=== PATIENT | female | born 1950 | race Caucasian/White ===

== ENCOUNTER → 2019-09-26 12:15 | Outpatient (CLI) | payer MEDICARE, BC, SELFPAY ==
--- NOTE | ~2019-09-26 | MM_ITS ---
EXAMINATION: MM screening moise BI w marline HISTORY: Screening mammogram TECHNIQUE: Craniocaudal and mediolateral oblique 3-D tomosynthesis images were obtained and synthetic 2-D images were generated. CAD analysis was submitted and interpreted. COMPARISON: 08/08/2018, 07/19/2016, 08/15/2014 bilateral digital screening mammogram examinations BREAST PARENCHYMAL COMPOSITION: There are scattered areas of fibroglandular density. FINDINGS: There is no evidence of suspicious mass, calcification, or architectural distortion to sugg est malignancy in either breast. There has been no suspicious interval change. IMPRESSION: 1. No mammographic evidence of malignancy. 2. Recommend routine screening mammography in one year. BI-RADS Category 1: Negative Reviewed, dictated and finalized at location A. UNICATIONS DEPARTMENT CHAIR
--- NOTE | ~2019-09-26 | DEXA_ITS ---
Bone Density Report Name: Joanna Gallardo Age: 69 Sex: Female Ethnicity: White Date of : 1950 Indication: postmenopausal; screening for osteoporosis; asthma or emphysema; Referring Provider: VICTORIA BELTRAN Study: Bone densitometry was performed. Exam Date: September 26, 2019 Accession number: [id number] Bone Density: Region BMD T-score Z-score Classification AP Spine (L1-L4) 1.078 0.3 2.3 Normal Femoral Neck (Left) 0.819 -0.3 1.5 Normal Total Hip (Left) 0.939 0.0 1.4 Normal Femoral Neck (Right) 0.859 0.1 1.9 Normal Total Hip (Right) 0.952 0.1 1.6 Normal Total Hip Mean 0.946 0.1 1.5 Normal World Health Organization criteria for BMD impression classify patients as: Normal (T-score at or above -1.0), Osteopenia (T-score between -1.0 and -2.5), or Osteoporosis (T-score at or below -2.5). 10-year Fracture Risk: FRAX not reported because: All T-scores for Spine Total, Hip Total, Femoral Neck at or above -1.0 Previous Exams: Region Exam Age BMD T-score BMD Change BMD Change Date g/cm2 vs Baseline vs Previous AP Spine(L1-L4) 09/26/2019 69 1.078 0.3 -0.071* -0.071* 03/10/2011 60 1.149 0.9 Total Hip(Left) 09/26/2019 69 0.939 0.0 -0.206 -0.081* 03/10/2011 60 1.020 0.6 -0.125 -0.125 09/14/2002 52 1.144 1.7 Total Hip(Right) 09/26/2019 69 0.952 0.1 -0.180 -0.060* 03/10/2011 60 1.012 0.6 -0.120 -0.120 09/14/2002 52 1.132 1.6 *Denotes significance at 95% confidence level, LSC for AP Spine = 0.022 g/cm2, LSC for Total Hip = 0.027 g/cm2 Clinical Information Provided by Patient: Has the following medical conditions: Asthma or Emphysema Patient maximum height was 62.0 Menopause Age: 49 No regular weight bearing exercise Drinks caffeinated beverages Onset of menses at age 15 Number of children 3 Impression: The patient has normal bone mass. The BMD for the AP Spine(L1-L4) decreased, changing by -0.071 since the last DXA exam. The BMD for the Total Hip(Left) decreased, changing by -0.081 since the last DXA exam. The BMD for the Total Hip(Right) decreased, changing by -0.060 since the last DXA exam. Discussion: BONE DENSITY IS ABOVE THE MINIMUM DESIRABLE LEVEL AT ALL SKELETAL SITES TESTED. This patient?s bone mineral density is above the minimum desirable level (T-score -1.0 or better) at all sites measured. The patient shou
== END ==
PROVIDERS: PCP Family Medicine; Visit Provider Obstetrics & Gynecology
DX: Z12.31 Encounter for screening mammogram for malignant neoplasm of breast (principal); Z78.0 Asymptomatic menopausal state
CPT/HCPCS: 77063; 77067; 77080

== ENCOUNTER 2019-09-26 13:28 | Outpatient (CLI) | payer MEDICARE, BC, SELFPAY ==
--- NOTE | ~2019-09-26 | XR_ITS ---
EXAMINATION: XR abdomen/kub 1V INDICATION: Calculus of kidney TECHNIQUE: Supine views of the abdomen were obtained on 2 radiographs. COMPARISON: 09/26/2018; CT, 03/02/2019 FINDINGS: Bowel contents project over the kidneys limiting sensitivity for renal stones. A 3 mm stone is seen in the upper pole of the left kidney. No definite additional urinary tract calculi are ident ified. There are phleboliths of the left pelvis. The bowel gas pattern is normal. IMPRESSION: 1. Left nephrolithiasis. Reviewed, dictated and finalized at location A. RAM COORDINATOR IMPRESSION: 1. Left nephrolithiasis.
== END 2019-09-26 13:29 | disposition home or self-care (01) ==
LOC: ANHIMG 13:31
PROVIDERS: PCP Family Medicine; Visit Provider Nurse Practitioner Adult Health
DX: N20.0 Calculus of kidney (principal)
CPT/HCPCS: 74018

== ENCOUNTER → 2020-10-10 14:22 | Outpatient (CLI) | payer MEDICARE, BC, SELFPAY ==
--- NOTE | ~2020-10-10 | MMUS_ITS ---
EXAMINATION: MM diagnostic moise BI w marline, US breast RT complete HISTORY: Right nipple itching, pain TECHNIQUE: ML, MLO and craniocaudal 3-D tomosynthesis images of both breasts were performed and synth etic 2-D images were generated. CAD analysis was submitted and interpreted. High resolution complete right breast ultrasound was performed. COMPARISON: 09/26/2019, 08/08/2018, 07/19/2016 bilateral digital screening mammogram examinations BREAST PARENCHYMAL COMPOSITION: There are scattered areas of fibroglandular density. FINDINGS: MAMMOGRAPHIC FINDINGS: No suspicious mass or architectural distortion, malignant calcification, skin thickening or retractio n or significant new or developing density is detected. ULTRASOUND: No suspicious mass, architectural distortion, cyst or other significant abnormality IMPRESSION: 1. No mammographic evidence of malignancy 2. Routine annual mammographic screening is recommended. BI-RADS Category 1: Negative Reviewed, dictated and finalized at location A. UNE TELLER IMPRESSION: 1. No mammographic evidence of malignancy 2. Routine annual mammographic screening is recommended. BI-RADS Category 1: Negative
== END ==
PROVIDERS: Visit Provider Nurse Practitioner
DX: N64.4 Mastodynia (principal)
CPT/HCPCS: 76641; 77062; 77066; G0279

== ENCOUNTER 2020-10-29 13:12 | Outpatient (CLI) | payer MEDICARE, BC, SELFPAY ==
--- NOTE | ~2020-10-29 | XR_ITS ---
EXAMINATION: CT abdomen pelvis wo con, XR abdomen/kub 1V DATE: 10/29/2020 13:37 INDICATION: Left-sided nephrolithiasis TECHNIQUE: 1. Computed tomography (CT) of the abdomen and pelvis was performed without intravenous contrast. Aut omated exposure control and iterative reconstruction technique were employed. The dose-length product was 277.98 mGy-cm. 2. Supine AP view of the abdomen and pelvis was obtained on 2 radiographs. COMPARISON: CT dated 03/02/2019 FINDINGS: CT: Lung bases are clear. Heart size is normal. No pericardial or pleural effusion. Liver, gallbladder an d bilateral adrenal glands are normal. Splenomegaly measuring 14.9 cm in craniocaudal length. Diffuse fatty atrophy of the pancreas. 10 mm exophytic cyst at the lower pole of the left kidney. 3 mm nonob structing stone in upper pole calyx of the left kidney. No stones at the right kidney or along the bi lateral ureters. No hydronephrosis. There are few scattered colonic diverticula without adjacent infl ammatory change to suggest diverticulitis. No bowel obstruction. Small diverticulum versus appendicea l stump near the tip of the cecum. Decompressed bladder is unremarkable. Anteverted uterus with chron ic likely pedunculated or subserosal fibroid/fibroids at the left side of the uterine fundus. A few p hleboliths in the pelvis. No free intraperitoneal gas or fluid. No pathologically enlarged abdominal or pelvic lymphadenopathy. Moderate lumbar spondylosis. KUB: The 3 mm stone at the upper pole of the kidneys visible projecting over the left 12th rib on the plai n radiographs. Phlebolith in the left hemipelvis. Normal bowel gas pattern. IMPRESSION: 1. Nonobstructing 3 mm left renal stone. 2. Nonspecific splenomegaly measuring 14.9 cm in craniocaudal length. 3. Fibroid uterus. Reviewed, dictated and finalized at location B. IDE EVENT SALES SPECIALIST IMPRESSION: 1. Nonobstructing 3 mm left renal stone. 2. Nonspecific splenomegaly measuring 14.9 cm in craniocaudal length. 3. Fibroid uterus.
== END 2020-10-29 13:13 | disposition home or self-care (01) ==
PROVIDERS: PCP Family Medicine; Visit Provider Urology
DX: N20.0 Calculus of kidney (principal); D25.9 Leiomyoma of uterus, unspecified; R16.1 Splenomegaly, not elsewhere classified
CPT/HCPCS: 74018; 74176

== ENCOUNTER → 2020-11-14 10:10 | Outpatient (CLI) | payer MEDICARE, BC, SELFPAY ==
--- NOTE | ~2020-11-14 | XR_ITS ---
EXAMINATION: XR_CERV2-3V_CR EXAM DATE: 11/14/2020 10:49 INDICATION: Right lateral neck pain when turning head and throbbing behind right ear for few months. TECHNIQUE: Cervical spine frontal, lateral, lateral swimmers, and open-mouth odontoid projections. There is no prior study for comparison. FINDINGS: There is no evidence of acute cervical fracture. The odontoid process is intact. Pre-dens space is normal. Prevertebral soft tissue is normal. There are no soft tissue abnormalities identi fied. There is moderate loss of the C5-6 and 6-7 disc heights, mild at C4-5. There is mild reversal of the normal cervical lordosis which may be degenerative, positional or spasm. The vertebral bodies are aligned. Overall moderate cervical arthropathy with some amount of neural foraminal stenosis savage spected at the lower cervical levels. Lung apices are clear. IMPRESSION: 1. Moderate cervical spondylosis. 2. Reversal of normal cervical lordosis. Reviewed, dictated and finalized at location A.
== END ==
PROVIDERS: PCP Family Medicine; Visit Provider Physician Assistant
DX: M47.892 Other spondylosis, cervical region (principal)
CPT/HCPCS: 72040

== ENCOUNTER 2021-03-24 19:30 | Emergency (ER) | payer MEDICARE, BC, SELFPAY ==
[2021-03-24 20:48] VITALS: BP 175/81; PULSE 72; RESP 20; TEMP 37.1; O2SAT 98
--- NOTE | 2021-03-24 22:10 | ED.BACK ---
HPI - Back Pain/Injury General Chief Complaint: Back Pain/Injury Stated Complaint: back pain Time Seen by Provider: 03/24/21 21:30 Source: patient Mode of arrival: ambulatory Limitations: no limitations History of Present Illness HPI Narrative: Patient is a 70 year old female who presents with left lower back pain radiating to left leg. She denies loss of bowel or bladder control, she denies injury. Patient reports she recently has MRI of spine and will be seeing pain management on 03/30. Patient reports taking cyclobenzaprine without relief. She reports taking Tylenol x1 without relief. She reports increasing pain over the past few days. She denies significant medical history. She denies all other complaints at this time MD elicited complaint: back pain Related Data Home Medications Medication Instructions Recorded Confirmed rosuvastatin 20 mg tablet 20 mg PO DAILY 09/12/20 12/15/20 hydrochlorothiazide 25 mg tablet 12.5 mg PO DAILY tablet 12/15/20 Allergies Allergy/AdvReac Type Severity Reaction Status Date / Time NSAIDS (Non-Steroidal AdvReac Intermediate BLOATING/ABD. Verified 12/15/20 14:11 Anti-Inflamma PAIN Review of Systems Review of Systems: Narrative: CONSTITUTIONAL: Denies fever, chills, or sweats. EYES: Denies visual changes, redness, or discharge. ENT: Denies rhinorrhea, congestion, sore throat, or otalgia. CARDIOVASCULAR: Denies chest pain, palpitations, or edema. RESPIRATORY: Denies cough or dyspnea. GASTROINTESTINAL: Denies abdominal pain, nausea, vomiting, or diarrhea. GENITOURINARY: Denies dysuria or hematuria. SKIN: Denies rash or itching. MUSCULOSKELETAL: Reports left lower back pain that radiates leg NEUROLOGIC: Denies headache, numbness, dizziness, or weakness. PSYCHIATRIC: Denies anxiety or depression. [facility] Past Medical History Medical History Arthritis Colitis Hyperlipidemia Hypertension Mild chronic obstructive pulmonary disease Neuropathy Surgical History Surgical History H/O section H/O rotator cuff surgery History of colon surgery Family History Family History Father Heart attack Mother Cerebrovascular accident Sibling Heart attack COPD (chronic obstructive pulmonary disease) Arthritis Son Cerebrovascular accident Social History Social History Smoking packs per day: 1 Smoking cigarettes per day: 20.0 Years smoked: 18 Smoking pack-years: 18.00 Tobacco type: cigarettes Second hand tobacco smoke exposure: Yes Smoking end date: 08/29/91 Alcohol intake: former Alcohol use details: rare Substance use: never Substance use type: does not use Gender identity (if verbalized by the patient): Female Comments At the time of signature, I have reviewed and agree with nursing past medical, surgical, social, and family history unless otherwise noted. Please see nursing chart for further information. There is no relevant family history pertinent to the presenting complaint. Exam Narrative: Exam Narrative: GENERAL: Well-appearing, well-nourished, and in no acute distress. HEAD: Normocephalic, atraumatic. EYES: EOMI. No redness or drainage. Conjunctiva are normal. ENT: Mucous membranes pink and moist. CHEST: No respiratory distress. HEART: Regular rate and rhythm. MUSCULOSKELETAL: Tenderness with palpation to left paraspinous EXTREMITIES: Normal range of motion. No edema. SKIN: Warm, dry, no rash. NEURO: No focal deficits. Alert and oriented x3. Gait steady. PSYCH: Normal affect. No signs of depression or anxiety. Course Vital Signs Vital signs: Vital Signs Temperature 37.1 C 03/24/21 20:48 Pulse Rate 72 03/24/21 20:48 Respiratory Rate 20 03/24/21 20:48 Blood Pressure 175/81 H 03/24/21 20:48
[2021-03-24 22:41] VITALS: BP 144/77; PULSE 78; RESP 18; TEMP 36.7; O2SAT 99
[2021-03-24] MEDS: traMADol HCL (*CRX) 50 MG TABLET PO (22:51)
== END 2021-03-24 22:53 | disposition home or self-care (01) ==
PROVIDERS: Emergency Provider Nurse Practitioner; PCP Family Medicine
DX: M54.5 Low back pain (principal); I10 Essential (primary) hypertension; E78.5 Hyperlipidemia, unspecified; J44.9 Chronic obstructive pulmonary disease, unspecified; G62.9 Polyneuropathy, unspecified; M19.90 Unspecified osteoarthritis, unspecified site; F17.210 Nicotine dependence, cigarettes, uncomplicated
CPT/HCPCS: 99283; A9270

== ENCOUNTER 2021-04-02 11:56 | Outpatient (CLI) | payer MEDICARE, BC, SELFPAY ==
--- NOTE | ~2021-04-02 | XR_ITS ---
XR lumbar spine min 4V DATE: 04/02/2021 12:20 INDICATION: Left low back pain. No injury. TECHNIQUE: AP, lateral, bilateral oblique views and coned lateral lumbosacral view COMPARISON: None FINDINGS: There is mild levoscoliosis of the thoracolumbar spine. Mild diffuse osteopenia. Normal alignment of the lumbar spine. No fracture or bone destruction is evident. The lumbar pedicles are intact. Moderate degenerative disc disease at L1-2 and L3-4 moderately severe degenerative disc disease at L2 -3, L3-4 and to a greater extent L5-S1. No spondylolysis or spondylolisthesis. The sacroiliac joints are intact. There is abdominal aortic and bilateral common iliac artery calcification, without evidence of aneury sm. IMPRESSION: Multilevel degenerative disc disease, most pronounced at L5-S1 Reviewed, dictated and finalized at location B.
== END 2021-04-02 11:57 | disposition home or self-care (01) ==
LOC: ANHIMG 11:59
PROVIDERS: PCP Family Medicine; Visit Provider Family Medicine
DX: M51.37 Other intervertebral disc degeneration, lumbosacral region (principal)
CPT/HCPCS: 72110

== ENCOUNTER 2021-06-11 12:11 | Outpatient (CLI) | payer MEDICARE, BC, SELFPAY ==
[2021-06-11 12:43] LABS: Basophils Percent Auto 0.4 % (0.2-1.2); Eosinophils Absolute Auto 0.1 K/mm3 (0-0.3); Eosinophils Percent Auto 1.3 % (0-4.4); Hematocrit 36.2 % (37.0-47.0); Hemoglobin 11.5 g/dL (12.0-15.0); Immature Granulocyte Absolute 0.01 K/mm3 (0.00-0.031); Immature Granulocyte Percent A 0.2 % (0-0.5); Lymphocytes Absolute Auto 1.71 K/mm3 (0.9-3.2); Lymphocytes Percent Auto 31.7 % (18.3-44.2); Mean Corpuscular HGB Conc 31.8 g/dl (32-36); Mean Corpuscular Hemoglobin 25.5 pg (26-34); Mean Corpuscular Volume 80.3 fl (80-100); Mean Platelet Volume 9.1 fl (7.4-10.4); Monocytes Absolute Auto 0.4 K/mm3 (0.1-0.6); Monocytes Percent Auto 6.9 % (2.6-8.5); Neutrophils Absolute Auto 3.2 K/mm3 (1.3-6.7); Neutrophils Percent Auto 59.5 % (45.5-73.1); Platelet Count Result 93 k/mm3 (150-375); Red Blood Count 4.51 M/mm3 (4.2-5.4); White Blood Count 5.4 K/mm3 (4.5-10.0)
[2021-06-11 16:36] LABS: Iron 38 ug/dL (37-170)
[2021-06-11 16:46] LABS: Alanine Aminotransferase 14 U/L (4-35); Albumin Level 4.4 g/dL (3.5-5.1); Alkaline Phosphatase 73 U/L (38-126); Anion Gap 8 mmol/L (8-16); Aspartate Amino Transferase 32 U/L (14-36); Bilirubin,Total 0.7 mg/dL (0.2-1.3); Blood Urea Nitrogen 15 mg/dL (7-17); Calcium 9.3 mg/dL (8.4-10.2); Carbon Dioxide 27 mmol/L (22-30); Chloride 104 mmol/L (98-107); Estimated Glomerular Filt Rate 55; Glucose 98 mg/dL (65-110); Lactate Dehydrogenase 388 U/L (313-618); Percent Iron Saturation 14 % (20-50); Potassium 4.7 mmol/L (3.4-5.0); Sodium 139 mmol/L (137-145)
[2021-06-11 17:52] LABS: Folic Acid 14.3 ng/mL (2.76->20)
== END 2021-06-11 12:12 | disposition home or self-care (01) ==
PROVIDERS: PCP Family Medicine; Visit Provider Internal Medicine Hematology & Oncology
DX: D64.9 Anemia, unspecified (principal)
CPT/HCPCS: 36415; 80053; 82607; 82728; 82746; 83540; 83550; 83615; 85025

== ENCOUNTER 2021-07-27 01:15 | Day surgery (SDC) | payer MEDICARE, BC, SELFPAY ==
[2021-07-08 16:10] VITALS: BMI 33.5
[2021-07-27 12:27] VITALS: BP 123/66; PULSE 92; RESP 18; TEMP 36.3; O2SAT 98; BMI 32.8
--- NOTE | 2021-07-27 12:39 | WPDGICN ---
Assessment and Plan Assessment and plan (1) Encounter for screening colonoscopy: Code(s): Z12.11 - Encounter for screening for malignant neoplasm of colon Status: Acute Assessment and Plan: Patient presents for screening colonoscopy. Appears to be at average risk for colon polyps. Further recommendations may be given after endoscopy. GI Consult Note Consult date/time: 07/27/21 12:39 HPI: Joanna Gallardo is a 71 year old female Presents for screening colonoscopy. Patient's current weight appetite and bowel movements are normal. She denies abdominal pain. She has had no bleeding. Family history is noncontributory. Patient has a history of GE reflux and esophageal web this was dilated several years ago. Currently this appears to be stable. She denies any ongoing heartburn. She has had no weight loss. Review of Systems Review of Systems: All systems reviewed & are unremarkable except as noted in HPI and below PMFSH Past Medical History Medical History (Updated 07/27/21 @ 12:41 by Jose A Leger MD) Arthritis Chronic renal insufficiency, stage III (moderate) Colitis Dyspnea Greater trochanteric bursitis of left hip Hyperlipidemia Hypertension Mild chronic obstructive pulmonary disease Neuropathy Thrombocytopenia Surgical History Surgical History H/O section H/O rotator cuff surgery History of colon surgery Family History Family History Father Heart attack Mother Cerebrovascular accident Sibling Heart attack COPD (chronic obstructive pulmonary disease) Arthritis Son Cerebrovascular accident Social History Social History Smoking packs per day: 1 Smoking cigarettes per day: 20.0 Years smoked: 18 Smoking pack-years: 18.00 Smoking status: Former smoker Tobacco type: cigarettes Second hand tobacco smoke exposure: Yes Smoking end date: 08/29/91 Alcohol intake: current Alcohol use details: Special occasions Substance use: never Substance use type: does not use Living arrangements: with family Gender identity (if verbalized by the patient): Female Spiritual care concerns: No Meds Home Medications and Allergies Home Medications Medication Instructions Recorded Confirmed Type rosuvastatin 20 mg tablet 20 mg PO DAILY 09/12/20 07/27/21 History ferrous sulfate 325 mg PO DAILY 07/08/21 07/27/21 History fluticasone propion-salmeterol 1 inh INHALATION BID 07/08/21 07/27/21 History [Wixela Inhub] losartan 25 mg PO DAILY 07/08/21 07/27/21 History Allergies Allergy/AdvReac Type Severity Reaction Status Date / Time NSAIDS (Non-Steroidal AdvReac Intermediate BLOATING/ABD. Verified 07/27/21 12:25 Anti-Inflamma PAIN Vital Signs Vital Signs - 24 hr 07/27/21 12:27 Temperature 97.4 F L Pulse Rate 92 Respiratory Rate 18 Blood Pressure 123/66 Pulse Oximetry 98 Exam Narrative: Physical exam reveals patient to be alert. Vital signs are stable. HEENT exam is unremarkable. Patient is anicteric. Lungs are clear to auscultation and to percussion. Heart is without murmur or extra sounds. Abdominal exam bowel sounds are present soft nontender with no hepatosplenomegaly. Digital external rectal exam is normal.
[2021-07-27] MEDS: LACTATED RINGERS 1,000 ML 150 ML IV CONT (12:40)
--- NOTE | 2021-07-27 12:53 | WPDANESEPPF ---
Anes - Initial Pre Proc Eval Procedure: Operation Date: 07/27/21 13:45 Proposed Procedures p Screening Colonoscopy - Jose A Leger MD Date/Time: 07/27/21 12:53 Surgeon: Jose A Leger MD Pre Op Diagnosis: neoplasm screening Patient Data Age: 71 Gender: F Height: 1.57 m Weight: 81.6 kg Last Vital Signs Temp 97.4 F L 07/27/21 12:27 Pulse 92 07/27/21 12:27 Resp 18 07/27/21 12:27 BP 123/66 07/27/21 12:27 Pulse Ox 98 07/27/21 12:27 Allergies Allergy/AdvReac Type Severity Reaction Status Date / Time NSAIDS (Non-Steroidal AdvReac Intermediate BLOATING/ABD. Verified 07/27/21 12:25 Anti-Inflamma PAIN Home Medications Medication Instructions Recorded Confirmed Type rosuvastatin 20 mg tablet 20 mg PO DAILY 09/12/20 07/27/21 History ferrous sulfate 325 mg PO DAILY 07/08/21 07/27/21 History fluticasone propion-salmeterol 1 inh INHALATION BID 07/08/21 07/27/21 History [Wixela Inhub] losartan 25 mg PO DAILY 07/08/21 07/27/21 History Patient hx anesthesia problems: none Family hx anesthesia problems: none Results Review: All pre-operative results and documents have been reviewed as part of the pre-operative evaluation. [facility] Past Medical History Medical History (Updated 07/27/21 @ 12:41 by Jose A Leger MD) Arthritis Chronic renal insufficiency, stage III (moderate) Colitis Dyspnea Greater trochanteric bursitis of left hip Hyperlipidemia Hypertension Mild chronic obstructive pulmonary disease Neuropathy Thrombocytopenia Surgical History Surgical History H/O section H/O rotator cuff surgery History of colon surgery Family History Family History Father Heart attack Mother Cerebrovascular accident Sibling Heart attack COPD (chronic obstructive pulmonary disease) Arthritis Son Cerebrovascular accident Social History Social History Smoking packs per day: 1 Smoking cigarettes per day: 20.0 Years smoked: 18 Smoking pack-years: 18.00 Smoking status: Former smoker Tobacco type: cigarettes Second hand tobacco smoke exposure: Yes Smoking end date: 08/29/91 Alcohol intake: current Alcohol use details: Special occasions Substance use: never Substance use type: does not use Living arrangements: with family Gender identity (if verbalized by the patient): Female Spiritual care concerns: No Anes - Eval Final PreProcedure Day of Procedure 07/27/21 12:53 Patient weight: obese Heart: regular rate and rhythm Lungs: clear to auscultation Airway: Mallampati scale class II Neurological: alert and oriented Last oral intake: >/= 8 hours ASA classification: III Emergent: no Anesthetic plan: proceed Anesthesia type and monitoring: general GIVS and standard monitoring Results Review: All pre-operative results and documents have been reviewed as part of the pre-operative evaluation. Informed Consent: The patient's anesthetic plan and its attendant risks and benefits were discussed with the patient/family/POA. Questions were solicited and answers provided to the satisfaction of the patient/family/POA.
[2021-07-27 14:40] VITALS: BP 117/60; PULSE 75; RESP 25; O2SAT 100
[2021-07-27 14:50] VITALS: BP 122/57; PULSE 68; RESP 18; O2SAT 100
[2021-07-27 15:00] VITALS: BP 132/65; PULSE 59; RESP 18; O2SAT 100
== END 2021-07-27 15:14 | disposition home or self-care (01) ==
PROVIDERS: PCP Family Medicine; Visit Provider Internal Medicine Gastroenterology
PROC: 0DJD8ZZ Inspection of Lower Intestinal Tract, Via Natural or Artificial Opening Endoscopic (ICD-10-PCS; CPT 45378; principal; 2021-07-27 13:45)
DX: Z12.11 Encounter for screening for malignant neoplasm of colon (principal); K57.30 Diverticulosis of large intestine without perforation or abscess without bleeding; D12.8 Benign neoplasm of rectum; I12.9 Hypertensive chronic kidney disease with stage 1 through stage 4 chronic kidney disease, or unspecified chronic kidney disease; N18.30 Chronic kidney disease, stage 3 unspecified; E78.5 Hyperlipidemia, unspecified; J44.9 Chronic obstructive pulmonary disease, unspecified; G62.9 Polyneuropathy, unspecified; Z87.891 Personal history of nicotine dependence; Z79.51 Long term (current) use of inhaled steroids; E66.9 Obesity, unspecified; Z68.32 Body mass index [BMI] 32.0-32.9, adult
CPT/HCPCS: 45385; 88305; J2704; J7120

== ENCOUNTER 2021-09-08 13:40 | Outpatient (CLI) | payer MEDICARE, BC, SELFPAY ==
--- NOTE | ~2021-09-08 | US_ITS ---
EXAMINATION: US venous doppler [facility] DATE: 09/08/2021 14:28 INDICATION: Left lower limb pain. TECHNIQUE: Grayscale ultrasound images without and with compression and Doppler ultrasound images of the bilateral lower extremity veins were obtained. COMPARISON: Ultrasound 11/08/2008 FINDINGS: The visualized portions of right common femoral vein, profunda (deep) femoral vein, femoral vein, pop liteal vein, peroneal veins, posterior tibial veins, and greater saphenous vein outflow are patent. The visualized portions of left common femoral vein, profunda femoral vein, femoral vein, popliteal v ein, peroneal veins, posterior tibial veins, and greater saphenous vein outflow are patent. IMPRESSION: 1. No deep venous thrombosis. Reviewed, dictated and finalized at location B. [employer]ID[employer] TEACHER
== END 2021-09-08 13:41 | disposition home or self-care (01) ==
PROVIDERS: PCP Family Medicine; Visit Provider Family Medicine
DX: M79.604 Pain in right leg (principal); M79.605 Pain in left leg
CPT/HCPCS: 93970

== ENCOUNTER 2021-09-10 09:36 | Outpatient (CLI) | payer MEDICARE, BC, SELFPAY ==
[2021-09-10 09:53] LABS: Basophils Percent Auto 0.2 % (0.2-1.2); Eosinophils Absolute Auto 0.1 K/mm3 (0-0.3); Eosinophils Percent Auto 2.1 % (0-4.4); Hematocrit 38.2 % (37.0-47.0); Hemoglobin 11.9 g/dL (12.0-15.0); Immature Granulocyte Absolute 0.02 K/mm3 (0.00-0.031); Immature Granulocyte Percent A 0.4 % (0-0.5); Lymphocytes Absolute Auto 1.99 K/mm3 (0.9-3.2); Mean Corpuscular HGB Conc 31.2 g/dl (32-36); Mean Corpuscular Volume 83.4 fl (80-100); Mean Platelet Volume 8.7 fl (7.4-10.4); Monocytes Absolute Auto 0.3 K/mm3 (0.1-0.6); Monocytes Percent Auto 6.5 % (2.6-8.5); Neutrophils Absolute Auto 2.8 K/mm3 (1.3-6.7); Neutrophils Percent Auto 52.8 % (45.5-73.1); Platelet Count Result 124 k/mm3 (150-375); Red Blood Count 4.58 M/mm3 (4.2-5.4); Red Cell Distribution Width 13.6 % (11.5-14.5); White Blood Count 5.2 K/mm3 (4.5-10.0)
[2021-09-10 11:20] LABS: Iron 60 ug/dL (37-170)
[2021-09-10 11:30] LABS: Anion Gap 8 mmol/L (8-16); Blood Urea Nitrogen 16 mg/dL (7-17); Calcium 9.1 mg/dL (8.4-10.2); Carbon Dioxide 25 mmol/L (22-30); Chloride 103 mmol/L (98-107); Estimated Glomerular Filt Rate 55; Glucose 110 mg/dL (65-110); Potassium 4.2 mmol/L (3.4-5.0); Sodium 136 mmol/L (137-145)
[2021-09-10 11:33] LABS: Percent Iron Saturation 22 % (20-50)
[2021-09-10 12:30] LABS: Folic Acid 15.4 ng/mL (2.76->20)
== END 2021-09-10 09:37 | disposition home or self-care (01) ==
LOC: ANHLAB 09:39
PROVIDERS: PCP Family Medicine; Visit Provider Internal Medicine Hematology & Oncology
DX: D64.9 Anemia, unspecified (principal)
CPT/HCPCS: 36415; 80048; 82607; 82728; 82746; 83540; 83550; 85025

== ENCOUNTER 2021-10-12 13:45 | Outpatient (CLI) | payer MEDICARE, BC, SELFPAY ==
--- NOTE | ~2021-10-12 | CT_ITS ---
EXAMINATION: CT abdomen pelvis wo/w con DATE: 10/12/2021 14:40 INDICATION: Microscopic hematuria. Pelvic pressure, dysuria. Nocturia. TECHNIQUE: Computed tomography (CT) of the abdomen and pelvis was performed without and subsequently with 130 cc Omnipaque 350 intravenous contrast. Automated exposure control and iterative reconstructi on technique were employed. Exam dose: 2177.81 mGy-cm total exam DLP. COMPARISON: 11/15/2020 CT abdomen pelvis 10/12/2021 KUB FINDINGS: The lung bases are clear. Normal heart size. No pericardial or pleural effusion. No hepatic space-occupying mass lesion or intrahepatic or extrahepatic bile duct dilatation. The gall bladder is present. There is extensive fatty replacement of the pancreas. No pancreatic mass lesion or calcification. Vertical dimension of 14.9 cm from the spleen, consistent with splenomegaly. Normal morphology of the adrenal glands. Approximately 4 mm nonobstructing upper pole left renal calculus. No other urinary tract calculus or hydroureteronephrosis. 11 mm exophytic lower pole left renal cyst. No suspicious solid renal mass lesion or filling defect o f the renal collecting systems, ureters or urinary bladder is evident. There is limited distention of the urinary bladder. Uterus and adnexal areas are unremarkable. There is atherosclerotic calcification but normal caliber of the abdominal aorta and iliac arteries. No intraperitoneal or retroperitoneal or pelvic mass lesion or adenopathy or ascites is detected. Diverticulosis of the colon; no CT evidence of diverticulitis. The appendix is apparently absent. No bowel obstruction, bowel wall thickening, pneumatosis or intraperitoneal free air is detected. Multilevel degenerative disc disease of the lumbar spine, most pronounced at L5-S1. No suspicious ost eolytic or osteoblastic lesions are noted. IMPRESSION: Splenomegaly 11 mm exophytic lower pole left renal cyst 4 mm nonobstructing upper pole left renal calculus No urinary tract obstruction or suspicious urinary tract mass lesion is evident Diverticulosis of the colon; no CT evidence of diverticulitis Reviewed, dictated and finalized at Location A. Reviewed, dictated and finalized at location B. TLE VAN DRIVER
--- NOTE | ~2021-10-12 | XR_ITS ---
EXAMINATION: XR abdomen/kub 1V INDICATION: Microscopic hematuria TECHNIQUE: Supine views of the abdomen were obtained on 2 radiographs. COMPARISON: 10/29/[address] from today FINDINGS: There is a 4 mm stone in the left kidney upper pole. No additional urolithiasis is identifi ed. The bowel gas pattern is normal. There is moderate lumbar spondylosis. IMPRESSION: 1. 4 mm left kidney stone. Reviewed, dictated and finalized at location A. [employer]MENT PROFESSIONAL LOGISTICS IMPRESSION: 1. 4 mm left kidney stone.
[2021-10-12 14:19] LABS: Estimated Glomerular Filt Rate 55
== END 2021-10-12 13:46 | disposition home or self-care (01) ==
LOC: ANHIMG 13:49
PROVIDERS: PCP Family Medicine; Visit Provider Nurse Practitioner Adult Health
DX: R31.29 Other microscopic hematuria (principal); N20.0 Calculus of kidney; K57.30 Diverticulosis of large intestine without perforation or abscess without bleeding
CPT/HCPCS: 74018; 74178; Q9967

== ENCOUNTER → 2021-11-12 11:37 | Outpatient (CLI) | payer MEDICARE, BC, SELFPAY ==
--- NOTE | ~2021-11-12 | MM_ITS ---
EXAMINATION: MM screening [facility] BI w marline HISTORY: Screening mammogram TECHNIQUE: Craniocaudal and mediolateral oblique 3-D tomosynthesis images were obtained and synthetic 2-D images were generated. CAD analysis was submitted and interpreted. COMPARISON: 10/10/2020, 09/26/2019, 08/08/2018 BREAST PARENCHYMAL COMPOSITION: There are scattered areas of fibroglandular density. FINDINGS: There is no suspicious mass, calcification, or architectural distortion to suggest malignan cy in either breast. There has been no suspicious interval change. IMPRESSION: 1. No mammographic evidence of malignancy. 2. Recommend routine screening mammography in one year. BI-RADS Category 1: Negative Reviewed, dictated and finalized at location A.
== END ==
PROVIDERS: PCP Family Medicine; Visit Provider Nurse Practitioner
DX: Z12.31 Encounter for screening mammogram for malignant neoplasm of breast (principal)
CPT/HCPCS: 77063; 77067

== ENCOUNTER 2022-03-15 09:12 | Outpatient (CLI) | payer MEDICARE, BC, SELFPAY ==
[2022-03-15 09:37] LABS: Basophils Percent Auto 0.4 % (0.2-1.2); Eosinophils Absolute Auto 0.1 K/mm3 (0-0.3); Hematocrit 37.7 % (37.0-47.0); Hemoglobin 12.1 g/dL (12.0-15.0); Immature Granulocyte Absolute 0.02 K/mm3 (0.00-0.031); Immature Granulocyte Percent A 0.4 % (0-0.5); Lymphocytes Absolute Auto 1.66 K/mm3 (0.9-3.2); Lymphocytes Percent Auto 33.4 % (18.3-44.2); Mean Corpuscular HGB Conc 32.1 g/dl (32-36); Mean Corpuscular Hemoglobin 26.4 pg (26-34); Mean Corpuscular Volume 82.3 fl (80-100); Mean Platelet Volume 9.2 fl (7.4-10.4); Monocytes Absolute Auto 0.3 K/mm3 (0.1-0.6); Monocytes Percent Auto 6.6 % (2.6-8.5); Neutrophils Absolute Auto 2.8 K/mm3 (1.3-6.7); Neutrophils Percent Auto 57.2 % (45.5-73.1); Platelet Count Result 93 k/mm3 (150-375); Red Blood Count 4.58 M/mm3 (4.2-5.4); Red Cell Distribution Width 13.7 % (11.5-14.5)
[2022-03-15 10:44] LABS: Iron 40 ug/dL (37-170)
[2022-03-15 10:45] LABS: Anion Gap 6 mmol/L (8-16); Blood Urea Nitrogen 16 mg/dL (7-17); Calcium 8.9 mg/dL (8.4-10.2); Carbon Dioxide 26 mmol/L (22-30); Chloride 106 mmol/L (98-107); Estimated Glomerular Filt Rate 55; Glucose 108 mg/dL (65-110); Potassium 4.4 mmol/L (3.4-5.0); Sodium 138 mmol/L (137-145)
[2022-03-15 10:55] LABS: Percent Iron Saturation 15 % (20-50)
[2022-03-15 11:54] LABS: Folic Acid 15.1 ng/mL (2.76->20); Vitamin B12 > 1000.0 pg/mL (239-931)
== END 2022-03-15 09:13 | disposition home or self-care (01) ==
PROVIDERS: PCP Family Medicine; Visit Provider Internal Medicine Hematology & Oncology
DX: D64.9 Anemia, unspecified (principal)
CPT/HCPCS: 36415; 80048; 82607; 82728; 82746; 83540; 83550; 85025

== ENCOUNTER 2022-06-28 12:00 | Outpatient (CLI) | payer MEDICARE, BC, SELFPAY ==
--- NOTE | ~2022-06-28 | XR_ITS ---
EXAM: XR abdomen/kub 1V DATE: 06/28/2022 12:37 HISTORY: left side kidney stone . COMPARISON: 10/12/2021, x-ray and CT. FINDINGS: Clear lung bases. Normal bowel gas pattern. Enlarged spleen. Stable 4 mm left midpole calc ification. Pelvic phleboliths. Atherosclerotic calcifications. Degenerative changes in the spine. IMPRESSION: Splenomegaly. Stable left nephrolithiasis. Reviewed, dictated and finalized at location K.
== END 2022-06-28 12:01 | disposition home or self-care (01) ==
PROVIDERS: PCP Family Medicine; Visit Provider Nurse Practitioner Adult Health
DX: N20.0 Calculus of kidney (principal); R16.1 Splenomegaly, not elsewhere classified
CPT/HCPCS: 74018

== ENCOUNTER 2022-09-13 11:07 | Outpatient (CLI) | payer MEDICARE, BC, SELFPAY ==
[2022-09-13 11:20] LABS: Basophils Percent Auto 0.2 % (0.2-1.2); Eosinophils Absolute Auto 0.1 K/mm3 (0-0.3); Eosinophils Percent Auto 1.5 % (0-4.4); Hematocrit 38.2 % (37.0-47.0); Hemoglobin 12.3 g/dL (12.0-15.0); Immature Granulocyte Absolute 0.02 K/mm3 (0.00-0.031); Immature Granulocyte Percent A 0.4 % (0-0.5); Lymphocytes Absolute Auto 1.63 K/mm3 (0.9-3.2); Mean Corpuscular HGB Conc 32.2 g/dl (32-36); Mean Corpuscular Volume 83.8 fl (80-100); Monocytes Absolute Auto 0.4 K/mm3 (0.1-0.6); Monocytes Percent Auto 7.6 % (2.6-8.5); Neutrophils Absolute Auto 3.1 K/mm3 (1.3-6.7); Neutrophils Percent Auto 59.3 % (45.5-73.1); Platelet Count Result 84 k/mm3 (150-375); Red Blood Count 4.56 M/mm3 (4.2-5.4); Red Cell Distribution Width 13.7 % (11.5-14.5); White Blood Count 5.3 K/mm3 (4.5-10.0)
[2022-09-13 12:25] LABS: Iron 45 ug/dL (37-170)
[2022-09-13 12:32] LABS: Anion Gap 8 mmol/L (8-16); Blood Urea Nitrogen 14 mg/dL (7-17); Calcium 8.8 mg/dL (8.4-10.2); Carbon Dioxide 26 mmol/L (22-30); Chloride 105 mmol/L (98-107); Estimated Glomerular Filt Rate 49; Glucose 94 mg/dL (65-110); Potassium 4.2 mmol/L (3.4-5.0); Sodium 139 mmol/L (137-145)
[2022-09-13 13:26] LABS: Percent Iron Saturation 16 % (20-50)
[2022-09-13 13:39] LABS: Folic Acid 12.2 ng/mL (2.76->20)
== END 2022-09-13 11:08 | disposition home or self-care (01) ==
LOC: ANHLAB 11:08
PROVIDERS: PCP Family Medicine; Visit Provider Internal Medicine Hematology & Oncology
DX: D64.9 Anemia, unspecified (principal)
CPT/HCPCS: 36415; 80048; 82607; 82728; 82746; 83540; 83550; 85025

== ENCOUNTER 2022-11-03 10:56 | Outpatient (CLI) | payer MEDICARE, BC, SELFPAY ==
--- NOTE | ~2022-11-03 | XR_ITS ---
XR abdomen/kub 1V DATE: 11/03/2022 11:13 INDICATION: Kidney stone TECHNIQUE: 2 AP views of the abdomen and pelvis COMPARISON: 06/28/2022 KUB FINDINGS: Stable small calcification overlying the left kidney. No other urinary tract calcification is suggested. Splenomegaly is again noted. The psoas shadows are intact. No evidence of bowel obstruction. There is a prominent of fecal material in the rectum and right colo n. Degenerative changes of the lumbar spine. No suspicious osteolytic or osteoblastic lesions. The lung bases appear clear. IMPRESSION: Stable small calcified left renal calculus Stable splenomegaly Reviewed, dictated and finalized at Location A. Reviewed, dictated and finalized at location B. RVISING EDITOR TRAILER
== END 2022-11-03 10:57 | disposition home or self-care (01) ==
PROVIDERS: PCP Family Medicine; Visit Provider Urology
DX: N20.0 Calculus of kidney (principal)
CPT/HCPCS: 74018

== ENCOUNTER → 2023-02-03 16:04 | Outpatient (CLI) | payer MEDICARE, BC, SELFPAY ==
--- NOTE | ~2023-02-03 | MM_ITS ---
EXAMINATION: MM screening moise BI w marline HISTORY: Screening mammogram TECHNIQUE: Craniocaudal and mediolateral oblique 3-D tomosynthesis images were obtained and synthetic 2-D images were generated. CAD analysis was submitted and interpreted. COMPARISON: 11/12/2021, 10/10/2020, 09/26/2019 BREAST PARENCHYMAL COMPOSITION:There are scattered areas of fibroglandular density. FINDINGS: No suspicious mass, calcification, or architectural distortion are identified in either esmer ast to suggest malignancy. There has been no suspicious interval change. IMPRESSION: No mammographic evidence of malignancy. Recommend routine screening mammography in one year. BI-RADS Category 1: Negative Reviewed, dictated and finalized at location .
== END ==
PROVIDERS: PCP Family Medicine; Visit Provider Obstetrics & Gynecology Gynecology
DX: Z12.31 Encounter for screening mammogram for malignant neoplasm of breast (principal)
CPT/HCPCS: 77063; 77067

== ENCOUNTER 2023-03-14 09:23 | Outpatient (CLI) | payer MEDICARE, BC, SELFPAY ==
[2023-03-14 09:34] LABS: Basophils Percent Auto 0.8 % (0.2-1.2); Eosinophils Absolute Auto 0.2 K/mm3 (0-0.3); Hematocrit 35.2 % (37.0-47.0); Hemoglobin 11.5 g/dL (12.0-15.0); Immature Granulocyte Absolute 0.02 K/mm3 (0.00-0.031); Immature Granulocyte Percent A 0.5 % (0-0.5); Lymphocytes Absolute Auto 0.94 K/mm3 (0.9-3.2); Lymphocytes Percent Auto 24.7 % (18.3-44.2); Mean Corpuscular HGB Conc 32.7 g/dl (32-36); Mean Corpuscular Hemoglobin 26.3 pg (26-34); Mean Corpuscular Volume 80.5 fl (80-100); Mean Platelet Volume 9.5 fl (7.4-10.4); Monocytes Absolute Auto 0.4 K/mm3 (0.1-0.6); Neutrophils Absolute Auto 2.3 K/mm3 (1.3-6.7); Platelet Count Result 111 k/mm3 (150-375); Red Blood Count 4.37 M/mm3 (4.2-5.4); Red Cell Distribution Width 13.5 % (11.5-14.5); White Blood Count 3.8 K/mm3 (4.5-10.0)
[2023-03-14 12:21] LABS: Iron 44 ug/dL (37-170)
[2023-03-14 12:38] LABS: Percent Iron Saturation 18 % (20-50)
[2023-03-14 12:41] LABS: Anion Gap 7 mmol/L (8-16); Blood Urea Nitrogen 9 mg/dL (7-17); Calcium 8.8 mg/dL (8.4-10.2); Carbon Dioxide 25 mmol/L (22-30); Chloride 101 mmol/L (98-107); Estimated Glomerular Filt Rate > 60; Glucose 100 mg/dL (65-110); Potassium 4.1 mmol/L (3.4-5.0); Sodium 133 mmol/L (137-145)
[2023-03-14 13:39] LABS: Folic Acid 10.7 ng/mL (2.76->20); Vitamin B12 > 1000.0 pg/mL (239-931)
== END 2023-03-14 09:24 | disposition home or self-care (01) ==
LOC: ANHLAB 09:25
PROVIDERS: PCP Family Medicine; Visit Provider Internal Medicine Hematology & Oncology
DX: D64.9 Anemia, unspecified (principal)
CPT/HCPCS: 36415; 80048; 82607; 82728; 82746; 83540; 83550; 85025

== ENCOUNTER 2023-05-03 07:21 | Day surgery (SDC) | payer MEDICARE, BC, SELFPAY ==
[2023-04-29 09:30] VITALS: BMI 32.2
--- NOTE | ~2023-05-03 | XR_ITS ---
EXAMINATION: XR fluoroscopy no charge INDICATION: Bilateral L3, L4, and L5 medial branch/dorsal ramus block TECHNIQUE: 10 intraoperative fluoroscopic images are submitted for review. Total fluoroscopic time is 66.3 seconds. COMPARISON: None available FINDINGS: Fluoroscopic images demonstrate bilateral injections at L3, L4, and L5. Please refer to pro cedure note for full details. IMPRESSION: 1. Please refer to procedure note for full details. Reviewed, dictated and finalized at location L.
--- NOTE | 2023-05-03 07:16 | WPDHPUPDATE1 ---
History and Physical Update Update Date/Time: 05/03/23 07:16 History and Physical has been reviewed, including an updated exam of the patient. There are NO changes in the patient's condition. Risks, benefits, and alternatives have been discussed and questions answered. Patient agrees to proceed with procedure.
[2023-05-03 07:52] VITALS: BP 122/67; PULSE 69; RESP 16; TEMP 36.5; O2SAT 99
[2023-05-03 08:45] VITALS: BP 173/76; PULSE 70; RESP 18; O2SAT 98
[2023-05-03 08:55] VITALS: BP 173/80; PULSE 72; RESP 18; O2SAT 99
[2023-05-03] MEDS: LIDOCAINE HCL 1% PF INJ 5 ML VIAL 3 ML INFILTRATE (08:58)
[2023-05-03] MEDS: BUPivacaine HCL 0.5% 10 ML AMP INFILTRATE (09:05)
--- NOTE | 2023-05-03 09:10 | W.PM.PROC2 ---
Procedure Note - Detailed Date of Procedure 05/03/23 Pre-op Diagnosis Spondylosis of Lumbosacral Region, Chronic low Back Pain Post-op Diagnosis Same Procedure Performed Bilateral L3,L4, L5 medial branch/dorsal ramus blocks under fluoroscopic guidance (#1). Surgeon Shashank Xiong MD Anesthesia Local Indications Chronic, recalcitrant low back pain secondary to lumbosacral facet syndrome. Description of Procedure INFORMED CONSENT: Risks, benefits and alternatives to the procedure were discussed in detail with the patient who expressed explicit understanding and consent to proceed. Patient was informed verbally and in written form regarding the risks associated with the procedure including the low risk of serious infection, bleeding/bruising, allergic reaction, nerve or organ injury, paralysis, procedural site pain or discomfort, worsening pain and/or mobility, failure to treat and/or disfigurement. The patient expressed explicit understanding and consent to proceed. All materials required for the procedure were available prior to procedure start. Site and side were marked prior to procedure and confirmed in the presence of the patient. PROCEDURE IN DETAIL: The patient was brought to the procedural suite and placed in the prone position. Patient was made comfortable with use of pillows under the head/chest, hips and ankles. Skin overlying the injection site on the affected side(s) was prepared broadly with ChloraPrep applicator and draped in a sterile manner. Aseptic technique was used throughout. The endplates of the vertebral bodies at the site(s) of interest were aligned in the AP view. Ipsilateral oblique angulation was utilized to optimize visualization of the intersection between the superior articulating process and transverse process at each target site. Local anesthesia was established by infiltration with approximately 5 mL of 1% lidocaine via a 1-1/2 inch 27-gauge needle. A 25-gauge 3.5 inch Quincke spinal needle was advanced until the needle tip contacted periosteum at the target site, right L3. Lateral view was utilized to confirm the appropriate placement of the needle tip just anterior to the facet line and superior to the pedicle. In the Lateral view, 0.25 mL of Omnipaque 300 contrast medium was injected after negative aspiration for CSF, blood or other bodily fluid, showing appropriate extra-articular spread of contrast without evidence of intravascular, foraminal or intrathecal placement. A 0.5 mL solution of 0.5% PF bupivacaine was injected after negative repeat aspiration. Appropriate spread of the injectate was confirmed with washout of previously injected contrast. No parasthesias were elicited. Needle was removed completely intact without difficulty. The same exact procedure was repeated for all remaining levels on the ipsilateral side, right L4, L5 medial branches/dorsal ramus, modified as necessary to accommodate for the new target location with identical findings and results and no evidence of complication. The same exact procedure was repeated for all remaining levels on the contralateral side, left L3, L4, L5 medial branches/dorsal ramus, modified as necessary to accommodate for the new target location with identical findings and results and no evidence of complication. Images were saved and documented in the patient chart. Patient's skin was cleaned and sterile bandage applied. The patient tolerated the procedure well. The patient was transported to the recovery area in stable condition where they were observed for an appropriate amount of time prior to discharge, without evidence of complication. Patient was instructed on the appropriate completion of a pain diary over the next 12-24 hours. The patient was instructed to avoid excessive activity for the next 48 hours, including climbing and frequent use of stairs. Showers only for 48 hours. They were instructed not to drive or operate heavy machinery for 24 hours. They are to monitor for
[2023-05-03 09:16] VITALS: BP 148/73; PULSE 69; RESP 14; O2SAT 100
--- NOTE | 2023-05-03 10:05 | SUR.PHASEII ---
pain diary given at d/c with instructions
== END 2023-05-03 09:30 | disposition home or self-care (01) ==
LOC: ASC 07:30
PROVIDERS: PCP Family Medicine; Visit Provider Anesthesiology Pain Medicine
PROC: (CPT 64493; principal; 2023-05-03 08:30)
DX: M47.817 Spondylosis without myelopathy or radiculopathy, lumbosacral region (principal); M54.59 Other low back pain
CPT/HCPCS: 64493 ×2; 99199

== ENCOUNTER 2023-05-24 08:35 | Day surgery (SDC) | payer MEDICARE, BC, SELFPAY ==
[2023-05-16 11:24] VITALS: BMI 32.2
--- NOTE | ~2023-05-24 | XR_ITS ---
EXAMINATION: XR fluoroscopy no charge DATE: 05/24/2023 9:45 CDT INDICATION: RT L2-3,L3-4 TRANSFORAMINAL EPIDURAL STEROID INJECTION . TECHNIQUE: 7 fluoroscopic images and 3 cine clips of 24, 16, and 10 images of the lumbar spine were o btained during right L2-3 and L3-4 transforaminal epidural steroid injection performed by the surgeon . I was not present in the operating room. Fluoroscopy exposure time was 14 seconds. Air Kerma 8.42 m Gy. COMPARISON: 05/03/2023 FINDINGS: Multiple fluoroscopic images demonstrate needles on the right at L2-3 and L3-4 followed by contrast i njection. IMPRESSION: Fluoroscopic documentation of right L2-3 and L3-4 transforaminal epidural steroid injection. Please r efer to the operative note for complete procedural details . Reviewed, dictated and finalized at location K. IMPRESSION: Fluoroscopic documentation of right L2-3 and L3-4 transforaminal epidural stero id injection. Please refer to the operative note for complete procedural detail s .
--- NOTE | 2023-05-24 07:27 | WPDHPUPDATE1 ---
History and Physical Update Update Date/Time: 05/24/23 07:27 History and Physical has been reviewed, including an updated exam of the patient. There are NO changes in the patient's condition. Risks, benefits, and alternatives have been discussed and questions answered. Patient agrees to proceed with procedure.
[2023-05-24 08:55] VITALS: BP 133/73; PULSE 76; RESP 20; TEMP 37.1; O2SAT 97
[2023-05-24 09:51] VITALS: BP 144/67; PULSE 69; RESP 20; O2SAT 98
[2023-05-24 09:58] VITALS: BP 139/68; PULSE 72; RESP 20; O2SAT 95
--- NOTE | 2023-05-24 09:59 | W.PM.PROC2 ---
Procedure Note - Detailed Date of Procedure 05/24/23 Pre-op Diagnosis Lumbar Spinal Stenosis w/o Neurogenic Claudication, lumbar radiculopathy Post-op Diagnosis Same Procedure Performed right L2-3, L3-4 transforaminal epidural steroid injection under fluoroscopic guidance with contrast controlled. Surgeon Shashank Xiong MD Anesthesia Local Indications Chronic, recalcitrant right low back lower extremity pain secondary to lumbar radiculopathy as result of lumbar spondylosis and stenosis Description of Procedure INFORMED CONSENT: Risks, benefits and alternatives to the procedure were discussed in detail with the patient who expressed explicit understanding and consent to proceed. Patient was informed verbally and in written form regarding the risks associated with the procedure including the low risk of serious infection, bleeding/bruising, allergic reaction, nerve or organ injury, paralysis, procedural site pain or discomfort, worsening pain and/or mobility, failure to treat and/or disfigurement. The patient expressed explicit understanding and consent to proceed. All materials required for the procedure were available prior to procedure start. Site and side was marked prior to procedure and confirmed in the presence of the patient. PROCEDURE IN DETAIL: The patient was brought to the procedural suite and placed in the prone position. Patient was made comfortable with use of pillows under the head/chest, hips and ankles. Skin overlying the injection site was prepared broadly with ChloraPrep applicator and draped in a sterile manner. Aseptic technique was employed throughout. The endplates of the vertebral body at the site of interest were aligned in the AP view. Ipsilateral oblique angulation was utilized to better visualize the neuroforamen of interest. Local anesthesia was established by infiltration with approximately 5 mL of 2% lidocaine via a 1-1/2 inch 27-gauge needle. A 22-gauge 3.5 inch Marly (pencil point) spinal needle was advanced until the needle approached the 6 o'clock position on the pedicle just superior to the exiting nerve root. on the right at L2-3. Lateral view was utilized to confirm appropriate position of the needle tip within the superior and posterior portion of the respective foramen. In an AP view, 1 mL of Omnipaque 300 contrast medium was injected after negative aspiration for CSF, blood or other bodily fluid, showing appropriate neurogram without evidence of intravascular or intrathecal spread of contrast. Digital subtraction imaging was used with an additional 1ml of the same contrast medium to confirm absence of intravascular contrast spread. A 1mL solution containing 5 mg of dexamethasone was injected after negative repeat aspiration. Appropriate spread of the injectate was confirmed with washout of previously injected contrast. No parasthesias were elicited. Needle was removed completely intact without difficulty. The same exact procedure was repeated for all remaining levels on the ipsilateral side, right L3-4 neural foramen, modified as necessary to accommodate for the new target location with identical findings and results and no evidence of complication. Images were saved and documented in the patient chart. Patient's skin was cleaned and sterile bandage applied. The patient tolerated the procedure well. The patient was transported to the recovery area in stable condition where they were observed for an appropriate amount of time prior to discharge, without evidence of complication. The patient was instructed to avoid excessive activity for the next 48 hours, including climbing and frequent use of stairs. Showers only for 48 hours. They were instructed not to drive or operate heavy machinery for 24 hours. They are to monitor for severe headaches, fevers, chills, night sweats, erythema/swelling at the site or any other signs of infection, bleeding/bruising, bowel or bladder changes as well as new pain, weakness or numbness
[2023-05-24 10:03] VITALS: BP 140/76; PULSE 69; RESP 16; O2SAT 100
[2023-05-24] MEDS: LIDOCAINE HCL 2% PF INJ 5 ML VIAL 3 ML INFILTRATE (11:45)
[2023-05-24] MEDS: LIDOCAINE HCL 1% PF INJ 5 ML VIAL 2 ML XX (11:48)
== END 2023-05-24 10:15 | disposition home or self-care (01) ==
PROVIDERS: PCP Family Medicine; Visit Provider Anesthesiology Pain Medicine
PROC: (CPT 64483; principal; 2023-05-24 09:30)
DX: M48.061 Spinal stenosis, lumbar region without neurogenic claudication (principal); M54.16 Radiculopathy, lumbar region
CPT/HCPCS: 64483; 99199

== ENCOUNTER → 2023-06-07 14:45 | Outpatient (CLI) | payer MEDICARE, BC, SELFPAY ==
--- NOTE | ~2023-06-07 | XR_ITS ---
AP view of the pelvis and AP and lateral views of the bilateral hips Clinical history: Pain Findings: No acute fracture or dislocation is seen. Osseous alignment is anatomic. Bilateral hip and SI joint spaces are preserved. Soft tissues are unremarkable. Impression: No significant abnormality is seen. Reviewed, dictated and finalized at location . Impression: No significant abnormality is seen.
== END ==
PROVIDERS: PCP Anesthesiology Pain Medicine; Visit Provider Anesthesiology Pain Medicine
DX: M16.0 Bilateral primary osteoarthritis of hip (principal)
CPT/HCPCS: 73521

== ENCOUNTER 2023-06-23 07:46 | Outpatient (CLI) | payer MEDICARE, BC, SELFPAY ==
--- NOTE | ~2023-06-23 | US_ITS ---
US abdomen limited EXAMINATION: US Abdomen Complete INDICATION: Abdomen pain. Bloating. PROCEDURE: Realtime High Resolution abdomen ultrasound. COMPARISON: CT dated 10/12/2021 FINDINGS: Gallbladder within normal limits. No gallstones, pericholecystic fluid, gallbladder wall t hickening or biliary dilatation. Common bile duct measures 0.36 mm. Liver echotexture is increased, consistent with fatty infiltration. Pancreas within normal limits. Pancreatic tail is obscured by bowel gas. Spleen is unremarkeable. Renal echotexture is within nimesh l limits bilaterally without hydronephrosis, contour deforming mass or renal stone. Right kidney kyle ures 10.1 cm. Left kidney measures 11.3 cm. Visualized aspects of the aorta and IVC are within normal limits. Portal vein is patent. No sonograph ic Lafleur's sign indicated by the technologist. IMPRESSION: 1: Hepatic steatosis. Reviewed, dictated and finalized at location L. IMPRESSION: 1: Hepatic steatosis.
== END 2023-06-23 07:47 | disposition home or self-care (01) ==
LOC: ANHIMG 07:48
PROVIDERS: PCP Family Medicine; Visit Provider Family Medicine
DX: K76.0 Fatty (change of) liver, not elsewhere classified (principal)
CPT/HCPCS: 76705

== ENCOUNTER 2023-07-14 08:15 | Emergency (ER) | payer MEDICARE, BC, SELFPAY ==
[2023-07-14 08:27] VITALS: BP 129/70; PULSE 100; RESP 16; TEMP 37.2; O2SAT 100
--- NOTE | 2023-07-14 08:27 | ED.EAR ---
HPI - Ear Problem General Chief complaint: Ear Stated complaint: Right Ear Irritation Time Seen by Provider: 07/14/23 08:33 Source: patient and RN notes reviewed Mode of arrival: ambulatory Limitations: no limitations History of Present Illness HPI Narrative: 73-year-old female presents concern for right ear pain. She reports she has had allergy symptoms for the past 4-5 days with nasal congestion and drainage. She has been taking Kathy. She reports history of ear infections. She denies drainage from the ear. Denies fever. MD Complaint: ear pain Related Data Home Medications Medication Instructions Recorded Confirmed rosuvastatin 20 mg tablet 20 mg PO DAILY 09/12/20 07/14/23 ferrous sulfate 325 mg (65 mg 325 mg PO DAILY 07/08/21 07/14/23 iron) tablet vitamin B12 500 mcg-folic acid 400 1 tablet PO DAILY 12/04/21 07/14/23 mcg tablet cholecalciferol (vitamin D3) 25 50 mcg PO DAILY 06/07/23 07/14/23 mcg (1,000 unit) capsule Allergies Allergy/AdvReac Type Severity Reaction Status Date / Time NSAIDS (Non-Steroidal AdvReac Intermediate BLOATING/ABD. Verified 07/14/23 08:28 Anti-Inflamma PAIN cefaclor [From Ceclor] AdvReac Mild Nausea and Verified 07/14/23 08:28 Vomiting clavulanic acid AdvReac Mild Nausea and Verified 07/14/23 08:28 [From Augmentin] Vomiting sulfamethoxazole AdvReac Mild Nausea and Verified 07/14/23 08:28 [From Septra] Vomiting trimethoprim [From Septra] AdvReac Mild Nausea and Verified 07/14/23 08:28 Vomiting Review of Systems Review of Systems: CONSTITUTIONAL: Denies malaise, chills, sweats, or fever. EYES: Denies visual changes, redness, or discharge. ENT: Reports rhinorrhea, congestion. Denies sinus pain, and sore throat. Reports left ear pain CARDIOVASCULAR: Denies chest pain, palpitations, or edema. RESPIRATORY: Denies cough. Denies dyspnea. GASTROINTESTINAL: Denies abdominal pain, nausea, vomiting, diarrhea SKIN: Denies rash or itching. MUSCULOSKELETAL: Denies myalgia. NEUROLOGIC: Denies headache. All systems reviewed & are unremarkable except as noted in HPI and below PMFSH Past Medical History Medical History Arthritis Chronic renal insufficiency, stage III (moderate) Claustrophobia Colitis Dyspnea Greater trochanteric bursitis of left hip Hyperlipidemia Hypertension Insomnia Mild chronic obstructive pulmonary disease Neuropathy Posterior left knee pain Right knee pain Symptomatic varicose veins of both lower extremities Thrombocytopenia Surgical History Surgical History H/O section H/O rotator cuff surgery History of colon surgery Family History Family History Father Heart attack Mother Cerebrovascular accident Sibling Heart attack COPD (chronic obstructive pulmonary disease) Arthritis Son Cerebrovascular accident Other HLD (hyperlipidemia) Hypertension Social History Social History Smoking packs per day: 1 Smoking cigarettes per day: 20.0 Years smoked: 18 Smoking pack-years: 18.00 Smoking status: Former smoker Tobacco type: cigarettes Second hand tobacco smoke exposure: Yes Smoking end date: 08/29/91 Additional smoking assessment comments: quit in 1991 Alcohol intake: current Alcohol use details: occassional Substance use: never Substance use type: does not use Lack of Transportation: No Lack of Food: Never True Current Housing: I Have Housing Concerned About Future Housing: No Difficulty Paying Gas/Electric Bills: No Difficulty Paying for Meds: No Currently Unemployed: No Education: High School Diploma/GED Difficulty w/ Childcare or Family Care: No Living arrangements: with family Occupation/Education: retired Gender identity (if verbali
[2023-07-14 08:31] VITALS: BP 129/70; PULSE 100; RESP 16; TEMP 37.2; O2SAT 100
== END 2023-07-14 08:46 | disposition home or self-care (01) ==
PROVIDERS: Emergency Provider Nurse Practitioner; PCP Family Medicine
DX: H73.892 Other specified disorders of tympanic membrane, left ear (principal); Z87.891 Personal history of nicotine dependence; M19.90 Unspecified osteoarthritis, unspecified site; E78.5 Hyperlipidemia, unspecified; I12.9 Hypertensive chronic kidney disease with stage 1 through stage 4 chronic kidney disease, or unspecified chronic kidney disease; N18.30 Chronic kidney disease, stage 3 unspecified; J44.9 Chronic obstructive pulmonary disease, unspecified; G62.9 Polyneuropathy, unspecified
CPT/HCPCS: 99213; G0463

== ENCOUNTER 2023-08-23 08:17 | Emergency (ER) | payer MEDICARE, BC, SELFPAY ==
[2023-08-23 08:27] VITALS: BP 136/64; PULSE 81; RESP 16; TEMP 37.4; O2SAT 99
[2023-08-23 08:34] VITALS: BP 136/64; PULSE 81; RESP 16; TEMP 37.4; O2SAT 99
--- NOTE | 2023-08-23 08:37 | ED.BACK ---
HPI - Back Pain/Injury General Chief Complaint: Back Pain/Injury Stated Complaint: back issue Time Seen by Provider: 08/23/23 08:37 Source: patient Mode of arrival: ambulatory Limitations: no limitations History of Present Illness HPI Narrative: 73-year-old female presents with complaint of right-sided mid back pain for 2-3 days. Pain worse with movement. Denies injury. States cooking, cleaning, wrapping presents for [place] and noticed it mid day. Taking Tylenol with no relief of pain. No urinary symptoms but does report history of kidney stones. Ambulatory with steady gait. No loss of bowel or bladder. No radiation of Pain to upper lower or extremities. all systems reviewed and negative except as noted above. Related Data Home Medications Medication Instructions Recorded Confirmed rosuvastatin 20 mg tablet 20 mg PO DAILY 09/12/20 08/23/23 ferrous sulfate 325 mg (65 mg 325 mg PO DAILY 07/08/21 08/23/23 iron) tablet vitamin B12 500 mcg-folic acid 400 1 tablet PO DAILY 12/04/21 08/23/23 mcg tablet cholecalciferol (vitamin D3) 25 50 mcg PO DAILY 06/07/23 08/23/23 mcg (1,000 unit) capsule vibegron 75 mg tablet (Gemtesa) 75 mg PO DAILY 07/19/23 08/23/23 Allergies Allergy/AdvReac Type Severity Reaction Status Date / Time NSAIDS (Non-Steroidal AdvReac Intermediate BLOATING/ABD. Verified 08/23/23 08:25 Anti-Inflamma PAIN cefaclor [From Ceclor] AdvReac Mild Nausea and Verified 08/23/23 08:25 Vomiting clavulanic acid AdvReac Mild Nausea and Verified 08/23/23 08:25 [From Augmentin] Vomiting sulfamethoxazole AdvReac Mild Nausea and Verified 08/23/23 08:25 [From Septra] Vomiting trimethoprim [From Septra] AdvReac Mild Nausea and Verified 08/23/23 08:25 Vomiting Review of Systems Review of Systems: CONSTITUTIONAL: Denies fever, chills, or sweats. EYES: Denies visual changes, redness, or discharge. ENT: Denies rhinorrhea, congestion, sore throat, or otalgia. CARDIOVASCULAR: Denies chest pain, palpitations, or edema. RESPIRATORY: Denies cough or dyspnea. GASTROINTESTINAL: Denies abdominal pain, nausea, vomiting, or diarrhea. GENITOURINARY: Denies dysuria or hematuria. SKIN: Denies rash or itching. MUSCULOSKELETAL: Reports right mid back pain. Denies joint pain, or myalgia. NEUROLOGIC: Denies headache, numbness, or weakness. PSYCHIATRIC: Denies anxiety or depression. All other systems reviewed are negative, except as documented in HPI. [facility] Past Medical History Medical History Arthritis Chronic renal insufficiency, stage III (moderate) Claustrophobia Colitis Dyspnea Greater trochanteric bursitis of left hip Hyperlipidemia Hypertension Insomnia Mild chronic obstructive pulmonary disease Neuropathy Posterior left knee pain Right knee pain Symptomatic varicose veins of both lower extremities Thrombocytopenia Surgical History Surgical History H/O section H/O rotator cuff surgery History of colon surgery Family History Family History Father Heart attack Mother Cerebrovascular accident Sibling Heart attack COPD (chronic obstructive pulmonary disease) Arthritis Son Cerebrovascular accident Other HLD (hyperlipidemia) Hypertension Social History Social History Smoking packs per day: 1 Smoking cigarettes per day: 20.0 Years smoked: 18 Smoking pack-years: 18.00 Smoking status: Former smoker Tobacco type: cigarettes Second hand tobacco smoke exposure: Yes Smoking end date: 08/29/91 Additional smoking assessment comments: quit in 1991 Alcohol intake: current Alcohol use details: occassional Substance use: never Substance use type: does not use Lack of Transportation: No Lack of Food: Never True
== END 2023-08-23 09:17 | disposition home or self-care (01) ==
PROVIDERS: Emergency Provider Nurse Practitioner Family; PCP Family Medicine
DX: S29.012A Strain of muscle and tendon of back wall of thorax, initial encounter (principal); X50.0XXA Overexertion from strenuous movement or load, initial encounter; E78.5 Hyperlipidemia, unspecified; I10 Essential (primary) hypertension; Z87.891 Personal history of nicotine dependence
CPT/HCPCS: 81003; 99213; G0463

== ENCOUNTER 2023-09-15 09:30 | Outpatient (CLI) | payer MEDICARE, BC, SELFPAY ==
[2023-09-15 09:46] LABS: Basophils Percent Auto 0.5 % (0.2-1.2); Eosinophils Absolute Auto 0.1 K/mm3 (0-0.3); Eosinophils Percent Auto 1.9 % (0-4.4); Hematocrit 36.9 % (37.0-47.0); Hemoglobin 12.3 g/dL (12.0-15.0); Immature Granulocyte Absolute 0.02 K/mm3 (0.00-0.031); Immature Granulocyte Percent A 0.5 % (0-0.5); Lymphocytes Absolute Auto 1.43 K/mm3 (0.9-3.2); Lymphocytes Percent Auto 34.4 % (18.3-44.2); Mean Corpuscular HGB Conc 33.3 g/dl (32-36); Mean Corpuscular Hemoglobin 26.9 pg (26-34); Mean Corpuscular Volume 80.6 fl (80-100); Mean Platelet Volume 8.8 fl (7.4-10.4); Monocytes Absolute Auto 0.3 K/mm3 (0.1-0.6); Monocytes Percent Auto 7.7 % (2.6-8.5); Neutrophils Absolute Auto 2.3 K/mm3 (1.3-6.7); Platelet Count Result 76 k/mm3 (150-375); Red Blood Count 4.58 M/mm3 (4.2-5.4); Red Cell Distribution Width 13.7 % (11.5-14.5); White Blood Count 4.2 K/mm3 (4.5-10.0)
[2023-09-15 11:17] LABS: Alanine Aminotransferase 12 U/L (6-35); Albumin Level 3.8 g/dL (3.5-5.1); Alkaline Phosphatase 76 U/L (38-126); Anion Gap 5 mmol/L (8-16); Aspartate Amino Transferase 20 U/L (14-36); Bilirubin,Total 0.8 mg/dL (0.2-1.3); Blood Urea Nitrogen 13 mg/dL (7-17); Calcium 8.9 mg/dL (8.4-10.2); Carbon Dioxide 27 mmol/L (22-30); Chloride 105 mmol/L (98-107); Estimated Glomerular Filt Rate > 60; Glucose 105 mg/dL (65-110); Potassium 4.1 mmol/L (3.4-5.0); Sodium 137 mmol/L (137-145)
[2023-09-15 12:19] LABS: Folic Acid 10.2 ng/mL (2.76->20); Vitamin B12 > 1000.0 pg/mL (239-931)
== END 2023-09-15 09:31 | disposition home or self-care (01) ==
LOC: ANHLAB 09:32
PROVIDERS: PCP Family Medicine; Visit Provider Internal Medicine Hematology & Oncology
DX: D64.9 Anemia, unspecified (principal)
CPT/HCPCS: 36415; 80053; 82607; 82728; 82746; 85025

== ENCOUNTER 2023-09-21 13:22 | Outpatient (CLI) | payer MEDICARE, BC, SELFPAY ==
--- NOTE | ~2023-09-21 | XR_ITS ---
EXAMINATION: XR thoracic spine 3V DATE: 09/21/2023 13:43 INDICATION: Thoracic spine pain. TECHNIQUE: 3 views of thoracic spine were obtained. COMPARISON: None. FINDINGS: There is 5 degrees dextrocurvature of upper thoracic spine. Vertebral body heights are norm al. There are endplate osteophytes at multiple levels in thoracic spine. Intervertebral disc heights are normal in thoracic spine. IMPRESSION: 1. Mild thoracic spondylosis. Reviewed, dictated and finalized at location E. INTMENT CLERK
== END 2023-09-21 13:23 | disposition home or self-care (01) ==
LOC: ANHIMG 13:28
PROVIDERS: PCP Family Medicine; Visit Provider Physician Assistant Medical
DX: M47.894 Other spondylosis, thoracic region (principal)
CPT/HCPCS: 72072

== ENCOUNTER 2023-10-06 09:42 | Outpatient (CLI) | payer MEDICARE, BC, SELFPAY ==
--- NOTE | ~2023-10-06 | US_ITS ---
EXAMINATION: US carotid duplex BI DATE: 10/06/2023 10:36 INDICATION: Right carotid artery bruit TECHNIQUE: Grayscale, color Doppler, and pulsed Doppler images of the cervical carotid arteries were obtained. The degree of vessel stenosis is placed in one of the following categories: normal, <50%, 5 0-69%, >=70% but less than near-occlusion, near-occlusion, or total occlusion. Note that percent sten osis relative to normal distal artery lumen diameter is indirectly measured from velocity measurement s as described by Aubrey, et al. Radiology 2003; 229:[id number]. COMPARISON: None. FINDINGS: RIGHT: The right common carotid artery (CCA) peak systolic velocity (PSV) is 75 cm/s. The right internal car otid artery (ICA) PSV is 63 cm/s. The right ICA end-diastolic velocity (EDV) is 21 cm/s. The right IC A/CCA PSV ratio is 0.8. Grayscale and color Doppler images yield an estimate of <50% diameter reducti on from minimal plaque in the ICA. The external carotid artery (ECA) PSV is 65 cm/s. There is antegra de flow in the right vertebral artery. LEFT: The left CCA PSV is 83 cm/s. The left ICA PSV is 57 cm/s. The left ICA EDV is 18 cm/s. The left ICA/C CA PSV ratio is 0.7. Grayscale and color Doppler images yield an estimate of <50% diameter reduction from small amount of plaque in the ICA. The ECA PSV is 72 cm/s. There is antegrade flow in the left v ertebral artery. IMPRESSION: 1. <50% stenosis in the right internal carotid artery. 2. <50% stenosis in the left internal carotid artery. Reviewed, dictated and finalized at location A. E ASSEMBLER
== END 2023-10-06 09:43 | disposition home or self-care (01) ==
LOC: ANHIMG 09:45
PROVIDERS: PCP Family Medicine; Visit Provider Internal Medicine Cardiovascular Disease
DX: I65.23 Occlusion and stenosis of bilateral carotid arteries (principal)
CPT/HCPCS: 93880

== ENCOUNTER 2023-11-03 10:07 | Outpatient (CLI) | payer MEDICARE, BC, SELFPAY ==
--- NOTE | ~2023-11-03 | XR_ITS ---
EXAMINATION: XR abdomen/kub 1V INDICATION: Left-sided kidney stone TECHNIQUE: Supine views of the abdomen were obtained on 2 radiographs. COMPARISON: 11/03/2022 FINDINGS: No urolithiasis is identified. The bowel gas pattern is normal. There is moderate lumbar sp ondylosis. There are phleboliths of the left pelvis. IMPRESSION: 1. No urolithiasis identified. Reviewed, dictated and finalized at location L. FING CONSULTANT
== END 2023-11-03 10:08 | disposition home or self-care (01) ==
LOC: ANHIMG 10:12
PROVIDERS: PCP Family Medicine; Visit Provider Nurse Practitioner Adult Health
DX: N20.0 Calculus of kidney (principal)
CPT/HCPCS: 74018

== ENCOUNTER 2023-12-14 13:12 | Outpatient (CLI) | payer MEDICARE, BC, SELFPAY ==
--- NOTE | ~2023-12-14 | US_ITS ---
EXAMINATION: US transvaginal DATE: 12/14/2023 13:40 INDICATION: Pelvic pain and bloating TECHNIQUE: Multiple endovaginal sonographic images of the pelvis were obtained. COMPARISON: None. FINDINGS: The uterus measures 5.7 x 2.7 x 3.7 cm. Visualization of the margins of the endometrial complex is in sufficient to assess for thickness. The right ovary measures cm. The left and right ovaries are not v isualized. There is no free fluid in the pelvis. IMPRESSION: 1. Normal for age uterine atrophy with the endometrial complex and bilateral ovaries unable to be evi hector visualized. 2. No free fluid in the pelvis. Reviewed, dictated and finalized at location A. IMPRESSION: 1. Normal for age uterine atrophy with the endometrial complex and bilateral ov osbaldo unable to be clearly visualized. 2. No free fluid in the pelvis.
== END 2023-12-14 13:13 ==
PROVIDERS: PCP Advanced Practice Midwife; Visit Provider Advanced Practice Midwife
DX: R10.2 Pelvic and perineal pain (principal)
CPT/HCPCS: 76830

== ENCOUNTER 2024-01-10 09:37 | Emergency (ER) | payer MEDICARE, BC, SELFPAY ==
[2024-01-10 09:41] VITALS: BP 169/97; PULSE 76; RESP 20; TEMP 36.9; O2SAT 100
[2024-01-10 10:09] LABS: Basophils Percent Auto 0.5 % (0.2-1.2); Eosinophils Absolute Auto 0.1 K/mm3 (0-0.3); Eosinophils Percent Auto 1.6 % (0-4.4); Hemoglobin 12.2 g/dL (12.0-15.0); Immature Granulocyte Absolute 0.08 K/mm3 (0.00-0.031); Immature Granulocyte Percent A 1.3 % (0-0.5); Lymphocytes Percent Auto 29.6 % (18.3-44.2); Mean Corpuscular HGB Conc 32.1 g/dl (32-36); Mean Platelet Volume 10.5 fl (7.4-10.4); Monocytes Absolute Auto 0.5 K/mm3 (0.1-0.6); Monocytes Percent Auto 7.7 % (2.6-8.5); Neutrophils Absolute Auto 3.6 K/mm3 (1.3-6.7); Neutrophils Percent Auto 59.3 % (45.5-73.1); Platelet Count Result 109 k/mm3 (150-375); Red Blood Count 4.69 M/mm3 (4.2-5.4); Red Cell Distribution Width 13.6 % (11.5-14.5); White Blood Count 6.1 K/mm3 (4.5-10.0)
[2024-01-10 10:19] LABS: Alanine Aminotransferase 12 U/L (6-35); Albumin Level 3.8 g/dL (3.5-5.1); Alkaline Phosphatase 67 U/L (38-126); Anion Gap 4 mmol/L (4-12); Aspartate Amino Transferase 19 U/L (14-36); Bilirubin,Total 0.7 mg/dL (0.2-1.3); Blood Urea Nitrogen 14 mg/dL (7-17); Calcium 8.6 mg/dL (8.4-10.2); Carbon Dioxide 26 mmol/L (22-30); Chloride 105 mmol/L (98-107); Estimated CRCL calculation 45 ml/min; Estimated Glomerular Filt Rate 54; Glucose 104 mg/dL (65-110); Potassium 3.9 mmol/L (3.4-5.0); Sodium 135 mmol/L (137-145)
--- NOTE | 2024-01-10 10:19 | ED.GENADULT ---
HPI - General Adult General Chief complaint: Recheck/Abnormal Lab/Rx Stated complaint: low blood count Time Seen by Provider: 01/10/24 09:40 History of Present Illness HPI narrative: 73-year-old female presenting to the emergency department for evaluation for outpatient labs that showed anemia. Patient states she was supposed to have surgical procedure yesterday at an outside hospital and was told that her hemoglobin was too low. Patient does have prior history of anemia. Patient denies any active bleeding. Patient does follow-up with Dr. Brothers. Patient denies any active bleeding. Related Data Home Medications Medication Instructions Recorded Confirmed rosuvastatin 20 mg tablet 20 mg PO DAILY 09/12/20 11/09/23 ferrous sulfate 325 mg (65 mg 325 mg PO DAILY 07/08/21 11/09/23 iron) tablet vitamin B12 500 mcg-folic acid 400 1 tablet PO DAILY 12/04/21 11/09/23 mcg tablet cholecalciferol (vitamin D3) 25 50 mcg PO DAILY 06/07/23 11/09/23 mcg (1,000 unit) capsule losartan 25 mg tablet 25 mg PO DAILY 10/04/23 11/09/23 clopidogrel 75 mg tablet 75 mg PO DAILY 11/09/23 11/09/23 fluticasone 500 mcg-salmeterol 50 1 inh inhalation Q12H 01/03/24 mcg/dose blistr powdr for inhalation (Wixela Inhub) Allergies Allergy/AdvReac Type Severity Reaction Status Date / Time NSAIDS (Non-Steroidal AdvReac Intermediate BLOATING/ABD. Verified 01/10/24 09:48 Anti-Inflamma PAIN cefaclor [From Ceclor] AdvReac Mild Nausea and Verified 01/10/24 09:48 Vomiting clavulanic acid AdvReac Mild Nausea and Verified 01/10/24 09:48 [From Augmentin] Vomiting sulfamethoxazole AdvReac Mild Nausea and Verified 01/10/24 09:48 [From Septra] Vomiting trimethoprim [From Septra] AdvReac Mild Nausea and Verified 01/10/24 09:48 Vomiting Review of Systems Review of Systems: All systems reviewed & are unremarkable except as noted in HPI and below PMFSH Past Medical History Medical History Arthritis Chronic renal insufficiency, stage III (moderate) Claustrophobia Colitis Dyspnea Greater trochanteric bursitis of left hip Hyperlipidemia Hypertension Insomnia Mild chronic obstructive pulmonary disease Neuropathy Posterior left knee pain Right knee pain Symptomatic varicose veins of both lower extremities Thrombocytopenia Surgical History Surgical History H/O section H/O rotator cuff surgery History of colon surgery Family History Family History Father Heart attack Mother Cerebrovascular accident Sibling Heart attack COPD (chronic obstructive pulmonary disease) Arthritis Son Cerebrovascular accident Other HLD (hyperlipidemia) Hypertension Social History Social History Smoking packs per day: 1 Smoking cigarettes per day: 20.0 Years smoked: 18 Smoking pack-years: 18.00 Smoking status: Former smoker Tobacco type: cigarettes Second hand tobacco smoke exposure: Yes Smoking end date: 08/29/91 Additional smoking assessment comments: quit in 1991 Alcohol intake: current Alcohol use details: occassional Substance use: never Substance use type: does not use Lack of Transportation: No Lack of Food: Never True Current Housing: I Have Housing Concerned About Future Housing: No Difficulty Paying Gas/Electric Bills: No Difficulty Paying for Meds: No Currently Unemployed: No Education: High School Diploma/GED Difficulty w/ Childcare or Family Care: No Living arrangements: with family Occupation/Education: retired Gender identity (if verbalized by the patient): Female Spiritual care concerns: No Exam Narrative: APPEARANCE: Well appearing, no pain, no distress, well-nourished. HEAD: normocephali
[2024-01-10 10:20] LABS: INR 0.9
[2024-01-10 10:21] LABS: Partial Thromboplastin Time 24.2 Seconds (22.3-36.8)
== END 2024-01-10 11:08 | disposition home or self-care (01) ==
PROVIDERS: Emergency Provider Emergency Medicine; PCP Family Medicine
DX: D69.6 Thrombocytopenia, unspecified (principal); I12.9 Hypertensive chronic kidney disease with stage 1 through stage 4 chronic kidney disease, or unspecified chronic kidney disease; N18.30 Chronic kidney disease, stage 3 unspecified; E78.5 Hyperlipidemia, unspecified; J44.9 Chronic obstructive pulmonary disease, unspecified; G62.9 Polyneuropathy, unspecified; M19.90 Unspecified osteoarthritis, unspecified site; Z87.891 Personal history of nicotine dependence
CPT/HCPCS: 36415; 80053; 85025; 85610; 85730; 99283

== ENCOUNTER 2024-01-18 12:44 | Outpatient (CLI) | payer MEDICARE, BC, SELFPAY ==
[2024-01-18 14:16] LABS: Basophils Percent Auto 0.4 % (0.2-1.2); Eosinophils Percent Auto 0.7 % (0-4.4); Hematocrit 35.8 % (37.0-47.0); Hemoglobin 11.6 g/dL (12.0-15.0); Immature Granulocyte Absolute 0.01 K/mm3 (0.00-0.031); Immature Granulocyte Percent A 0.2 % (0-0.5); Immature Platelet Fraction Pct 11.1 % (0.9-11.2); Lymphocytes Percent Auto 27.3 % (18.3-44.2); Mean Corpuscular HGB Conc 32.4 g/dl (32-36); Mean Corpuscular Hemoglobin 26.2 pg (26-34); Mean Corpuscular Volume 80.8 fl (80-100); Monocytes Absolute Auto 0.4 K/mm3 (0.1-0.6); Monocytes Percent Auto 6.5 % (2.6-8.5); Neutrophils Absolute Auto 3.6 K/mm3 (1.3-6.7); Neutrophils Percent Auto 64.9 % (45.5-73.1); Red Blood Count 4.43 M/mm3 (4.2-5.4); Red Cell Distribution Width 13.4 % (11.5-14.5); White Blood Count 5.5 K/mm3 (4.5-10.0)
== END 2024-01-18 12:45 | disposition home or self-care (01) ==
LOC: ANHLAB 12:46
PROVIDERS: PCP Family Medicine; Visit Provider Student in an Organized Health Care Education/Training Program
DX: D64.9 Anemia, unspecified (principal)
CPT/HCPCS: 36415; 85025; 85055

== ENCOUNTER 2024-02-09 12:16 | Outpatient (CLI) | payer MEDICARE, BC, SELFPAY ==
[2024-02-09 13:04] LABS: Basophils Percent Auto 0.1 % (0.2-1.2); Hematocrit 35.3 % (37.0-47.0); Hemoglobin 11.7 g/dL (12.0-15.0); Immature Granulocyte Absolute 0.03 K/mm3 (0.00-0.031); Immature Granulocyte Percent A 0.4 % (0-0.5); Immature Platelet Fraction Pct 6.5 % (0.9-11.2); Lymphocytes Percent Auto 22.6 % (18.3-44.2); Mean Corpuscular HGB Conc 33.1 g/dl (32-36); Mean Corpuscular Hemoglobin 26.3 pg (26-34); Mean Corpuscular Volume 79.3 fl (80-100); Monocytes Absolute Auto 0.5 K/mm3 (0.1-0.6); Monocytes Percent Auto 6.6 % (2.6-8.5); Neutrophils Absolute Auto 5.3 K/mm3 (1.3-6.7); Neutrophils Percent Auto 70.3 % (45.5-73.1); Red Blood Count 4.45 M/mm3 (4.2-5.4); Red Cell Distribution Width 13.4 % (11.5-14.5); White Blood Count 7.5 K/mm3 (4.5-10.0)
[2024-02-09 13:33] LABS: Iron 56 ug/dL (37-170)
[2024-02-09 13:42] LABS: Percent Iron Saturation 23 % (20-50)
== END 2024-02-09 12:17 | disposition home or self-care (01) ==
PROVIDERS: PCP Family Medicine; Visit Provider Nurse Practitioner Family
DX: D64.9 Anemia, unspecified (principal); E78.5 Hyperlipidemia, unspecified; N18.30 Chronic kidney disease, stage 3 unspecified
CPT/HCPCS: 36415; 82728; 83540; 83550; 85025; 85055

== ENCOUNTER 2024-02-19 08:09 | Emergency (ER) | payer MEDICARE, BC, SELFPAY ==
[2024-02-19 08:21] VITALS: BP 144/65; PULSE 73; RESP 16; TEMP 36.8; O2SAT 100
--- NOTE | 2024-02-19 08:22 | ED.FEMALEGU ---
HPI - Female Genitourinary General Chief complaint: Urogenital-Female Stated complaint: Female Urogenital Time Seen by Provider: 02/19/24 08:22 Source: patient Mode of arrival: ambulatory Limitations: no limitations History of Present Illness HPI Narrative: 73-year-old female presents with complaint of urinary burning, frequency, urgency. No abdominal or back pain. Patient states symptoms started yesterday. Denies nausea vomiting. No fever or chills. No vaginal complaints today. Patient has surgery tomorrow for varicose veins and wants to make sure she does not have a urinary tract infection. All systems reviewed and negative except as noted above. Related Data Home Medications Medication Instructions Recorded Confirmed rosuvastatin 20 mg tablet 20 mg PO DAILY 09/12/20 02/19/24 ferrous sulfate 325 mg (65 mg 325 mg PO DAILY 07/08/21 02/19/24 iron) tablet vitamin B12 500 mcg-folic acid 400 1 tablet PO DAILY 12/04/21 02/19/24 mcg tablet cholecalciferol (vitamin D3) 25 50 mcg PO DAILY 06/07/23 02/19/24 mcg (1,000 unit) capsule losartan 25 mg tablet 25 mg PO DAILY 10/04/23 02/19/24 clopidogrel 75 mg tablet 75 mg PO DAILY 11/09/23 02/19/24 fluticasone 500 mcg-salmeterol 50 1 inh inhalation Q12H 01/03/24 02/19/24 mcg/dose blistr powdr for inhalation (Wixela Inhub) Allergies Allergy/AdvReac Type Severity Reaction Status Date / Time NSAIDS (Non-Steroidal AdvReac Intermediate BLOATING/ABD. Verified 02/19/24 08:17 Anti-Inflamma PAIN cefaclor [From Ceclor] AdvReac Mild Nausea and Verified 02/19/24 08:17 Vomiting clavulanic acid AdvReac Mild Nausea and Verified 02/19/24 08:17 [From Augmentin] Vomiting sulfamethoxazole AdvReac Mild Nausea and Verified 02/19/24 08:17 [From Septra] Vomiting trimethoprim [From Septra] AdvReac Mild Nausea and Verified 02/19/24 08:17 Vomiting Review of Systems Review of Systems: CONSTITUTIONAL: Denies fever, chills, or sweats. EYES: Denies visual changes, redness, or discharge. ENT: Denies rhinorrhea, congestion, sore throat, or otalgia. CARDIOVASCULAR: Denies chest pain, palpitations, or edema. RESPIRATORY: Denies cough or dyspnea. GASTROINTESTINAL: Denies abdominal pain, nausea, vomiting, or diarrhea. GENITOURINARY: Reports burning, frequency, urgency. Denies hematuria. SKIN: Denies rash or itching. MUSCULOSKELETAL: Denies back pain, joint pain, or myalgia. NEUROLOGIC: Denies headache, numbness, or weakness. PSYCHIATRIC: Denies anxiety or depression. All other systems reviewed are negative, except as documented in HPI. [facility] Past Medical History Medical History Arthritis Chronic renal insufficiency, stage III (moderate) Claustrophobia Colitis Dyspnea Greater trochanteric bursitis of left hip Hyperlipidemia Hypertension Insomnia Mild chronic obstructive pulmonary disease Neuropathy Posterior left knee pain Right knee pain Symptomatic varicose veins of both lower extremities Thrombocytopenia Surgical History Surgical History H/O section H/O rotator cuff surgery History of colon surgery Family History Family History Father Heart attack Mother Cerebrovascular accident Sibling Heart attack COPD (chronic obstructive pulmonary disease) Arthritis Son Cerebrovascular accident Other HLD (hyperlipidemia) Hypertension Social History Social History Smoking packs per day: 1 Smoking cigarettes per day: 20.0 Years smoked: 18 Smoking pack-years: 18.00 Smoking status: Former smoker Tobacco type: cigarettes Second hand tobacco smoke exposure: Yes Smoking end date: 08/29/91 Additional smoking assessment comments: quit in 1991 Alcohol intake: current Alcohol use details: occassion
== END 2024-02-19 08:48 | disposition home or self-care (01) ==
PROVIDERS: Emergency Provider Nurse Practitioner Family; PCP Family Medicine
DX: R35.0 Frequency of micturition (principal); Z87.891 Personal history of nicotine dependence; M19.90 Unspecified osteoarthritis, unspecified site; I12.9 Hypertensive chronic kidney disease with stage 1 through stage 4 chronic kidney disease, or unspecified chronic kidney disease; N18.30 Chronic kidney disease, stage 3 unspecified; E78.5 Hyperlipidemia, unspecified; J44.9 Chronic obstructive pulmonary disease, unspecified; G62.9 Polyneuropathy, unspecified
CPT/HCPCS: 81003; 87086; 99213; G0463

== ENCOUNTER 2024-03-13 15:30 | Outpatient (CLI) | payer MEDICARE, BC, SELFPAY ==
[2024-03-13 16:20] LABS: Influenza A QL RT-PCR Negative (Negative); Influenza B QL RT-PCR Negative (Negative); RSV RNA, RT-PCR Negative (Negative); SARS-CoV-2 RNA PCR Positive (Negative)
== END 2024-03-13 15:31 | disposition home or self-care (01) ==
LOC: ANHLAB 15:33
PROVIDERS: PCP Family Medicine; Visit Provider Family Medicine
DX: U07.1 COVID-19 (principal)
CPT/HCPCS: 87637

== ENCOUNTER 2024-04-17 10:34 | Outpatient (CLI) | payer MEDICARE, BC, SELFPAY ==
[2024-04-17 11:05] LABS: Basophils Percent Auto 0.7 % (0.2-1.2); Eosinophils Absolute Auto 0.1 K/mm3 (0-0.3); Hematocrit 36.3 % (37.0-47.0); Hemoglobin 11.8 g/dL (12.0-15.0); Immature Granulocyte Absolute 0.03 K/mm3 (0.00-0.031); Immature Granulocyte Percent A 0.7 % (0-0.5); Lymphocytes Absolute Auto 1.22 K/mm3 (0.9-3.2); Lymphocytes Percent Auto 27.5 % (18.3-44.2); Mean Corpuscular HGB Conc 32.5 g/dl (32-36); Mean Corpuscular Hemoglobin 26.8 pg (26-34); Mean Corpuscular Volume 82.3 fl (80-100); Mean Platelet Volume 10.5 fl (7.4-10.4); Monocytes Absolute Auto 0.4 K/mm3 (0.1-0.6); Monocytes Percent Auto 7.9 % (2.6-8.5); Neutrophils Absolute Auto 2.7 K/mm3 (1.3-6.7); Neutrophils Percent Auto 61.2 % (45.5-73.1); Platelet Count Result 84 k/mm3 (150-375); Red Blood Count 4.41 M/mm3 (4.2-5.4); Red Cell Distribution Width 13.2 % (11.5-14.5); White Blood Count 4.4 K/mm3 (4.5-10.0)
[2024-04-17 12:21] LABS: Iron 54 ug/dL (37-170)
[2024-04-17 12:26] LABS: Alanine Aminotransferase 10 U/L (6-35); Albumin Level 3.9 g/dL (3.5-5.1); Alkaline Phosphatase 71 U/L (38-126); Anion Gap 9 mmol/L (4-12); Aspartate Amino Transferase 19 U/L (14-36); Bilirubin,Total 0.5 mg/dL (0.2-1.3); Blood Urea Nitrogen 12 mg/dL (7-17); Calcium 9.1 mg/dL (8.4-10.2); Carbon Dioxide 26 mmol/L (22-30); Chloride 101 mmol/L (98-107); Estimated Glomerular Filt Rate 54; Glucose 102 mg/dL (65-110); Sodium 136 mmol/L (137-145)
[2024-04-17 12:30] LABS: Percent Iron Saturation 24 % (20-50)
[2024-04-17 13:30] LABS: Folic Acid 5.9 ng/mL (2.76->20)
== END 2024-04-17 10:35 | disposition home or self-care (01) ==
PROVIDERS: PCP Family Medicine; Visit Provider Internal Medicine Hematology & Oncology
DX: D64.9 Anemia, unspecified (principal)
CPT/HCPCS: 36415; 80053; 82607; 82728; 82746; 83540; 83550; 85025

== ENCOUNTER 2024-04-18 01:16 | Day surgery (SDC) | payer MEDICARE, BC, SELFPAY ==
[2024-03-12 10:50] VITALS: BMI 31.1
--- NOTE | 2024-03-14 15:03 | PC.NURSE ---
Pt called regarding her Plavix and she informed me she tested positive today for Covid. Symptoms started on 03/11/2024. I will call her on Mar.29 and see how she is feeling and decide at that time if she is okay to proceed with procedure.
--- NOTE | 2024-03-29 10:59 | SUR.PREOP ---
Spoke with patient and confirmed new date and time for EGD. New procedure date is 04/18/2024, arrival time is 0600 procedure time is 0730. Date for last dose of Plavix is now 04/13/24. Patient verbalized understanding.
[2024-04-18 06:15] VITALS: BP 136/55; PULSE 74; RESP 16; TEMP 36; O2SAT 98; BMI 30.9
[2024-04-18] MEDS: LACTATED RINGERS 1,000 ML 150 ML IV CONT (06:36)
--- NOTE | 2024-04-18 07:13 | PM.HPGS ---
History of Present Illness History of Present Illness Consent: Risks, benefits, and alternatives have been discussed and questions answered. Patient agrees to proceed with procedure. Chief complaint: Epigastric pain, GERD without esophagitis Narrative: Joanna Gallardo is a 73 year old female here for egd, h/o epigastric abdominal pain that she described as an intermittent burning sensation that increases after p.o. intake and has been occurring for few months, also bloating, using ppi with some help. Had EGD in the past. Review of Systems Review of Systems: All systems reviewed & are unremarkable except as noted in HPI and below PMFSH Past Medical History Medical History Arthritis Chronic renal insufficiency, stage III (moderate) Claustrophobia Colitis Dyspnea Greater trochanteric bursitis of left hip Hyperlipidemia Hypertension Insomnia Mild chronic obstructive pulmonary disease Neuropathy Posterior left knee pain Right knee pain Symptomatic varicose veins of both lower extremities Thrombocytopenia Surgical History Surgical History H/O section H/O rotator cuff surgery History of colon surgery Family History Family History Father Heart attack Mother Cerebrovascular accident Sibling Heart attack COPD (chronic obstructive pulmonary disease) Arthritis Son Cerebrovascular accident Other HLD (hyperlipidemia) Hypertension Social History Social History Smoking packs per day: 1 Smoking cigarettes per day: 20.0 Years smoked: 18 Smoking pack-years: 18.00 Smoking status: Former smoker Tobacco type: cigarettes Second hand tobacco smoke exposure: Yes Smoking end date: 08/29/91 Additional smoking assessment comments: quit in 1991 Alcohol intake: current Alcohol use details: occassional Substance use: never Substance use type: does not use Do You Feel Safe in your Home?: Yes Lack of Transportation: No Lack of Food: Never True Current Housing: I Have Housing Concerned About Future Housing: No Difficulty Paying Gas/Electric Bills: No Difficulty Paying for Meds: No Currently Unemployed: No Education: High School Diploma/GED Difficulty w/ Childcare or Family Care: No Living arrangements: with family Additional living arrangements comments: with sp Occupation/Education: retired Gender identity (if verbalized by the patient): Female Spiritual care concerns: No Meds Home Medications and Allergies Home Medications Medication Instructions Recorded Confirmed Type rosuvastatin 20 mg tablet 20 mg PO DAILY 09/12/20 04/18/24 History ferrous sulfate 325 mg (65 mg 325 mg PO DAILY 07/08/21 04/18/24 History iron) tablet vitamin B12 500 mcg-folic acid 400 1 tablet PO DAILY 12/04/21 04/18/24 History mcg tablet cholecalciferol (vitamin D3) 25 50 mcg PO DAILY 06/07/23 04/18/24 History mcg (1,000 unit) capsule losartan 25 mg tablet 25 mg PO DAILY 10/04/23 04/18/24 History clopidogrel 75 mg tablet 75 mg PO DAILY 11/09/23 04/18/24 History fluticasone 500 mcg-salmeterol 50 1 inh inhalation Q12H 01/03/24 04/18/24 History mcg/dose blistr powdr for inhalation (Wixela Inhub) trazodone 50 mg tablet 25 mg PO QHS PRN insomnia #30 tabs 01/18/24 04/18/24 Rx pantoprazole 40 mg tablet,delayed 40 mg PO QAM #30 tabs 02/09/24 04/18/24 Rx release Allergies Allergy/AdvReac Type Severity Reaction Status Date / Time NSAIDS (Non-Steroidal AdvReac Intermediate BLOATING/ABD. Verified 04/18/24 06:18 Anti-Inflamma PAIN cefaclor [From Ceclor] AdvReac Mild Nausea and Verified 04/18/24 06:18 Vomiting clavulanic acid AdvReac Mild Nausea and Verified 04/18/24 06:18 [From Augmentin] Vomiting savage
--- NOTE | 2024-04-18 07:26 | WPDANESEPPF ---
Anes - Initial Pre Proc Eval Procedure: Operation Date: 04/18/24 07:30 Proposed Procedures p Esophagogastroduodenoscopy - Bubba Garcia MD Date/Time: 04/18/24 07:26 Surgeon: Bubba Garcia MD Pre Op Diagnosis: Epigastric pain, GERD without esophagitis Patient Data Age: 73 Gender: F Height: 1.57 m Weight: 76.6 kg Last Vital Signs Temp 96.8 F L 04/18/24 06:15 Pulse 74 04/18/24 06:15 Resp 16 04/18/24 06:15 BP 136/55 L 04/18/24 06:15 Pulse Ox 98 04/18/24 06:15 O2 Del Method Room Air 04/18/24 06:15 Allergies Allergy/AdvReac Type Severity Reaction Status Date / Time NSAIDS (Non-Steroidal AdvReac Intermediate BLOATING/ABD. Verified 04/18/24 06:18 Anti-Inflamma PAIN cefaclor [From Ceclor] AdvReac Mild Nausea and Verified 04/18/24 06:18 Vomiting clavulanic acid AdvReac Mild Nausea and Verified 04/18/24 06:18 [From Augmentin] Vomiting sulfamethoxazole AdvReac Mild Nausea and Verified 04/18/24 06:18 [From Septra] Vomiting trimethoprim [From Septra] AdvReac Mild Nausea and Verified 04/18/24 06:18 Vomiting Home Medications Medication Instructions Recorded Confirmed Type rosuvastatin 20 mg tablet 20 mg PO DAILY 09/12/20 04/18/24 History ferrous sulfate 325 mg (65 mg 325 mg PO DAILY 07/08/21 04/18/24 History iron) tablet vitamin B12 500 mcg-folic acid 400 1 tablet PO DAILY 12/04/21 04/18/24 History mcg tablet cholecalciferol (vitamin D3) 25 50 mcg PO DAILY 06/07/23 04/18/24 History mcg (1,000 unit) capsule losartan 25 mg tablet 25 mg PO DAILY 10/04/23 04/18/24 History clopidogrel 75 mg tablet 75 mg PO DAILY 11/09/23 04/18/24 History fluticasone 500 mcg-salmeterol 50 1 inh inhalation Q12H 01/03/24 04/18/24 History mcg/dose blistr powdr for inhalation (Wixela Inhub) trazodone 50 mg tablet 25 mg PO QHS PRN insomnia #30 tabs 01/18/24 04/18/24 Rx pantoprazole 40 mg tablet,delayed 40 mg PO QAM #30 tabs 02/09/24 04/18/24 Rx release Patient hx anesthesia problems: none Family hx anesthesia problems: none Results Review: All pre-operative results and documents have been reviewed as part of the pre-operative evaluation. [facility] Past Medical History Medical History Arthritis Chronic renal insufficiency, stage III (moderate) Claustrophobia Colitis Dyspnea Greater trochanteric bursitis of left hip Hyperlipidemia Hypertension Insomnia Mild chronic obstructive pulmonary disease Neuropathy Posterior left knee pain Right knee pain Symptomatic varicose veins of both lower extremities Thrombocytopenia Surgical History Surgical History H/O section H/O rotator cuff surgery History of colon surgery Family History Family History Father Heart attack Mother Cerebrovascular accident Sibling Heart attack COPD (chronic obstructive pulmonary disease) Arthritis Son Cerebrovascular accident Other HLD (hyperlipidemia) Hypertension Social History Social History Smoking packs per day: 1 Smoking cigarettes per day: 20.0 Years smoked: 18 Smoking pack-years: 18.00 Smoking status: Former smoker Tobacco type: cigarettes Second hand tobacco smoke exposure: Yes Smoking end date: 08/29/91 Additional smoking assessment comments: quit in 1991 Alcohol intake: current Alcohol use details: occassional Substance use: never Substance use type: does not use Do You Feel Safe in your Home?: Yes Lack of Transportation: No Lack of Food: Never True Current Housing: I Have Housing Concerned About Future Housing: No Difficulty Paying Gas/Electric Bills: No Difficulty Paying for Meds: No Currently Unemployed: No Education: High School Di
[2024-04-18] MEDS: BENZOCAINE (*SP) 60 ML SPRAY CAN (HURRICAINE) 1 SPRAY MUCOUS MEM (07:28)
[2024-04-18 07:39] VITALS: BP 99/35; PULSE 73; RESP 20; O2SAT 96
[2024-04-18 07:49] VITALS: BP 102/50; PULSE 63; RESP 20; O2SAT 100
[2024-04-18 07:59] VITALS: BP 112/45; PULSE 64; RESP 15; O2SAT 99
--- NOTE | 2024-04-18 08:02 | SUR.PHASEII ---
Ok to restart plavix per Dr. Molina. Pt informed and verbalized understanding.
== END 2024-04-18 08:10 | disposition home or self-care (01) ==
PROVIDERS: PCP Family Medicine; Referring Provider Nurse Practitioner Family; Visit Provider Internal Medicine Gastroenterology
PROC: 0DJ08ZZ Inspection of Upper Intestinal Tract, Via Natural or Artificial Opening Endoscopic (ICD-10-PCS; CPT 43235; principal; 2024-04-18 07:30)
DX: K29.50 Unspecified chronic gastritis without bleeding (principal); K29.80 Duodenitis without bleeding; K21.9 Gastro-esophageal reflux disease without esophagitis; I12.9 Hypertensive chronic kidney disease with stage 1 through stage 4 chronic kidney disease, or unspecified chronic kidney disease; N18.30 Chronic kidney disease, stage 3 unspecified; E78.5 Hyperlipidemia, unspecified; F40.240 Claustrophobia; G47.00 Insomnia, unspecified; J44.9 Chronic obstructive pulmonary disease, unspecified; D69.6 Thrombocytopenia, unspecified; E66.9 Obesity, unspecified; Z68.30 Body mass index [BMI] 30.0-30.9, adult; Z79.02 Long term (current) use of antithrombotics/antiplatelets; Z98.890 Other specified postprocedural states; Z87.891 Personal history of nicotine dependence; Z82.49 Family history of ischemic heart disease and other diseases of the circulatory system
CPT/HCPCS: 43239; 88305; J2704; J7120

== ENCOUNTER 2024-08-04 08:48 | Emergency (ER) | payer MEDICARE, BC, SELFPAY ==
[2024-08-04 09:02] VITALS: BP 116/52; PULSE 85; RESP 19; TEMP 37.1; O2SAT 99
--- NOTE | 2024-08-04 09:35 | ED_ITS ---
HPI - Dental/Oral General Chief complaint: Dental/Oral Stated complaint: Mouth Irritation Time Seen by Provider: 08/04/24 09:35 Source: patient, RN notes reviewed and old records reviewed Mode of arrival: ambulatory Limitations: no limitations History of Present Illness HPI Narrative: Patient presents with complaints of irritation to the refer mouth that has been present for about 3 days. She denies any injury or trauma, denies any edwards to the mouth. She does report that she recently finished some doxycycline. Symptoms began shortly after she finished this. She denies any fever, chills, sweats. She voices no other concerns or complaints at this time. Related Data Home Medications Medication Instructions Recorded Confirmed rosuvastatin 20 mg tablet 20 mg PO DAILY 09/12/20 08/04/24 ferrous sulfate 325 mg (65 mg 325 mg PO DAILY 07/08/21 08/04/24 iron) tablet vitamin B12 500 mcg-folic acid 400 1 tablet PO DAILY 12/04/21 08/04/24 mcg tablet cholecalciferol (vitamin D3) 25 50 mcg PO DAILY 06/07/23 08/04/24 mcg (1,000 unit) capsule losartan 25 mg tablet 25 mg PO DAILY 10/04/23 08/04/24 fluticasone 500 mcg-salmeterol 50 1 inh inhalation Q12H 01/03/24 08/04/24 mcg/dose blistr powdr for inhalation (Wixela Inhub) latanoprostene bunod 0.024 % eye 1 drp LEFT EYE DAILY 07/05/24 08/04/24 drops (Vyzulta) prednisolone acetate 1 % eye 1 drp LEFT EYE TID 07/05/24 08/04/24 drops,suspension Allergies Allergy/AdvReac Type Severity Reaction Status Date / Time NSAIDS (Non-Steroidal AdvReac Intermediate BLOATING/ABD. Verified 07/05/24 10:13 Anti-Inflamma PAIN cefaclor [From Ceclor] AdvReac Mild Nausea and Verified 07/05/24 10:13 Vomiting clavulanic acid AdvReac Mild Nausea and Verified 07/05/24 10:13 [From Augmentin] Vomiting sulfamethoxazole AdvReac Mild Nausea and Verified 07/05/24 10:13 [From Septra] Vomiting trimethoprim [From Septra] AdvReac Mild Nausea and Verified 07/05/24 10:13 Vomiting Review of Systems Review of Systems: All systems reviewed & are unremarkable except as noted in HPI and below Constitutional: Constitutional: Reports no additional constitutional complaints ENT: Reports system reviewed and no additional complaints, except as documented and Reports mouth pain Cardiovascular: Cardiovascular: Reports no additional cardiovascular complaints Respiratory: Respiratory: Reports no additional respiratory complaints Gastrointestinal: Gastrointestinal: Reports no additional gastrointestinal complaints [facility] Past Medical History Medical History Arthritis Belching Bilateral sacroiliitis Cervical spondylosis Cervicalgia Chronic renal insufficiency, stage III (moderate) Claustrophobia Colitis Dyspnea GERD (gastroesophageal reflux disease) Greater trochanteric bursitis of left hip Hepatic steatosis Hyperlipidemia Hypertension Insomnia Left knee DJD Mild chronic obstructive pulmonary disease Neuropathy Other spondylosis, thoracolumbar region Pain in thoracic spine Posterior left knee pain Right knee pain Symptomatic varicose veins of both lower extremities Thrombocytopenia Trochanteric bursitis of right hip Surgical History Surgical History H/O section H/O rotator cuff surgery History of colon surgery Family History Family History Father Heart attack Mother Cerebrovascular accident Sibling Heart attack COPD (chronic obstructive pulmonary disease) Arthritis Son Cerebrovascular accident Other HLD (hyperlipidemia) Hypertension Social History Social History Smoking packs per day: 1 Smoking cigarettes per day: 20.0 Years smoked: 18 Smoking pack-years: 18.00 Smoking status: Former smoker Tobacco type: cigarettes Second hand tobacco smoke exposure: Yes Smoking end date: 08/29/91 Additional smoking assessment comments: quit in 1991 Alcohol intake: current Alcohol use details: occassional Substance use: never Substance use type: does not use Do You Feel Safe in your Home?: Yes Lack of Transportation: No Lack of Food: Never True Current Housing: I Have Housing Concerned About Future Housing: No Difficulty Paying Gas/Electric Bills: No Difficulty Paying for Meds: No Currently Unemployed: No Education: High School Diploma/GED Difficulty w/ Childcare or Family Care: No Living arrangements: with family Additional living arrangements comments: with sp Occupation/Education: retired Gender identity (if verbalized by the patient): Female Spiritual care concerns: No Comments At the time of my signature, I reviewed and agree with the nursing past medical, surgical, social, and family history. There is no relevant family history pertinent to the patient complaint. Exam Const: General: cooperative, no acute distress, alert and awake Orientation/consciousness: oriented to person, oriented to place and oriented to time HENMT: Head: normal to inspection Mouth: Yes Abnormal oral and palatal mucosa present white patches Resp: Effort & Inspection: normal respiratory effort and able to speak in complete sentences Auscultation: clear to auscultation bilaterally, no crackles, no rales, no rhonchi and no wheezes Cardio: Palpation: normal PMI Rate: regular rate Rhythm: regular rhythm Heart sounds: S1 normal heart sound present and S2 normal heart sound present Neuro: General: oriented to person, oriented to place and oriented to time Cranial nerves: Yes CN's II-XII intact bilaterally Psych: Appearance: grossly normal Thought process: Normal thought process present Insight: Good insight present (Psych) Judgement: Good judgement present (Psych) Course Course Level of Care: Express Care Visit Vital Signs Vital signs: Vital Signs Temperature 98.7 F 08/04/24 09:02 Pulse Rate 85 08/04/24 09:02 Respiratory Rate 19 08/04/24 09:02 Blood Pressure 116/52 L 08/04/24 09:02 Pulse Oximetry 99 08/04/24 09:02 Oxygen Delivery Room Air 08/04/24 09:02 Temperature 98.7 F 08/04/24 09:02 Pulse Rate 85 08/04/24 09:02 Respiratory Rate 19 08/04/24 09:02 Blood Pressure 116/52 L 08/04/24 09:02 Pulse Oximetry 99 08/04/24 09:02 Oxygen Delivery Room Air 08/04/24 09:02 Reviewed MDM - Dental/Oral MDM Narrative Medical decision making narrative: Patient with recent antibiotic use, now with white patches to mouth and irritation. Treat as thrush. Discharge instructions reviewed with patient, as well as provided in writing per nursing staff. The instructions also include specific and strict return/GO TO THE ER as well as f/u information. All questions have been answered, and the patient deny any further questions with discharge and discharge plan. Some parts of this dictation were generated by voice recognition software and may contain typographical and/or grammatical inaccuracies. Differential Diagnosis Differential diagnosis: Likely dental caries, toothache and dental abscess Medical Records Attestation: I reviewed the patient's medical records. Discharge Plan Discharge Clinical Impression: Candidiasis of mouth Patient Disposition: Home, Self-Care Condition: Stable Instructions: Antibiotic Form, Oral Candidiasis (ED) Additional Instructions: Take medication as prescribed. Follow with primary care provider. Emergency department for new or worse symptoms Patient Language: Chinese Prescriptions: New nystatin 100,000 unit/mL suspension 5 ml PO QID 14 Days Qty: 280 0RF Rx Instructions: swish and swallow No Action vitamin Z85-cwtid acid 500-400 mcg tablet 1 tablet PO DAILY Rx Instructions: administer with a meal rosuvastatin 20 mg tablet 20 mg PO DAILY cholecalciferol (vitamin D3) 25 mcg (1,000 unit) capsule 50 mcg PO DAILY losartan 25 mg tablet 25 mg PO DAILY fluticasone propion-salmeterol [Wixela Inhub] 500-50 mcg/dose blister with dev ice 1 inh inhalation Q12H Vyzulta 0.024 % drops 1 drp LEFT EYE DAILY Rx Instructions: 1 DROP LEFT EYE TID prednisolone acetate 1 % drops,suspension 1 drp LEFT EYE TID baclofen 10 mg tablet 10 mg PO QHS Qty: 30 0RF ferrous sulfate 325 mg (65 mg iron) Tablet 325 mg PO DAILY pantoprazole 40 mg tablet,delayed release (DR/EC) 40 mg PO BID Qty: 60 0RF trazodone 50 mg tablet 25 mg PO QHS PRN (Reason: insomnia) Qty: 90 2RF Follow-up/Referrals: Kristina Elias MD [Primary Care Provider] - 2 Weeks Time of Disposition: 09:46
== END 2024-08-04 09:50 | disposition home or self-care (01) ==
PROVIDERS: Emergency Provider Nurse Practitioner Family; PCP Family Medicine
DX: B37.0 Candidal stomatitis (principal); Z87.891 Personal history of nicotine dependence; I12.9 Hypertensive chronic kidney disease with stage 1 through stage 4 chronic kidney disease, or unspecified chronic kidney disease; N18.30 Chronic kidney disease, stage 3 unspecified; E78.5 Hyperlipidemia, unspecified; K21.9 Gastro-esophageal reflux disease without esophagitis; M19.90 Unspecified osteoarthritis, unspecified site; K76.0 Fatty (change of) liver, not elsewhere classified; M17.12 Unilateral primary osteoarthritis, left knee; J44.9 Chronic obstructive pulmonary disease, unspecified; G62.9 Polyneuropathy, unspecified; D69.6 Thrombocytopenia, unspecified
CPT/HCPCS: 99213; G0463

== ENCOUNTER 2024-10-06 08:27 | Emergency (ER) | payer MEDICARE, BC, SELFPAY ==
[2024-10-06 08:41] VITALS: BP 134/65; PULSE 80; RESP 16; TEMP 35.8; O2SAT 98
--- NOTE | 2024-10-06 08:48 | ED_ITS ---
HPI - URI/Sore Throat General Chief Complaint: Upper Respiratory Infection Stated Complaint: throat edwards Time Seen by Provider: 10/06/24 08:49 Source: patient, RN notes reviewed and old records reviewed Mode of arrival: ambulatory Limitations: no limitations History of Present Illness HPI Narrative: Patient with history of thrush, on antibiotic therapy recently, finished Levaquin for 5 days ago, presents with complaints burning in the throat. She denies any difficulty swallowing. Denies any fever, chills, sweats. Denies any injury or trauma. Voices no other concerns or complaints today. Related Data Home Medications ?Medication ?Instructions ?Recorded ?Confirmed ?Last Taken ?Type rosuvastatin 20 mg tablet 20 mg PO DAILY 09/12/20 10/06/24 05/02/23 History ferrous sulfate 325 mg (65 mg 325 mg PO DAILY 07/08/21 10/06/24 05/02/23 History iron) tablet vitamin B12 500 mcg-folic acid 400 1 tablet PO DAILY 12/04/21 10/06/24 05/02/23 History mcg tablet cholecalciferol (vitamin D3) 25 50 mcg PO DAILY 06/07/23 10/06/24 Unknown History mcg (1,000 unit) capsule losartan 25 mg tablet 25 mg PO DAILY 10/04/23 10/06/24 Unknown History latanoprostene bunod 0.024 % eye 1 drp LEFT EYE DAILY 07/05/24 10/06/24 Unknown History drops (Vyzulta) prednisolone acetate 1 % eye 1 drp LEFT EYE TID 07/05/24 10/06/24 Unknown History drops,suspension Allergies Allergy/AdvReac Type Severity Reaction Status Date / Time doxycycline AdvReac Intermediate Vomiting Verified 10/06/24 08:37 NSAIDS (Non-Steroidal AdvReac Intermediate BLOATING/ABD. Verified 10/06/24 08:37 Anti-Inflamma PAIN cefaclor (From Ceclor) AdvReac Mild Nausea and Verified 10/06/24 08:37 Vomiting clavulanic acid (From AdvReac Mild Nausea and Verified 10/06/24 08:37 Augmentin) Vomiting sulfamethoxazole (From AdvReac Mild Nausea and Verified 10/06/24 08:37 Septra) Vomiting trimethoprim (From Septra) AdvReac Mild Nausea and Verified 10/06/24 08:37 Vomiting Review of Systems Review of Systems: All systems reviewed & are unremarkable except as noted in HPI and below Constitutional: Constitutional: Reports no additional constitutional complaints ENT: Reports system reviewed and no additional complaints, except as documented and Reports as per HPI Cardiovascular: Cardiovascular: Reports no additional cardiovascular complaints Respiratory: Respiratory: Reports no additional respiratory complaints Gastrointestinal: Gastrointestinal: Reports no additional gastrointestinal complaints [facility] Past Medical History Medical History Left knee DJD Bilateral sacroiliitis Belching GERD (gastroesophageal reflux disease) Hepatic steatosis Cervical spondylosis Cervicalgia Pain in thoracic spine Other spondylosis, thoracolumbar region Trochanteric bursitis of right hip Claustrophobia Right knee pain Posterior left knee pain Insomnia Symptomatic varicose veins of both lower extremities Thrombocytopenia Chronic renal insufficiency, stage III (moderate) Greater trochanteric bursitis of left hip Dyspnea Arthritis Hyperlipidemia Hypertension Neuropathy Colitis Mild chronic obstructive pulmonary disease Surgical History Surgical History History of colon surgery H/O rotator cuff surgery H/O section Family History Family History Father Heart attack Mother Cerebrovascular accident Sibling Heart attack COPD (chronic obstructive pulmonary disease) Arthritis Son Cerebrovascular accident Other HLD (hyperlipidemia) Hypertension Social History Social History Smoking packs per day: 1 Smoking cigarettes per day: 20.0 Years smoked: 18 Smoking pack-years: 18.00 Smoking status: Former smoker Tobacco type: cigarettes Second hand tobacco smoke exposure: Yes Smoking end date: 08/29/91 Additional smoking assessment comments: quit in 1991 Alcohol intake: current Alcohol use details: Socially Substance use: never Substance use type: does not use Do You Feel Safe in your Home?: Yes Lack of Transportation: No Lack of Food: Never True Current Housing: I Have Housing Concerned About Future Housing: No Difficulty Paying Gas/Electric Bills: No Difficulty Paying for Meds: No Currently Unemployed: No Education: High School Diploma/GED Difficulty w/ Childcare or Family Care: No Living arrangements: other Additional living arrangements comments: with sp Occupation/Education: retired Gender identity (if verbalized by the patient): Female Spiritual care concerns: No Comments At the time of my signature, I reviewed and agree with the nursing past medical, surgical, social, and family history. There is no relevant family history pertinent to the patient complaint. Exam Const: General: cooperative, no acute distress, alert and awake Orientation/consciousness: oriented to person, oriented to place and oriented to time HENMT: Head: normal to inspection Mouth: Yes moist mucous membranes Throat: other (Throat is erythematous, white specks noted) Resp: Effort & Inspection: normal respiratory effort and able to speak in complete sentences Auscultation: clear to auscultation bilaterally, no crackles, no rales, no rhonchi and no wheezes Cardio: Palpation: normal PMI Rate: regular rate Rhythm: regular rhythm Heart sounds: S1 normal heart sound present and S2 normal heart sound present Neuro: General: oriented to person, oriented to place and oriented to time Cranial nerves: Yes CN's II-XII intact bilaterally Psych: Appearance: grossly normal Thought process: Normal thought process present Insight: Good insight present (Psych) Judgement: Good judgement present (Psych) Course Course Level of Care: Express Care Visit Vital Signs Vital signs: Vital Signs Temperature 96.5 F L 10/06/24 08:41 Pulse Rate 80 10/06/24 08:41 Respiratory Rate 16 10/06/24 08:41 Blood Pressure 134/65 10/06/24 08:41 Pulse Oximetry 98 10/06/24 08:41 Oxygen Delivery Room Air 10/06/24 08:41 Temperature 96.5 F L 10/06/24 08:41 Pulse Rate 80 10/06/24 08:41 Respiratory Rate 16 10/06/24 08:41 Blood Pressure 134/65 10/06/24 08:41 Pulse Oximetry 98 10/06/24 08:41 Oxygen Delivery Room Air 10/06/24 08:41 Reviewed MDM - URI/Sore Throat MDM Narrative Medical decision making narrative: Negative rapid strep. History and exam consistent with thrush. Patient is nontoxic appearing, stable for discharge home. She does agree to follow-up with her specialist. Discharge instructions reviewed with patient, as well as provided in writing per nursing staff. The instructions also include specific and strict return/GO TO THE ER as well as f/u information. All questions have been answered, and the patient deny any further questions with discharge and discharge plan. Some parts of this dictation were generated by voice recognition software and may contain typographical and/or grammatical inaccuracies. Differential Diagnosis Differential diagnosis: Likely upper respiratory infection and pharyngitis Medical Records Attestation: I reviewed the patient's medical records. Lab Data Attestation: I reviewed the patient's lab results. Discharge Plan Discharge Clinical Impression: Thrush Patient Disposition: Home, Self-Care Condition: Stable Instructions: Antibiotic Form, Oral Candidiasis (ED) Additional Instructions: Use medications as prescribed. Follow with primary care provider. Emergency department for new or worse symptoms Patient Language: Kazakh Prescriptions: New nystatin 100,000 unit/mL suspension 5 ml PO QID 14 Days Qty: 280 0RF Rx Instructions: swish and swallow No Action vitamin [id number] acid 500-400 mcg tablet 1 tablet PO DAILY Rx Instructions: administer with a meal rosuvastatin 20 mg tablet 20 mg PO DAILY cholecalciferol (vitamin D3) 25 mcg (1,000 unit) capsule 50 mcg PO DAILY losartan 25 mg tablet 25 mg PO DAILY Vyzulta 0.024 % drops 1 drp LEFT EYE DAILY Rx Instructions: 1 DROP LEFT EYE TID prednisolone acetate 1 % drops,suspension 1 drp LEFT EYE TID ferrous sulfate 325 mg (65 mg iron) Tablet 325 mg PO DAILY trazodone 50 mg tablet 25 mg PO QHS PRN (Reason: insomnia) Qty: 90 2RF fluticasone propion-salmeterol [Wixela Inhub] 500-50 mcg/dose blister with device 1 inh inhalation Q12H Qty: 60 3RF Follow-up/Referrals: Kristina Elias MD [Primary Care Provider] - 2 Weeks Time of Disposition: 09:08
[2024-10-06 09:11] LABS: EDSTREPNEGPOS1 Negative (Negative)
== END 2024-10-06 09:12 | disposition home or self-care (01) ==
PROVIDERS: Emergency Provider Nurse Practitioner Family; PCP Family Medicine
DX: B37.0 Candidal stomatitis (principal); I12.9 Hypertensive chronic kidney disease with stage 1 through stage 4 chronic kidney disease, or unspecified chronic kidney disease; N18.30 Chronic kidney disease, stage 3 unspecified; K21.9 Gastro-esophageal reflux disease without esophagitis; K76.0 Fatty (change of) liver, not elsewhere classified; M47.812 Spondylosis without myelopathy or radiculopathy, cervical region; M47.895 Other spondylosis, thoracolumbar region; D69.6 Thrombocytopenia, unspecified; M19.90 Unspecified osteoarthritis, unspecified site; E78.5 Hyperlipidemia, unspecified; G62.9 Polyneuropathy, unspecified; J44.9 Chronic obstructive pulmonary disease, unspecified; Z87.891 Personal history of nicotine dependence
CPT/HCPCS: 87081; 87880; 99213; G0463

== ENCOUNTER 2024-10-15 12:14 | Outpatient (CLI) | payer MEDICARE, BC, SELFPAY ==
--- NOTE | ~2024-10-15 | DEXA_ITS ---
Bone Density Report Name: JANA JEFFERY Age: 74 Sex: Female Ethnicity: White Date of : 1950 Indication: postmenopausal; screening for osteoporosis; asthma or emphysema; Referring Provider: ELICIA MASON Study: Bone densitometry was performed. Exam Date: October 15, 2024 Accession number: [id number] Bone Density: Region BMD T-score Z-score Classification AP Spine(L1-L4) 1.062 0.1 2.5 Normal Femoral Neck (Left) 0.713 -1.2 0.8 Osteopenia Total Hip (Left) 0.874 -0.6 1.2 Normal Femoral Neck (Right) 0.775 -0.7 1.4 Normal Total Hip (Right) 0.904 -0.3 1.4 Normal Total Hip Mean 0.889 -0.5 1.3 Normal World Health Organization criteria for BMD impression classify patients as: Normal (T-score at or above -1.0), Osteopenia (T-score between -1.0 and -2.5), or Osteoporosis (T-score at or below -2.5). Clinical Information Provided by Patient: Has used the following medications: Vitamin D Has the following medical conditions: Asthma or Emphysema Patient maximum height was 62.0 Menopause Age: 60 No regular weight bearing exercise Drinks caffeinated beverages Onset of menses at age 14 Number of children 3 Impression: The patient has low bone mass, based on the Left Femoral Neck T-score. Discussion: BONE DENSITY IS LOW AT ONE OR MORE SKELETAL SITES. This patient's lowest T-score is low at one or more skeletal sites. It meets the World Health Organization's (WHO) criteria for ?low bone mass? (T-score between -1.0 and -2.5). The patient's 10-year risk of fracture as calculated by FRAX is less than the threshold where pharmacological therapy is recommended by the National Osteoporosis Foundation (NOF). However, all treatment decisions require clinical judgment and consideration of individual patient factors, including patient preferences, comorbidities, previous drug use, risk factors not captured in the FRAX model (e.g., frailty, falls, vitamin D deficiency, increased bone turnover, interval significant decline in bone density) and possible under or overestimation of fracture risk by FRAX. The patient should follow a healthful lifestyle (good nutrition with adequate calcium and vitamin D, and appropriate weight-bearing exercise). Follow-Up: Consider repeating this study in 2 to 3 years to reassess this patient's status, or sooner if there is some new clinical indication. Reported by: KANDICE on 10/15/2024 12:47:00 PM. Reviewed, dictated and finalized at location [facility]
--- OUTSIDE RECORDS SUMMARY | 2024-10-15 14:42 | XMS_ITS | Referral Summary ---
Author Organization [facility] [place] [address] [facility] [address] Address [address] [place] [address] Care Team Providers Care Chain Hooker Name Role Phone Kristina Elias MD Primary Care Provider [phone] Encounters Date Type Department Care Team Description 09/27/2024 2:15 PM SYNCHRONIZER Office Visit [facility] Card[facility] [address] [place] [address] Mary Lou [place] MD Essential hypertension (Primary Dx); Hypercholesteremia; Family history of premature CAD from Last 3 Months Allergies Active Allergy Reactions Criticality Noted Date Comments Atorvastatin Other (See comments) Low 08/12/2021 Upset stomach Naproxen Other (See comments) Low Gastritis Medications omeprazole (PriLOSEC) 20 mg capsule Take 1 capsule (20 mg total) by mouth daily Active Wixela Inhub 500-50 mcg/dose diskus inhaler INHALE 1 PUFF BY MOUTH EVERY 12 HOURS Active ferrous sulfate (IRON ORAL) Take by mouth Acti ve cyanocobalamin (Vitamin B-12) 500 mcg tabletIndication s:Prevention of Vitamin B12 Deficiency Take 1 tablet (500 mcg total) by mouth daily Active cholecalciferol (VITAMIN D-3) 2000 unit tablet Act cornelius traZODone (DESYREL) 50 mg tablet Take 1 tablet (50 mg total) by mouth nightly Active losartan (COZAAR) 25 mg tabletIndication s:Essential hypertension Take 1 tablet (25 mg total) by mouth daily 90 tablet 3 4 Active clopidogreL (PLAVIX) 75 mg tablet Take 1 tablet (75 mg total) by mouth daily 30 tablet 11 4 10/16/19 25 Active Additional Information Patient not taking.Reported on 09/27/2024 rosuvastatin (CRESTOR) 20 mg tabletIndication s:Hypercholester emia TAKE 1 TABLET(20 MG) BY MOUTH DAILY 90 tablet 1 4 Active Active Problems Problem Noted Date Diagnosed Date Bruit of right carotid artery 09/26/2023 Thrombocytopenia 09/13/2022 Shortness of breath 01/29/2019 Essential hypertension 01/29/2019 Hypercholesteremia 01/29/2019 Family history of premature CAD 01/29/2019 Social History Tobacco Use Types Packs/Day Years Used Date Smoking Tobacco: Former Cigarettes Q uit: 1991 Smokeless Tobacco: Never Tobacco Cessation:Counseling Given: Not Answered Alcohol Use Standard Drinks/Week Comments Yes 0 (1 standard drink = 0.6 oz pur e alcohol) Comments Unknown Sex and Gender Information Value Date Recorded Sex Assigned at Not on file Legal Sex Female 8:03 PM SYNCHRONIZER Gender Identity Not on file Sexual Orientation Not on file Last Filed Vital Signs Vital Sign Reading Time Taken Comments Blood Pressure 124/62 09/27/2024 2:11 PM SYNCHRONIZER Pulse 80 09/27/2024 2:11 PM SYNCHRONIZER Temperature - - Respiratory Rate - - Oxygen Saturation 98% 09/27/2024 2:11 PM SYNCHRONIZER Inhaled Oxygen Concentration - - Weight 74.4 kg (164 lb) 09/27/2024 2:11 PM SYNCHRONIZER Height 157.5 cm (5' 2 ) 09/27/2024 2:11 PM SYNCHRONIZER Body Mass Index 30 09/27/2024 2:11 PM SYNCHRONIZER Plan of Treatment Not on file Procedures Procedure Name Priority Date/Time Associated Diagnosis Comments LIPID PANEL Routine 09/27/2024 2:05 PM SYNCHRONIZER from Last 3 Months Results * Lipid panel (09/27/2024 2:05 PM SYNCHRONIZER) SCRIBED Cholesterol, Total 143 <100 EXTERNAL LAB SCRIBED HDL 42 >40 EXTERNAL LAB SCRIBED LDL 71 <100 EXTERNAL LAB SCRIBED Triglycerides 149 <150 EXTERNAL LAB Blood 09/27/2024 2:05 PM SYNCHRONIZER [facility] Robbi [place] MD LAB BLOOD ORDERABLES Fi nal Result EXTERNAL LAB from Last 3 Months Insurance MEDICARE RAILROAD MEDICARE RAILROAD [facility] FEDERAL Member Subscriber Plan / Payer ( fective 2015-Present) Name:Joanna Jeffery Relation to Subscriber:Spouse Name:YRN JEFFERY JR Date of :1950 Address: [address] [place] [address] Payer ID:[id number] (NAIC) Group ID:[id number] Type:[facility] Address: [address] [place] [address] Care Teams Chain Hooker Relationship Specialty Start Date End Date Kristina Elias MD PCP - General Family Medicine 08/12/21
--- OUTSIDE RECORDS SUMMARY | 2024-10-15 14:42 | XMS_ITS | Encounter Summary ---
Author Organization [facility] Address [address] [place] [address] Care Team Providers Care Retail Assistant Manager Name Role Phone Prudence Reis MD Unavailable [phone] Reuben Oneal MD Primary Care Provider [phone] Kristina Elias MD Primary Care Provider [phone] Encounter Details Date Type Department Care Team (Late st Contact Info) Description 04/18/2020 Prep for Procedure [facility]-Ad[facility] Testing [address] [facility] [address] [place], [place] [id number] Binh Scott MD [address] [place] [address] Social History Tobacco Use Types Packs/Day Years Used Date Smoking Tobacco: Former Cigarettes 1991 Smokeless Tobacco: Never Alcohol Use Standard Drinks/Week Comments Not Currently 0 (1 standard drink = 0.6 oz pur e alcohol) SOCIAL HOLIDAY Comments No Sex and Gender Information Value Date Recorded Sex Assigned at Not on file Legal Sex Female 8:16 AM CDT Gender Identity Not on file Sexual Orientation Not on file COVID-19 Exposure Response Date Recorded In the last month, have you been in contact with someone who was confirmed or suspected to have Coronavirus / COVID-19? No / Unsure 04/21/2020 6:16 AM CDT documented as of this encounter Plan of Treatment Not on file documented as of this encounter Results * PRE-SURGICAL/PRE-PROCEDURE CORONAVIRUS (COVID 19) (04/18/2020 11:00 AM CDT) Pathologist [facility] [place] CORONAVIRUS SARS COV 2 PCR (RESP) NOT DETECTED NOT DETECTED 04/19/2020 2:37 PM CDT [facility] Comment: A Not Detected (negative) test result for this test means that SARS- CoV-2 RNA was not present in the specimen above the limit of detection. A negative result does not rule out the possibility of COVID-19 and should not be used as the sole basis for treatment or patient management decisions. If COVID-19 is still suspected, based on exposure history together with other clinical findings, re-testing should be considered in consultation with public health authorities. Laboratory test results should always be considered in the context of clinical observations and epidemiological data in making a final diagnosis and patient management decisions. Please review the Fact Sheets and FDA authorized labeling available for health care providers and patients using the following websites: https://www.pluriSelect.BehavioSec/home/Covid-19/HCP/NAAT/fact-sheet2 https://www.pluriSelect.BehavioSec/home/Covid-19/Patients/NAAT/ fact-sheet2 This test has been authorized by the FDA under an Emergency Use Authorization (EUA) for use by authorized laboratories. Due to the current public health emergency, [facility] is receiving a high volume of samples from a wide variety of swabs and media for COVID-19 testing. In order to serve patients during this public health crisis, samples from appropriate clinical sources are being tested. Negative test results derived from specimens received in non-commercially manufactured viral collection and transport media, or in media and sample collection kits not yet authorized by FDA for COVID-19 testing should be cautiously evaluated and the patient potentially subjected to extra precautions such as additional clinical monitoring, including collection of an additional specimen. Methodology: Nucleic Acid Amplification Test (NAAT) includes PCR or TMA Additional information about COVID-19 can be found at the [facility] website: www.[employer]itee.BehavioSec/Covid19. Test performed at [facility] [address] [place] [address] Director: KIMBERLY ALCARAZ DO,MPH NASOPHARYNGEAL SWAB / Unknown 04/18/2020 11:00 AM CDT Binh Scott MD MICROBIOLOGY - GENERAL ORDERABLE S Final Result [facility] [address] [place] [address], documented in this encounter Visit Diagnoses Diagnosis Preoperative testing- Primary Preoperative examination, unspecified documented in this encounter Additional Health Concerns Infection Onset Date Last Indicated Resolved Time COVID-19 Rule Out 04/18/2020 04/18/2020 04/19/2020 2:38 PM CDT documented as of this encounter Care Teams Retail Assistant Manager Relationship Specialty Start Date End Date Reuben Oneal MD [address] [place] [address] PCP - General FAMILY PRACTICE 04/15/20 12/20/21 Kristina Elias MD [address] [place] [address] PCP - General FAMILY PRACTICE 12/21/21 Prudence Reis MD CARDIOVASCULAR DISEASE 04/15/20 documented as of this encounter
--- OUTSIDE RECORDS SUMMARY | 2024-10-15 14:42 | XMS_ITS | Encounter Summary ---
Author Organization [facility] Address [address] [place] [address] Care Team Providers Care Sausage Linker Name Role Phone Prudence Reis MD Unavailable [phone] Kristina Elias MD Primary Care Provider [phone] Reason for Referral * Surgical (Routine) - Authorized Specialty Diagnoses / Procedures Referred By Contac t Referred To Contact Diagnoses Varicose veins of lower extremity with pain, right Procedures Case request operating room: STAB PHLEBECTOMY (RIGHT LEG) Zelalem Ziegler MD [facility]. [address] [place] [address] Phone: tel: fax: Referral ID Status Reason Start Date Expiration Date V isits Requested Visits Authorized [id number] Authorized 01/10/2024 01/09/2025 1 1 Encounter Details Date Type Department Care Team (Late st Contact Info) Description 01/10/2024 Prep for Procedure [facility] [address] [place], [place] [id number] Zelalem Ziegler MD [facility]. [facility] [address] [place] [address] Social History Tobacco Use Types Packs/Day [...] on file Sexual Orientation Not on file documented as of this encounter Plan of Treatment Scheduled Orders Name Type Priority Associated Diagnoses Orde r Schedule Case request operating room: STAB PHLEBECTOMY (RIGHT LEG) Case Request Routine Varicose veins of lower extremity with pain, right Once for 1 Occurrences starting 01/10/2024 until 01/10/2024 documented as of this encounter Results * (ABNORMAL) COMPREHENSIVE METABOLIC PANEL (02/20/2024 12:18 PM CDT) [facility] GLUCOSE 94 70 - 99 MG/DL 02/20/2024 12:53 PM CDT [facility] BUN 11 7 - 18 MG/DL 02/20/2024 12:53 PM CDT [facility] CREATININE S/P/B 0.95 0.55 - 1.02 MG/DL 02/20/2024 12:53 PM CDT [facility] SODIUM S/P/B 139 136 - 145 MMOL/L 02/20/2024 12:53 PM CDT [facility] POTASSIUM S/P/B 4.3 3.5 - 5.1 MMOL/L 02/20/2024 12:53 PM CDT [facility] CHLORIDE S/P/B 109(H) 100 - 108 MMOL/L 02/20/2024 12:53 PM CDT [facility] CO2 24.2 21 - 32 MMOL/L 02/20/2024 12:53 PM CDT [facility] CALCIUM S/P/B 9.3 8.5 - 10.1 MG/DL 02/20/2024 12:53 PM CDT [facility] BILIRUBIN TOTAL S/P/B 1.4(H) 0.2 - 1.2 MG/DL 02/20/2024 12:53 PM CDT [facility] Comment: THIS ASSAY IS NOT RECOMMENDED FOR PATIENTS UNDERGOING TREATMENT WITH ELTROMBOPAG DUE TO THE POTENTIAL FOR FALSELY ELEVATED RESULTS. TOTAL PROTEIN S/P/B 6.3(L) 6.4 - 8.2 G/DL 02/20/2024 12:53 PM CDT [facility] ALBUMIN S/P/B 3.5 3.4 - 5.0 G/DL 02/20/2024 12:53 PM CDT [facility] AST 11(L) 15 - 37 U/L 02/20/2024 12:53 PM CDT [facility] ALT 11(L) 14 - 55 U/L 02/20/2024 12:53 PM CDT [facility] ALKALINE PHOSPHATASE S/P/B 79 50 - 136 U/L 02/20/2024 12:53 PM T [facility] ANION GAP 5.8 5 - 15 MMOL/L 02/20/2024 12:53 PM CDT [facility] BUN CREATININE RATIO 11.5 6 - 26 02/20/2024 12:53 PM T [facility] A/G RATIO 1.2 1.0 - 2.0 RATIO 02/20/2024 12:53 PM T [facility] GFR ESTIMATE 63(L) >90 ML/MIN/1.7 3 M2 02/20/2024 12:53 PM T [facility] Comment: NOTE: eGFR is not calculated for patients <18 years of age. This is an estimated GFR calculation using the new CKD EPI creatinine equation without race and so does not require a correction factor for race. This estimated GFR should not be used for calculating drug doses. 02/20/2024 12:1 8 PM CDT us Zelalem Ziegler MD LABORATORY Final Result [facility] [address] [place] [address], [place] [phone] * PROTIME/INR, VENOUS (02/20/2024 12:18 PM CDT) [facility] PROTIME 10.5 10.2 - 12.9 SEC 02/20/2024 12:47 PM CDT [facility] INR 0.9 02/20/2024 12:47 PM CDT [facility] Comment: Recommended INR Therapeutic Goals: 2.0-3.0 Routine Therapy 2.5-3.5 Mechanical Prosthetic Valves (High Risk) 02/20/2024 12:1 8 PM CDT Zelalem Ziegler MD LABORATORY Final Result [facility] [address] [place] [address], [place] [phone] * (ABNORMAL) CBC W/DIFF AUTOMATED (02/20/2024 12:18 PM CDT) [facility] WBC 5.11 4.5 - 11.0 x10'3/uL 02/20/2024 1:01 PM CDT [facility] RBC 4.62 4.20 - 5.40 x10'6/uL 02/20/2024 1:01 PM CDT [facility] HGB 12.0 12.0 - 16.0 G/DL 02/20/2024 1:01 PM CDT [facility] HCT 36.8(L) 38.0 - 48.0 % 02/20/2024 1:01 PM CDT [facility] MCV 79.7(L) 81.0 - 99.0 FL 02/20/2024 1:01 PM CDT [facility] MCH 26.0(L) 27.0 - 31.0 PG 02/20/2024 1:01 PM CDT [facility] MCHC 32.6 32.0 - 36.0 G/DL 02/20/2024 1:01 PM CDT [facility] RDW 13.6 11.5 - 14.5 % 02/20/2024 1:01 PM CDT [facility] PLT 65(L) 130 - 400 x10'3/uL 02/20/2024 1:01 PM CDT [facility] MPV 12.1 9.3 - 12.2 FL 02/20/2024 1:01 PM CDT [facility] DIFFERENTIAL TYPE AUTOMATED DIFFERENTIAL 02/20/2024 1:01 PM CDT [facility] NEUTROPHILS % 58.1 % 02/20/2024 1:01 PM CDT [facility] LYMPHOCYTES % 32.9 % 02/20/2024 1:01 PM CDT [facility] MONOCYTES % 7.0 % 02/20/2024 1:01 PM CDT [facility] EOSINOPHILS 1.2 % 02/20/2024 1:01 PM CDT [facility] BASOPHILS 0.4 % 02/20/2024 1:01 PM CDT [facility] IMMATURE GRANS % 0.4 % 02/20/20 1:01 PM CDT [facility] ABS. NEUTROPHILS 2.97 1.80 - 7.70 x10'3/uL 02/20/2024 1:01 PM CDT [facility] ABS. LYMPHOCYTES 1.68 1.00 - 4.80 x10'3/uL 02/20/2024 1:01 PM CDT [facility] ABS. MONOCYTES 0.36 0.24 - 0.86 x10'3/uL 02/20/2024 1:01 PM CDT [facility] ABS. EOSINOPHILS 0.06 0.04 - 0.36 x10'3/uL 02/20/2024 1:01 PM CDT [facility] ABS. BASOPHILS 0.02 0.01 - 0.08 x10'3/uL 02/20/2024 1:01 PM CDT [facility] ABS. IMMATURE GRANULOCYTES 0.02 0.00 - 0.49 x10'3/uL 02/20/2024 1:01 PM CDT [facility] RBC MORPHOLOGY RBC MORPHOLOGY APPEARS NORMAL. SLIDE REVIEWED. 02/20/2024 1:01 PM CDT [facility] PLT EST. DECREASED 02/20/2024 1:01 PM CDT [facility] 02/20/2024 12:1 8 PM CDT us Zelalem Ziegler MD LABORATORY Final Result [facility] [address] [place] [address], documented in this encounter Visit Diagnoses Diagnosis Varicose veins of lower extremity with pain, right- Primary Abnormal coagulation profile documented in this encounter Care Teams Sausage Linker Relationship Specialty Start Date End Date Krist[place] [address] PCP - General FAMILY PRACTICE 12/21/21 Prudence Reis MD CARDIOVASCULAR DISEASE 04/15/20 documented as of this encounter
--- OUTSIDE RECORDS SUMMARY | 2024-10-15 14:42 | XMS_ITS | Data Portability ---
Author Organization [facility] VICTOR MMargarita [facility] Address [address] [place] [address] Care Team Providers Care Licensed Weigher Name Role Phone ORAL, HELENA Protective Clothing Issuer Unavailable Assessment Encounter Date Assessment Date Assessment LastModified by Organization Details LastModified Time 06/30/2016 06/30/2016 D/c HRT, try Osphena if covered/affor dable. Otherwise, use Estrace cream. [email or web address] Not available 06/30/2016 18:21:45 Plan of Treatment Reminders Order Date Submit Date Provider Last Modified By Organization Details Last Modified Time Details Appointments None recorded. Lab urinalysi s, dipstick 2017 018 [email or web address] In-Office Order, Internal Use Only DO Not Attach Compendium DO Not Attach Compendium, Do Not Delete/merge, [id number] 8 17:43:21 pap, LB + HPV mRNA E6/E7 + reflex HPV (16+18+45 ) 2013 014 [email or web address] [facility], [address] [place] [address], [address], [place], [address], 5 12:38:54 Referral None recorded. Procedures None recorded. Surgeries None recorded. Imaging MAMMO, screening , bilateral 2017 018 RAMIR[facility], [address], [address], [place], [address], 8 11:50:11 MAMMO, screening , bilateral 2015 016 [id number] [id number] [facility], [address], [address] [address], [place], [address], 6 04:31:01 mammogram , screening 2013 014 [email or web address] Not available 5 12:38:54 Medication Orders Osphena 60 mg tablet [address], [address] [place] [address], [address], 8 14:59:01 Estrace 0.01% (0.1 mg/gram) vaginal cream [address], [address] [place] [address], [address], 8 14:58:25 calcium 600 mg (as carbonate )-vitamin D3 20 mcg (800 unit) tablet [address], [address] [place] [address], [address], 8 14:57:53 multivita min tablet [address], [address] [place] [address], [address], 8 14:58:54 Estrace 0.5 mg tablet [address], [address] [place] [address], [address], 8 14:58:29 Estrace 0.01% (0.1 mg/gram) vaginal cream 2013 014 [address], [address] [place] [address], [address], 8 14:58:25 Linzess 145 mcg capsule 2013 014 [email or web address] [facility] #6074, [address] [place], [address], 8 14:58:46 Patient TargetsNo targets recorded. Patient Instructions Encounter Date Encounter Id Patient Instructions Last Modified By Organization Details Last Modified Time 06/30/2016 [id number] mammogram: about this test [email or web address] Not available 06/30/2016 16:27:19 learning about breast cancer screening [email or web address] Not available 06/30/2016 16:05:56 07/12/2018 [id number] mammogram: about this test [email or web address] Not available 07/12/2018 15:23:21 Reason for Referral None Reported. Results Created Date Observation Date Name Description Value Unit Range Abnormal Flag Note LastModifiedBy Organization Detail LastModifiedTime 07/12/20 18 07/12/2018 urina lysis , dipst ick Leukocytes Negati ve Not Available In-Office Order Internal Use Only DO Not Attach Compendium DO Not Attach Compendium, Do Not Delete/merge, [id number] 07/12/2018 15:09:56 07/12/20 18 07/12/2018 urina lysis , dipst ick Nitrite negati ve Not Available In-Office Order Internal Use Only DO Not Attach Compendium DO Not Attach Compendium, Do Not Delete/merge, [id number] 07/12/2018 15:09:56 07/12/20 18 07/12/2018 urina lysis , dipst ick Urobilinogen .2 Not Available In-Of fice Order Internal Use Only DO Not Attach Compendium DO Not Attach Compendium, Do Not Delete/merge, [id number] 07/12/2018 15:09:56 07/12/20 18 07/12/2018 urina lysis , dipst ick Protein Negati ve Not Available In-Office Order Internal Use Only DO Not Attach Compendium DO Not Attach Compendium, Do Not Delete/merge, [id number] 07/12/2018 15:09:56 07/12/20 18 07/12/2018 urina lysis , dipst ick pH 7.0 Not Available In-Office Order Internal Use Only DO Not Attach Compendium DO Not Attach Compendium, Do Not Delete/merge, [id number] 07/12/2018 15:09:56 07/12/20 18 07/12/2018 urina lysis , dipst ick Blood Non-He molyze d: Trace Not Available In-Office Order Internal Use Only DO Not Attach Compendium DO Not Attach Compendium, Do Not Delete/merge, [id number] 07/12/2018 15:09:56 07/12/20 18 07/12/2018 urina lysis , dipst ick Specific [place] 1.010 Not Available In-Off ice Order Internal Use Only DO Not Attach Compendium DO Not Attach Compendium, Do Not Delete/merge, [id number] 07/12/2018 15:09:56 07/12/20 18 07/12/2018 urina lysis , dipst ick Ketone Negati ve Not Available In-Office Order Internal Use Only DO Not Attach Compendium DO Not Attach Compendium, Do Not Delete/merge, [id number] 07/12/2018 15:09:56 07/12/20 18 07/12/2018 urina lysis , dipst ick Bilirubin Negati ve Not Available In-Office Order Internal Use Only DO Not Attach Compendium DO Not Attach Compendium, Do Not Delete/merge, [id number] 07/12/2018 15:09:56 07/12/20 18 07/12/2018 urina lysis , dipst ick Glucose Negati ve Not Available In-Office Order Internal Use Only DO Not Attach Compendium DO Not Attach Compendium, Do Not Delete/merge, [id number] 07/12/2018 15:09:56 08/19/20 14 08/15/2014 lylai christofer/riki hartmann t No observ ation record ed. Not Available 09/05 15:45:59 07/19/20 16 07/19/2016 mamssofia w PT NAME: WILLIAM GALLARDO : 1949 PT SEX/AG E: / PT ACCT NUMBER : [id number] MR#: [id number] ROOM/B ED: PT STATUS : REG CLI DATE OF EXAMIN ATION: ORDERI NG PHYSIC CHANTE: HELENA MCDANIEL MAN M.D. ATTEND ING PHYSIC CHANTE: HELENA MCDANIEL MAN , M.D. DICTAT ING PHYSIC CHANTE: Live HANNA M.D. [id number] 3.001M IX 13:34: 00 61.007 2[facility] ([facility] : JAMEY SCREEN KERA W/CAD INDICA TION: Screen ing. TECHNI QUE: Screen ing digita l mammog karen submit nadege. CAD analys is submit nadege and interp reted. COMPAR LEX: Compar lex to multip le prior studie s. The oldest study review ed is 2013. FINDIN GS: There has been no signif icant change when compar lex was made to prior films. Breast compos ed of scatte red areas of fibrog landul ar densit y. No mammog raphic eviden ce for malign radha in either breast . Regula r clinic al breast examin ation in annual mammog sherry are recomm ended. IMPRES KENDY: 1: NO MAMMOG RAPHIC EVIDEN CE OF MALIGN RADHA IN EITHER BREAST AND NO CHANGE . RECOMM ENDATI ON: Routin e yearly screen ing mammog karen and regula r clinic al breast examin ation are recomm ended. BI-RAD S CATEGO RY 1 - NEGATI VE __ Review ed, dictat ed and finali zed at [facility] on A. __ Electr onical ly signed by: SHERRIE HANNA Date: Time: 14:14 SHERRIE HANNA M.D.__ ___ [facility] [employer] [address] [facility] [address] [place] [address] [facility] (Imaging) [address], [place], [address], 07/19/2016 15:17:29 07/19/20 16 07/19/2016 MAMMO , scree serjio, bilat eral No observ ation record ed. [facility] [address], [place], [address], 07/19/2016 16:42:23 07/12/20 18 04/29/2018 CT, abdom en + pelvi s, w/ contr ast No observ ation record ed. [facility] Not Available 2017 16:12:47 07/12/20 18 05/15/2018 XR, upper gastr ointe sherry l serie s, w/ KUB No observ ation record ed. [facility]CODE Not Available 2017 16:15:50 07/12/20 18 06/16/2018 XR, upper gastr ointe sherry l serie s, w/ KUB No observ ation record ed. BARCODE Not Available 2017 16:16:08 07/12/20 18 05/05/2018 XR, upper gastr ointe sherry l serie s, w/ KUB No observ ation record ed. BARCODE Not Available 2017 16:16:15 07/12/20 18 06/26/2018 XR, upper gastr ointe sherry l serie s, w/ KUB No observ ation record ed. BARCODE Not Available 2017 16:27:58 07/12/20 18 05/03/2018 XR, abdom en, 1 view No observ ation record ed. [email or web address] Not Available 07/28 15:54:08 08/09/20 18 08/08/2018 MAMMO , scree serjio, bilat eral No observ ation record ed. [facility] [address], [place], [address], 08/10/2018 12:42:16 Result Notes None recorded. Problems Name Problem SNOMED Code Status Onset Date Resolution Date Notes Provider Name and Address Organization Details Recorded Time Menopausal syndrome 508487407 Active Helena jiménez, FCO Dougherty [facility] 4 11:23:52 Problem Notes None recorded. Procedures Surgical History Date Name Laterality Status Provider Name and Address Organization Details Recorded Time 06/16/20 18 lithotomy completed Roxi Bob [place] [facility] 07/12/2018 15:00:50 07/19/20 16 Most Recent Mammogram completed Roxi Bob MA [facility] 07/12/2018 15:01:41 07/31/20 14 Date of Last Pap Smear completed Ciara Mabry MA [place] [facility] 06/30/2016 15:07:28 08/29/18 91 Laparoscopy completed CESAR Null [facility] 07/31/2014 10:46:09 08/29/18 82 Appendectomy completed Yin Bazzi MA [place] [facility] 07/31/2014 10:46:09 04/07/19 79 Tubal Ligation completed CESAR Garcia [facility] 06/30/2016 15:08:33 04/07/19 79 Caesarean Section completed CESAR Garcia [facility] 06/30/2016 15:06:53 09/05/18 76 Caesarean Section [facility] 06/30/2016 15:07:08 09/12/18 72 Caesarean Section completed CESAR Garcia [facility] 06/30/2016 15:07:16 lithotripsy completed Roxi Bob MA [place] [facility] 07/12/2018 15:00:39 Imaging Results Imaging Date Name Status LastModified by Organization Details LastModified Time 08/15/2014 imaging/diagnostic result completed [email or web address] Information not available 09/05/2014 15:45:59 07/19/2016 [email or web address] completed [facility] (Imaging) [address], [place], [address], 07/19/2016 15:17:29 07/19/2016 MAMMO, screening, bilateral completed [facility] [address], [place], [address], 07/19/2016 16:42:23 04/29/2018 CT, abdomen + pelvis, w/ contrast completed [facility] Information not available 07/12/2018 16:12:47 05/15/2018 XR, upper gastrointestinal series, w/ KUB completed [facility] Information not available 07/12/2018 16:15:50 06/16/2018 XR, upper gastrointestinal series, w/ KUB completed [facility] Information not available 07/12/2018 16:16:08 05/05/2018 XR, upper gastrointestinal series, w/ KUB completed [facility] Information not available 07/12/2018 16:16:15 06/26/2018 XR, upper gastrointestinal series, w/ KUB completed [facility] Information not available 07/12/2018 16:27:58 05/03/2018 XR, abdomen, 1 view completed [facility] Arielr mation not available 07/28/2018 15:54:08 08/08/2018 MAMMO, screening, bilateral completed [facility] [address], [place], [address], 08/10/2018 12:42:16 Procedure Notes None recorded. Medical Equipment None Reported. Allergies Allergen ID Allergen Name Allergen Category Reaction Reaction Severity Criticality Documentation Date Start Date Code Code System Note Provider Name and Address Organization Details Recorded Time 4877 Non-stero idal anti-infl ammatory agent (product) medicatio n other severe Not available 07/31/2014 78717 005 SNOMED cause s gastr itis Not Available Not Available Not Available Medications Name Sig Start Date Stop Date Status Note LastModified by Organization Details LastModified Time multivitamin tablet Take 1 tablet every day by oral route. 07/12 completed Not Available Not Available Not Available amoxicillin 500 mg capsule 07/12 completed Not Available Not Available Not Available prednisone 10 mg tablet 07/12 completed Not Available Not Available Not Available hydrocodone 5 mg-acetamino phen 325 mg tablet active Not Available Not Available Not Available prochlorpera zine maleate 10 mg tablet active Not Available Not Available Not Available sulfamethoxa zole 800 mg-trimethop rim 160 mg tablet active Not Available Not Available Not Available tramadol 50 mg tablet active Not Available Not Available No t Available triamcinolon e acetonide 0.1 % topical cream 07/12 completed Not Available Not Available Not Available meloxicam 7.5 mg tablet 07/12 completed Not Available Not Available Not Available dicyclomine 20 mg tablet active Not Available Not Available Not Available diclofenac sodium 50 mg tablet,delay ed release 07/12 completed Not Available Not Available Not Available Transderm-Sc op 1 mg over 3 days transdermal patch 07/12 completed Not Available Not Available Not Available Estrace 0.5 mg tablet Take 1 tablet every day by oral route. 07/12 completed Not Available Not Available Not Available ondansetron 4 mg disintegrati ng tablet active Not Available Not Available No t Available cefdinir 300 mg capsule active Not Available Not Available N ot Available fluticasone propionate 50 mcg/actuatio n nasal spray,suspen kendy 07/12 completed Not Available Not Available Not Available dicyclomine 10 mg capsule 07/12 completed Not Available Not Available Not Available Estrace 0.01% (0.1 mg/gram) vaginal cream Insert 1 g twice a week by vaginal route. 07/12 completed Not Available Not Available Not Available levocetirizi ne 5 mg tablet 07/12 completed Not Available Not Available Not Available calcium 600 mg (as carbonate)-v itamin D3 20 mcg (800 unit) tablet Take 1 tablet twice a day by oral route for 30 days. 07/12 completed Not Available Not Available Not Available Linzess 145 mcg capsule Take 1 capsule every day by oral route. 07/12 completed Not Available Not Available Not Available Osphena 60 mg tablet Take 1 tablet every day by oral route. 07/12 completed Not Available Not Available Not Available Afluria 7665-3082(PF ) 45 mcg (15 mcg x 3)/0.5 mL intramuscula r syringe active Not Available Not Available No t Available Fluzone High-Dose 3711-1409 (PF) 180 mcg/0.5 mL intramuscula r syringe 07/12 completed Not Available Not Available Not Available Vitals Date Recorded Body height Body mass index (BMI) Body weight Systolic blood pressure Diastolic blood pressure Provider Name and Address Organization Details Last Updated DateTime 07/12/2018 157.48 cm 32.6 kg/m2 12640.44 g 172 mm[Hg] 94 mm[Hg] Roxi Bob [place] - [place] 8 15:04:46 Date Recorded Body height Body weight Body mass index (BMI) Systolic blood pressure Diastolic blood pressure Provider Name and Address Organization Details Last Updated DateTime 06/30/2016 157.48 cm 42029.59 g 33.8 kg/m2 152 mm[Hg] 90 mm[Hg] Ciara Mabry [place] - [facility] 6 15:02:18 Social History Question Answer Notes LastModified by Organizat ion Details LastModified Time Tobacco Smoking Status Former Smoker quit 1991 Yin Bazzi MA [facility], [place] - [facility]IF 07/31/2014 10:50:46 Do You Have An Advance Directive? No Information not available 06/30/2016 What Is Your Level Of Alcohol Consumption? Occasional Information not available 06/30/2016 Is Blood Transfusion Acceptable In An Emergency? Yes Information not available 06/30/2016 What Is Your Level Of Caffeine Consumption? Moderate Information not available 06/30/2016 How Much Tobacco Do You Chew? None Information not available 06/30/2016 Are You Currently Employed? No Information not available 06/30/2016 What Type Of Diet Are You Following? REGULAR Information not available 06/30/2016 Which Illicit Or Recreational Drugs Have You Used? None Information not available 06/30/2016 Education 12 Information no t available 06/30/2016 What Is Your Occupation? [employer] Information not available 06/30/2016 Live Alone Or With Others? With Others Information not available 06/30/2016 What Was The Date Of Your Most Recent Tobacco Screening? 07/12/2018 Information not available 03/22/2019 How Many Children Do You Have? 3 Information not available 06/30/2016 Performs Monthly Self-breast Exam? Yes Information not available 06/30/2016 Do You Use Protection During Sex? No Information not available 06/30/2016 What Is Your Relationship Status? Information not available 06/30/2016 Seat Belts Used Routinely Yes Information not available 06/30/2016 Are You Sexually Active? Yes Information not available 06/30/2016 At What Age Did You Start Smoking Tobacco? 18 Information not available 06/30/2016 How Much Tobacco Do You Smoke? 1 PPD Information not available 06/30/2016 General Stress Level Medium Information not available 06/30/2016 Do You Use Sunscreen Routinely? No Information not available 06/30/2016 How Many Years Have You Smoked Tobacco? 20 Information not available 06/30/2016 Sex: Unknown Functional Status Question Answer Note LastModified by Organizat ion Details LastModified Time What is your exercise level? Occasional Information not available 06/30/2016 Mental Status None recorded. Family History Relationship Description Onset Age of this Age Resolved Age Notes LastModified by Organization Details LastModified Time Daughter Migraine Not availabl e 06/30/2016 15:03:00 Medical History Condition Response Coronary Artery Disease N Kidney Cyst N Blood Diseases N Hyperthyroidism N Blood disorders N Blood Transfusion Y MRSA N Emphysema N Depression N COPD N Blood Clots N Pneumonia N Premature N Peripheral Arterial Disease N Edema N TIA N Headaches/Migraines N Anxiety Disorder N Obesity Y Polyps N Infertility N Acid Reflux (GERD) N Hematuria N Stroke N Neck Injury N Polio N Hospital Admission other than N Neurologic Disorder N Other Sleep Disorders N Rheumatoid Arthritis N Fibromyalgia N Abdominal Aortic Aneurysm Repair N Kidney Disease N Heart Conditions N Heart Disease/Heart Problems N Hospitalizations N Brain Tumors N Acne N Skin Problems N Eating Disorder N Meningitis N Constipation Y Tuberculosis N Cerebral Palsy N Myocardial Infarction N Asthma N Substance Abuse N Peripheral Vascular Disease N Vertigo N Sleep Disorder N Cirrhosis N Pulmonary Embolism N Chicken Pox Y Hematologic Disease N Flomax Use Past or Present N Anxiety/Depression N Thyroid Disease N Colon Cancer N Lung Disease N Glaucoma N Developmental or Behavioral Disorders N Bipolar N Pacemaker N Diverticulitis/Diverticulosis N Orthopedic Problems N Anesthesia Complications N Orthotics N Head Injury/Concussion N Congenital Anomalies N Dejesus Bite N Chronic Kidney Disease N Endometriosis N Liver Disease N Schizophrenia N Dialysis N Speech Delay N Chronic Obstructive Pulmonary Disease N Parkinson's Disease N Thyroid Problems N GI Problems Y Developmental Delay N Anemia N Multiple Sclerosis N Immune System Disorder N Colon Polyps N Heart Attack (PR) N Diabetes N Cardiomyopathy N Blood Transfusions N Heart Problems/Murmur N Eye Trauma N Congestive Heart Failure (CHF) N Valvular Heart Disease N Hyperlipidemia N Double Vision N Abuse/Domestic Violence N Hepatitis B N Lupus N Epilepsy/Seizures N Reflux/GERD N Aneurysm N Heart Disease N Bronchitis N Pre-Eclampsia N Hypertension N Heart Failure N Other N Gout N High Blood Pressure N Atrial Fibrillation N Kidney Stones Y Head Trauma/Injury N Congenital Heart Disease N Spine Problems N Gastrointestinal Disease N Lung Mass N Sinusitis Y Obstructive Sleep Apnea N Muscle, Joint, or Bone Problems N Autoimmune disease N Vision or Eye Problems N Arthritis N Blood Clot N Cancer N Seasonal allergies Y Leg or Foot Ulcers N Raynaud's Disease N Aortic Aneurysm N Arrhythmia N Headaches Y Heart Problems N Ambloypia N Ear or Hearing Problems N Hyperparathyroidism N Migraines N Artificial Joints N Kidney or Bladder Problems N NSAID Use N Encephalitis N PTSD N Ulcers N Prostate Hypertrophy N Bleeding Disorder N AIDS/HIV N Urinary Tract Infection N Back Problems N Allergies Y Atrial Flutter N GERD/Reflux N Hepatitis N Autism Spectrum Disorder (ASD) N Breast Cancer N Hernia N Hypothyroidism N Breast Problem N Genitourinary Disease N Deep Vein Thrombosis N Varicose Veins N Cystic Fibrosis N Hearing Loss N Developmental Problems N Carotid Disease N Vitamin D Deficiency N ADHD N Bladder or Kidney Problems N High Cholesterol N [place] N Valvular Abnormalities N Psychiatric/Mental Health Condition N Organ Transplant N Foot Deformity N Allergies/Hayfever N Dyslipidemia N Hyponatremia N Diabetic Eye Disease N Osteoporosis/Osteopenia N Back Pain Y Proteinuria N Mental Illness N Neurological Problems N Ovarian Cancer N Bedwetting N Seizures/Epilepsy N Kidney Failure N Ocular trauma N Diverticulitis N Dementia N Sleep Apnea N Mental Problems N Warfarin Management N Osteoporosis N Gynecological History Statement/Question Response Abnormal Pap N STIs/STDs N HPV Vaccine N Most Recent Mammogram 07/19/2016 Age at Menarche 12 Current Control Method Tubal Ligat ion Age at First Child 21 If Post Menopausal, Age at Menopause 47 Sexually Active? Y Menses Monthly N Date of Last Pap Smear 07/31/2014 Sexual Problems? Y LMP Unknown Obstetrics History GPAL:G 3 P 3 0 0 3 Type Value Multiple Births 0 Full Term 3 Induced 0 Spontaneous 0 Premature 0 Living 3 Ectopics 0 Total 3 Past Encounters Encounter ID Performer Location Encounter Start Date Encounter Closed Date Diagnosis/Indication Diagnosis SNOMED-CT Code Diagnosis ICD10 Code Diagnosis Note [id number] ROSALINE House (JOB ANALYST) [address] [place] [phone] 0 07/31/2014 10:09:36 07/31/2014 12:11:49 Gynecologic examination [id number] Menopausal syndrome [id number] Helena Duke (JOB ANALYST) [address] [place] [phone] 06/30/2016 14:18:34 07/01/2016 09:46:16 Screening mammography 37825935 Z12.31 Menopausal syndrome 1237 48446 N95.9 Screening for malignant neoplasm of breast 645596489 Z12.31 [id number] Helena Duke (JOB ANALYST) [address] [place] [phone] 0 07/12/2018 14:09:39 07/14/2018 13:36:30 Screening mammography 09614357 Z12.31 Health Concerns Section Related Observation LastModified by Organization Detai ls LastModified Time None Recorded Concern Status LastModified by Organization Details LastModified Time None Recorded Advance Directives Directive N: Payers Encounter Date Sequence Insurance Name Policy Number Policy [place] Covered Member ID [place] Member ID Guarantor Name 07/31/2014 2 [place] 106 Joseph Gallardo Jr [id number] Joanna Gallardo 06/30/2016 2 [place] 106 Joseph Gallardo Jr [id number] Joanna Gallardo 06/30/2016 1 [place] Joanna Gallardo [id number] Joanna Gallardo 07/12/2018 2 [place] 106 Joseph Gallardo Jr [id number] Joanna Gallardo 07/12/2018 1 [place] Joanna Gallardo [id number] Joanna Gallardo Notes Date Note Type Note Provider Name and Address Organization Details Recorded Time 06/30/2016 text/html Annual [place] [facility] Post-MenopausalReporte d bypatient.Menopausal Symptoms:normal vaginal lubrication;hot flashes Vaginal Bleeding:history of menopause having occurred; no history of post menopausal bleeding Urinary Symptoms:no hematuria; no incontinence; no nocturia; no urinary frequency Vulva:no genital lesion;atrophic vulva Vagina:normal vaginal discharge;atrophic vagina Breast:no breast lump; no nipple discharge; no breast pain Sexual Complaints:no sexual complaints Psychological Symptoms:no depression; no anxiety 66yo menopausal WF who presents for routine annual. Using Estrace for menopausal symptoms. Notes vaginal dryness but does not use Estrace cream. No breast abnormalities noted. Last mammogram 2 years ago. [facility] 06/30/2016 18:21:51 07/12/2018 text/html Breast ProblemsReported bypatient.Quality:asym ptomatic; no bloody discharge; no brown discharge; no milky discharge; no yellow-clear discharge; no yellow-green discharge; non-tender; improving; no mass Context:prior mammogram normal; performs breast self-examination; no breast implants; no family history of breast cancer; no history of breast cancer; no radiation treatment; no chemotherapy; no cancer; no previous biopsies; no miscarriages; recent MRI normal; lymph node status negative Modifying Factors:no recent change in exercise habits; no recent changes in weight; no recent changes in diet; no recent changes in medication dosage of hormone replacement therapy Aggravating Factors:none Associated Symptoms:no fever; no chills; no breast reddening; no nipple discharge; no sore nipples; no nipple inversion; breasts feel normal; no breast swelling; no arm pain; no arm swelling; no chest pain; no malaise; no breast lump; no change in breast skin 68 postmenopausal female here for CBE. 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 Status 07/31/20 14 1 CLOSED Fetus Data First Name Last Name Admitted to NICU Weight (g) Sex Living Outcome Pediatric Complications Fetus ID Race Codes Race Delivery Type 3089.86 8704 F Full Term 2063 King Calculation Initial King Date Initial Exam Date Initial Exam Provider Initial Ultrasound Date Last Menstrual Period Date Ultra Sound Weeks Gestation 0 Eighteen To Twenty Week King Update Ultra Sound Date Fundal Height At Umbil Quickening Date Ultra Sound Latest Weeks Gestation Final King Confirmed By Final King Confirmed Date Final King Date Ultra Sound Latest Days Gestation 0 0 Menstrual History Last Menstrual Date Menses Monthly On Bcp Conception Prior Menses Frequency Hcg Plus Date Menarche Onset Age Delivery Information Delivery Date Delivery Type Labor Anesthesia Weeks Gestation Incision Type Labor Labor Length Hrs Delivered By Post Complications Tubal Sterilization Discharge Date Comments 2 General 40 Discharge Information Feeding Method Contraceptive Method Maternal HG B and HCT Levels Ob Episode Information Episode Created Date Number of Fetuses Patient Bloodtype Patient rh Status Prepregnancy Weight lbs Domestic Partner Domestic Partner Phone Father Name Bench Patternmaker Metal Status 07/31/20 14 1 CLOSED Fetus Data First Name Last Name Admitted to NICU Weight (g) Sex Living Outcome Pediatric Complications Fetus ID Race Codes Race Delivery Type 3089.86 8704 M Full Term 2064 King Calculation Initial King Date Initial Exam Date Initial Exam Provider Initial Ultrasound Date Last Menstrual Period Date Ultra Sound Weeks Gestation 0 Eighteen To Twenty Week King Update Ultra Sound Date Fundal Height At Umbil Quickening Date Ultra Sound Latest Weeks Gestation Final King Confirmed By Final King Confirmed Date Final King Date Ultra Sound Latest Days Gestation 0 0 Menstrual History Last Menstrual Date Menses Monthly On Bcp Conception Prior Menses Frequency Hcg Plus Date Menarche Onset Age Delivery Information Delivery Date Delivery Type Labor Anesthesia Weeks Gestation Incision Type Labor Labor Length Hrs Delivered By Post Complications Tubal Sterilization Discharge Date Comments 6 General 40 Discharge Information Feeding Method Contraceptive Method Maternal HG B and HCT Levels Ob Episode Information Episode Created Date Number of Fetuses Patient Bloodtype Patient rh Status Prepregnancy Weight lbs Domestic Partner Domestic Partner Phone Father Name Bench Patternmaker Metal Status 07/31/20 14 1 CLOSED Fetus Data First Name Last Name Admitted to NICU Weight (g) Sex Living Outcome Pediatric Complications Fetus ID Race Codes Race Delivery Type 3259.96 5704 M Full Term 2065 Only King Calculation Initial King Date Initial Exam Date Initial Exam Provider Initial Ultrasound Date Last Menstrual Period Date Ultra Sound Weeks Gestation 0 Eighteen To Twenty Week King Update Ultra Sound Date Fundal Height At Umbil Quickening Date Ultra Sound Latest Weeks Gestation Final King Confirmed By Final King Confirmed Date Final King Date Ultra Sound Latest Days Gestation 0 0 Menstrual History Last Menstrual Date Menses Monthly On Bcp Conception Prior Menses Frequency Hcg Plus Date Menarche Onset Age Delivery Information Delivery Date Delivery Type Labor Anesthesia Weeks Gestation Incision Type Labor Labor Length Hrs Delivered By Post Complications Tubal Sterilization Discharge Date Comments 9 General 40 Discharge Information Feeding Method Contraceptive Method Maternal HG B and HCT Levels
--- OUTSIDE RECORDS SUMMARY | 2024-10-15 14:42 | XMS_ITS | Encounter Summary ---
Author Organization [facility] Address [address] [place] [address] Care Team Providers Care Hogshead Salvage Name Role Phone Prudence Reis MD Unavailable [phone] Kristina Elias MD Primary Care Provider [phone] Encounter Details Date Type Department Care Team (Late st Contact Info) Description 12/02/2023 Prep for Procedure [facility], [facility] [address], [place] [id number] Zelalem Ziegler MD Three [facility]. [facility] [address], [place] [id number] Social History Tobacco Use Types Packs/Day Years Used Date Smoking Tobacco: Former Cigarettes 1 1991 Smokeless Tobacco: Never Alcohol Use Standard [...] as of this encounter Results * (ABNORMAL) CBC W/DIFF AUTOMATED (01/09/2024 8:05 AM CDT) WBC 3.77(L) 4.5 - 11.0 x10'3/uL 01/09/2024 8:58 AM CDT [facility] RBC 2.59(L) 4.20 - 5.40 x10'6/uL 01/09/2024 8:58 AM CDT [facility] HGB 6.7(LL) 12.0 - 16.0 G/DL 01/09/2024 8:58 AM CDT [facility] Comment: This result has been called to SOL HIGHTOWER by [id number] on 01/09/2024 08:58:40, and has been read back. HCT 21.7(L) 38.0 - 48.0 % 01/09/2024 8:58 AM CDT [facility] MCV 83.8 81.0 - 99.0 FL 01/09/2024 8:58 AM CDT [facility] MCH 25.9(L) 27.0 - 31.0 PG 01/09/2024 8:58 AM CDT [facility] MCHC 30.9(L) 32.0 - 36.0 G/DL 01/09/2024 8:58 AM CDT [facility] RDW 13.3 11.5 - 14.5 % 01/09/2024 8:58 AM CDT [facility] PLT 85(L) 130 - 400 x10'3/uL 01/09/2024 8:58 AM CDT [facility] MPV 8.8(L) 9.3 - 12.2 FL 01/09/2024 8:58 AM CDT [facility] DIFFERENTIAL TYPE AUTOMATED DIFFERENTIAL 01/09/2024 9:00 AM CDT [facility] NEUTROPHILS % 41.1 % 01/09/2024 9:00 AM T [facility] LYMPHOCYTES % 48.0 % 01/09/2024 9:00 AM T [facility] MONOCYTES % 7.4 % 01/09/2024 9:00 AM CDT [facility] EOSINOPHILS 0.8 % 01/09/2024 9:00 AM CDT [facility] BASOPHILS 0.3 % 01/09/2024 9:00 AM CDT [facility] IMMATURE GRANS % 2.4 % 01/09/20 9:00 AM CDT [facility] ABS. NEUTROPHILS 1.55(L) 1.80 - 7.70 x10'3/uL 01/09/2024 9:00 AM CDT [facility] ABS. LYMPHOCYTES 1.81 1.00 - 4.80 x10'3/uL 01/09/2024 9:00 AM CDT [facility] ABS. MONOCYTES 0.28 0.24 - 0.86 x10'3/uL 01/09/2024 9:00 AM CDT [facility] ABS. EOSINOPHILS 0.03(L) 0.04 - 0.36 x10'3/uL 01/09/2024 9:00 AM CDT [facility] ABS. BASOPHILS 0.01 0.01 - 0.08 x10'3/uL 01/09/2024 9:00 AM CDT [facility] ABS. IMMATURE GRANULOCYTES 0.09 0.00 - 0.49 x10'3/uL 01/09/2024 9:00 AM CDT [facility] RBC MORPHOLOGY SLIDE REVIEWED 2023 9:00 AM CDT [facility] CAREY 3+ 01/09/2024 9:00 AM CDT [facility] PLT EST. DECREASED 01/09/2024 9:00 AM T [facility] 01/09/2024 8:05 AM CDT us Zelalem Ziegler MD LABORATORY Final Result [facility] [address] [place] [address], [place] [phone] * (ABNORMAL) COMPREHENSIVE METABOLIC PANEL (01/09/2024 7:55 AM CDT) [facility] GLUCOSE 83 70 - 99 MG/DL 01/09/2024 8:50 AM CDT [facility] BUN 17 7 - 18 MG/DL 01/09/2024 8:50 AM CDT [facility] CREATININE S/P/B 1.01 0.55 - 1.02 MG/DL 01/09/2024 8:50 AM CDT [facility] SODIUM S/P/B 140 136 - 145 MMOL/L 01/09/2024 8:50 AM CDT [facility] POTASSIUM S/P/B 3.9 3.5 - 5.1 MMOL/L 01/09/2024 8:50 AM CDT [facility] CHLORIDE S/P/B 112(H) 100 - 108 MMOL/L 01/09/2024 8:50 AM CDT [facility] CO2 22.5 21 - 32 MMOL/L 01/09/2024 8:50 AM CDT [facility] CALCIUM S/P/B 9.1 8.5 - 10.1 MG/DL 01/09/2024 8:50 AM CDT [facility] BILIRUBIN TOTAL S/P/B 0.5 0.2 - 1.2 MG/DL 01/09/2024 8:50 AM CDT [facility] Comment: THIS ASSAY IS NOT RECOMMENDED FOR PATIENTS UNDERGOING TREATMENT WITH ELTROMBOPAG DUE TO THE POTENTIAL FOR FALSELY ELEVATED RESULTS. TOTAL PROTEIN S/P/B 5.9(L) 6.4 - 8.2 G/DL 01/09/2024 8:50 AM CDT [facility] ALBUMIN S/P/B 3.3(L) 3.4 - 5.0 G/DL 01/09/2024 8:50 AM CDT [facility] AST 9(L) 15 - 37 U/L 01/09/2024 8:50 AM CDT [facility] ALT 14 14 - 55 U/L 01/09/2024 8:50 AM CDT [facility] ALKALINE PHOSPHATASE S/P/B 74 50 - 136 U/L 01/09/2024 8:50 AM CDT [facility] ANION GAP 5.5 5 - 15 MMOL/L 01/09/2024 8:50 AM CDT [facility] BUN CREATININE RATIO 16.8 6 - 26 01/09/2024 8:50 AM CDT [facility] A/G RATIO 1.3 1.0 - 2.0 RATIO 01/09/2024 8:50 AM CDT [facility] GFR ESTIMATE 59(L) >90 ML/MIN/1.7 3 M2 01/09/2024 8:50 AM CDT [facility] Comment: NOTE: eGFR is not calculated for patients <18 years of age. This is an estimated GFR calculation using the new CKD EPI creatinine equation without race and so does not require a correction factor for race. This estimated GFR should not be used for calculating drug doses. 01/09/2024 7:55 AM CDT us Zelalem Ziegler MD LABORATORY Final Result [facility] [address] [place] [address], * PROTIME/INR, VENOUS (01/09/2024 7:55 AM CDT) PROTIME 10.2 10.2 - 12.9 SEC 01/09/2024 8:40 AM CDT [facility] INR 0.9 01/09/2024 8:40 AM CDT [facility] Comment: Recommended INR Therapeutic Goals: 2.0-3.0 Routine Therapy 2.5-3.5 Mechanical Prosthetic Valves (High Risk) 01/09/2024 7:55 AM CDT us Zelalem Ziegler MD LABORATORY Final Result [facility] [address] [place] [address], documented in this encounter Visit Diagnoses Diagnosis Varicose veins of lower extremity with pain, right- Primary Hyperlipidemia Other and unspecified hyperlipidemia Hypertension Unspecified essential hypertension Disease of the lung and heart ([facility]) Chronic pulmonary heart disease, unspecified documented in this encounter Care Teams Hogshead Salvage Relationship Specialty Start Date End Date Kristina Elias MD [address] [place] [address] PCP - General FAMILY PRACTICE 12/21/21 Prudence Reis MD CARDIOVASCULAR DISEASE 04/15/20 documented as of this encounter
--- OUTSIDE RECORDS SUMMARY | 2024-10-15 14:42 | XMS_ITS | Clinical Summary ---
Author Organization [facility] [address] Address [address] [place] [address] Care Team Providers Care Diploma Medical Assistant Name Role Phone Kristina Elias MD Primary Care Provider [phone] Allergies Active Allergy Reactions Criticality Noted Date Comments Atorvastatin Other (See comments) Low 08/12/2021 Upset stomach Naproxen Other (See comments) Low Gastritis Medications omeprazole (PriLOSEC) 20 mg capsule Take 1 capsule (20 mg total) by mouth daily Active Wixela Inhub 500-50 mcg/dose diskus inhaler INHALE 1 PUFF BY MOUTH EVERY 12 HOURS 1 Active ferrous sulfate (IRON ORAL) Take by [...] 01/29/2019 Family history of premature CAD 01/29/2019 Encounters Date Type Department Care Team Description 09/27/2024 2:15 PM TOWN ADMINISTRATOR Office Visit [facility] [address] [place] [address] Mary Lou Harper MD Essential hypertension (Primary Dx); Hypercholesteremia; Family history of premature CAD from Last 3 Months Surgical History Surgery Date Site/Laterality Comments SECTION 08/29/1971 - 08/28/1972 section SECTION Medical History Medical History Date Comments Hx Other Medical 1975 csection Hx Other Medical 1978 csection Calculus of kidney Kidney Stones Hypertension Obesity Sinusitis Hyperlipidemia Arthritis Stomach ulcer H/O: section Family History Medical History Relation Name Comments COPD age 64 Brother Heart attack age 38 Father Stroke age 47 Mother Heart disease Other 1 Family history of Heart disease; Stroke Other 2 Family history of Stroke; Stroke CVA 37 Son Relation Name Status Comments Brother (Age 64) Father (Age 38) Mother (Age 47) Other 1 Other 2 Son Alive Social History Tobacco Use Types Packs/Day Years Used Date Smoking Tobacco: Former Cigarettes Q uit: 1992 Smokeless Tobacco: Never Tobacco Cessation:Counseling Given: Not Answered Alcohol Use Standard Drinks/Week Comments Yes 0 (1 standard drink = 0.6 oz pur e alcohol) Comments Unknown Sex and Gender Information Value Date Recorded Sex Assigned at Not on file Legal Sex Female 8:03 PM TOWN ADMINISTRATOR Gender Identity Not on file Sexual Orientation Not on file Obstetrics History Last Filed Vital Signs Vital Sign Reading Time Taken Comments Blood Pressure 124/62 09/27/2024 2:11 PM TOWN ADMINISTRATOR Pulse 80 09/27/2024 2:11 PM TOWN ADMINISTRATOR Temperature - - Respiratory Rate - - Oxygen Saturation 98% 09/27/2024 2:11 PM TOWN ADMINISTRATOR Inhaled Oxygen Concentration - - Weight 74.4 kg (164 lb) 09/27/2024 2:11 PM TOWN ADMINISTRATOR Height 157.5 cm (5' 2 ) 09/27/2024 2:11 PM TOWN ADMINISTRATOR Body Mass Index 30 09/27/2024 2:11 PM TOWN ADMINISTRATOR Plan of Treatment Health Maintenance Due Date Last Done Comments Colon Cancer Screening-Colonoscopy 1950 Depression Screening 1950 Fall Risk Assessment 1950 Hepatitis C Screening 1950 Osteoporosis Screening-Bone Density Scan 1950 DTaP/Tdap/Td Vaccine (1 - Tdap) 1961 Hepatitis B Screening 1968 Zoster Vaccine (1 of 2) 2000 Well Visit 65+ 2015 Breast Cancer Screening-Mammogram 08/09/2019 018, 07/19/2016 Influenza Vaccine (#1) 2024 1, 05/20/2020, 06/04/2019, Additional history exists Pneumococcal vaccine 65+ Completed 06/25/2020, 02/2019 Procedures Procedure Name Priority Date/Time Associated Diagnosis Comments LIPID PANEL Routine 09/27/2024 2:05 PM TOWN ADMINISTRATOR from Last 3 Months Results * Lipid panel (09/27/2024 2:05 PM TOWN ADMINISTRATOR) SCRIBED Cholesterol, Total 143 <100 EXTERNAL LAB SCRIBED HDL 42 >40 EXTERNAL LAB SCRIBED LDL 71 <100 EXTERNAL LAB SCRIBED Triglycerides 149 <150 EXTERNAL LAB Blood 09/27/2024 2:05 PM TOWN ADMINISTRATOR [facility] Robbi Harper MD LAB BLOOD ORDERABLES Fi nal Result EXTERNAL LAB from Last 3 [place] [address] MEDICARE RAILROAD [facility]IC[facility] Member Subscriber Plan / Payer ( fective 2015-Present) Name:Joanna Jeffery Nasrin Relation to Subscriber:Spouse Name:YRN JEFFERY JR Date of :1950 Address: [address] [place] [address] Payer ID:[id number] (NAIC) Group ID:[id number] Type:[facility] Address: [address] [place] [address] Care Teams Diploma Medical Assistant Relationship Specialty Start Date End Date Kristina Elias MD PCP - General Family Medicine 08/12/21
--- OUTSIDE RECORDS SUMMARY | 2024-10-15 14:42 | XMS_ITS | Clinical Summary ---
Author Organization [facility] Address [address] [place] [address] Care Team Providers Care Supervisor Product Inspection Name Role Phone Prudence Reis MD Unavailable [phone] Kristina Elias MD Primary Care Provider [phone] Allergies Active Allergy Reactions Criticality Noted Date Comments Aspirin GI Upset 04/15/2020 Cefaclor Nausea and Vomiting 12/04/2021 Clavulanic Acid Nausea and Vomiting Low 12/04/2021 Ibuprofen GI Upset 04/15/2020 Sulfamethoxazole Nausea and Vomiting Low 12/04/2021 Trimethoprim Nausea and Vomiting Low 12/04/2021 Medications rosuvastatin 20 MG tablet Take 1 tablet (20 mg total) by mouth nightly at bedtime. Active fluticasone-elle meterol (WIXELA INHUB) 500-50 MCG/ACT inhaler Inhale 1 puff into the lungs 2 (two) times daily. Active FERROUS SULFATE CR OR Take 65 mg by mouth daily. 07/08/2021 Active losartan 25 MG tablet Take 1 tablet (25 mg total) by mouth daily. Active clopidogrel (PLAVIX) 75 MG tablet Take 1 tablet (75 mg total) by mouth daily. 10/17/2023 Active traZODone (DESYREL) 50 MG tablet Take 1 tablet (50 mg total) by mouth nightly at bedtime. Active pantoprazole EC (PROTONIX) 40 MG tablet Take 1 tablet (40 mg total) by mouth every morning. 02/09/2024 Active lidocaine viscous (XYLOCAINE) 2 % solution GARGLE AND SPIT FOUR TIMES DAILY NEEDED FOR PAIN 03/13/2024 Active Active Problems Problem Noted Date Diagnosed Date Varicose veins of lower extremity with pain, rig ht 12/02/2023 Bilateral leg pain 11/01/2023 Bilateral serous otitis media 11/01/2023 Chronic renal insufficiency, stage III (moderate) ([facility]) 11/01/2023 Greater trochanteric bursitis of left hip 2023 Hypertension 11/01/2023 Insomnia 11/01/2023 Low back pain 11/01/2023 Menopausal syndrome 11/01/2023 Mild chronic obstructive pul monary disease ([facility]) 11/01/2023 Dyspnea 11/01/2023 Symptomatic varicose veins of both lower extremi ties 11/01/2023 Thrombocytopenia 11/01/2023 Bruit of right carotid artery 09/26/2023 Normocytic anemia 06/11/2021 Benign essential HTN 01/29/2019 Family history of premature CAD 01/29/2019 Hypercholesteremia 01/29/2019 Resolved Problems Problem Noted Date Diagnosed Date Resolved Date Encounter for screening colonoscopy 11/01/2023 11/07/2023 Immunizations Name Administration Dates Next Due Fluzone High Dose - >Age 65 (Prefilled Syringe) 06/04/2019,06/26/2018,06/21/2017,2015,06/10/2015 Influenza Adult (Generic) 05/22/2021 PFIZER COVID-19 (ORIGINAL FORMULATION, PURPLE CAP) mRNA, LNP-S, PF, 30 MCG/0.3 ML DOSE 06/16/2021,11/13/2020,10/23/2020 Pneumococcal (Pneumovax 23) 06/25/2020 Pneumococcal (Prevnar 13) 06/04/2019 Family History Medical History Relation Comments No Known Problems Daughter Heart Attack Father Stroke Mother No Known Problems Son 1 No Known Problems Son 2 Relation Status Comments Daughter Alive Father Mother Son 1 Alive Son 2 Alive Social History Tobacco Use Types Packs/Day Years Used Date Smoking Tobacco: Former Cigarettes 1 1991 Smokeless Tobacco: Never Tobacco Cessation:Counseling Given: Not Answered Alcohol Use Standard Drinks/Week Comments Not Currently 0 (1 standard drink = 0.6 oz pur e alcohol) SOCIAL HOLIDAY Comments No Sex and Gender Information Value Date Recorded Sex Assigned at Not on file Legal Sex Female 8:16 AM CDT Gender Identity Not on file Sexual Orientation Not on file Last Filed Vital Signs Vital Sign Reading Time Taken Comments Blood Pressure 176/61 06/25/2024 8:56 AM CDT Pulse 72 06/25/2024 8:56 AM CDT Temperature 36.4 C (97.6 F) 06/25/2024 7:13 AM CDT Respiratory Rate 16 06/25/2024 7:13 AM CDT Oxygen Saturation 98% 06/25/2024 8:56 AM CDT Inhaled Oxygen Concentration - - Weight 75.8 kg (167 lb) 06/25/2024 7:13 AM CDT Height 157.5 cm (5' 2 ) 06/25/2024 7:13 AM CDT Body Mass Index 30.54 06/25/2024 7:13 AM CDT Plan of Treatment Health Maintenance Due Date Last Done Comments Colorectal Cancer Screening Colonoscopy (10 Years) 1950 Hepatitis C 1968 DTaP, Tdap and Td Vaccines (1 - Tdap) 1969 Mammogram Screening 1990 Zoster Vaccines (1 of 2) 2000 RSV Immunization or 60+ Years (1 - Risk 60-74 years 1-dose series) 2010 Annual Medicare Wellness Visit 2015 Dexa Scan (General) 2015 COVID-19 Vaccine ( - season) 2024 06/16/2021, 11/13/2020, 10/23/2020 Influenza Adult (#1) 2024 05/22/2021, 06/04/2019, 06/26/2018, Additional history exists Pneumococcal Vaccine: 65+ Years Completed 06/25/2020, 06/04/2019 Meningococcal B Vaccine Aged Out No l onger eligible based on patient's age to complete this topic Meningococcal Vaccine Aged Out No delphine jack eligible based on patient's age to complete this topic RSV Immunizations Under 20 Months Aged Out No longer eligible based on patient's age to complete this topic Medical Devices Implanted Type Area Landcare Officer Device Identifier Shelf Expiration Date Model / Serial / Lot Iol [employer]ec[employer] Simplicity Dcb00 - [id number] Implanted:Qty: 1 on 05/21/2024 by Jabari Luis MD at [facility] Lens Left: Eye [employer] 10/09/2026 DCB00 / [id number] / Iol [employer] Simplicity Dcb00 - [id number] Implanted:Qty: 1 on 06/25/2024 by Jabari Luis MD at [facility] Lens Right: Eye [employer] 01/15/2027 DCB00 / [id number] / Insurance [employer]ILROAD MEDICARE [facility] Care Teams Supervisor Product Inspection Relationship Specialty Start Date End Date Kristina Elias MD [address] [place] [address] PCP - General FAMILY PRACTICE 12/21/21 Prudence Reis MD CARDIOVASCULAR DISEASE 04/15/20
--- OUTSIDE RECORDS SUMMARY | 2024-10-15 14:42 | XMS_ITS | Clinical Summary ---
Author Organization [facility] Lili Henrydilia Address [address] [place] [address] Care Team Providers Care Audio Video Technician Name Role Phone Kristina Elias MD Primary Care Provider [phone] Allergies Active Allergy Reactions Criticality Noted Date Comments Aspirin Other (See Comments) 04/15/2020 Ibuprofen Other (See Comments) 04/15/2020 Naproxen Other (See Comments) 06/11/2021 Nsaids (Non-Steroidal Anti-Inflammatory Drug) Other (See Comments) High 06/11/2021 Medications rosuvastatin (CRESTOR) 20 mg tablet 1 Active losartan (COZAAR) 25 mg tablet TAKE 1/2 TABLET BY MOUTH DAILY 1 Active Wixela Inhub 500-50 mcg/dose disk inhaler Take 1 Puff by inhalation 2 times daily. 3 Active ferrous sulfate 325 mg (65 mg iron) tablet Take 325 mg by mouth daily. Active cyanocobalamin (VITAMIN B-12) 100 mcg tablet Take 100 mcg by mouth daily. Active traMADoL (ULTRAM) 50 mg tablet Take 50 mg by mouth every 8 hours as needed for Pain. 3 Active traZODone (DESYREL) 50 mg tablet TAKE 1/2 TABLET BY MOUTH EVERY DAY AT BEDTIME NEEDED FOR INSOMNIA 3 Active clopidogreL (PLAVIX) 75 mg Tablet Take 75 mg by mouth daily. 4 10/16/19 25 Active pantoprazole (PROTONIX) 40 mg Tablet, Delayed Release (E.C.) Take 40 mg by mouth. 4 Active Active Problems Problem Noted Date Diagnosed Date Normocytic anemia 06/11/2021 Encounters Date Type Department Care Team Description 09/25/2024 External Device Data [facility] ABSTRACTION Provider, Abstract 09/19/2024 External Device Data [facility] ABSTRACTION Provider, Abstract 09/19/2024 External Device Data [facility]STRA[facility] Provider, Abstract 09/12/2024 External Device Data [facility] ABSTRACTION Provider, Abstract from Last 3 Months Family History Medical History Relation Name Comments COPD Brother 1 Heart Disease Father Heart Disease Mother Heart Attack Sister 2 Stroke Son 2 Relation Name Status Comments Brother 1 Brother 2 Daughter Alive Father Mother Sister 1 Sister 2 Alive Son 1 Alive Son 2 Alive Social History Tobacco Use Types Packs/Day Years Used Date Smoking Tobacco: Former Smokeless Tobacco: Never Tobacco Cessation:Counseling Given: Not Answered Alcohol Use Standard Drinks/Week Comments Yes 0 (1 standard drink = 0.6 oz pur e alcohol) holidays Comments No Sex and Gender Information Value Date Recorded Sex Assigned at Not on file Legal Sex Female 11:03 AM CDT Gender Identity Not on file Sexual Orientation Not on file Last Filed Vital Signs Vital Sign Reading Time Taken Comments Blood Pressure 129/69 04/20/2024 8:41 AM CDT Pulse 73 04/20/2024 8:41 AM CDT Temperature 36.5 C (97.7 F) 04/20/2024 8:41 AM CDT Respiratory Rate 16 04/20/2024 8:41 AM CDT Oxygen Saturation 97% 04/20/2024 8:41 AM CDT Inhaled Oxygen Concentration - - Weight 77.1 kg (170 lb) 04/20/2024 8:41 AM CDT Height 157.5 cm (5' 2 ) 03/16/2022 11:22 AM CDT Body Mass Index 31.09 03/16/2022 11:22 AM CDT Plan of Treatment Upcoming Encounters Date Type Department Care Team (Late st Contact Info) Description 10/26/2024 8:30 AM CARE ADMINISTRATIVE TECH Office Visit [facility] Oncology and Hematology - Juan [address] [place] [address] Walter Brothers MD [address] [place] [address] Health Maintenance Due Date Last Done Comments DTAP/TDAP/TD VACCINES (1 - Tdap) 1969 BREAST CANCER SCREENING 1990 FIT-DNA Q 3 years 1995 FIT/FOBT Q 1 year 1995 Flex Sig/CT Colonography Q 5 years 1995 ZOSTER VACCINE (1 of 2) 2000 RSV VACCINE (60+ or ) (1 - Risk 60-74 years 1-dose series) 2010 INFLUENZA VACCINE (#1) 2024 9, 06/26/2018, 06/21/2017, Additional history exists COLORECTAL SCREENING 07/27/2031 07/27/2021 Colorectal Cancer Screening 07/27/2031 OSTEOPOROSIS SCREENING Completed 09/26/2019 PNEUMOCOCCAL VACCINE 65+ YEARS Completed 06/25/2020 , 06/04/2019 [place] [address] [facility] FEDERAL MEDICARE RAILROAD Care Teams Audio Video Technician Relationship Specialty Start Date End Date Kristina Elias MD [address] [place] [id number] PCP - General Family Practice 06/11/21
== END 2024-10-15 12:15 | disposition home or self-care (01) ==
LOC: ANHIMG 12:15
PROVIDERS: PCP Family Medicine; Visit Provider Obstetrics & Gynecology Gynecology
DX: Z78.0 Asymptomatic menopausal state (principal); M85.852 Other specified disorders of bone density and structure, left thigh
CPT/HCPCS: 77080

== ENCOUNTER 2024-10-24 10:13 | Outpatient (CLI) | payer MEDICARE, BC, SELFPAY ==
[2024-10-24 10:26] LABS: Basophils Percent Auto 0.6 % (0.2-1.2); Eosinophils Absolute Auto 0.1 K/mm3 (0-0.3); Eosinophils Percent Auto 2.1 % (0-4.4); Hematocrit 35.9 % (37.0-47.0); Hemoglobin 11.6 g/dL (12.0-15.0); Immature Granulocyte Absolute 0.01 K/mm3 (0.00-0.031); Immature Granulocyte Percent A 0.3 % (0-0.5); Lymphocytes Percent Auto 33.3 % (18.3-44.2); Mean Corpuscular HGB Conc 32.3 g/dl (32-36); Mean Corpuscular Volume 80.5 fl (80-100); Mean Platelet Volume 8.9 fl (7.4-10.4); Monocytes Absolute Auto 0.2 K/mm3 (0.1-0.6); Monocytes Percent Auto 7.3 % (2.6-8.5); Neutrophils Absolute Auto 1.9 K/mm3 (1.3-6.7); Neutrophils Percent Auto 56.4 % (45.5-73.1); Platelet Count Result 62 k/mm3 (150-375); Red Blood Count 4.46 M/mm3 (4.2-5.4); Red Cell Distribution Width 13.6 % (11.5-14.5); White Blood Count 3.3 K/mm3 (4.5-10.0)
--- OUTSIDE RECORDS SUMMARY | 2024-10-24 11:42 | XMS_ITS | Clinical Summary ---
Author Organization [facility] Lili Henrydilia Address [address] [place] [address] Care Team Providers Care Franchise Consultant Name Role Phone Kristina Elias MD Primary Care Provider [phone] Allergies Active Allergy Reactions Criticality Noted Date [...] AT BEDTIME NEEDED FOR INSOMNIA 3 Active pantoprazole (PROTONIX) 40 mg Tablet, Delayed Release (E.C.) Take 40 mg by mouth. 4 Active clopidogreL (PLAVIX) 75 mg Tablet Take 75 mg by mouth daily. 4 10/16/19 25 Active Problems Problem Noted Date Diagnosed Date Normocytic anemia 06/11/2021 Encounters Date Type Department Care Team Description 10/16/2024 External Device Data [facility] ABSTRACTION Provider, Abstract 09/25/2024 External Device Data [facility] ABSTRACTION Provider, [...] st Contact Info) Description 10/26/2024 8:30 AM [employer] OFFICER Office Visit [facility] Oncology and Hematology - Juan [address] [place] [address] Walter Brothers MD [address] [facility] [address] [facility] [address] [place] [address] Health Maintenance Due Date Last Done Comments DTAP/TDAP/TD VACCINES (1 - Tdap) 1969 Traditional Medicare (ACO) A nnual Wellness Visit 1969 BREAST CANCER SCREENING 1990 FIT-DNA Q 3 years 1995 FIT/FOBT Q 1 year 1995 Flex Sig/CT Colonography Q 5 years 1995 ZOSTER VACCINE (1 of 2) 2000 RSV VACCINE (60+ or ) (1 - Risk 60-74 years 1-dose series) 2010 INFLUENZA VACCINE (#1) 2024 , 06/26/2018, 06/21/2017, Additional history exists COLORECTAL SCREENING 07/27/2031 07/27/2021 Colorectal Cancer Screening 07/27/2031 OSTEOPOROSIS SCREENING Completed 09/26/2019 PNEUMOCOCCAL VACCINE 65+ YEARS Completed 06/25/2020 , 06/04/2019 Insurance [place], [place] [id number] [place] [address] FEDERAL MEDICARE RAILROAD Care Teams Franchise Consultant Relationship Specialty Start Date End Date Kristina Elias MD [address] [place] [address] PCP - General Family Practice 06/11/21
--- OUTSIDE RECORDS SUMMARY | 2024-10-24 11:42 | XMS_ITS | Clinical Summary ---
Author Organization [facility] Address [address] [place] [address] Care Team Providers Care Director Of Direct Marketing Name Role Phone Prudence Reis MD Unavailable [phone] Kristina Elias MD Primary Care Provider [phone] Allergies Active Allergy Reactions Criticality Noted Date [...] (25 mg total) by mouth daily. Active traZODone (DESYREL) 50 MG tablet Take 1 tablet (50 mg total) by mouth nightly at bedtime. Active pantoprazole EC (PROTONIX) 40 MG tablet Take 1 tablet (40 mg total) by mouth every morning. 02/09/2024 Active lidocaine viscous (XYLOCAINE) 2 % solution GARGLE AND SPIT FOUR TIMES DAILY NEEDED FOR PAIN 03/13/2024 Active clopidogrel (PLAVIX) 75 MG tablet Take 1 tablet (75 mg total) by mouth daily. 10/17/2023 10/16/19 25 Active Problems Problem Noted Date Diagnosed Date Varicose veins of lower extremity with pain, rig ht 12/02/2023 Bilateral leg pain 11/01/2023 Bilateral serous otitis media 11/01/2023 Chronic renal insufficiency, stage III (moderate) ([facility]) 11/01/2023 Greater trochanteric bursitis of left hip 2023 Hypertension 11/01/2023 Insomnia 11/01/2023 Low back pain 11/01/2023 Menopausal syndrome 11/01/2023 Mild chronic obstructive pul monary disease ([facility]) 11/01/2023 Dyspnea [...] this topic Medical Devices Implanted Type Area Signing Agent Device Identifier Shelf Expiration Date Model / Serial / Lot Iol [employer]ecm[employer] Simplicity Dcb00 - [id number] Implanted:Qty: 1 on 05/21/2024 by Jabari Luis MD at [facility] Lens Left: Eye [employer] 10/09/2026 DCB00 / [id number] / Iol [employer]ecnis Simplicity Dcb00 - [id number] Implanted:Qty: 1 on 06/25/2024 by Jabari Luis MD at [facility] Lens Right: Eye [employer] 01/15/2027 DCB00 / [id number] / Insurance RAILROAD MEDICARE [facility] Care Teams Director Of Direct Marketing Relationship Specialty Start Date End Date Kristina Elias MD [address] [place] [address] PCP - General FAMILY PRACTICE 12/21/21 Prudence Reis MD CARDIOVASCULAR DISEASE 04/15/20
--- OUTSIDE RECORDS SUMMARY | 2024-10-24 11:42 | XMS_ITS | Encounter Summary ---
Author Organization [facility] Address [address] [place] [address] Care Team Providers Care Political Reporter Name Role Phone Prudence Reis MD Unavailable [phone] Kristina Elias MD Primary Care Provider [phone] Reason for Referral * Surgical (Routine) - Authorized Specialty Diagnoses / Procedures Referred By Contac t Referred To Contact Diagnoses Varicose veins of lower extremity with pain, right Procedures Case request operating room: STAB PHLEBECTOMY (RIGHT LEG) Zelalem Ziegler MD [facility]. [id number] [place] [address] Phone: tel: fax: Referral ID Status Reason Start Date Expiration Date V isits Requested Visits Authorized [id number] Authorized 01/10/2024 01/09/2025 1 1 Encounter Details Date Type Department Care Team (Late st Contact Info) Description 01/10/2024 Prep for Procedure [facility] [address] [place], [place] [id number] Zelalem Ziegler MD [facility] [address] [place] [address] Social History Tobacco Use Types [...] COMPREHENSIVE METABOLIC PANEL (02/20/2024 12:18 PM CDT) [facility] GLUCOSE 94 70 - 99 MG/DL 02/20/2024 12:53 PM CDT [facility] BUN 11 7 - 18 MG/DL 02/20/2024 12:53 PM CDT [facility] CREATININE S/P/B 0.95 0.55 - 1.02 MG/DL 02/20/2024 12:53 PM CDT [facility] SODIUM S/P/B 139 136 - 145 MMOL/L 02/20/2024 12:53 PM CDT [facility] POTASSIUM S/P/B 4.3 3.5 - 5.1 MMOL/L 02/20/2024 12:53 PM CDT [facility] CHLORIDE S/P/B 109(H) 100 - 108 MMOL/L 02/20/2024 12:53 PM CDT [facility] CO2 24.2 21 - 32 MMOL/L 02/20/2024 12:53 PM CDT [facility] CALCIUM S/P/B 9.3 8.5 - 10.1 MG/DL 02/20/2024 12:53 PM CDT [facility] BILIRUBIN TOTAL S/P/B 1.4(H) 0.2 - 1.2 MG/DL 02/20/2024 12:53 PM CDT [facility] Comment: THIS ASSAY IS NOT RECOMMENDED FOR PATIENTS UNDERGOING TREATMENT WITH ELTROMBOPAG DUE TO THE POTENTIAL FOR FALSELY ELEVATED RESULTS. TOTAL PROTEIN S/P/B 6.3(L) 6.4 - 8.2 G/DL 02/20/2024 12:53 PM CDT [facility] ALBUMIN S/P/B 3.5 3.4 - 5.0 G/DL 02/20/2024 12:53 PM CDT [facility] AST 11(L) 15 - 37 U/L 02/20/2024 12:53 PM CDT [facility] ALT 11(L) 14 - 55 U/L 02/20/2024 12:53 PM CDT [facility] ALKALINE PHOSPHATASE S/P/B 79 50 - 136 U/L 02/20/2024 12:53 PM T [facility] ANION GAP 5.8 5 - 15 MMOL/L 02/20/2024 12:53 PM CDT [facility] BUN CREATININE RATIO 11.5 6 - 26 02/20/2024 12:53 PM T [facility] A/G RATIO 1.2 1.0 - 2.0 RATIO 02/20/2024 12:53 PM T [facility] GFR ESTIMATE 63(L) >90 ML/MIN/1.7 3 M2 02/20/2024 12:53 PM T [facility] Comment: NOTE: eGFR is not calculated for patients <18 years of age. This is an estimated GFR calculation using the new CKD EPI creatinine equation without race and so does not require a correction factor for race. This estimated GFR should not be used for calculating drug doses. 02/20/2024 12:1 8 PM CDT us Zelalem Ziegler MD LABORATORY Final Result [facility] [address] [place] [address], [place] [phone] * PROTIME/INR, VENOUS (02/20/2024 12:18 PM CDT) [facility] PROTIME 10.5 10.2 - 12.9 SEC 02/20/2024 12:47 PM CDT [facility] INR 0.9 02/20/2024 12:47 PM CDT [facility] Comment: Recommended INR Therapeutic Goals: 2.0-3.0 Routine Therapy 2.5-3.5 Mechanical Prosthetic Valves (High Risk) 02/20/2024 12:1 8 PM CDT Zelalem Ziegler MD LABORATORY Final Result [facility] [address] [place] [address], [place] [phone] * (ABNORMAL) CBC W/DIFF AUTOMATED (02/20/2024 12:18 PM CDT) [facility] WBC 5.11 4.5 - 11.0 x10'3/uL 02/20/2024 1:01 PM CDT [facility] RBC 4.62 4.20 - 5.40 x10'6/uL 02/20/2024 1:01 PM CDT [facility] HGB 12.0 12.0 - 16.0 G/DL 02/20/2024 1:01 PM CDT [facility] HCT 36.8(L) 38.0 - 48.0 % 02/20/2024 1:01 PM CDT [facility] MCV 79.7(L) 81.0 - 99.0 FL 02/20/2024 1:01 PM CDT [facility] MCH 26.0(L) 27.0 - 31.0 PG 02/20/2024 1:01 PM CDT [facility] MCHC 32.6 32.0 - 36.0 G/DL 02/20/2024 1:01 PM CDT [facility] RDW 13.6 11.5 - 14.5 % 02/20/2024 1:01 PM CDT [facility] PLT 65(L) 130 - 400 x10'3/uL 02/20/2024 1:01 PM CDT [facility] MPV 12.1 9.3 - 12.2 FL 02/20/2024 1:01 PM CDT [facility] DIFFERENTIAL TYPE AUTOMATED DIFFERENTIAL 02/20/2024 1:01 PM CDT [facility] NEUTROPHILS % 58.1 % 02/20/2024 1:01 PM CDT [facility] LYMPHOCYTES % 32.9 % 02/20/2024 1:01 PM CDT [facility] MONOCYTES % 7.0 % 02/20/2024 1:01 PM CDT [facility] EOSINOPHILS 1.2 % 02/20/2024 1:01 PM CDT [facility] BASOPHILS 0.4 % 02/20/2024 1:01 PM CDT [facility] IMMATURE GRANS % 0.4 % 02/20/20 1:01 PM CDT [facility] ABS. NEUTROPHILS 2.97 1.80 - 7.70 x10'3/uL 02/20/2024 1:01 PM CDT [facility] ABS. LYMPHOCYTES 1.68 1.00 - 4.80 x10'3/uL 02/20/2024 1:01 PM CDT [facility] ABS. MONOCYTES 0.36 0.24 - 0.86 x10'3/uL 02/20/2024 1:01 PM CDT [facility] ABS. EOSINOPHILS 0.06 0.04 - 0.36 x10'3/uL 02/20/2024 1:01 PM CDT [facility] ABS. BASOPHILS 0.02 0.01 - 0.08 x10'3/uL 02/20/2024 1:01 PM CDT [facility] ABS. IMMATURE GRANULOCYTES 0.02 0.00 - 0.49 x10'3/uL 02/20/2024 1:01 PM CDT [facility] RBC MORPHOLOGY RBC MORPHOLOGY APPEARS NORMAL. SLIDE REVIEWED. 02/20/2024 1:01 PM CDT [facility] PLT EST. DECREASED 02/20/2024 1:01 PM CDT [facility] 02/20/2024 12:1 8 PM CDT us Zelalem Ziegler MD LABORATORY Final Result [facility] [address] [place] [address], documented in this encounter Visit Diagnoses Diagnosis Varicose veins of lower extremity with pain, right- Primary Abnormal coagulation profile documented in this encounter Care Teams Political Reporter Relationship Specialty Start Date End Date Kristina Eli[place] [address] PCP - General FAMILY PRACTICE 12/21/21 Prudence Reis MD CARDIOVASCULAR DISEASE 04/15/20 documented as of this encounter
--- OUTSIDE RECORDS SUMMARY | 2024-10-24 11:42 | XMS_ITS | Data Portability ---
Author Organization [facility] [place] Address [address] [place] [address] Care Team Providers Care Machine Sweeper Brush Maker Name Role Phone ORAL, HELENA Baby Sitter Unavailable Assessment Encounter Date Assessment Date Assessment [...] DO Not Attach Compendium, Do Not Delete/merge, [id number] 8 17:43:21 pap, LB + HPV mRNA E6/E7 + reflex HPV (16+18+45 ) 2013 014 [email or web address] [facility], [address] [place] [address], [address], [place], [address], 5 12:38:54 Referral None recorded. Procedures None recorded. Surgeries None recorded. Imaging MAMMO, screening , bilateral 2017 018 RAMIRO [facility], [address], [place], [address], 8 11:50:11 MAMMO, screening , bilateral 2015 016 [id number] [id number] [facility], [address], [address] [address], [place], [address], 6 04:31:01 mammogram , screening 2013 014 [email or web address] Not available 5 12:38:54 Medication Orders Osphena 60 mg tablet [address]/[facility]armacy #2510, [address] [place] [address], [address], 8 14:59:01 Estrace 0.01% (0.1 mg/gram) vaginal cream [address]/[facility]acy #2510, [address] [place] [address], [address], 8 14:58:25 calcium 600 mg (as carbonate )-vitamin D3 20 mcg (800 unit) tablet [address]/[facility]armacy #2510, [address] [place] [address], [address], 8 14:57:53 multivita min tablet [address]/Pharmacy #2510, [address] [place] [address], [address], 8 14:58:54 Estrace 0.5 mg tablet [address]/[facility]acy #2510, [address] [place] [address], [address], 8 14:58:29 Estrace 0.01% (0.1 mg/gram) vaginal cream 2013 014 [address], [address] [place] [address], [address], 8 14:58:25 Linzess 145 mcg capsule [email or web address] [facility]/Pharmacy #0364, [address] [place], [address], 8 14:58:46 Patient TargetsNo targets recorded. Patient Instructions Encounter Date Encounter Id Patient Instructions Last Modified By Organization Details Last Modified Time 06/30/2016 [id number] mammogram: about this test [email or web address] Not available 06/30/2016 16:27:19 learning about breast cancer screening [email or web address] Not available 06/30/2016 16:05:56 07/12/2018 [id number] mammogram: about this test [email or web address] Not available 07/12/2018 15:23:21 Reason for Referral None Reported. Results Created Date Observation Date Name Description Value Unit Range Abnormal Flag Note LastModifiedBy Organization Detail LastModifiedTime 07/12/20 18 07/12/2018 urina lysis , dipst ick Leukocytes Negati ve Not Available In-Office Order Internal Use Only DO Not Attach Compendium DO Not Attach Compendium, Do Not Delete/merge, [id number] 07/12/2018 15:09:56 07/12/20 18 07/12/2018 urina lysis , dipst ick Nitrite negati ve Not Available In-Office Order Internal Use Only DO Not Attach Compendium DO Not Attach Compendium, Do Not Delete/merge, [id number] 07/12/2018 15:09:56 07/12/20 18 07/12/2018 urina lysis , dipst ick Urobilinogen .2 Not Available In-Of fice Order Internal Use Only DO Not Attach Compendium DO Not Attach Compendium, Do Not Delete/merge, [id number] 07/12/2018 15:09:56 07/12/20 18 07/12/2018 urina lysis , dipst ick Protein Negati ve Not Available In-Office Order Internal Use Only DO Not Attach Compendium DO Not Attach Compendium, Do Not Delete/merge, [id number] 07/12/2018 15:09:56 07/12/20 18 07/12/2018 urina lysis , dipst ick pH 7.0 Not Available In-Office Order Internal Use Only DO Not Attach Compendium DO Not Attach Compendium, Do Not Delete/merge, [id number] 07/12/2018 15:09:56 07/12/20 18 07/12/2018 urina lysis , dipst ick Blood Non-He molyze d: Trace Not Available In-Office Order Internal Use Only DO Not Attach Compendium DO Not Attach Compendium, Do Not Delete/merge, [id number] 07/12/2018 15:09:56 07/12/20 18 07/12/2018 urina lysis , dipst ick Specific Drift 1.010 Not Available In-Off ice Order Internal Use Only DO Not Attach Compendium DO Not Attach Compendium, Do Not Delete/merge, [id number] 07/12/2018 15:09:56 07/12/20 18 07/12/2018 urina lysis , dipst ick Ketone Negati ve Not Available In-Office Order Internal Use Only DO Not Attach Compendium DO Not Attach Compendium, Do Not Delete/merge, [id number] 07/12/2018 15:09:56 07/12/20 18 07/12/2018 urina lysis , dipst ick Bilirubin Negati ve Not Available In-Office Order Internal Use Only DO Not Attach Compendium DO Not Attach Compendium, Do Not Delete/merge, [id number] 07/12/2018 15:09:56 07/12/20 18 07/12/2018 urina lysis , dipst ick Glucose Negati ve Not Available In-Office Order Internal Use Only DO Not Attach Compendium DO Not Attach Compendium, Do Not Delete/merge, [id number] 07/12/2018 15:09:56 08/19/20 14 08/15/2014 lylai christofer/riki hartmann t No observ ation record ed. [email or web address] Not Available 09/05 15:45:59 07/19/20 16 07/19/2016 mamssofia w PT NAME: WILLIAM GALLARDO : 1949 PT SEX/AG E: / PT ACCT NUMBER : [id number] PT MR#: [id number] ROOM/B ED: PT STATUS : REG CLI DATE OF EXAMIN ATION: ORDERI NG PHYSIC CHANTE: HELENA MCDANIEL MAN M.D. ATTEND ING PHYSIC CHANTE: HELENA MCDANIEL MAN , M.D. DICTAT ING PHYSIC CHANTE: Live HANNA M.D. [id number] 3.001M IX 13:34: 00 61.007 2MVMAM ([facility] : JAMEY SCREEN KERA W/CAD INDICA TION: [...] ed, dictat ed and finali zed at [facility] on A. __ Electr onical ly signed by: SHERRIE HANNA Date: Time: 14:14 SHERRIE HANNA M.D.__ ___ [facility] [employer] [address] [facility] [address] [place] [address] [facility] (Imaging) [address], [place], [address], 07/19/2016 15:17:29 07/19/20 16 07/19/2016 MAMMO , scree serjio, bilat eral No observ ation record ed. [facility] [address], [place], [address], 07/19/2016 16:42:23 07/12/20 18 04/29/2018 CT, abdom [...] ed. RAMIR[facility] [address], [place], [address], 08/10/2018 12:42:16 Result Notes None recorded. Problems Name Problem SNOMED Code Status Onset Date Resolution Date Notes Provider Name and Address Organization Details Recorded Time Menopausal syndrome [id number] Active Helena jiménez, FCO Dougherty [facility] 4 11:23:52 Problem Notes None recorded. Procedures Surgical History Date Name Laterality Status Provider Name and Address Organization Details Recorded Time 06/16/20 18 lithotomy completed Roxi Bob [place] [facility] 07/12/2018 15:00:50 07/19/20 16 Most Recent Mammogram completed Roxi Bob MA [facility] 07/12/2018 15:01:41 07/31/20 14 Date of Last Pap Smear completed Ciara Mabry MA [place] [facility] 06/30/2016 15:07:28 08/29/18 91 Laparoscopy completed CESAR Null [facility] 07/31/2014 10:46:09 08/29/18 82 Appendectomy completed Yin Bazzi MA [place] [facility] 07/31/2014 10:46:09 04/07/19 79 Tubal Ligation completed CESAR Garcia [facility] 06/30/2016 15:08:33 04/07/19 79 Caesarean Section completed CESAR Garcia [facility] 06/30/2016 15:06:53 09/05/18 76 [facility] 06/[facility]/2016 15:07:08 09/12/18 72 Caesarean Section completed CESAR Garcia [facility] 06/30/2016 15:07:16 lithotripsy completed Roxi Bob [place] [facility] 07/12/2018 15:00:39 Imaging Results Imaging Date Name Status LastModified by Organization Details LastModified Time 08/15/2014 imaging/diagnostic result completed Information not available 09/05/2014 15:45:59 07/19/2016 [email or web address] completed [facility] (Imaging) [address], [place], [address], 07/19/2016 15:17:29 07/19/2016 MAMMO, screening, bilateral completed [facility] [address], [place], [address], 07/19/2016 16:42:23 04/29/2018 CT, abdomen + pelvis, [...] 07/28/2018 15:54:08 08/08/2018 MAMMO, screening, bilateral completed [facility] [address], [place], [address], 08/10/2018 12:42:16 Procedure Notes None recorded. Medical Equipment None Reported. Allergies Allergen ID Allergen Name Allergen Category Reaction Reaction Severity Criticality Documentation Date Start Date Code Code System Note Provider Name and Address Organization Details Recorded Time 4877 Non-stero idal anti-infl ammatory agent (product) medicatio n other severe Not available 07/31/2014 97958 005 SNOMED cause s gastr itis Not [...] Not Available Not Available Not Available Afluria 1474-8930(PF ) 45 mcg (15 mcg x 3)/0.5 mL intramuscula r syringe active Not Available Not Available No t Available Fluzone High-Dose 5797-0700 (PF) 180 mcg/0.5 mL intramuscula r syringe 07/12 completed Not Available Not Available Not Available Vitals Date Recorded Body height Body mass index (BMI) Body weight Systolic blood pressure Diastolic blood pressure Provider Name and Address Organization Details Last Updated DateTime 07/12/2018 157.48 cm 32.6 kg/m2 44578.44 g 172 mm[Hg] 94 mm[Hg] Roxi Bob [place] 8 15:04:46 Date Recorded Body height Body weight Body mass index (BMI) Systolic blood pressure Diastolic blood pressure Provider Name and Address Organization Details Last Updated DateTime 06/30/2016 157.48 cm 06590.59 g 33.8 kg/m2 152 mm[Hg] 90 mm[Hg] Ciara Mabry [place] [facility] 6 15:02:18 Social History Question Answer Notes LastModified by Organizat ion Details LastModified Time Tobacco Smoking Status Former Smoker quit [address] [facility], [place] - [facility] 07/31/2014 10:50:46 Do You Have [...] Disorder N Colon Polyps N Heart Attack (MD) N Diabetes N Cardiomyopathy N Blood Transfusions [...] SNOMED-CT Code Diagnosis ICD10 Code Diagnosis Note [id number] ROSALINE House (SAP FUNCTIONAL ANALYST) [address] [place] [address] 07/31/2014 10:09:36 07/31/2014 12:11:49 Gynecologic examination [id number] Menopausal syndrome [id number] Helena Duke (SAP FUNCTIONAL ANALYST) [address] [place] [address] 06/30/2016 14:18:34 07/01/2016 09:46:16 Screening mammography 07302416 Z12.31 Menopausal syndrome 1237 59754 N95.9 Screening for malignant neoplasm of breast 918690029 Z12.31 [id number] Helena Duke (SAP FUNCTIONAL ANALYST) [address] [place] [phone] 07/12/2018 14:09:39 07/14/2018 13:36:30 Screening mammography 22236981 Z12.31 Health Concerns Section Related Observation LastModified by Organization Detai ls LastModified Time None Recorded Concern Status LastModified by Organization Details LastModified Time None Recorded Advance Directives Directive N: Payers Encounter Date Sequence Insurance Name Policy Number Policy Jefferson Covered Member ID Jefferson Member ID Guarantor Name 07/31/2014 2 [place] ([place]) 106 Joseph Gallardo Jr [id number] Joanna Gallardo 06/30/2016 2 [place] 106 Joseph Gallardo Jr [id number] Joanna Gallardo 06/30/2016 1 [place] Joanna Gallardo [id number] Joanna Gallardo 07/12/2018 2 [place] 106 Joseph Gallardo Jr [id number] Joanna Gallardo 07/12/2018 1 [place] Joanna Gallardo [id number] Joanna Gallardo Notes Date Note Type Note Provider Name and Address Organization Details Recorded Time 06/30/2016 text/html Annual Certified Nursing Assistant Post-MenopausalReporte d bypatient.Menopausal Symptoms:normal vaginal lubrication;hot flashes [...] Domestic Partner Domestic Partner Phone Father Name Stitch Separator Status 07/31/20 14 1 CLOSED Fetus Data [...] Domestic Partner Domestic Partner Phone Father Name Stitch Separator Status 07/31/20 14 1 CLOSED Fetus Data [...] Domestic Partner Domestic Partner Phone Father Name Stitch Separator Status 07/31/20 14 1 CLOSED Fetus Data [...]
--- OUTSIDE RECORDS SUMMARY | 2024-10-24 11:42 | XMS_ITS | Clinical Summary ---
Author Organization [facility] [address] Address [address] [place] [address] Care Team Providers Care Fish Tender Name Role Phone Kristina Elias MD Primary Care Provider [phone] Allergies Active Allergy Reactions Criticality Noted Date [...] by mouth daily 30 tablet 11 4 Active Additional Information Patient not taking.Reported on [...] Department Care Team Description 09/27/2024 2:15 PM CONDENSER TESTER Office Visit [facility] [address] [place] [address] Mary Lou Harper MD Essential hypertension (Primary [...] on file Legal Sex Female 8:03 PM CONDENSER TESTER Gender Identity Not on file Sexual Orientation Not on file Obstetrics History Last Filed Vital Signs Vital Sign Reading Time Taken Comments Blood Pressure 124/62 09/27/2024 2:11 PM CONDENSER TESTER Pulse 80 09/27/2024 2:11 PM CONDENSER TESTER Temperature - - Respiratory Rate - - Oxygen Saturation 98% 09/27/2024 2:11 PM CONDENSER TESTER Inhaled Oxygen Concentration - - Weight 74.4 kg (164 lb) 09/27/2024 2:11 PM CONDENSER TESTER Height 157.5 cm (5' 2 ) 09/27/2024 2:11 PM CONDENSER TESTER Body Mass Index 30 09/27/2024 2:11 PM CONDENSER TESTER Plan of Treatment Health Maintenance Due Date [...] Comments LIPID PANEL Routine 09/27/2024 2:05 PM CONDENSER TESTER from Last 3 Months Results * Lipid panel (09/27/2024 2:05 PM CONDENSER TESTER) SCRIBED Cholesterol, Total 143 <100 EXTERNAL LAB SCRIBED HDL 42 >40 EXTERNAL LAB SCRIBED LDL 71 <100 EXTERNAL LAB SCRIBED Triglycerides 149 <150 EXTERNAL LAB Blood 09/27/2024 2:05 PM CONDENSER TESTER [facility] Robbi Harper MD LAB BLOOD ORDERABLES nal Result EXTERNAL LAB from Last 3 Months Insurance MEDICARE [employer] [facility] FEDERAL Member Subscriber Plan / Payer ( fective 2015-Present) Name:Joanna Jeffery Nasrin Relation to Subscriber:Spouse Name:YRN JEFFERY JR Date of :1950 Address: [address] [place] [address] Payer ID:[id number] (NAIC) Group ID:[id number] Type:[facility] Address: [address] [place] [address] Care Teams Fish Tender Relationship Specialty Start Date End Date Kristina Elias MD PCP - General Family Medicine 08/12/21
--- OUTSIDE RECORDS SUMMARY | 2024-10-24 11:42 | XMS_ITS | Encounter Summary ---
Author Organization [facility] Address [address] [place] [address] Care Team Providers Care Parts Counter Representative Name Role Phone Prudence Reis MD Unavailable [phone] Reuben Oneal MD Primary Care Provider [phone] Kristina Elias MD Primary Care Provider [phone] Encounter Details Date Type Department Care Team (Late st Contact Info) Description 04/18/2020 Prep for Procedure [facility] [address] [facility] [place], [place] [id number] Binh Scott MD [address] [place] [address] Social History Tobacco Use Types Packs/Day [...] (COVID 19) (04/18/2020 11:00 AM CDT) Pathologist [facility] CORONAVIRUS SARS COV 2 PCR (RESP) NOT DETECTED NOT DETECTED 04/19/2020 2:37 PM CDT [facility] Comment: A Not Detected (negative) test result [...] providers and patients using the following websites: https://www.[employer].Uevoc/home/Covid-19/HCP/NAAT/fact-sheet2 https://www.[employer].Uevoc/home/Covid-19/Patients/NAAT/ fact-sheet2 This test has been authorized by the FDA under an Emergency Use Authorization (EUA) for use by authorized laboratories. Due to the current public health emergency, [facility] is receiving a high volume of samples [...] about COVID-19 can be found at the [facility] website: www.[employer].Uevoc/Covid19. Test performed at [facility] [address] [address] [place] [address] Director: KIMBERLY ALCARAZ DO,MPH NASOPHARYNGEAL SWAB / Unknown 04/18/2020 11:00 AM CDT Binh Scott MD MICROBIOLOGY - GENERAL ORDERABLE S Final Result [facility] [address] [place] [address], documented in this encounter Visit Diagnoses Diagnosis Preoperative testing- Primary Preoperative examination, unspecified documented in this encounter Additional Health Concerns Infection Onset Date Last Indicated Resolved Time COVID-19 Rule Out 04/18/2020 04/18/2020 04/19/2020 2:38 PM CDT documented as of this encounter Care Teams Parts Counter Representative Relationship Specialty Start Date End Date Reuben Oneal MD [address] [place] [address] PCP - General FAMILY PRACTICE 04/15/20 12/20/21 Kristina Elias MD [address] [place] [address] PCP - General FAMILY PRACTICE 12/21/21 Prudence Reis MD CARDIOVASCULAR DISEASE 04/15/20 documented as of this encounter
--- OUTSIDE RECORDS SUMMARY | 2024-10-24 11:42 | XMS_ITS | Encounter Summary ---
Author Organization [facility] Address [address] [place] [address] Care Team Providers Care Manhole Stripper Name Role Phone Prudence Reis MD Unavailable [phone] Kristina Elias MD Primary Care Provider [phone] Encounter Details Date Type Department Care Team (Late st Contact Info) Description 12/02/2023 Prep for Procedure [facility] [address] [place], [place] [id number] Zelalem Ziegler MD [facility] [address] [place], [place] [id number] Social History Tobacco Use Types Packs/Day Years [...] - 11.0 x10'3/uL 01/09/2024 8:58 AM CDT [facility] RBC 2.59(L) 4.20 - 5.40 x10'6/uL 01/09/2024 8:58 AM CDT [facility] HGB 6.7(LL) 12.0 - 16.0 G/DL 01/09/2024 8:58 AM CDT [facility] Comment: This result has been called to SOL HIGHTOWER by [id number] on 01/09/2024 08:58:40, and has been read back. HCT 21.7(L) 38.0 - 48.0 % 01/09/2024 8:58 AM CDT [facility] MCV 83.8 81.0 - 99.0 FL 01/09/2024 8:58 AM CDT [facility] MCH 25.9(L) 27.0 - 31.0 PG 01/09/2024 8:58 AM CDT [facility] MCHC 30.9(L) 32.0 - 36.0 G/DL 01/09/2024 8:58 AM CDT [facility] RDW 13.3 11.5 - 14.5 % 01/09/2024 8:58 AM CDT [facility] PLT 85(L) 130 - 400 x10'3/uL 01/09/2024 8:58 AM CDT [facility] MPV 8.8(L) 9.3 - 12.2 FL 01/09/2024 8:58 AM CDT [facility] DIFFERENTIAL TYPE AUTOMATED DIFFERENTIAL 01/09/2024 9:00 AM CDT [facility] NEUTROPHILS % 41.1 % 01/09/2024 9:00 AM T [facility] LYMPHOCYTES % 48.0 % 01/09/2024 9:00 AM T [facility] MONOCYTES % 7.4 % 01/09/2024 9:00 AM CDT [facility] EOSINOPHILS 0.8 % 01/09/2024 9:00 AM CDT [facility] BASOPHILS 0.3 % 01/09/2024 9:00 AM CDT [facility] IMMATURE GRANS % 2.4 % 01/09/20 9:00 AM CDT [facility] ABS. NEUTROPHILS 1.55(L) 1.80 - 7.70 x10'3/uL 01/09/2024 9:00 AM CDT [facility] ABS. LYMPHOCYTES 1.81 1.00 - 4.80 x10'3/uL 01/09/2024 9:00 AM CDT [facility] ABS. MONOCYTES 0.28 0.24 - 0.86 x10'3/uL 01/09/2024 9:00 AM CDT [facility] ABS. EOSINOPHILS 0.03(L) 0.04 - 0.36 x10'3/uL 01/09/2024 9:00 AM CDT [facility] ABS. BASOPHILS 0.01 0.01 - 0.08 x10'3/uL 01/09/2024 9:00 AM CDT [facility] ABS. IMMATURE GRANULOCYTES 0.09 0.00 - 0.49 x10'3/uL 01/09/2024 9:00 AM CDT [facility] RBC MORPHOLOGY SLIDE REVIEWED 2023 9:00 AM CDT [facility] CAREY 3+ 01/09/2024 9:00 AM CDT [facility] PLT EST. DECREASED 01/09/2024 9:00 AM T [facility] 01/09/2024 8:05 AM CDT us Zelalem Ziegler MD LABORATORY Final Result [facility] [address] [place] [address], [place] [phone] * (ABNORMAL) COMPREHENSIVE METABOLIC PANEL (01/09/2024 7:55 AM CDT) [facility] GLUCOSE 83 70 - 99 MG/DL 01/09/2024 8:50 AM CDT [facility] BUN 17 7 - 18 MG/DL 01/09/2024 8:50 AM CDT [facility] CREATININE S/P/B 1.01 0.55 - 1.02 MG/DL 01/09/2024 8:50 AM CDT [facility] SODIUM S/P/B 140 136 - 145 MMOL/L 01/09/2024 8:50 AM CDT [facility] POTASSIUM S/P/B 3.9 3.5 - 5.1 MMOL/L 01/09/2024 8:50 AM CDT [facility] CHLORIDE S/P/B 112(H) 100 - 108 MMOL/L 01/09/2024 8:50 AM CDT [facility] CO2 22.5 21 - 32 MMOL/L 01/09/2024 8:50 AM CDT [facility] CALCIUM S/P/B 9.1 8.5 - 10.1 MG/DL 01/09/2024 8:50 AM CDT [facility] BILIRUBIN TOTAL S/P/B 0.5 0.2 - 1.2 MG/DL 01/09/2024 8:50 AM CDT [facility] Comment: THIS ASSAY IS NOT RECOMMENDED FOR PATIENTS UNDERGOING TREATMENT WITH ELTROMBOPAG DUE TO THE POTENTIAL FOR FALSELY ELEVATED RESULTS. TOTAL PROTEIN S/P/B 5.9(L) 6.4 - 8.2 G/DL 01/09/2024 8:50 AM CDT [facility] ALBUMIN S/P/B 3.3(L) 3.4 - 5.0 G/DL 01/09/2024 8:50 AM CDT [facility] AST 9(L) 15 - 37 U/L 01/09/2024 8:50 AM CDT [facility] ALT 14 14 - 55 U/L 01/09/2024 8:50 AM CDT [facility] ALKALINE PHOSPHATASE S/P/B 74 50 - 136 U/L 01/09/2024 8:50 AM CDT [facility] ANION GAP 5.5 5 - 15 MMOL/L 01/09/2024 8:50 AM CDT [facility] BUN CREATININE RATIO 16.8 6 - 26 01/09/2024 8:50 AM CDT [facility] A/G RATIO 1.3 1.0 - 2.0 RATIO 01/09/2024 8:50 AM CDT [facility] GFR ESTIMATE 59(L) >90 ML/MIN/1.7 3 M2 01/09/2024 8:50 AM CDT [facility] Comment: NOTE: eGFR is not calculated for patients <18 years of age. This is an estimated GFR calculation using the new CKD EPI creatinine equation without race and so does not require a correction factor for race. This estimated GFR should not be used for calculating drug doses. 01/09/2024 7:55 AM CDT us Zelalem Ziegler MD LABORATORY Final Result [facility] [address] [place] [address], * PROTIME/INR, VENOUS (01/09/2024 7:55 AM CDT) PROTIME 10.2 10.2 - 12.9 SEC 01/09/2024 8:40 AM CDT [facility] INR 0.9 01/09/2024 8:40 AM CDT [facility] Comment: Recommended INR Therapeutic Goals: 2.0-3.0 Routine Therapy 2.5-3.5 Mechanical Prosthetic Valves (High Risk) 01/09/2024 7:55 AM CDT us Zelalem Ziegler MD LABORATORY Final Result [facility] [address] [place] [address], documented in this encounter Visit Diagnoses Diagnosis Varicose veins of lower extremity with pain, right- Primary Hyperlipidemia Other and unspecified hyperlipidemia Hypertension Unspecified essential hypertension Disease of the lung and heart ([facility]/HCC [facility]) Chronic pulmonary heart disease, unspecified documented in this encounter Care Teams Manhole Stripper Relationship Specialty Start Date End Date Kristina Elias MD [address] [place] [address] PCP - General FAMILY PRACTICE 12/21/21 Prudence Reis MD CARDIOVASCULAR DISEASE 04/15/20 documented as of this encounter
--- OUTSIDE RECORDS SUMMARY | 2024-10-24 11:42 | XMS_ITS | Referral Summary ---
Author Organization [facility] [address] Address [address] [place] [address] Care Team Providers Care Security Patrol Officer Name Role Phone Kristina Elias MD Primary Care Provider [phone] Encounters Date Type Department Care Team Description 09/27/2024 2:15 PM HOME INSURANCE AGENT Office Visit [facility] Medical [facility] Cardiology [address] [place] [address] Mary Lou Harper MD Essential [...] on file Legal Sex Female 8:03 PM HOME INSURANCE AGENT Gender Identity Not on file Sexual Orientation Not on file Last Filed Vital Signs Vital Sign Reading Time Taken Comments Blood Pressure 124/62 09/27/2024 2:11 PM HOME INSURANCE AGENT Pulse 80 09/27/2024 2:11 PM HOME INSURANCE AGENT Temperature - - Respiratory Rate - - Oxygen Saturation 98% 09/27/2024 2:11 PM HOME INSURANCE AGENT Inhaled Oxygen Concentration - - Weight 74.4 kg (164 lb) 09/27/2024 2:11 PM HOME INSURANCE AGENT Height 157.5 cm (5' 2 ) 09/27/2024 2:11 PM HOME INSURANCE AGENT Body Mass Index 30 09/27/2024 2:11 PM HOME INSURANCE AGENT Plan of Treatment Not on file Procedures Procedure Name Priority Date/Time Associated Diagnosis Comments LIPID PANEL Routine 09/27/2024 2:05 PM HOME INSURANCE AGENT from Last 3 Months Results * Lipid panel (09/27/2024 2:05 PM HOME INSURANCE AGENT) SCRIBED Cholesterol, Total 143 <100 EXTERNAL LAB SCRIBED HDL 42 >40 EXTERNAL LAB SCRIBED LDL 71 <100 EXTERNAL LAB SCRIBED Triglycerides 149 <150 EXTERNAL LAB Blood 09/27/2024 2:05 PM HOME INSURANCE AGENT [facility] Robbi Harper MD LAB BLOOD ORDERABLES Fi nal Result EXTERNAL LAB from Last 3 Months Insurance MEDICARE RAILROAD MEDICARE RAILROAD [facility] FEDERAL Member Subscriber Plan / Payer (Ef fective 2015-Present) Name:Joanna Jeffery Nasrin Relation to Subscriber:Spouse Name:YRN JEFFERY JR Date of :1950 Address: [address] [place] [address] Payer ID:[id number] (NAIC) Group ID:[id number] Type:[facility] Address: [facility] [id number] [place] [address] Care Teams Security Patrol Officer Relationship Specialty Start Date End Date Kristina Elias MD PCP - General Family Medicine 08/12/21
[2024-10-24 11:51] LABS: Iron 44 ug/dL (37-170)
[2024-10-24 12:01] LABS: Percent Iron Saturation 19 % (20-50)
[2024-10-24 12:14] LABS: Anion Gap 8 mmol/L (4-12); Blood Urea Nitrogen 12 mg/dL (7-17); Carbon Dioxide 26 mmol/L (22-30); Chloride 105 mmol/L (98-107); Estimated Glomerular Filt Rate 58; Glucose 92 mg/dL (65-110); Potassium 4.3 mmol/L (3.4-5.0); Sodium 139 mmol/L (137-145)
== END 2024-10-24 10:14 | disposition home or self-care (01) ==
LOC: ANHLAB 10:14
PROVIDERS: PCP Family Medicine; Visit Provider Internal Medicine Hematology & Oncology
DX: D64.9 Anemia, unspecified (principal)
CPT/HCPCS: 36415; 80048; 82607; 82728; 82746; 83540; 83550; 85025

== ENCOUNTER 2024-10-31 07:07 | Outpatient (RCR) | payer MEDICARE, BC, SELFPAY ==
[2024-10-31] MEDS: diphenhydrAMINE HCl CAP 25 MG CAPSULE PO (07:41)
[2024-10-31] MEDS: ACETAMINOPHEN 325 MG TABLET 650 MG PO (07:41)
[2024-10-31 07:42] VITALS: BMI 30.2
[2024-10-31 07:43] LABS: Immature Platelet Fraction Pct 1.9 % (0.9-11.2); Mean Platelet Volume 10.5 fl (7.4-10.4); Platelet Count Result 71 k/mm3 (150-375)
[2024-10-31 07:53] VITALS: BP 139/79; PULSE 60; RESP 16; TEMP 36.9; O2SAT 98
[2024-10-31 08:10] VITALS: BP 145/78; PULSE 71; RESP 15; TEMP 36.8; O2SAT 100
[2024-10-31 08:45] VITALS: BP 143/87; PULSE 73; RESP 14; TEMP 36.8; O2SAT 99
== END 2025-01-29 23:59 | disposition home or self-care (01) ==
LOC: ANHCPCTRAN 07:07
PROVIDERS: PCP Family Medicine; Visit Provider Internal Medicine Hematology & Oncology
DX: D64.9 Anemia, unspecified (principal)
CPT/HCPCS: 36415; 36430; 85049; 85055; 86900; 86901; A9270; P9034

== ENCOUNTER 2024-11-01 08:16 | Outpatient (CLI) | payer MEDICARE, BC, SELFPAY ==
--- OUTSIDE RECORDS SUMMARY | 2024-11-01 08:28 | XMS_ITS | Clinical Summary ---
Author Organization [facility] Address [address] [place] [address] Care Team Providers Care As400 Programmer Name Role Phone Prudence Reis MD Unavailable [phone] Kristina Elias MD Primary Care Provider [phone] Allergies Active Allergy Reactions Criticality Noted Date [...] 11/01/2023 Chronic renal insufficiency, stage III (moderate) ([facility]) 11/01/2023 Greater trochanteric bursitis of left hip 2023 Hypertension 11/01/2023 Insomnia 11/01/2023 Low back pain 11/01/2023 Menopausal syndrome 11/01/2023 Mild chronic obstructive pul monary disease ([facility]) 11/01/2023 Dyspnea 11/01/2023 Symptomatic varicose veins of [...] this topic Medical Devices Implanted Type Area Field Administrator Device Identifier Shelf Expiration Date Model / Serial / Lot Iol Tecmolly Simplicity Dcb00 - [id number] Implanted:Qty: 1 on 05/21/2024 by Jabari Luis MD at [facility] Lens Left: Eye [employer] 10/09/2026 DCB00 / [id number] / Iol Tecnis Simplicity Dcb00 - [id number] Implanted:Qty: 1 on 06/25/2024 by Jabari Luis MD at [facility] Lens Right: Eye [employer] 01/15/2027 DCB00 / [id number] / Insurance RAILROAD MEDICARE [facility] Care Teams As400 Programmer Relationship Specialty Start Date End Date Kristina Elias MD [address] [place] [address] PCP - General FAMILY PRACTICE 12/21/21 Prudence Reis MD CARDIOVASCULAR DISEASE 04/15/20
--- OUTSIDE RECORDS SUMMARY | 2024-11-01 08:28 | XMS_ITS | Encounter Summary ---
Author Organization [facility] Address [address] [place] [address] Care Team Providers Care Numerical Tool Programmer Name Role Phone Prudence Reis MD Unavailable [phone] Kristina Elias MD Primary Care Provider [phone] Encounter Details Date Type Department Care Team (Late st Contact Info) Description 12/02/2023 Prep for Procedure [facility] THREE [facility] [address] [place], [place] [id number] Zelalem Ziegler MD Three [facility] [address] [place], [place] [id number] Social History Tobacco Use Types Packs/Day Years [...] - 11.0 x10'3/uL 01/09/2024 8:58 AM CDT [facility] RBC 2.59(L) 4.20 - 5.40 x10'6/uL 01/09/2024 8:58 AM CDT [facility] HGB 6.7(LL) 12.0 - 16.0 G/DL 01/09/2024 8:58 AM CDT [facility] Comment: This result has been called to SOL HIGHTOWER by [id number] on 01/09/2024 08:58:40, and has been read back. HCT 21.7(L) 38.0 - 48.0 % 01/09/2024 8:58 AM CDT [facility] MCV 83.8 81.0 - 99.0 FL 01/09/2024 8:58 AM CDT [facility] MCH 25.9(L) 27.0 - 31.0 PG 01/09/2024 8:58 AM CDT [facility] MCHC 30.9(L) 32.0 - 36.0 G/DL 01/09/2024 8:58 AM CDT [facility] RDW 13.3 11.5 - 14.5 % 01/09/2024 8:58 AM CDT [facility] PLT 85(L) 130 - 400 x10'3/uL 01/09/2024 8:58 AM CDT [facility] MPV 8.8(L) 9.3 - 12.2 FL 01/09/2024 8:58 AM CDT [facility] DIFFERENTIAL TYPE AUTOMATED DIFFERENTIAL 01/09/2024 9:00 AM CDT [facility] NEUTROPHILS % 41.1 % 01/09/2024 9:00 AM T [facility] LYMPHOCYTES % 48.0 % 01/09/2024 9:00 AM T [facility] MONOCYTES % 7.4 % 01/09/2024 9:00 AM CDT [facility] EOSINOPHILS 0.8 % 01/09/2024 9:00 AM CDT [facility] BASOPHILS 0.3 % 01/09/2024 9:00 AM CDT [facility] IMMATURE GRANS % 2.4 % 01/09/20 9:00 AM CDT [facility] ABS. NEUTROPHILS 1.55(L) 1.80 - 7.70 x10'3/uL 01/09/2024 9:00 AM CDT [facility] ABS. LYMPHOCYTES 1.81 1.00 - 4.80 x10'3/uL 01/09/2024 9:00 AM CDT [facility] ABS. MONOCYTES 0.28 0.24 - 0.86 x10'3/uL 01/09/2024 9:00 AM CDT [facility] ABS. EOSINOPHILS 0.03(L) 0.04 - 0.36 x10'3/uL 01/09/2024 9:00 AM CDT [facility] ABS. BASOPHILS 0.01 0.01 - 0.08 x10'3/uL 01/09/2024 9:00 AM CDT [facility] ABS. IMMATURE GRANULOCYTES 0.09 0.00 - 0.49 x10'3/uL 01/09/2024 9:00 AM CDT [facility] RBC MORPHOLOGY SLIDE REVIEWED 2023 9:00 AM CDT [facility] CAREY 3+ 01/09/2024 9:00 AM CDT [facility] PLT EST. DECREASED 01/09/2024 9:00 AM T [facility] 01/09/2024 8:05 AM CDT us Zelalem Ziegler MD LABORATORY Final Result [facility] [address] [place] [address], [place] [phone] * (ABNORMAL) COMPREHENSIVE METABOLIC PANEL (01/09/2024 7:55 AM CDT) [facility] GLUCOSE 83 70 - 99 MG/DL 01/09/2024 8:50 AM CDT [facility] BUN 17 7 - 18 MG/DL 01/09/2024 8:50 AM CDT [facility] CREATININE S/P/B 1.01 0.55 - 1.02 MG/DL 01/09/2024 8:50 AM CDT [facility] SODIUM S/P/B 140 136 - 145 MMOL/L 01/09/2024 8:50 AM CDT [facility] POTASSIUM S/P/B 3.9 3.5 - 5.1 MMOL/L 01/09/2024 8:50 AM CDT [facility] CHLORIDE S/P/B 112(H) 100 - 108 MMOL/L 01/09/2024 8:50 AM CDT [facility] CO2 22.5 21 - 32 MMOL/L 01/09/2024 8:50 AM CDT [facility] CALCIUM S/P/B 9.1 8.5 - 10.1 MG/DL 01/09/2024 8:50 AM CDT [facility] BILIRUBIN TOTAL S/P/B 0.5 0.2 - 1.2 MG/DL 01/09/2024 8:50 AM CDT [facility] Comment: THIS ASSAY IS NOT RECOMMENDED FOR PATIENTS UNDERGOING TREATMENT WITH ELTROMBOPAG DUE TO THE POTENTIAL FOR FALSELY ELEVATED RESULTS. TOTAL PROTEIN S/P/B 5.9(L) 6.4 - 8.2 G/DL 01/09/2024 8:50 AM CDT [facility] ALBUMIN S/P/B 3.3(L) 3.4 - 5.0 G/DL 01/09/2024 8:50 AM CDT [facility] AST 9(L) 15 - 37 U/L 01/09/2024 8:50 AM CDT [facility] ALT 14 14 - 55 U/L 01/09/2024 8:50 AM CDT [facility] ALKALINE PHOSPHATASE S/P/B 74 50 - 136 U/L 01/09/2024 8:50 AM CDT [facility] ANION GAP 5.5 5 - 15 MMOL/L 01/09/2024 8:50 AM CDT [facility] BUN CREATININE RATIO 16.8 6 - 26 01/09/2024 8:50 AM CDT [facility] A/G RATIO 1.3 1.0 - 2.0 RATIO 01/09/2024 8:50 AM CDT [facility] GFR ESTIMATE 59(L) >90 ML/MIN/1.7 3 M2 01/09/2024 8:50 AM CDT [facility] Comment: NOTE: eGFR is not calculated for patients <18 years of age. This is an estimated GFR calculation using the new CKD EPI creatinine equation without race and so does not require a correction factor for race. This estimated GFR should not be used for calculating drug doses. 01/09/2024 7:55 AM CDT us Zelalem Ziegler MD LABORATORY Final Result [facility] [address] [place] [address], * PROTIME/INR, VENOUS (01/09/2024 7:55 AM CDT) PROTIME 10.2 10.2 - 12.9 SEC 01/09/2024 8:40 AM CDT [facility] INR 0.9 01/09/2024 8:40 AM CDT [facility] Comment: Recommended INR Therapeutic Goals: 2.0-3.0 Routine Therapy 2.5-3.5 Mechanical Prosthetic Valves (High Risk) 01/09/2024 7:55 AM CDT us Zelalem Ziegler MD LABORATORY Final Result [facility] [address] [place] [address], documented in this encounter Visit Diagnoses Diagnosis Varicose veins of lower extremity with pain, right- Primary Hyperlipidemia Other and unspecified hyperlipidemia Hypertension Unspecified essential hypertension Disease of the lung and heart ([facility] Chronic pulmonary heart disease, unspecified documented in this encounter Care Teams Numerical Tool Programmer Relationship Specialty Start Date End Date Kristina Elias MD [address] [place] [address] PCP - General FAMILY PRACTICE 12/21/21 Prudence Reis MD CARDIOVASCULAR DISEASE 04/15/20 documented as of this encounter
--- OUTSIDE RECORDS SUMMARY | 2024-11-01 08:28 | XMS_ITS | Referral Summary ---
Author Organization [facility] [address] [facility] [address] Address [address] [place] [address] Care Team Providers Care Heat Treating Furnace Tender Name Role Phone Kristina Elias MD Primary Care Provider [phone] Encounters Date Type Department Care Team Description 09/27/2024 2:15 PM NETWORK SECURITY ADMINISTRATOR Office Visit [facility] Medical Group Cardiology [address] [place] [address] Mary Lou Harper MD Essential [...] 1 PUFF BY MOUTH EVERY 12 HOURS 07/16/20 21 Active ferrous sulfate (IRON ORAL) Take by mouth Acti ve cyanocobalamin (Vitamin B-12) 500 mcg tabletIndication s:Prevention of Vitamin B12 Deficiency Take 1 tablet (500 mcg total) by mouth daily Active cholecalciferol (VITAMIN D-3) 2000 unit tablet Act cornelius traZODone (DESYREL) 50 mg tablet Take 1 tablet (50 mg total) by mouth nightly Active clopidogreL (PLAVIX) 75 mg tablet Take 1 tablet (75 mg total) by mouth daily 30 tablet 11 10/17/19 24 Active Additional Information Patient not taking.Reported on 09/27/2024 rosuvastatin (CRESTOR) 20 mg tabletIndication s:Hypercholester emia TAKE 1 TABLET(20 MG) BY MOUTH DAILY 90 tablet 1 04/23/20 24 Active losartan (COZAAR) 25 mg tabletIndication s:Essential hypertension Take 1 tablet (25 mg total) by mouth daily 90 tablet 3 10/25/19 25 Active losartan (COZAAR) 25 mg tabletIndication s:Essential hypertension Take 1 tablet (25 mg total) by mouth daily 90 tablet 3 09/26/19 24 025 Discontin ued(Reord er) Active Problems Problem Noted Date Diagnosed Date [...] on file Legal Sex Female 8:03 PM NETWORK SECURITY ADMINISTRATOR Gender Identity Not on file Sexual Orientation Not on file Last Filed Vital Signs Vital Sign Reading Time Taken Comments Blood Pressure 124/62 09/27/2024 2:11 PM NETWORK SECURITY ADMINISTRATOR Pulse 80 09/27/2024 2:11 PM NETWORK SECURITY ADMINISTRATOR Temperature - - Respiratory Rate - - Oxygen Saturation 98% 09/27/2024 2:11 PM NETWORK SECURITY ADMINISTRATOR Inhaled Oxygen Concentration - - Weight 74.4 kg (164 lb) 09/27/2024 2:11 PM NETWORK SECURITY ADMINISTRATOR Height 157.5 cm (5' 2 ) 09/27/2024 2:11 PM NETWORK SECURITY ADMINISTRATOR Body Mass Index 30 09/27/2024 2:11 PM NETWORK SECURITY ADMINISTRATOR Plan of Treatment Not on file Procedures Procedure Name Priority Date/Time Associated Diagnosis Comments LIPID PANEL Routine 09/27/2024 2:05 PM NETWORK SECURITY ADMINISTRATOR from Last 3 Months Results * Lipid panel (09/27/2024 2:05 PM NETWORK SECURITY ADMINISTRATOR) SCRIBED Cholesterol, Total 143 <100 EXTERNAL LAB SCRIBED HDL 42 >40 EXTERNAL LAB SCRIBED LDL 71 <100 EXTERNAL LAB SCRIBED Triglycerides 149 <150 EXTERNAL LAB Blood 09/27/2024 2:05 PM NETWORK SECURITY ADMINISTRATOR [facility] Robbi Harper MD LAB BLOOD ORDERABLES Fi nal Result EXTERNAL LAB from Last 3 Months [facility] FEDERAL Member Subscriber Plan / Payer ( fective 2015-Present) Name:Joanna Jeffery Relation to Subscriber:Spouse Name:YRN JEFFERY JR Date of :1950 Address: [facility] [place] [address] Payer ID:[id number] (NAIC) Group ID:[id number] Type: [employer] Address: [facility] [id number] [place] [address] Care Teams Heat Treating Furnace Tender Relationship Specialty Start Date End Date Kristina Elias MD PCP - General Family Medicine 08/12/21
--- OUTSIDE RECORDS SUMMARY | 2024-11-01 08:28 | XMS_ITS | Clinical Summary ---
Author Organization [facility] Lili Henrydilia Address [address] [place] [address] Care Team Providers Care Pharmacy Technician Name Role Phone Kristina Elias MD Primary Care Provider [phone] Allergies Active Allergy Reactions Criticality Noted Date [...] Take 40 mg by mouth. 4 Active CALCIUM CARBONATE-VITAM IN D3 ORAL Take 50 mg by mouth daily. Active clopidogreL (PLAVIX) 75 mg Tablet Take 75 mg by mouth daily. 4 10/16/19 25 Active Problems Problem Noted Date Diagnosed Date Normocytic anemia 06/11/2021 Encounters Date Type Department Care Team Description 10/31/2024 External Device Data STL ABSTRACTION Provider, Abstract 10/30/2024 Abstract [facility] Oncology and Hematology [facility] [address] [place] [address] Walter Brothers MD 10/26/2024 8:30 AM CENTRAL STERILE TECHNICIAN Office Visit [facility] Oncology [facility] [address] [place] [address] Walter Brothers MD Chronic anemia (Primary Dx) 10/24/2024 Orders Only [facility] Oncology [facility] Hematology [facility] [address] [place] [address] Walter Brothers MD 10/16/2024 External Device Data STL ABSTRACTION Provider, [...] Sign Reading Time Taken Comments Blood Pressure 124/77 10/26/2024 8:34 AM CENTRAL STERILE TECHNICIAN Pulse 81 10/26/2024 8:34 AM CENTRAL STERILE TECHNICIAN Temperature 36.2 C (97.2 F) 10/26/2024 8:34 AM CENTRAL STERILE TECHNICIAN Respiratory Rate 15 10/26/2024 8:34 AM CENTRAL STERILE TECHNICIAN Oxygen Saturation 98% 10/26/2024 8:34 AM CENTRAL STERILE TECHNICIAN Inhaled Oxygen Concentration - - Weight 74.8 kg (164 lb 12.8 oz) 10/26/2024 8:34 AM CENTRAL STERILE TECHNICIAN Height 157.5 cm (5' 2 ) 03/16/2022 11:2 2 AM CDT Body Mass Index 30.14 03/16/2022 11:22 AM CDT Plan of Treatment Upcoming Encounters Date Type Department Care Team (Late st Contact Info) Description 02/25/2025 1:15 PM CDT Office Visit [facility] Oncology and Hematology [facility] [address] [facility] [address] [place] [address] Walter Brothers MD [address] [facility] [address] [place] [address] Health Maintenance Due Date Last [...] 07/27/2031 OSTEOPOROSIS SCREENING Completed 09/26/2019 PNEUMOCOCCAL VACCINE 50+ YEARS Completed 06/25/2020 , 06/04/2019 Procedures Procedure Name Priority Date/Time Associated Diagnosis Comments CBC WITH AUTODIFFERENTIAL Routine 2024 11:53 AM CENTRAL STERILE TECHNICIAN from Last 3 Months Results * CBC WITH AUTODIFFERENTIAL (10/24/2024 11:53 AM CENTRAL STERILE TECHNICIAN) Blood Walter Brothers MD HEMATOLOGY ORDERABLES Final Res ult from Last 3 Months Insurance [facility] FEDERAL MEDICARE [facility] [place] [address] Care Teams Pharmacy Technician Relationship Specialty Start Date End Date Kristina Elias MD [address] [place] [address] PCP - General Family Practice 06/11/21
--- OUTSIDE RECORDS SUMMARY | 2024-11-01 08:28 | XMS_ITS | Clinical Summary ---
Author Organization [facility] [address] Address [address] [place] [address] Care Team Providers Care Associate Product Integrity Engineer Name Role Phone Kristina Elias MD Primary Care Provider [phone] Allergies Active Allergy Reactions Criticality Noted Date [...] Department Care Team Description 09/27/2024 2:15 PM RESIDENT CARE SPEC Office Visit [facility] Medical Group Cardiology [address] [place] [address] Mary Lou Harper MD Essential [...] on file Legal Sex Female 8:03 PM RESIDENT CARE SPEC Gender Identity Not on file Sexual Orientation Not on file Obstetrics History Last Filed Vital Signs Vital Sign Reading Time Taken Comments Blood Pressure 124/62 09/27/2024 2:11 PM RESIDENT CARE SPEC Pulse 80 09/27/2024 2:11 PM RESIDENT CARE SPEC Temperature - - Respiratory Rate - - Oxygen Saturation 98% 09/27/2024 2:11 PM RESIDENT CARE SPEC Inhaled Oxygen Concentration - - Weight 74.4 kg (164 lb) 09/27/2024 2:11 PM RESIDENT CARE SPEC Height 157.5 cm (5' 2 ) 09/27/2024 2:11 PM RESIDENT CARE SPEC Body Mass Index 30 09/27/2024 2:11 PM RESIDENT CARE SPEC Plan of Treatment Health Maintenance Due Date [...] Comments LIPID PANEL Routine 09/27/2024 2:05 PM RESIDENT CARE SPEC from Last 3 Months Results * Lipid panel (09/27/2024 2:05 PM RESIDENT CARE SPEC) SCRIBED Cholesterol, Total 143 <100 EXTERNAL LAB SCRIBED HDL 42 >40 EXTERNAL LAB SCRIBED LDL 71 <100 EXTERNAL LAB SCRIBED Triglycerides 149 <150 EXTERNAL LAB Blood 09/27/2024 2:05 PM RESIDENT CARE SPEC us [facility] Robbi Harper MD LAB BLOOD ORDERABLES Fi nal Result EXTERNAL LAB from Last 3 [place] [address] MEDICARE RAILROAD MEDICARE RAILROAD [address] FEDERAL Member Subscriber Plan / Payer (Ef fective 2015-Present) Name:Joanna Jeffery Nasrin Relation to Subscriber:Spouse Name:YRN JEFFERY JR Date of :1950 Address: [address] [place] [address] [place] [address] Payer ID:[id number] (NAIC) Group ID:[id number] Type:[facility] Address: [address] [place] [id number] Care Teams Associate Product Integrity Engineer Relationship Specialty Start Date End Date Kristina Elias MD PCP - General Family Medicine 08/12/21
--- OUTSIDE RECORDS SUMMARY | 2024-11-01 08:28 | XMS_ITS | Encounter Summary ---
Author Organization [facility] Address [address] [place] [address] Care Team Providers Care Emt Driver Name Role Phone Prudence Reis MD Unavailable [phone] Reuben Oneal MD Primary Care Provider [phone] Kristina Elias MD Primary Care Provider [phone] Encounter Details Date Type Department Care Team (Late st Contact Info) Description 04/18/2020 Prep for Procedure [facility] [address] [facility] [address] [place], [place] [id number] Binh Scott MD [address] [place] [address] Social History Tobacco Use Types Packs/Day [...] (COVID 19) (04/18/2020 11:00 AM CDT) Pathologist [facility] CORONAVIRUS SARS COV 2 PCR (RESP) NOT DETECTED NOT DETECTED 04/19/2020 2:37 PM CDT [facility] Comment: A Not Detected (negative) test [...] providers and patients using the following websites: https://www.regrob.com.[employer]/home/Covid-19/HCP/NAAT/fact-sheet2 https://www.regrob.com.[employer]/home/Covid-19/Patients/NAAT/ fact-sheet2 This test has been authorized by the FDA under an Emergency Use Authorization (EUA) for use by authorized laboratories. Due to the current public health emergency, [facility] is receiving a high volume of samples [...] about COVID-19 can be found at the [facility] website: www.[employer]/Covid19. Test performed at [facility] [address] [place] [address] Director: KIMBERLY ALCARAZ DO,MPH NASOPHARYNGEAL SWAB / Unknown 04/18/2020 11:00 AM CDT Binh Scott MD MICROBIOLOGY - GENERAL ORDERABLE S Final Result [facility] [address] [place] [address], documented in this encounter Visit Diagnoses Diagnosis Preoperative testing- Primary Preoperative examination, unspecified documented in this encounter Additional Health Concerns Infection Onset Date Last Indicated Resolved Time COVID-19 Rule Out 04/18/2020 04/18/2020 04/19/2020 2:38 PM CDT documented as of this encounter Care Teams Emt Driver Relationship Specialty Start Date End Date Reuben Oneal MD [address] [place] [address] PCP - General FAMILY PRACTICE 04/15/20 12/20/21 Kristina Elias MD [address] [place] [address] PCP - General FAMILY PRACTICE 12/21/21 Prudence Reis MD CARDIOVASCULAR DISEASE 04/15/20 documented as of this encounter
--- OUTSIDE RECORDS SUMMARY | 2024-11-01 08:28 | XMS_ITS | Data Portability ---
Author Organization [facility] Address [address] [place] [address] Care Team Providers Care Engineering Psychologist Name Role Phone ORAL, HELENA Stereotyper Apprentice Unavailable Assessment Encounter Date Assessment Date Assessment [...] DO Not Attach Compendium, Do Not Delete/merge, [id number] 8 17:43:21 pap, LB + HPV mRNA E6/E7 + reflex HPV (16+18+45 ) 2013 014 [email or web address] [facility], [address] [place] [address], [address], [place], [address], 5 12:38:54 Referral None recorded. Procedures None recorded. Surgeries None recorded. Imaging MAMMO, screening , bilateral 2017 018 RAMIRO [facility], [address], [place], [address], 8 11:50:11 MAMMO, screening , bilateral 2015 016 [id number] [id number] [facility], [address], [address] [address], [place], [address], 6 04:31:01 mammogram , screening 2013 014 [email or web address] Not available 5 12:38:54 Medication Orders Osphena 60 mg tablet [address]/[facility]armacy #2510, [address] [place] [address], [address], 8 14:59:01 Estrace 0.01% (0.1 mg/gram) vaginal cream [address]/Pharmacy #2510, [address] [place] [address], [address], 8 14:58:25 calcium 600 mg (as carbonate )-vitamin D3 20 mcg (800 unit) tablet [address]/Pharmacy #2510, [address] [place] [address], [address], 8 14:57:53 multivita min tablet [address]/Pharmacy #2510, [address] [place] [address], [address], 8 14:58:54 Estrace 0.5 mg tablet [address]/Pharmacy #2510, [address] [place] [address], [address], 8 14:58:29 Estrace 0.01% (0.1 mg/gram) vaginal cream 2013 014 [address], [address] [place] [address], [address], 8 14:58:25 Linzess 145 mcg capsule 2013 014 [email or web address] [facility]/Pharmacy #8368, [address] [place], [address], 8 14:58:46 Patient TargetsNo targets recorded. Patient Instructions Encounter Date Encounter Id Patient Instructions Last Modified By Organization Details Last Modified Time 06/30/2016 [id number] mammogram: about this test [email or web address] Not available 06/30/2016 16:27:19 learning about breast cancer screening [email or web address] Not available 06/30/2016 16:05:56 07/12/2018 [id number] mammogram: about this test [email or web address] Not available 07/12/2018 15:23:21 Reason for Referral None Reported. Results Created Date Observation Date Name Description Value Unit Range Abnormal Flag Note LastModifiedBy Organization Detail LastModifiedTime 07/12/20 18 07/12/2018 urina lysis , dipst ick Leukocytes Negati ve Not Available In-Office Order Internal Use Only DO Not Attach Compendium DO Not Attach Compendium, Do Not Delete/merge, [id number] 07/12/2018 15:09:56 07/12/20 18 07/12/2018 urina lysis , dipst ick Nitrite negati ve Not Available In-Office Order Internal Use Only DO Not Attach Compendium DO Not Attach Compendium, Do Not Delete/merge, [id number] 07/12/2018 15:09:56 07/12/20 18 07/12/2018 urina lysis , dipst ick Urobilinogen .2 Not Available In-Of fice Order Internal Use Only DO Not Attach Compendium DO Not Attach Compendium, Do Not Delete/merge, [id number] 07/12/2018 15:09:56 07/12/20 18 07/12/2018 urina lysis , dipst ick Protein Negati ve Not Available In-Office Order Internal Use Only DO Not Attach Compendium DO Not Attach Compendium, Do Not Delete/merge, [id number] 07/12/2018 15:09:56 07/12/20 18 07/12/2018 urina lysis , dipst ick pH 7.0 Not Available In-Office Order Internal Use Only DO Not Attach Compendium DO Not Attach Compendium, Do Not Delete/merge, [id number] 07/12/2018 15:09:56 07/12/20 18 07/12/2018 urina lysis , dipst ick Blood Non-He molyze d: Trace Not Available In-Office Order Internal Use Only DO Not Attach Compendium DO Not Attach Compendium, Do Not Delete/merge, [id number] 07/12/2018 15:09:56 07/12/20 18 07/12/2018 urina lysis , dipst ick Specific [place] 1.010 Not Available In-Off ice Order Internal Use Only DO Not Attach Compendium DO Not Attach Compendium, Do Not Delete/merge, [id number] 07/12/2018 15:09:56 07/12/20 18 07/12/2018 urina lysis , dipst ick Ketone Negati ve Not Available In-Office Order Internal Use Only DO Not Attach Compendium DO Not Attach Compendium, Do Not Delete/merge, [id number] 07/12/2018 15:09:56 07/12/20 18 07/12/2018 urina lysis , dipst ick Bilirubin Negati ve Not Available In-Office Order Internal Use Only DO Not Attach Compendium DO Not Attach Compendium, Do Not Delete/merge, [id number] 07/12/2018 15:09:56 07/12/20 18 07/12/2018 urina lysis , dipst ick Glucose Negati ve Not Available In-Office Order Internal Use Only DO Not Attach Compendium DO Not Attach Compendium, Do Not Delete/merge, [id number] 07/12/2018 15:09:56 08/19/20 14 08/15/2014 lylai christofer/riki hartmann t No observ ation record ed. [email or web address] Not Available 09/05 15:45:59 07/19/20 16 07/19/2016 mamssofia w PT NAME: WILLIAM GALLARDO : 1949 PT SEX/AG E: / PT ACCT NUMBER : [id number] PT MR#: [id number] ROOM/B ED: PT STATUS : REG CLI DATE OF EXAMIN ATION: ORDERI NG PHYSIC CHANTE: HELENA MCDANIEL MAN M.D. ATTEND ING PHYSIC CHANTE: HELENA MCDANIEL MAN , M.D. DICTAT ING PHYSIC CHANTE: Live HANNA M.D. 018 [id number] 3.001M IX 13:34: 00 61.007 2MVMAM ([facility] : JAMEY SCREEN KERA W/CAD INDICA TION: [...] ed, dictat ed and finali zed [facility] __ Electr onical ly signed by: SHERRIE HANNA Date: Time: 14:14 SHERRIE HANNA M.D.__ ___ [facility] [employer] [address] [facility] [address] [place] [address] [facility] (Imaging) [address], [place], [address], 07/19/2016 15:17:29 07/19/20 16 07/19/2016 MAMMO , scree serjio, bilat eral No observ ation record ed. [facility] [address], [place], [address], 07/19/2016 16:42:23 07/12/20 18 04/29/2018 CT, abdom [...] ed. RAMIRO [facility] [address], [place], [address], 08/10/2018 12:42:16 Result Notes None recorded. Problems Name Problem SNOMED Code Status Onset Date Resolution Date Notes Provider Name and Address Organization Details Recorded Time Menopausal syndrome [id number] Active Helena jiménez, [facility] 4 11:23:52 Problem Notes None recorded. Procedures Surgical History Date Name Laterality Status Provider Name and Address Organization Details Recorded Time 06/16/20 18 lithotomy completed Roxi Bob MA [facility] 07/12/2018 15:00:50 07/19/20 16 Most Recent Mammogram completed Roxi Bob MA [facility] 07/12/2018 15:01:41 07/31/20 14 Date of Last Pap Smear completed Ciara Mabry MA [facility] 06/30/2016 15:07:28 08/29/18 91 Laparoscopy completed [facility] 07/31/2014 10:46:09 08/29/18 82 Appendectomy completed Yin Bazzi MA [facility] 07/31/2014 10:46:09 04/07/19 79 Tubal Ligation completed [facility] Garcia [facility] 06/30/2016 15:08:33 04/07/19 79 Caesarean Section completed [facility] 06/30/2016 15:06:53 09/05/18 76 [facility] 06/30/2016 15:07:08 09/12/18 72 Caesarean Section completed [facility] 06/30/2016 15:07:16 lithotripsy completed Roxi Bob MA [facility] 07/12/2018 15:00:39 Imaging Results Imaging Date Name Status LastModified by Organization Details LastModified Time 08/15/2014 imaging/diagnostic result completed [email or web address] Information not available 09/05/2014 15:45:59 07/19/2016 [email or web address] completed [facility] (Imaging) [address], [place], [address], 07/19/2016 15:17:29 07/19/2016 MAMMO, screening, bilateral completed [facility] [address], [place], [address], 07/19/2016 16:42:23 04/29/2018 CT, abdomen + pelvis, [...] 16:27:58 05/03/2018 XR, abdomen, 1 view [facility] m[facility] not available 07/28/2018 15:54:08 08/08/2018 MAMMO, screening, bilateral completed [facility] [address], [place], [address], 08/10/2018 12:42:16 Procedure Notes None recorded. Medical Equipment None Reported. Allergies Allergen ID Allergen Name Allergen Category Reaction Reaction Severity Criticality Documentation Date Start Date Code Code System Note Provider Name and Address Organization Details Recorded Time 4877 Non-stero idal anti-infl ammatory agent (product) medicatio n other severe Not available 07/31/2014 14226 005 SNOMED cause s gastr itis Not [...] Not Available Not Available Not Available Afluria 4123-7074(PF ) 45 mcg (15 mcg x 3)/0.5 mL intramuscula r syringe active Not Available Not Available No t Available Fluzone High-Dose 0650-3727 (PF) 180 mcg/0.5 mL intramuscula r syringe 07/12 completed Not Available Not Available Not Available Vitals Date Recorded Body height Body mass index (BMI) Body weight Systolic blood pressure Diastolic blood pressure Provider Name and Address Organization Details Last Updated DateTime 07/12/2018 157.48 cm 32.6 kg/m2 23541.44 g 172 mm[Hg] 94 mm[Hg] Roxi Bob MA [place] - [facility] 8 15:04:46 Date Recorded Body height Body weight Body mass index (BMI) Systolic blood pressure Diastolic blood pressure Provider Name and Address Organization Details Last Updated DateTime 06/30/2016 157.48 cm 16869.59 g 33.8 kg/m2 152 mm[Hg] 90 mm[Hg] Ciara Mabry MA [place] - [facility] 6 15:02:18 Social History Question Answer Notes LastModified by Organizat ion Details LastModified Time Tobacco Smoking Status Former Smoker quit 1991 Yin Bazzi MA [facility] [place] [place] - [facility] 07/31/2014 10:50:46 Do You Have [...] Disorder N Colon Polyps N Heart Attack ([place]) N Diabetes N Cardiomyopathy N Blood Transfusions [...] SNOMED-CT Code Diagnosis ICD10 Code Diagnosis Note [id number] ROSALINE House (SCALPING MACHINE OPERATOR) [address] [place] [address] 07/31/2014 10:09:36 07/31/2014 12:11:49 Gynecologic examination [id number] Menopausal syndrome [id number] Helena Duke (SCALPING MACHINE OPERATOR) [address] [place] [address] 06/30/2016 14:18:34 07/01/2016 09:46:16 Screening mammography 90322959 Z12.31 Menopausal syndrome 1237 50871 N95.9 Screening for malignant neoplasm of breast 303648468 Z12.31 [id number] Helena Duke (SCALPING MACHINE OPERATOR) [address] [place] [address] 07/12/2018 14:09:39 07/14/2018 13:36:30 Screening mammography 39541313 Z12.31 Health Concerns Section Related Observation LastModified by Organization Detai ls LastModified Time None Recorded Concern Status LastModified by Organization Details LastModified Time None Recorded Advance Directives Directive N: Payers Encounter Date Sequence Insurance Name Policy Number Policy Jefferson Covered Member ID Jefferson Member ID Guarantor Name 07/31/2014 2 [place] ([place]) 106 Joseph Gallardo Jr [id number] Joanna Gallardo 06/30/2016 2 [place] 106 Joseph Gallardo Jr [id number] Joanna Gallardo 06/30/2016 1 [place] Joanna Gallardo [id number] Joanna Gallardo 07/12/2018 2 [place] 106 Joseph Gallardo [id number] Joanna Sami 07/12/2018 1 [place] Joanna Gallardo [id number] Joanna Gallardo Notes Date Note Type Note Provider Name and Address Organization Details Recorded Time 06/30/2016 text/html Annual Ag Service Manager Post-MenopausalReporte d bypatient.Menopausal Symptoms:normal vaginal lubrication;hot flashes [...] Domestic Partner Domestic Partner Phone Father Name Satellite Tv Technician Installer Status 07/31/20 14 1 CLOSED [employer] Data [...] Domestic Partner Domestic Partner Phone Father Name Satellite Tv Technician Installer Status 07/31/20 14 1 CLOSED [employer] Data [...] Domestic Partner Domestic Partner Phone Father Name Satellite Tv Technician Installer Status 07/31/20 14 1 CLOSED Fetus Data [...]
--- OUTSIDE RECORDS SUMMARY | 2024-11-01 08:28 | XMS_ITS | Encounter Summary ---
Author Organization [facility] Address [address] [place] [address] Care Team Providers Care Data Base Administrator Name Role Phone Kristina Elias MD Primary Care Provider [phone] Encounter Details Date Type Department Care Team (Late st Contact Info) Description 10/31/2024 External Device Data ST[place] ABSTRACTION Provider, Abstract NO ADDRESS ON FILE Social History Tobacco Use Types Packs/Day Years Used Date Smoking Tobacco: Former Smokeless Tobacco: Never Alcohol Use Standard Drinks/Week Comments Yes 0 (1 standard drink = 0.6 oz pur e alcohol) holidays Comments No Sex and Gender Information Value Date Recorded Sex Assigned at Not on file Legal Sex Female 11:03 AM CDT Gender Identity Not on file Sexual Orientation Not on file documented as of this encounter Plan of Treatment Upcoming Encounters Date Type Department Care Team (Late Contact Info) Description 02/25/2025 1:15 PM CDT Office Visit [facility] [place] Oncology and Hematology - [place] [address] [place] [address] [address] Walter Brothers MD [address] [facility] [address] [place] [address] documented as of this encounter Visit Diagnoses Not on filedocumented in this encounter Care Teams Data Base Administrator Relationship Specialty Start Date End Date Kristina Elias MD [address] [place] [address] PCP - General Family Practice 06/11/21 documented as of this encounter
--- OUTSIDE RECORDS SUMMARY | 2024-11-01 08:28 | XMS_ITS | Encounter Summary ---
Author Organization [facility] Address [address] [place] [address] Care Team Providers Care Welding Manager Name Role Phone Prudence Reis MD Unavailable [phone] Kristina Elias MD Primary Care Provider [phone] Reason for Referral * Surgical (Routine) - Authorized Specialty Diagnoses / Procedures Referred By Contac t Referred To Contact Diagnoses Varicose veins of lower extremity with pain, right Procedures Case request operating room: STAB PHLEBECTOMY (RIGHT LEG) Zelalem Ziegler MD [facility]. [address] [place] [address] Phone: tel: fax: Referral ID Status Reason Start Date Expiration Date V isits Requested Visits Authorized [id number] Authorized 01/10/2024 01/09/2025 1 1 Encounter Details Date Type Department Care Team (Late st Contact Info) Description 01/10/2024 Prep for Procedure [facility] [address] [place], [place] [id number] Zelalem Ziegler MD [facility]. [facility] [address] [place] [address] Social History Tobacco Use Types [...] COMPREHENSIVE METABOLIC PANEL (02/20/2024 12:18 PM CDT) [facility] GLUCOSE 94 70 - 99 MG/DL 02/20/2024 12:53 PM CDT [facility] BUN 11 7 - 18 MG/DL 02/20/2024 12:53 PM CDT [facility] CREATININE S/P/B 0.95 0.55 - 1.02 MG/DL 02/20/2024 12:53 PM CDT [facility] SODIUM S/P/B 139 136 - 145 MMOL/L 02/20/2024 12:53 PM CDT [facility] POTASSIUM S/P/B 4.3 3.5 - 5.1 MMOL/L 02/20/2024 12:53 PM CDT [facility] CHLORIDE S/P/B 109(H) 100 - 108 MMOL/L 02/20/2024 12:53 PM CDT [facility] CO2 24.2 21 - 32 MMOL/L 02/20/2024 12:53 PM CDT [facility] CALCIUM S/P/B 9.3 8.5 - 10.1 MG/DL 02/20/2024 12:53 PM CDT [facility] BILIRUBIN TOTAL S/P/B 1.4(H) 0.2 - 1.2 MG/DL 02/20/2024 12:53 PM CDT [facility] Comment: THIS ASSAY IS NOT RECOMMENDED FOR PATIENTS UNDERGOING TREATMENT WITH ELTROMBOPAG DUE TO THE POTENTIAL FOR FALSELY ELEVATED RESULTS. TOTAL PROTEIN S/P/B 6.3(L) 6.4 - 8.2 G/DL 02/20/2024 12:53 PM CDT [facility] ALBUMIN S/P/B 3.5 3.4 - 5.0 G/DL 02/20/2024 12:53 PM CDT [facility] AST 11(L) 15 - 37 U/L 02/20/2024 12:53 PM CDT [facility] ALT 11(L) 14 - 55 U/L 02/20/2024 12:53 PM CDT [facility] ALKALINE PHOSPHATASE S/P/B 79 50 - 136 U/L 02/20/2024 12:53 PM T [facility] ANION GAP 5.8 5 - 15 MMOL/L 02/20/2024 12:53 PM CDT [facility] BUN CREATININE RATIO 11.5 6 - 26 02/20/2024 12:53 PM T [facility] A/G RATIO 1.2 1.0 - 2.0 RATIO 02/20/2024 12:53 PM T [facility] GFR ESTIMATE 63(L) >90 ML/MIN/1.7 3 M2 02/20/2024 12:53 PM T [facility] Comment: NOTE: eGFR is not calculated for patients <18 years of age. This is an estimated GFR calculation using the new CKD EPI creatinine equation without race and so does not require a correction factor for race. This estimated GFR should not be used for calculating drug doses. 02/20/2024 12:1 8 PM CDT us Zelalem Ziegler MD LABORATORY Final Result [facility] [address] [place] [address], [place] [phone] * PROTIME/INR, VENOUS (02/20/2024 12:18 PM CDT) [facility] PROTIME 10.5 10.2 - 12.9 SEC 02/20/2024 12:47 PM CDT [facility] INR 0.9 02/20/2024 12:47 PM CDT [facility] Comment: Recommended INR Therapeutic Goals: 2.0-3.0 Routine Therapy 2.5-3.5 Mechanical Prosthetic Valves (High Risk) 02/20/2024 12:1 8 PM CDT Zelalem Ziegler MD LABORATORY Final Result [facility] [address] [place] [address], [place] [phone] * (ABNORMAL) CBC W/DIFF AUTOMATED (02/20/2024 12:18 PM CDT) [facility] WBC 5.11 4.5 - 11.0 x10'3/uL 02/20/2024 1:01 PM CDT [facility] RBC 4.62 4.20 - 5.40 x10'6/uL 02/20/2024 1:01 PM CDT [facility] HGB 12.0 12.0 - 16.0 G/DL 02/20/2024 1:01 PM CDT [facility] HCT 36.8(L) 38.0 - 48.0 % 02/20/2024 1:01 PM CDT [facility] MCV 79.7(L) 81.0 - 99.0 FL 02/20/2024 1:01 PM CDT [facility] MCH 26.0(L) 27.0 - 31.0 PG 02/20/2024 1:01 PM CDT [facility] MCHC 32.6 32.0 - 36.0 G/DL 02/20/2024 1:01 PM CDT [facility] RDW 13.6 11.5 - 14.5 % 02/20/2024 1:01 PM CDT [facility] PLT 65(L) 130 - 400 x10'3/uL 02/20/2024 1:01 PM CDT [facility] MPV 12.1 9.3 - 12.2 FL 02/20/2024 1:01 PM CDT [facility] DIFFERENTIAL TYPE AUTOMATED DIFFERENTIAL 02/20/2024 1:01 PM CDT [facility] NEUTROPHILS % 58.1 % 02/20/2024 1:01 PM CDT [facility] LYMPHOCYTES % 32.9 % 02/20/2024 1:01 PM CDT [facility] MONOCYTES % 7.0 % 02/20/2024 1:01 PM CDT [facility] EOSINOPHILS 1.2 % 02/20/2024 1:01 PM CDT [facility] BASOPHILS 0.4 % 02/20/2024 1:01 PM CDT [facility] IMMATURE GRANS % 0.4 % 02/20/20 1:01 PM CDT [facility] ABS. NEUTROPHILS 2.97 1.80 - 7.70 x10'3/uL 02/20/2024 1:01 PM CDT [facility] ABS. LYMPHOCYTES 1.68 1.00 - 4.80 x10'3/uL 02/20/2024 1:01 PM CDT [facility] ABS. MONOCYTES 0.36 0.24 - 0.86 x10'3/uL 02/20/2024 1:01 PM CDT [facility] ABS. EOSINOPHILS 0.06 0.04 - 0.36 x10'3/uL 02/20/2024 1:01 PM CDT [facility] ABS. BASOPHILS 0.02 0.01 - 0.08 x10'3/uL 02/20/2024 1:01 PM CDT [facility] ABS. IMMATURE GRANULOCYTES 0.02 0.00 - 0.49 x10'3/uL 02/20/2024 1:01 PM CDT [facility] RBC MORPHOLOGY RBC MORPHOLOGY APPEARS NORMAL. SLIDE REVIEWED. 02/20/2024 1:01 PM CDT [facility] PLT EST. DECREASED 02/20/2024 1:01 PM CDT [facility] 02/20/2024 12:1 8 PM CDT us Zelalem Ziegler MD LABORATORY Final Result [facility] [address] [place] [address], documented in this encounter Visit Diagnoses Diagnosis Varicose veins of lower extremity with pain, right- Primary Abnormal coagulation profile documented in this encounter Care Teams Welding Manager Relationship Specialty Start Date End Date Krist[place] [address] PCP - General FAMILY PRACTICE 12/21/21 Prudence Reis MD CARDIOVASCULAR DISEASE 04/15/20 documented as of this encounter
[2024-11-01 08:32] LABS: Hematocrit 34.6 % (37.0-47.0); Hemoglobin 11.2 g/dL (12.0-15.0); Mean Corpuscular HGB Conc 32.4 g/dl (32-36); Mean Corpuscular Hemoglobin 25.9 pg (26-34); Mean Corpuscular Volume 79.9 fl (80-100); Platelet Count Result 89 k/mm3 (150-375); Red Blood Count 4.33 M/mm3 (4.2-5.4); Red Cell Distribution Width 13.5 % (11.5-14.5); White Blood Count 3.4 K/mm3 (4.5-10.0)
== END 2024-11-01 08:17 | disposition home or self-care (01) ==
LOC: ANHLAB 08:17
PROVIDERS: PCP Family Medicine; Visit Provider Internal Medicine Hematology & Oncology
DX: D64.9 Anemia, unspecified (principal)
CPT/HCPCS: 36415; 85027

== ENCOUNTER 2024-11-14 13:58 | Outpatient (CLI) | payer MEDICARE, BC, SELFPAY ==
--- NOTE | ~2024-11-14 | MM_ITS ---
EXAMINATION: MM screening moise BI w marline HISTORY: Screening TECHNIQUE: Craniocaudal and mediolateral oblique 3-D tomosynthesis images were obtained and synthetic 2-D images were generated. CAD analysis was submitted and interpreted. COMPARISON: Comparison to multiple prior studies sequentially, with oldest reviewed study dated 06/30. BREAST PARENCHYMAL COMPOSITION: Not dense: There are scattered areas of fibroglandular density. FINDINGS: There is no evidence of suspicious mass, calcification, or architectural distortion to sugg est malignancy in either breast. There has been no suspicious interval change. IMPRESSION: 1. No mammographic evidence of malignancy. 2. Recommend routine screening mammography in one year. BI-RADS Category 1: Negative Reviewed, dictated and finalized at location B.
--- OUTSIDE RECORDS SUMMARY | 2024-11-14 15:36 | XMS_ITS | Clinical Summary ---
Author Organization [facility] Lili Henrydilia Address [address] [place] [address] Care Team Providers Care Health Inspector Name Role Phone Kristina Elias MD Primary Care Provider [phone] Allergies Active Allergy Reactions Criticality Noted Date [...] Encounters Date Type Department Care Team Description 11/03/2024 External Device Data STL ABSTRACTION Provider, Abstract 11/02/2024 External Device Data STL ABSTRACTION Provider, Abstract 11/01/2024 Orders Only [facility] Oncology and Hematology [facility] [address] [place] [address] Walter Brothers MD 10/31/2024 External Device Data STL ABSTRACTION Provider, Abstract 10/30/2024 Abstract [facility] Oncology and Hematology [facility] [address] [place] [address] Walter Brothers MD 10/26/2024 8:30 AM PAINT TECHNICIAN Office Visit [facility] Oncology and [facility] [address] [place] [address] Walter Brothers MD Chronic anemia (Primary Dx) 10/24/2024 Orders Only [facility] Oncology and Hematology [facility] [address] [place] [address] Walter Brothers MD 10/16/2024 External Device Data [...] Comments Blood Pressure 124/77 10/26/2024 8:34 AM PAINT TECHNICIAN Pulse 81 10/26/2024 8:34 AM PAINT TECHNICIAN Temperature 36.2 C (97.2 F) 10/26/2024 8:34 AM PAINT TECHNICIAN Respiratory Rate 15 10/26/2024 8:34 AM PAINT TECHNICIAN Oxygen Saturation 98% 10/26/2024 8:34 AM PAINT TECHNICIAN Inhaled Oxygen Concentration - - Weight 74.8 kg (164 lb 12.8 oz) 10/26/2024 8:34 AM PAINT TECHNICIAN Height 157.5 cm (5' 2 ) 03/16/2022 11:2 2 AM CDT Body Mass Index 30.14 03/16/2022 11:22 AM CDT Plan of Treatment Upcoming Encounters Date Type Department Care Team (Late st Contact Info) Description 02/25/2025 1:15 PM CDT Office Visit [facility] Oncology and Hematology - [place] [address] [place] [address] [facility] [address] [place] [address] Walter Brothers MD [address] [facility] [address] [place] [address] Health Maintenance Due Date Last [...] Diagnosis Comments CBC WITH AUTODIFFERENTIAL Routine 2024 2:12 PM PAINT TECHNICIAN CBC WITH AUTODIFFERENTIAL Routine 2024 11:53 AM PAINT TECHNICIAN from Last 3 Months Results * CBC WITH AUTODIFFERENTIAL (11/01/2024 2:12 PM PAINT TECHNICIAN) Only the most recent of2 resultswithin the time period is included. Blood us Walter Brothers MD HEMATOLOGY ORDERABLES Final Res ult from Last 3 [place] [address] [facility] [employer]ERAL MEDIC[employer] Care Teams Health Inspector Relationship Specialty Start Date End Date Kristina Elias MD [address] [place] [address] PCP - General Family Practice 06/11/21
--- OUTSIDE RECORDS SUMMARY | 2024-11-14 15:36 | XMS_ITS | Encounter Summary ---
Author Organization [facility] Address [address] [place] [address] Care Team Providers Care Middle Card Tender Name Role Phone Prudence Reis MD Unavailable [phone] Reuben Oneal MD Primary Care Provider [phone] Kristina Elias MD Primary Care Provider [phone] Encounter Details Date Type Department Care Team (Late st Contact Info) Description 04/18/2020 Prep for Procedure [facility] Pre-Ad[facility] Testing [address] [facility] [address] [place], [place] [id number] Binh Scott MD [address] [place] [address] Social History Tobacco Use Types Packs/Day [...] 19) (04/18/2020 11:00 AM CDT) Pathologist [facility] CORONAVIRUS SARS COV 2 PCR (RESP) NOT DETECTED NOT DETECTED 04/19/2020 2:37 PM CDT [facility] Comment: A Not Detected (negative) test [...] providers and patients using the following websites: https://www.Bionovo.RichRelevance/home/Covid-19/HCP/NAAT/fact-sheet2 https://www.[employer].RichRelevance/home/Covid-19/Patients/NAAT/ fact-sheet2 This test has been authorized by the FDA under an Emergency Use Authorization (EUA) for use by authorized laboratories. Due to the current public health emergency, [facility] is receiving a high volume of samples [...] about COVID-19 can be found at the [employer] website: www.Germmatters.RichRelevance/Covid19. Test performed at [facility] [address] [place] [address] Director: KIMBERLY ALCARAZ DO,MPH NASOPHARYNGEAL SWAB / Unknown 04/18/2020 11:00 AM CDT Binh Scott MD MICROBIOLOGY - GENERAL ORDERABLE S Final Result [facility] [address] [place] [address], documented in this encounter Visit Diagnoses Diagnosis Preoperative testing- Primary Preoperative examination, unspecified documented in this encounter Additional Health Concerns Infection Onset Date Last Indicated Resolved Time COVID-19 Rule Out 04/18/2020 04/18/2020 04/19/2020 2:38 PM CDT documented as of this encounter Care Teams Middle Card Tender Relationship Specialty Start Date End Date Reuben Oneal MD [address] [place] [address] PCP - General FAMILY PRACTICE 04/15/20 12/20/21 Kristina Elias MD [address] [place] [address] PCP - General FAMILY PRACTICE 12/21/21 Prudence Reis MD CARDIOVASCULAR DISEASE 04/15/20 documented as of this encounter
--- OUTSIDE RECORDS SUMMARY | 2024-11-14 15:36 | XMS_ITS | Clinical Summary ---
Author Organization [facility] Address [address] [place] [address] Care Team Providers Care Cannery Worker Name Role Phone Prudence Reis MD Unavailable [phone] Kristina Elias MD Primary Care Provider [phone] Allergies Active Allergy Reactions Criticality Noted Date [...] media 11/01/2023 Chronic renal insufficiency, stage III (moderate ) 11/01/2023 Greater trochanteric bursitis of left hip 2023 Hypertension 11/01/2023 Insomnia 11/01/2023 Low back pain 11/01/2023 Menopausal syndrome 11/01/2023 Mild chronic obstructive pul monary disease ([facility]) 11/01/2023 Dyspnea 11/01/2023 Symptomatic varicose veins [...] Dexa Scan (General) 2015 COVID-19 Vaccine ( season) 2024 06/16/2021, 11/13/2020, 10/23/2020 Influenza Adult [...] this topic Medical Devices Implanted Type Area Cement Mason Apprentice Device Identifier Shelf Expiration Date Model / Serial / Lot Iol Tecnis Simplicity Dcb00 - [id number] Implanted:Qty: 1 on 05/21/2024 by Jabari Luis MD at [facility] Lens Left: Eye [employer] 10/09/2026 DCB00 / [id number] / Iol Tecnis Simplicity Dcb00 - [id number] Implanted:Qty: 1 on 06/25/2024 by Jabari Luis MD at [facility] Lens Right: Eye [employer] 01/15/2027 DCB00 / [id number] / Insurance MEDICARE [facility] Care Teams Cannery Worker Relationship Specialty Start Date End Date Kristina Elias MD [address] [place] [address] PCP - General FAMILY PRACTICE 12/21/21 Prudence Reis MD CARDIOVASCULAR DISEASE 04/15/20
--- OUTSIDE RECORDS SUMMARY | 2024-11-14 15:36 | XMS_ITS | Data Portability ---
Author Organization [facility] Address [address] [place] [address] Care Team Providers Care Lye Treater Name Role Phone ORAL, HELENA Bean Sprout Laborer Unavailable Assessment Encounter Date Assessment Date Assessment [...] DO Not Attach Compendium, Do Not Delete/merge, [id number] 8 17:43:21 pap, LB + HPV mRNA E6/E7 + reflex HPV (16+18+45 ) 2013 014 [email or web address] [facility], [address] [place] [address], [address], [place], [address], 5 12:38:54 Referral None recorded. Procedures None recorded. Surgeries None recorded. Imaging MAMMO, screening , bilateral 2017 018 RAMIRO [facility], [address], [place], [address], 8 11:50:11 MAMMO, screening , bilateral 2015 016 [id number] [id number] [facility], [address], [address] [address], [place], [address], 6 04:31:01 mammogram , screening 2013 014 [email or web address] Not available 5 12:38:54 Medication Orders Osphena 60 mg tablet [address]/[facility]armacy #2510, [address] [place] [address], [address], 8 14:59:01 Estrace 0.01% (0.1 mg/gram) vaginal cream [address]/[facility]2510, [address] [place] [address], [address], 8 14:58:25 calcium 600 mg (as carbonate )-vitamin D3 20 mcg (800 unit) tablet [address]/[facility]2510, [address] [place] [address], [address], 8 14:57:53 multivita min tablet [address]/[facility]arm[facility] #2510, [address] [place] [address], [address], 8 14:58:54 Estrace 0.5 mg tablet [address]/Pharm[facility]2510, [address] [place] [address], [address], 8 14:58:29 Estrace 0.01% (0.1 mg/gram) vaginal cream 2013 014 [address], [address] [place] [address], [address], 8 14:58:25 Linzess 145 mcg capsule 2013 014 [email or web address] [facility]/Pharmacy #8618, [address] [place], [address], 8 14:58:46 Patient TargetsNo targets recorded. Patient Instructions Encounter Date Encounter Id Patient Instructions Last Modified By Organization Details Last Modified Time 06/30/2016 [id number] mammogram: about this test [email or web address] Not available 06/30/2016 16:27:19 learning about breast cancer screening [email or web address] Not available 06/30/2016 16:05:56 07/12/2018 [id number] mammogram: about this test [email or web address] Not available 07/12/2018 15:23:21 Reason for Referral None Reported. Results Created Date Observation Date Name Description Value Unit Range Abnormal Flag Note LastModifiedBy Organization Detail LastModifiedTime 07/12/20 18 07/12/2018 urina lysis , dipst ick Leukocytes Negati ve Not Available In-Office Order Internal Use Only DO Not Attach Compendium DO Not Attach Compendium, Do Not Delete/merge, [id number] 07/12/2018 15:09:56 07/12/20 18 07/12/2018 urina lysis , dipst ick Nitrite negati ve Not Available In-Office Order Internal Use Only DO Not Attach Compendium DO Not Attach Compendium, Do Not Delete/merge, [id number] 07/12/2018 15:09:56 07/12/20 18 07/12/2018 urina lysis , dipst ick Urobilinogen .2 Not Available In-Of fice Order Internal Use Only DO Not Attach Compendium DO Not Attach Compendium, Do Not Delete/merge, [id number] 07/12/2018 15:09:56 07/12/20 18 07/12/2018 urina lysis , dipst ick Protein Negati ve Not Available In-Office Order Internal Use Only DO Not Attach Compendium DO Not Attach Compendium, Do Not Delete/merge, [id number] 07/12/2018 15:09:56 07/12/20 18 07/12/2018 urina lysis , dipst ick pH 7.0 Not Available In-Office Order Internal Use Only DO Not Attach Compendium DO Not Attach Compendium, Do Not Delete/merge, [id number] 07/12/2018 15:09:56 07/12/20 18 07/12/2018 urina lysis , dipst ick Blood Non-He molyze d: Trace Not Available In-Office Order Internal Use Only DO Not Attach Compendium DO Not Attach Compendium, Do Not Delete/merge, [id number] 07/12/2018 15:09:56 07/12/20 18 07/12/2018 urina lysis , dipst ick Specific Redford 1.010 Not Available In-Off ice Order Internal Use Only DO Not Attach Compendium DO Not Attach Compendium, Do Not Delete/merge, [id number] 07/12/2018 15:09:56 07/12/20 18 07/12/2018 urina lysis , dipst ick Ketone Negati ve Not Available In-Office Order Internal Use Only DO Not Attach Compendium DO Not Attach Compendium, Do Not Delete/merge, [id number] 07/12/2018 15:09:56 07/12/20 18 07/12/2018 urina lysis , dipst ick Bilirubin Negati ve Not Available In-Office Order Internal Use Only DO Not Attach Compendium DO Not Attach Compendium, Do Not Delete/merge, [id number] 07/12/2018 15:09:56 07/12/20 18 07/12/2018 urina lysis , dipst ick Glucose Negati ve Not Available In-Office Order Internal Use Only DO Not Attach Compendium DO Not Attach Compendium, Do Not Delete/merge, [id number] 07/12/2018 15:09:56 08/19/20 14 08/15/2014 lylai christofer/riki hartmann t No observ ation record ed. [email or web address] Not Available 09/05 15:45:59 07/19/20 16 07/19/2016 mamssofia w PT NAME: WILLIAM GALLARDO : 1949 PT SEX/AG E: / PT ACCT NUMBER : [id number] PT MR#: [id number] ROOM/B ED: PT STATUS : REG CLI DATE OF EXAMIN ATION: ORDERI NG PHYSIC CHANTE: HELENA MCDANIEL MAN M.D. ATTEND ING PHYSIC CHANTE: HELENA MCDANIEL MAN , M.D. DICTAT ING PHYSIC CHANTE: Live HANNA M.D. 018 [id number] 3.001M IX 13:34: 00 61.007 2MVMAM ([facility]) : JAMEY SCREEN KERA W/CAD INDICA [...] ed, dictat ed and finali zed at [facility] on A. __ Electr onical ly signed by: SHERRIE HANNA Date: Time: 14:14 SHERRIE HANNA M.D.__ ___ [facility] [employer] [address] [facility] [address] [place] [address] [facility] (Imaging) [address], [place], [address], 07/19/2016 15:17:29 07/19/20 16 07/19/2016 MAMMO , scree serjio, bilat eral No observ ation record ed. [facility] [address], [place], [address], 07/19/2016 16:42:23 07/12/20 18 04/29/2018 CT, abdom [...] ed. [facility] [address], [place], [address], 08/10/2018 12:42:16 Result Notes None recorded. Problems Name Problem SNOMED Code Status Onset Date Resolution Date Notes Provider Name and Address Organization Details Recorded Time Menopausal syndrome [id number] Active Helena jiménez, FCO Dougherty [facility] 4 11:23:52 Problem Notes None recorded. Procedures Surgical History Date Name Laterality Status Provider Name and Address Organization Details Recorded Time 06/16/20 18 lithotomy completed Roxi Bob MA MD [place] [facility] 07/12/2018 15:00:50 07/19/20 16 Most Recent Mammogram completed Roxi Bob MA [facility] 07/12/2018 15:01:41 07/31/20 14 Date of Last Pap Smear completed Ciara Mabry MA MD [place] [facility] 06/30/2016 15:07:28 08/29/18 91 Laparoscopy completed ECSAR Null [facility] 07/31/2014 10:46:09 08/29/18 82 Appendectomy completed Yin Bazzi MA MD [place] [facility] 07/31/2014 10:46:09 04/07/19 79 Tubal Ligation completed CESAR Garcia [facility] 06/30/2016 15:08:33 04/07/19 79 Caesarean Section completed CESAR Garcia [facility] 06/30/2016 15:06:53 09/05/18 76 [facility] 06/30/2016 15:07:08 09/12/18 72 Caesarean Section completed CESAR Garcia [facility] 06/30/2016 15:07:16 lithotripsy completed Roxi Bob MA MD [place] [facility] 07/12/2018 15:00:39 Imaging Results Imaging Date Name Status LastModified by Organization Details LastModified Time 08/15/2014 imaging/diagnostic result completed [email or web address] Information not available 09/05/2014 15:45:59 07/19/2016 [email or web address] completed [facility] (Imaging) [address], [place], [address], 07/19/2016 15:17:29 07/19/2016 MAMMO, screening, bilateral completed [facility] [address], [place], [address], 07/19/2016 16:42:23 04/29/2018 CT, abdomen + pelvis, [...] 07/28/2018 15:54:08 08/08/2018 MAMMO, screening, bilateral completed [facility] [address], [place], [address], 08/10/2018 12:42:16 Procedure Notes None recorded. Medical Equipment None Reported. Allergies Allergen ID Allergen Name Allergen Category Reaction Reaction Severity Criticality Documentation Date Start Date Code Code System Note Provider Name and Address Organization Details Recorded Time 4877 Non-stero idal anti-infl ammatory agent (product) medicatio n other severe Not available 07/31/2014 37106 005 SNOMED cause s gastr itis Not [...] Not Available Not Available Not Available Afluria 3538-0458(PF ) 45 mcg (15 mcg x 3)/0.5 mL intramuscula r syringe active Not Available Not Available No t Available Fluzone High-Dose [id number] (PF) 180 mcg/0.5 mL intramuscula r syringe 07/12 completed Not Available Not Available Not Available Vitals Date Recorded Body height Body mass index (BMI) Body weight Systolic blood pressure Diastolic blood pressure Provider Name and Address Organization Details Last Updated DateTime 07/12/2018 157.48 cm 32.6 kg/m2 43829.44 g 172 mm[Hg] 94 mm[Hg] Roxi Bob MA MD - [facility] 8 15:04:46 Date Recorded Body height Body weight Body mass index (BMI) Systolic blood pressure Diastolic blood pressure Provider Name and Address Organization Details Last Updated DateTime 06/30/2016 157.48 cm 53781.59 g 33.8 kg/m2 152 mm[Hg] 90 mm[Hg] Ciara Mabry MA MD - [facility] 6 15:02:18 Social History Question Answer Notes LastModified by Organizat ion Details LastModified Time Tobacco Smoking Status Former Smoker quit 1991 Yin Bazzi MA [facility], MD - [facility] 07/31/2014 10:50:46 Do You Have [...] History Condition Response Coronary Artery Disease N Blood Diseases N Kidney Cyst N Hyperthyroidism N Blood disorders N MRSA N Blood Transfusion Y Emphysema N Blood Clots N COPD N Depression N Pneumonia N Peripheral Arterial Disease N Premature N Edema N TIA N Headaches/Migraines N Anxiety Disorder N Obesity Y Infertility N Polyps N Acid Reflux (GERD) N Hematuria N Stroke N Neck Injury N Polio N Hospital Admission other than N Neurologic Disorder N Other Sleep Disorders N Rheumatoid Arthritis N Fibromyalgia N Abdominal Aortic Aneurysm Repair N Kidney Disease N Heart Conditions N Heart Disease/Heart Problems N Hospitalizations N Brain Tumors N Acne N Eating Disorder N Skin Problems N Constipation Y Meningitis N Tuberculosis N Cerebral Palsy N Myocardial Infarction N Asthma N Substance Abuse N Peripheral Vascular Disease N Vertigo N Sleep Disorder N Cirrhosis N Pulmonary Embolism N Chicken Pox Y Flomax Use Past or Present N Hematologic Disease N Anxiety/Depression N Thyroid Disease N Colon Cancer N Glaucoma N Lung Disease N Developmental or Behavioral Disorders N Bipolar N Pacemaker N Diverticulitis/Diverticulosis N Anesthesia Complications N Orthopedic Problems N Orthotics N Head Injury/Concussion N Congenital Anomalies N Dejesus Bite N Chronic Kidney Disease N Endometriosis N Liver Disease N Dialysis N Schizophrenia N Speech Delay N Chronic Obstructive Pulmonary Disease N Parkinson's Disease N Thyroid Problems N Developmental Delay N GI Problems Y Anemia N Immune System Disorder N Multiple Sclerosis N Colon Polyps N Heart Attack (ID) N Diabetes N Cardiomyopathy N Blood Transfusions N Heart Problems/Murmur N Eye Trauma N Congestive Heart Failure (CHF) N Valvular Heart Disease N Hyperlipidemia N Double Vision N Abuse/Domestic Violence N Hepatitis B N Lupus N Epilepsy/Seizures N Reflux/GERD N Aneurysm N Bronchitis N Heart Disease N Hypertension N Pre-Eclampsia N Heart Failure N Other N Gout [...] SNOMED-CT Code Diagnosis ICD10 Code Diagnosis Note [id number] ROSALINE House (SEPTIC TECHNICIAN) [address] [place] [address] 07/31/2014 10:09:36 07/31/2014 12:11:49 Gynecologic examination [id number] Menopausal syndrome [id number] Helena Duke (SEPTIC TECHNICIAN) [address] [place] [address] 06/30/2016 14:18:34 07/01/2016 09:46:16 Screening mammography 92079782 Z12.31 Menopausal syndrome 1237 51663 N95.9 Screening for malignant neoplasm of breast 783581826 Z12.31 [id number] Helena Duke (SEPTIC TECHNICIAN) [address] [place] [address] 07/12/2018 14:09:39 07/14/2018 13:36:30 Screening mammography 25590655 Z12.31 Health Concerns Section Related Observation LastModified by Organization Detai ls LastModified Time None Recorded Concern Status LastModified by Organization Details LastModified Time None Recorded Advance Directives Directive N: Payers Encounter Date Sequence Insurance Name Policy Number Policy Jefferson Covered Member ID [place] Member ID Guarantor Name 07/31/2014 2 [place] ([place]) 106 Joseph Gallardo Jr [id number] Joanna Gallardo 06/30/2016 2 [place] 106 Joseph Gallardo Jr [id number] Joanna Gallardo 06/30/2016 1 [place] Joanna Gallardo [id number] Joanna Gallardo 07/12/2018 2 [place] 106 Joseph Gallardo [id number] Joanna Sami 07/12/2018 1 [place]) Joanna Gallardo [id number] Joanna Gallardo Notes Date Note Type Note Provider Name and Address Organization Details Recorded Time 06/30/2016 text/html Annual Forensic Investigator Post-MenopausalReporte d bypatient.Menopausal Symptoms:normal vaginal lubrication;hot flashes [...] Domestic Partner Domestic Partner Phone Father Name Manager Branch Status 07/31/20 14 1 CLOSED Fetus Data [...] Domestic Partner Domestic Partner Phone Father Name Manager Branch Status 07/31/20 14 1 CLOSED Fetus Data [...] Domestic Partner Domestic Partner Phone Father Name Manager Branch Status 07/31/20 14 1 CLOSED Fetus Data [...]
--- OUTSIDE RECORDS SUMMARY | 2024-11-14 15:36 | XMS_ITS | Encounter Summary ---
Author Organization [place] Address [address] [place] [address] Care Team Providers Care Photograph Printer Name Role Phone Prudence Reis MD Unavailable [phone] Kristina Elias MD Primary Care Provider [phone] Reason for Referral * Surgical (Routine) - Authorized Specialty Diagnoses / Procedures Referred By Contac t Referred To Contact Diagnoses Varicose veins of lower extremity with pain, right Procedures Case request operating room: STAB PHLEBECTOMY (RIGHT LEG) Zelalem Ziegler MD [facility]. [id number] [place] [address] Phone: tel: fax: Referral ID Status Reason Start Date Expiration Date V isits Requested Visits Authorized [id number] Authorized 01/10/2024 01/09/2025 1 1 Encounter Details Date Type Department Care Team (Late st Contact Info) Description 01/10/2024 Prep for Procedure [facility] [address] [place], [place] [id number] Zelalem Ziegler MD [facility]. [facility] [address] [place] [address] Social History Tobacco Use Types [...] COMPREHENSIVE METABOLIC PANEL (02/20/2024 12:18 PM CDT) [facility] GLUCOSE 94 70 - 99 MG/DL 02/20/2024 12:53 PM CDT [facility] BUN 11 7 - 18 MG/DL 02/20/2024 12:53 PM CDT [facility] CREATININE S/P/B 0.95 0.55 - 1.02 MG/DL 02/20/2024 12:53 PM CDT [facility] SODIUM S/P/B 139 136 - 145 MMOL/L 02/20/2024 12:53 PM CDT [facility] POTASSIUM S/P/B 4.3 3.5 - 5.1 MMOL/L 02/20/2024 12:53 PM CDT [facility] CHLORIDE S/P/B 109(H) 100 - 108 MMOL/L 02/20/2024 12:53 PM CDT [facility] CO2 24.2 21 - 32 MMOL/L 02/20/2024 12:53 PM CDT [facility] CALCIUM S/P/B 9.3 8.5 - 10.1 MG/DL 02/20/2024 12:53 PM CDT [facility] BILIRUBIN TOTAL S/P/B 1.4(H) 0.2 - 1.2 MG/DL 02/20/2024 12:53 PM CDT [facility] Comment: THIS ASSAY IS NOT RECOMMENDED FOR PATIENTS UNDERGOING TREATMENT WITH ELTROMBOPAG DUE TO THE POTENTIAL FOR FALSELY ELEVATED RESULTS. TOTAL PROTEIN S/P/B 6.3(L) 6.4 - 8.2 G/DL 02/20/2024 12:53 PM CDT [facility] ALBUMIN S/P/B 3.5 3.4 - 5.0 G/DL 02/20/2024 12:53 PM CDT [facility] AST 11(L) 15 - 37 U/L 02/20/2024 12:53 PM CDT [facility] ALT 11(L) 14 - 55 U/L 02/20/2024 12:53 PM CDT [facility] ALKALINE PHOSPHATASE S/P/B 79 50 - 136 U/L 02/20/2024 12:53 PM T [facility] ANION GAP 5.8 5 - 15 MMOL/L 02/20/2024 12:53 PM CDT [facility] BUN CREATININE RATIO 11.5 6 - 26 02/20/2024 12:53 PM T [facility] A/G RATIO 1.2 1.0 - 2.0 RATIO 02/20/2024 12:53 PM T [facility] GFR ESTIMATE 63(L) >90 ML/MIN/1.7 3 M2 02/20/2024 12:53 PM T [facility] Comment: NOTE: eGFR is not calculated for patients <18 years of age. This is an estimated GFR calculation using the new CKD EPI creatinine equation without race and so does not require a correction factor for race. This estimated GFR should not be used for calculating drug doses. 02/20/2024 12:1 8 PM CDT us Zelalem Ziegler MD LABORATORY Final Result [facility] [address] [place] [address], [place] [phone] * PROTIME/INR, VENOUS (02/20/2024 12:18 PM CDT) [facility] PROTIME 10.5 10.2 - 12.9 SEC 02/20/2024 12:47 PM CDT [facility] INR 0.9 02/20/2024 12:47 PM CDT [facility] Comment: Recommended INR Therapeutic Goals: 2.0-3.0 Routine Therapy 2.5-3.5 Mechanical Prosthetic Valves (High Risk) 02/20/2024 12:1 8 PM CDT Zelalem Ziegler MD LABORATORY Final Result [facility] [address] [place] [address], [place] [phone] * (ABNORMAL) CBC W/DIFF AUTOMATED (02/20/2024 12:18 PM CDT) [facility] WBC 5.11 4.5 - 11.0 x10'3/uL 02/20/2024 1:01 PM CDT [facility] RBC 4.62 4.20 - 5.40 x10'6/uL 02/20/2024 1:01 PM CDT [facility] HGB 12.0 12.0 - 16.0 G/DL 02/20/2024 1:01 PM CDT [facility] HCT 36.8(L) 38.0 - 48.0 % 02/20/2024 1:01 PM CDT [facility] MCV 79.7(L) 81.0 - 99.0 FL 02/20/2024 1:01 PM CDT [facility] MCH 26.0(L) 27.0 - 31.0 PG 02/20/2024 1:01 PM CDT [facility] MCHC 32.6 32.0 - 36.0 G/DL 02/20/2024 1:01 PM CDT [facility] RDW 13.6 11.5 - 14.5 % 02/20/2024 1:01 PM CDT [facility] PLT 65(L) 130 - 400 x10'3/uL 02/20/2024 1:01 PM CDT [facility] MPV 12.1 9.3 - 12.2 FL 02/20/2024 1:01 PM CDT [facility] DIFFERENTIAL TYPE AUTOMATED DIFFERENTIAL 02/20/2024 1:01 PM CDT [facility] NEUTROPHILS % 58.1 % 02/20/2024 1:01 PM CDT [facility] LYMPHOCYTES % 32.9 % 02/20/2024 1:01 PM CDT [facility] MONOCYTES % 7.0 % 02/20/2024 1:01 PM CDT [facility] EOSINOPHILS 1.2 % 02/20/2024 1:01 PM CDT [facility] BASOPHILS 0.4 % 02/20/2024 1:01 PM CDT [facility] IMMATURE GRANS % 0.4 % 02/20/20 1:01 PM CDT [facility] ABS. NEUTROPHILS 2.97 1.80 - 7.70 x10'3/uL 02/20/2024 1:01 PM CDT [facility] ABS. LYMPHOCYTES 1.68 1.00 - 4.80 x10'3/uL 02/20/2024 1:01 PM CDT [facility] ABS. MONOCYTES 0.36 0.24 - 0.86 x10'3/uL 02/20/2024 1:01 PM CDT [facility] ABS. EOSINOPHILS 0.06 0.04 - 0.36 x10'3/uL 02/20/2024 1:01 PM CDT [facility] ABS. BASOPHILS 0.02 0.01 - 0.08 x10'3/uL 02/20/2024 1:01 PM CDT [facility] ABS. IMMATURE GRANULOCYTES 0.02 0.00 - 0.49 x10'3/uL 02/20/2024 1:01 PM CDT [facility] RBC MORPHOLOGY RBC MORPHOLOGY APPEARS NORMAL. SLIDE REVIEWED. 02/20/2024 1:01 PM CDT [facility] PLT EST. DECREASED 02/20/2024 1:01 PM CDT [facility] 02/20/2024 12:1 8 PM CDT us Zelalem Ziegler MD LABORATORY Final Result [facility] [address] [place] [address], documented in this encounter Visit Diagnoses Diagnosis Varicose veins of lower extremity with pain, right- Primary Abnormal coagulation profile documented in this encounter Care Teams Photograph Printer Relationship Specialty Start Date End Date Kristina [place] [address] PCP - General FAMILY PRACTICE 12/21/21 Prudence Reis MD CARDIOVASCULAR DISEASE 04/15/20 documented as of this encounter
--- OUTSIDE RECORDS SUMMARY | 2024-11-14 15:36 | XMS_ITS | Clinical Summary ---
Author Organization [facility] [place] [address] Address [address] [place] [address] Care Team Providers Care Offal Icer Poultry Name Role Phone Kristina Elias MD Primary Care Provider [phone] Allergies Active Allergy Reactions Criticality Noted Date [...] Department Care Team Description 09/27/2024 2:15 PM PEDORTHIST Office Visit [facility] Medical [facility] Cardiology [address] [place] [address] Mary Lou Harper MD Essential [...] on file Legal Sex Female 8:03 PM PEDORTHIST Gender Identity Not on file Sexual Orientation Not on file Obstetrics History Last Filed Vital Signs Vital Sign Reading Time Taken Comments Blood Pressure 124/62 09/27/2024 2:11 PM PEDORTHIST Pulse 80 09/27/2024 2:11 PM PEDORTHIST Temperature - - Respiratory Rate - - Oxygen Saturation 98% 09/27/2024 2:11 PM PEDORTHIST Inhaled Oxygen Concentration - - Weight 74.4 kg (164 lb) 09/27/2024 2:11 PM PEDORTHIST Height 157.5 cm (5' 2 ) 09/27/2024 2:11 PM PEDORTHIST Body Mass Index 30 09/27/2024 2:11 PM PEDORTHIST Plan of Treatment Health Maintenance Due Date [...] Comments LIPID PANEL Routine 09/27/2024 2:05 PM PEDORTHIST from Last 3 Months Results * Lipid panel (09/27/2024 2:05 PM PEDORTHIST) SCRIBED Cholesterol, Total 143 <100 [facility] LAB SCRIBED HDL 42 >40 EXTER[facility] LAB SCRIBED LDL 71 <100 EXTERNAL LAB SCRIBED Triglycerides 149 <150 EXTERNAL LAB Blood 09/27/2024 2:05 PM PEDORTHIST us [facility] Robbi Harper MD LAB BLOOD ORDERABLES Fi nal Result EXTERNAL LAB from Last 3 [place] [address] MEDICARE RAILROAD MEDICARE RAILROAD [address] FEDERAL Member Subscriber Plan / Payer (Ef fective 2015-Present) Name:Joanna Jeffery Nasrin Relation to Subscriber:Spouse Name:YRN JEFFERY JR Date of :1950 Address: [address] [place] [address] [place] [address] Payer ID:[id number] (NAIC) Group ID:[id number] Type:[facility] Address: [address] [place] [id number] Care Teams Offal Icer Poultry Relationship Specialty Start Date End Date Kristina Elias MD PCP - General Family Medicine 08/12/21
--- OUTSIDE RECORDS SUMMARY | 2024-11-14 15:36 | XMS_ITS | Referral Summary ---
Author Organization [facility] [place] [address] [facility] [address] Address [address] [place] [address] Care Team Providers Care Cotton Gin Yard Supervisor Name Role Phone Kristina Elias MD Primary Care Provider [phone] Encounters Date Type Department Care Team Description 09/27/2024 2:15 PM METEOROLOGICAL ENGINEER Office Visit [facility] Medical [facility] Cardiology [address] [place] [address] Mary Lou Harper MD Essential [...] on file Legal Sex Female 8:03 PM METEOROLOGICAL ENGINEER Gender Identity Not on file Sexual Orientation Not on file Last Filed Vital Signs Vital Sign Reading Time Taken Comments Blood Pressure 124/62 09/27/2024 2:11 PM METEOROLOGICAL ENGINEER Pulse 80 09/27/2024 2:11 PM METEOROLOGICAL ENGINEER Temperature - - Respiratory Rate - - Oxygen Saturation 98% 09/27/2024 2:11 PM METEOROLOGICAL ENGINEER Inhaled Oxygen Concentration - - Weight 74.4 kg (164 lb) 09/27/2024 2:11 PM METEOROLOGICAL ENGINEER Height 157.5 cm (5' 2 ) 09/27/2024 2:11 PM METEOROLOGICAL ENGINEER Body Mass Index 30 09/27/2024 2:11 PM METEOROLOGICAL ENGINEER Plan of Treatment Not on file Procedures Procedure Name Priority Date/Time Associated Diagnosis Comments LIPID PANEL Routine 09/27/2024 2:05 PM METEOROLOGICAL ENGINEER from Last 3 Months Results * Lipid panel (09/27/2024 2:05 PM METEOROLOGICAL ENGINEER) SCRIBED Cholesterol, Total 143 <100 EXTERNAL LAB SCRIBED HDL 42 >40 EXTERNAL LAB SCRIBED LDL 71 <100 EXTERNAL LAB SCRIBED Triglycerides 149 <150 EXTERNAL LAB Blood 09/27/2024 2:05 PM METEOROLOGICAL ENGINEER [facility] Robbi Harper MD LAB BLOOD ORDERABLES Fi nal Result EXTERNAL LAB from Last 3 Months Insurance [facility] FEDERAL Member Subscriber Plan / Payer ( fective 2015-Present) Name:Joanna Jeffery Relation to Subscriber:Spouse Name:YRN JEFFERY JR Date of :1950 Address: [facility] [place] [address] Payer ID:[id number] (NAIC) Group ID:[id number] Type: [employer] Address: [facility] [address] [place] [address] Care Teams Cotton Gin Yard Supervisor Relationship Specialty Start Date End Date Kristina Elias MD PCP - General Family Medicine 08/12/21
--- OUTSIDE RECORDS SUMMARY | 2024-11-14 15:36 | XMS_ITS | Encounter Summary ---
Author Organization [facility] Address [address] [place] [address] Care Team Providers Care Government Sales Manager Name Role Phone Prudence Reis MD Unavailable [phone] Kristina Elias MD Primary Care Provider Encounter Details Date Type Department Care Team (Late st Contact Info) Description 12/02/2023 Prep for Procedure [place] [facility], [facility] [address] [place], [place] [id number] Zelalem Ziegler MD Three [facility]. [facility] [address] [place], [place] [id number] Social History Tobacco Use Types Packs/Day Years [...] - 11.0 x10'3/uL 01/09/2024 8:58 AM [facility] RBC 2.59(L) 4.20 - 5.40 x10'6/uL 01/09/2024 8:58 AM CDT [facility] HGB 6.7(LL) 12.0 - 16.0 G/DL 01/09/2024 8:58 AM CDT [facility] Comment: This result has been called to SOL HIGHTOWER by [id number] on 01/09/2024 08:58:40, and has been read back. HCT 21.7(L) 38.0 - 48.0 % 01/09/2024 8:58 AM CDT [facility] MCV 83.8 81.0 - 99.0 FL 01/09/2024 8:58 AM CDT [facility] MCH 25.9(L) 27.0 - 31.0 PG 01/09/2024 8:58 AM CDT [facility] MCHC 30.9(L) 32.0 - 36.0 G/DL 01/09/2024 8:58 AM CDT [facility] RDW 13.3 11.5 - 14.5 % 01/09/2024 8:58 AM CDT [facility] PLT 85(L) 130 - 400 x10'3/uL 01/09/2024 8:58 AM CDT [facility] MPV 8.8(L) 9.3 - 12.2 FL 01/09/2024 8:58 AM CDT [facility] DIFFERENTIAL TYPE AUTOMATED DIFFERENTIAL 01/09/2024 9:00 AM CDT [facility] NEUTROPHILS % 41.1 % 01/09/2024 9:00 AM T [facility] LYMPHOCYTES % 48.0 % 01/09/2024 9:00 AM T [facility] MONOCYTES % 7.4 % 01/09/2024 9:00 AM CDT [facility] EOSINOPHILS 0.8 % 01/09/2024 9:00 AM CDT [facility] BASOPHILS 0.3 % 01/09/2024 9:00 AM CDT [facility] IMMATURE GRANS % 2.4 % 01/09/20 9:00 AM CDT [facility] ABS. NEUTROPHILS 1.55(L) 1.80 - 7.70 x10'3/uL 01/09/2024 9:00 AM CDT [facility] ABS. LYMPHOCYTES 1.81 1.00 - 4.80 x10'3/uL 01/09/2024 9:00 AM CDT [facility] ABS. MONOCYTES 0.28 0.24 - 0.86 x10'3/uL 01/09/2024 9:00 AM CDT [facility] ABS. EOSINOPHILS 0.03(L) 0.04 - 0.36 x10'3/uL 01/09/2024 9:00 AM CDT [facility] ABS. BASOPHILS 0.01 0.01 - 0.08 x10'3/uL 01/09/2024 9:00 AM CDT [facility] ABS. IMMATURE GRANULOCYTES 0.09 0.00 - 0.49 x10'3/uL 01/09/2024 9:00 AM CDT [facility] RBC MORPHOLOGY SLIDE REVIEWED 2023 9:00 AM CDT [facility] CAREY 3+ 01/09/2024 9:00 AM CDT [facility] PLT EST. DECREASED 01/09/2024 9:00 AM T [facility] 01/09/2024 8:05 AM CDT us Zelalem Ziegler MD LABORATORY Final Result [facility] [address] [place] [address], [place] [phone] * (ABNORMAL) COMPREHENSIVE METABOLIC PANEL (01/09/2024 7:55 AM CDT) [facility] GLUCOSE 83 70 - 99 MG/DL 01/09/2024 8:50 AM CDT [facility] BUN 17 7 - 18 MG/DL 01/09/2024 8:50 AM CDT [facility] CREATININE S/P/B 1.01 0.55 - 1.02 MG/DL 01/09/2024 8:50 AM CDT [facility] SODIUM S/P/B 140 136 - 145 MMOL/L 01/09/2024 8:50 AM CDT [facility] POTASSIUM S/P/B 3.9 3.5 - 5.1 MMOL/L 01/09/2024 8:50 AM CDT [facility] CHLORIDE S/P/B 112(H) 100 - 108 MMOL/L 01/09/2024 8:50 AM CDT [facility] CO2 22.5 21 - 32 MMOL/L 01/09/2024 8:50 AM CDT [facility] CALCIUM S/P/B 9.1 8.5 - 10.1 MG/DL 01/09/2024 8:50 AM CDT [facility] BILIRUBIN TOTAL S/P/B 0.5 0.2 - 1.2 MG/DL 01/09/2024 8:50 AM CDT [facility] Comment: THIS ASSAY IS NOT RECOMMENDED FOR PATIENTS UNDERGOING TREATMENT WITH ELTROMBOPAG DUE TO THE POTENTIAL FOR FALSELY ELEVATED RESULTS. TOTAL PROTEIN S/P/B 5.9(L) 6.4 - 8.2 G/DL 01/09/2024 8:50 AM CDT [facility] ALBUMIN S/P/B 3.3(L) 3.4 - 5.0 G/DL 01/09/2024 8:50 AM CDT [facility] AST 9(L) 15 - 37 U/L 01/09/2024 8:50 AM CDT [facility] ALT 14 14 - 55 U/L 01/09/2024 8:50 AM CDT [facility] ALKALINE PHOSPHATASE S/P/B 74 50 - 136 U/L 01/09/2024 8:50 AM CDT [facility] ANION GAP 5.5 5 - 15 MMOL/L 01/09/2024 8:50 AM CDT [facility] BUN CREATININE RATIO 16.8 6 - 26 01/09/2024 8:50 AM CDT [facility] A/G RATIO 1.3 1.0 - 2.0 RATIO 01/09/2024 8:50 AM CDT [facility] GFR ESTIMATE 59(L) >90 ML/MIN/1.7 3 M2 01/09/2024 8:50 AM CDT [facility] Comment: NOTE: eGFR is not calculated for patients <18 years of age. This is an estimated GFR calculation using the new CKD EPI creatinine equation without race and so does not require a correction factor for race. This estimated GFR should not be used for calculating drug doses. 01/09/2024 7:55 AM CDT us Zelalem Ziegler MD LABORATORY Final Result [facility] [address] [place] [address], * PROTIME/INR, VENOUS (01/09/2024 7:55 AM CDT) PROTIME 10.2 10.2 - 12.9 SEC 01/09/2024 8:40 AM CDT [facility] INR 0.9 01/09/2024 8:40 AM CDT [facility] Comment: Recommended INR Therapeutic Goals: 2.0-3.0 Routine Therapy 2.5-3.5 Mechanical Prosthetic Valves (High Risk) 01/09/2024 7:55 AM CDT us Zelalme Ziegler MD LABORATORY Final Result [facility] [address] [place] [address], documented in this encounter Visit Diagnoses Diagnosis Varicose veins of lower extremity with pain, right- Primary Hyperlipidemia Other and unspecified hyperlipidemia Hypertension Unspecified essential hypertension Disease of the lung and heart ([facility]) Chronic pulmonary heart disease, unspecified documented in this encounter Care Teams Government Sales Manager Relationship Specialty Start Date End Date Kristina Elias MD [address] [place] [address] PCP - General FAMILY PRACTICE 12/21/21 Prudence Reis MD CARDIOVASCULAR DISEASE 04/15/20 documented as of this encounter
== END 2024-11-14 13:59 | disposition home or self-care (01) ==
LOC: ANHIMG 14:00
PROVIDERS: PCP Family Medicine; Visit Provider Obstetrics & Gynecology Gynecology
DX: Z12.31 Encounter for screening mammogram for malignant neoplasm of breast (principal)
CPT/HCPCS: 77063; 77067

== ENCOUNTER 2025-01-10 09:19 | Outpatient (CLI) | payer MEDICARE, BC, SELFPAY ==
--- NOTE | ~2025-01-10 | XR_ITS ---
Supine and upright views of the abdomen Clinical history: Kidney stone COMPARISON: 11/03/2023 Findings: Bowel gas pattern is nonspecific. No evidence for obstruction or free air. No abnormal mass lesion or calcification is seen. Osseous structures are intact. Impression: No significant abnormality is seen. Reviewed, dictated and finalized at [facility]. Impression: No significant abnormality is seen.
--- OUTSIDE RECORDS SUMMARY | 2025-01-10 09:25 | XMS_ITS | Referral Summary ---
Author Organization [facility] [place] [address] Address [address] [place] [address] Care Team Providers Care Salesperson Sheet Music Name Role Phone Kristina Elias MD Primary Care Provider [phone] Allergies Active Allergy Reactions Criticality Noted Date [...] MOUTH DAILY 90 tablet 1 4 Active losartan (COZAAR) 25 mg tabletIndication s:Essential hypertension Take 1 tablet (25 mg total) by mouth daily 90 tablet 3 5 Active Active Problems Problem Noted Date Diagnosed [...] on file Legal Sex Female 8:03 PM BACKREST ASSEMBLER Gender Identity Not on file Sexual Orientation Not on file Last Filed Vital Signs Vital Sign Reading Time Taken Comments Blood Pressure 124/62 09/27/2024 2:11 PM BACKREST ASSEMBLER Pulse 80 09/27/2024 2:11 PM BACKREST ASSEMBLER Temperature - - Respiratory Rate - - Oxygen Saturation 98% 09/27/2024 2:11 PM BACKREST ASSEMBLER Inhaled Oxygen Concentration - - Weight 74.4 kg (164 lb) 09/27/2024 2:11 PM BACKREST ASSEMBLER Height 157.5 cm (5' 2 ) 09/27/2024 2:11 PM BACKREST ASSEMBLER Body Mass Index 30 09/27/2024 2:11 PM BACKREST ASSEMBLER Plan of Treatment Not on file Insurance [place] [address] MEDICARE RAILROAD [facility] FEDERAL Member Subscriber Plan / Payer (Ef fective 2015-Present) Name:Joanna Gallardo Relation to Subscriber:Spouse Name:JOSE D VERDUGOLISA Date of :1950 Address: [address] [place] [address] [place] [address] Payer ID:[id number] (NAIC) Group ID:[id number] Type:[facility] Address: [address] [place] [address] Care Teams Salesperson Sheet Music Relationship Specialty Start Date End Date Kristina Elias MD PCP - General Family Medicine 08/12/21
--- OUTSIDE RECORDS SUMMARY | 2025-01-10 09:25 | XMS_ITS | Encounter Summary ---
Author Organization [facility] Address [address] [place] [address] Care Team Providers Care Oil Gas And Pipe Tester Name Role Phone Prudence Reis MD Unavailable Unavailable Kristina Elias MD Primary Care Provider [phone] Reason for Referral * Surgical (Routine) - Authorized Specialty Diagnoses / Procedures Referred By Contac t Referred To Contact Diagnoses Varicose veins of lower extremity with pain, right Procedures Case request operating room: STAB PHLEBECTOMY (RIGHT LEG) Zelalem Ziegler MD [facility]. [id number] [place] [address] Phone: tel: fax: Referral ID Status Reason Start Date Expiration Date V isits Requested Visits Authorized [id number] Authorized 01/10/2024 01/09/2025 1 1 Encounter Details Date Type Department Care Team (Late st Contact Info) Description 01/10/2024 Prep for Procedure [facility], [facility] [address] [place], [place] [id number] Zelalem Ziegler MD [facility] [address] [place] [address] Social History Tobacco Use Types [...] COMPREHENSIVE METABOLIC PANEL (02/20/2024 12:18 PM CDT) Pathologist [facility] GLUCOSE 94 70 - 99 MG/DL 02/20/2024 12:53 PM CDT [facility] BUN 11 7 - 18 MG/DL 02/20/2024 12:53 PM CDT [facility] CREATININE S/P/B 0.95 0.55 - 1.02 MG/DL 02/20/2024 12:53 PM CDT [facility] SODIUM S/P/B 139 136 - 145 MMOL/L 02/20/2024 12:53 PM CDT [facility] POTASSIUM S/P/B 4.3 3.5 - 5.1 MMOL/L 02/20/2024 12:53 PM CDT [facility] CHLORIDE S/P/B 109(H) 100 - 108 MMOL/L 02/20/2024 12:53 PM CDT [facility] CO2 24.2 21 - 32 MMOL/L 02/20/2024 12:53 PM CDT [facility] CALCIUM S/P/B 9.3 8.5 - 10.1 MG/DL 02/20/2024 12:53 PM CDT [facility] BILIRUBIN TOTAL S/P/B 1.4(H) 0.2 - 1.2 MG/DL 02/20/2024 12:53 PM CDT [facility] Comment: THIS ASSAY IS NOT RECOMMENDED FOR PATIENTS UNDERGOING TREATMENT WITH ELTROMBOPAG DUE TO THE POTENTIAL FOR FALSELY ELEVATED RESULTS. TOTAL PROTEIN S/P/B 6.3(L) 6.4 - 8.2 G/DL 02/20/2024 12:53 PM CDT [facility] ALBUMIN S/P/B 3.5 3.4 - 5.0 G/DL 02/20/2024 12:53 PM CDT [facility] AST 11(L) 15 - 37 U/L 02/20/2024 12:53 PM CDT [facility] ALT 11(L) 14 - 55 U/L 02/20/2024 12:53 PM CDT [facility] ALKALINE PHOSPHATASE S/P/B 79 50 - 136 U/L 02/20/2024 12:53 PM CDT [facility] ANION GAP 5.8 5 - 15 MMOL/L 02/20/2024 12:53 PM CDT [facility] BUN CREATININE RATIO 11.5 6 - 26 02/20/2024 12:53 PM CDT [facility] A/G RATIO 1.2 1.0 - 2.0 RATIO 02/20/2024 12:53 PM T [facility] GFR ESTIMATE 63(L) >90 ML/MIN/1.7 3 M2 02/20/2024 12:53 PM CDT [facility] Comment: NOTE: eGFR is not calculated for patients <18 years of age. This is an estimated GFR calculation using the new CKD EPI creatinine equation without race and so does not require a correction factor for race. This estimated GFR should not be used for calculating drug doses. 02/20/2024 12:1 8 PM CDT us Zelalem Ziegler MD LABORATORY Final Result [facility] [address] [place] [address], [place] [phone] * PROTIME/INR, VENOUS (02/20/2024 12:18 PM CDT) Pathologist [facility] PROTIME 10.5 10.2 - 12.9 SEC 02/20/2024 12:47 PM CDT [facility] INR 0.9 02/20/2024 12:47 PM CDT [facility] Comment: Recommended INR Therapeutic Goals: 2.0-3.0 Routine Therapy 2.5-3.5 Mechanical Prosthetic Valves (High Risk) 02/20/2024 12:1 8 PM CDT Zelalem Ziegler MD LABORATORY Final Result [facility] [address] [place] [address], [place] [phone] * (ABNORMAL) CBC W/DIFF AUTOMATED (02/20/2024 12:18 PM CDT) [facility] WBC 5.11 4.5 - 11.0 x10'3/uL 02/20/2024 1:01 PM CDT [facility] RBC 4.62 4.20 - 5.40 x10'6/uL 02/20/2024 1:01 PM CDT [facility] HGB 12.0 12.0 - 16.0 G/DL 02/20/2024 1:01 PM CDT [facility] HCT 36.8(L) 38.0 - 48.0 % 02/20/2024 1:01 PM CDT [facility] MCV 79.7(L) 81.0 - 99.0 FL 02/20/2024 1:01 PM CDT [facility] MCH 26.0(L) 27.0 - 31.0 PG 02/20/2024 1:01 PM CDT [facility] MCHC 32.6 32.0 - 36.0 G/DL 02/20/2024 1:01 PM CDT [facility] RDW 13.6 11.5 - 14.5 % 02/20/2024 1:01 PM CDT [facility] PLT 65(L) 130 - 400 x10'3/uL 02/20/2024 1:01 PM CDT [facility] MPV 12.1 9.3 - 12.2 FL 02/20/2024 1:01 PM CDT [facility] DIFFERENTIAL TYPE AUTOMATED DIFFERENTIAL 02/20/2024 1:01 PM CDT [facility] NEUTROPHILS % 58.1 % 02/20/2024 1:01 PM CDT [facility] LYMPHOCYTES % 32.9 % 02/20/2024 1:01 PM CDT [facility] MONOCYTES % 7.0 % 02/20/2024 1:01 PM CDT [facility] EOSINOPHILS 1.2 % 02/20/2024 1:01 PM CDT [facility] BASOPHILS 0.4 % 02/20/2024 1:01 PM CDT [facility] IMMATURE GRANS % 0.4 % 02/20/20 1:01 PM CDT [facility] ABS. NEUTROPHILS 2.97 1.80 - 7.70 x10'3/uL 02/20/2024 1:01 PM CDT [facility] ABS. LYMPHOCYTES 1.68 1.00 - 4.80 x10'3/uL 02/20/2024 1:01 PM CDT [facility] ABS. MONOCYTES 0.36 0.24 - 0.86 x10'3/uL 02/20/2024 1:01 PM CDT [facility] ABS. EOSINOPHILS 0.06 0.04 - 0.36 x10'3/uL 02/20/2024 1:01 PM CDT [facility] ABS. BASOPHILS 0.02 0.01 - 0.08 x10'3/uL 02/20/2024 1:01 PM CDT [facility] ABS. IMMATURE GRANULOCYTES 0.02 0.00 - 0.49 x10'3/uL 02/20/2024 1:01 PM CDT [facility] RBC MORPHOLOGY RBC MORPHOLOGY APPEARS NORMAL. SLIDE REVIEWED. 02/20/2024 1:01 PM CDT [facility] PLT EST. DECREASED 02/20/2024 1:01 PM CDT [facility] 02/20/2024 12:1 8 PM CDT us Zelalem Ziegler MD LABORATORY Final Result [facility] [address] [place] [address], documented in this encounter Visit Diagnoses Diagnosis Varicose veins of lower extremity with pain, right- Primary Abnormal coagulation profile documented in this encounter Care Teams Oil Gas And Pipe Tester Relationship Specialty Start Date End Date Kristina Elias MD [address] [place] [address] PCP - General FAMILY PRACTICE 12/21/21 Prudence Reis MD CARDIOVASCULAR DISEASE 04/15/20 documented as of this encounter
--- OUTSIDE RECORDS SUMMARY | 2025-01-10 09:25 | XMS_ITS | Clinical Summary ---
Author Organization [facility] Address [address] [place] [address] Care Team Providers Care Center Receptionist Name Role Phone Prudence Reis MD Unavailable Unavailable Kristina Elias MD Primary Care Provider [phone] Allergies Active Allergy Reactions Criticality Noted Date [...] 11/01/2023 Mild chronic obstructive pul monary disease ([facility]/HCC [facility]) 11/01/2023 Dyspnea 11/01/2023 Symptomatic varicose veins of both lower extremi ties 11/01/2023 Thrombocytopenia 11/01/2023 Bruit of right carotid artery 09/26/2023 Normocytic anemia 06/11/2021 Benign essential HTN 01/29/2019 Family history of premature CAD 01/29/2019 Hypercholesteremia 01/29/2019 Resolved Problems Problem Noted Date Diagnosed Date Resolved Date Encounter for screening colonoscopy 11/01/2023 11/07/2023 Immunizations Immunization Administration Dates Next Due Fluzone High Dose [...] Used Date Smoking Tobacco: Former Cigarettes 1 972 - 1991 Smokeless Tobacco: Never Tobacco Cessation:Counseling Given: [...] C 1968 DTaP, Tdap and Td Vaccines ( 1 - Tdap) 1969 Mammogram Screening 1990 Zoster Vaccines (1 of 2) 2000 RSV Immunization or 60+ Years (1 - Risk 60-74 years 1-dose series) 2010 Annual Medicare Wellness Visit 2015 Dexa Scan (General) 2015 COVID-19 Vaccine (2023-2 5 season) 2024 06/16/2021, 11/13/2020, 10/23/2020 Pneumococcal Vaccine: 50+ Years Completed 06/25/2020, 06/04/2019 Meningococcal B Vaccine Aged Out No l onger eligible based on patient's age to complete this topic Meningococcal Vaccine Aged Out No delphine jack eligible based on patient's age to complete this topic RSV Immunizations Under 20 Months Aged Out No longer eligible b ased on patient's age to complete this topic Medical Devices Implanted Type Area Oil Expeller Device Identifier Shelf Expiration Date Model / Serial / Lot Iol [employer]ecnis Simplicity Dcb00 - [id number] Implanted:Qty: 1 on 05/21/2024 by Jabari Luis MD at [facility] Lens Left: Eye [employer] 10/09/2026 DCB00 / [id number] / Iol [employer] Simplicity Dcb00 - [id number] Implanted:Qty: 1 on 06/25/2024 by Jabari Luis MD at [facility] Lens Right: Eye [employer] 01/15/2027 [facility]00 / [id number] / Insurance [employer]RO[employer] MEDICARE [facility] Care Teams Center Receptionist Relationship Specialty Start Date End Date Kristina Elias MD [address] [place] [address] PCP - General FAMILY PRACTICE 12/21/21 Prudence Reis MD CARDIOVASCULAR DISEASE 04/15/20
--- OUTSIDE RECORDS SUMMARY | 2025-01-10 09:25 | XMS_ITS | Clinical Summary ---
Author Organization [facility] [address] Address [address] [place] [address] Care Team Providers Care Carbon Sequestration Plant Engineer Name Role Phone Kristina Elias MD Primary Care Provider [phone] Allergies Active Allergy Reactions Criticality Noted Date [...] total) by mouth daily 90 tablet 3 Active Active Problems Problem Noted Date Diagnosed Date Bruit of right carotid artery 09/26/2023 Thrombocytopenia 09/13/2022 Shortness of breath 01/29/2019 Essential hypertension 01/29/2019 Hypercholesteremia 01/29/2019 Family history of premature CAD 01/29/2019 Surgical History Surgery Date Site/Laterality Comments SECTION [...] on file Legal Sex Female 8:03 PM GRAY MIXING OPERATOR Gender Identity Not on file Sexual Orientation Not on file Obstetrics History Last Filed Vital Signs Vital Sign Reading Time Taken Comments Blood Pressure 124/62 09/27/2024 2:11 PM GRAY MIXING OPERATOR Pulse 80 09/27/2024 2:11 PM GRAY MIXING OPERATOR Temperature - - Respiratory Rate - - Oxygen Saturation 98% 09/27/2024 2:11 PM GRAY MIXING OPERATOR Inhaled Oxygen Concentration - - Weight 74.4 kg (164 lb) 09/27/2024 2:11 PM GRAY MIXING OPERATOR Height 157.5 cm (5' 2 ) 09/27/2024 2:11 PM GRAY MIXING OPERATOR Body Mass Index 30 09/27/2024 2:11 PM GRAY MIXING OPERATOR Plan of Treatment Health Maintenance Due Date [...] exists Pneumococcal vaccine 65+ Completed 06/25/2020, 02/2019 Insurance MEDICARE [facility] [place]IC[place] [address] [address] Member Subscriber Plan / Payer ( fective 2015-Present) Name:Joanna Jeffery Nasrin Relation to Subscriber:Spouse Name:YRN JEFFERY JR Date of :1950 Address: [facility] [place] [address] Payer ID:[id number] (NAIC) Group ID:[id number] Type:[employer] Address: [address] [place] [address] Care Teams Carbon Sequestration Plant Engineer Relationship Specialty Start Date End Date Kristina Elias MD PCP - General Family Medicine 08/12/21
--- OUTSIDE RECORDS SUMMARY | 2025-01-10 09:25 | XMS_ITS | Encounter Summary ---
Author Organization [facility] Address [address] [place] [address] Care Team Providers Care Second Chef Name Role Phone Prudence Reis MD Unavailable Unavailable Krsitina Elias MD Primary Care Provider [phone] Encounter Details Date Type Department Care Team (Late st Contact Info) Description 12/02/2023 Prep for Procedure [facility], [facility] [address] [place], [place] [id number] Zelalem Ziegler MD Three [facility]. [facility] [address] [place], [place] [id number] Social History Tobacco Use Types Packs/Day Years [...] - 11.0 x10'3/uL 01/09/2024 8:58 AM CDT [facility] RBC 2.59(L) 4.20 - 5.40 x10'6/uL 01/09/2024 8:58 AM CDT [facility] HGB 6.7(LL) 12.0 - 16.0 G/DL 01/09/2024 8:58 AM CDT [facility] Comment: This result has been called to SOL HIGHTOWER by [id number] on 01/09/2024 08:58:40, and has been read back. HCT 21.7(L) 38.0 - 48.0 % 01/09/2024 8:58 AM CDT [facility] MCV 83.8 81.0 - 99.0 FL 01/09/2024 8:58 AM CDT [facility] MCH 25.9(L) 27.0 - 31.0 PG 01/09/2024 8:58 AM CDT [facility] MCHC 30.9(L) 32.0 - 36.0 G/DL 01/09/2024 8:58 AM CDT [facility] RDW 13.3 11.5 - 14.5 % 01/09/2024 8:58 AM CDT [facility] PLT 85(L) 130 - 400 x10'3/uL 01/09/2024 8:58 AM CDT [facility] MPV 8.8(L) 9.3 - 12.2 FL 01/09/2024 8:58 AM T [facility] DIFFERENTIAL TYPE AUTOMATED DIFFERENTIAL 01/09/2024 9:00 AM CDT [facility] NEUTROPHILS % 41.1 % 01/09/2024 9:00 AM T [facility] LYMPHOCYTES % 48.0 % 01/09/2024 9:00 AM T [facility] MONOCYTES % 7.4 % 01/09/2024 9:00 AM CDT [facility] EOSINOPHILS 0.8 % 01/09/2024 9:00 AM CDT [facility] BASOPHILS 0.3 % 01/09/2024 9:00 AM CDT [facility] IMMATURE GRANS % 2.4 % 01/09/20 9:00 AM CDT [facility] ABS. NEUTROPHILS 1.55(L) 1.80 - 7.70 x10'3/uL 01/09/2024 9:00 AM CDT [facility] ABS. LYMPHOCYTES 1.81 1.00 - 4.80 x10'3/uL 01/09/2024 9:00 AM CDT [facility] ABS. MONOCYTES 0.28 0.24 - 0.86 x10'3/uL 01/09/2024 9:00 AM CDT [facility] ABS. EOSINOPHILS 0.03(L) 0.04 - 0.36 x10'3/uL 01/09/2024 9:00 AM CDT [facility] ABS. BASOPHILS 0.01 0.01 - 0.08 x10'3/uL 01/09/2024 9:00 AM CDT [facility] ABS. IMMATURE GRANULOCYTES 0.09 0.00 - 0.49 x10'3/uL 01/09/2024 9:00 AM CDT [facility] RBC MORPHOLOGY SLIDE REVIEWED 2023 9:00 AM CDT [facility] CAREY 3+ 01/09/2024 9:00 AM CDT [facility] PLT EST. DECREASED 01/09/2024 9:00 AM CDT [facility] 01/09/2024 8:05 AM CDT us Zelalem Ziegler MD LABORATORY Final Result [facility] [address] [place] [address], [place] [phone] * (ABNORMAL) COMPREHENSIVE METABOLIC PANEL (01/09/2024 7:55 AM CDT) [facility] GLUCOSE 83 70 - 99 MG/DL 01/09/2024 8:50 AM CDT [facility] BUN 17 7 - 18 MG/DL 01/09/2024 8:50 AM CDT [facility] CREATININE S/P/B 1.01 0.55 - 1.02 MG/DL 01/09/2024 8:50 AM CDT [facility] SODIUM S/P/B 140 136 - 145 MMOL/L 01/09/2024 8:50 AM CDT [facility] POTASSIUM S/P/B 3.9 3.5 - 5.1 MMOL/L 01/09/2024 8:50 AM CDT [facility] CHLORIDE S/P/B 112(H) 100 - 108 MMOL/L 01/09/2024 8:50 AM CDT [facility] CO2 22.5 21 - 32 MMOL/L 01/09/2024 8:50 AM CDT [facility] CALCIUM S/P/B 9.1 8.5 - 10.1 MG/DL 01/09/2024 8:50 AM CDT [facility] BILIRUBIN TOTAL S/P/B 0.5 0.2 - 1.2 MG/DL 01/09/2024 8:50 AM CDT [facility] Comment: THIS ASSAY IS NOT RECOMMENDED FOR PATIENTS UNDERGOING TREATMENT WITH ELTROMBOPAG DUE TO THE POTENTIAL FOR FALSELY ELEVATED RESULTS. TOTAL PROTEIN S/P/B 5.9(L) 6.4 - 8.2 G/DL 01/09/2024 8:50 AM CDT [facility] ALBUMIN S/P/B 3.3(L) 3.4 - 5.0 G/DL 01/09/2024 8:50 AM CDT [facility] AST 9(L) 15 - 37 U/L 01/09/2024 8:50 AM CDT [facility] ALT 14 14 - 55 U/L 01/09/2024 8:50 AM CDT [facility] ALKALINE PHOSPHATASE S/P/B 74 50 - 136 U/L 01/09/2024 8:50 AM CDT [facility] ANION GAP 5.5 5 - 15 MMOL/L 01/09/2024 8:50 AM CDT [facility] BUN CREATININE RATIO 16.8 6 - 26 01/09/2024 8:50 AM CDT [facility] A/G RATIO 1.3 1.0 - 2.0 RATIO 01/09/2024 8:50 AM T [facility] GFR ESTIMATE 59(L) >90 ML/MIN/1.7 3 M2 01/09/2024 8:50 AM CDT [facility] Comment: NOTE: eGFR is not calculated for patients <18 years of age. This is an estimated GFR calculation using the new CKD EPI creatinine equation without race and so does not require a correction factor for race. This estimated GFR should not be used for calculating drug doses. 01/09/2024 7:55 AM CDT Zelalem Ziegler MD LABORATORY Final Result [facility] [address] [place] [address], [place] [phone] * PROTIME/INR, VENOUS (01/09/2024 7:55 AM CDT) PROTIME 10.2 10.2 - 12.9 SEC 01/09/2024 8:40 AM CDT [facility] INR 0.9 01/09/2024 8:40 AM CDT [facility] Comment: Recommended INR Therapeutic Goals: 2.0-3.0 Routine Therapy 2.5-3.5 Mechanical Prosthetic Valves (High Risk) 01/09/2024 7:55 AM CDT Zelalem Ziegler MD LABORATORY Final Result [facility] [address] [place] [address], [place] [phone] documented in this encounter Visit Diagnoses Diagnosis Varicose veins of lower extremity with pain, right- Primary Hyperlipidemia Other and unspecified hyperlipidemia Hypertension Unspecified essential hypertension Disease of the lung and heart (CMS/HCC [facility]/HCC) Chronic pulmonary heart disease, unspecified documented in this encounter Care Teams Second Chef Relationship Specialty Start Date End Date Kristina Elias MD [address] [place] [address] PCP - General FAMILY PRACTICE 12/21/21 Prudence Reis MD CARDIOVASCULAR DISEASE 04/15/20 documented as of this encounter
--- OUTSIDE RECORDS SUMMARY | 2025-01-10 09:26 | XMS_ITS | Data Portability ---
Author Organization [facility] VICTOR MMargarita [facility] Address [address] [place] [address] Care Team Providers Care Automotive Sales Manager Name Role Phone ORAL, HELENA Telegrapher Agent Unavailable Assessment Encounter Date Assessment Date Assessment [...] DO Not Attach Compendium, Do Not Delete/merge, [id number] 8 17:43:21 pap, LB + HPV mRNA E6/E7 + reflex HPV (16+18+45 ) 2013 014 [email or web address] [facility], [address] [place] [address], [address], [place], [address], 5 12:38:54 Referral None recorded. Procedures None recorded. Surgeries None recorded. Imaging MAMMO, screening , bilateral 2017 018 RAMIRO [facility], [address], [place], [address], 8 11:50:11 MAMMO, screening , bilateral 2015 016 [id number] [facility], [address], [address] [address], [place], [address], 6 04:31:01 mammogram , screening 2013 014 [email or web address] Not available 5 12:38:54 Medication Orders Osphena 60 mg tablet [address], [address] [place] [address], [address], 8 14:59:01 Estrace 0.01% (0.1 mg/gram) vaginal cream [address], [address] [place] [address], [address], 8 14:58:25 calcium 600 mg (as carbonate )-vitamin D3 20 mcg (800 unit) tablet [address], [address] [place] [address], [address], 8 14:57:53 multivita min tablet [address], [address] [place] [address], [address], 8 14:58:54 Estrace 0.5 mg tablet [address], [address] [place] [address], [address], 8 14:58:29 Estrace 0.01% (0.1 mg/gram) vaginal cream 2013 014 [address], [address] [place] [address], [address], 8 14:58:25 Linzess 145 mcg capsule 2013 014 [email or web address] [facility]9803, [address] [place], [address], 8 14:58:46 Patient TargetsNo targets recorded. Patient Instructions Encounter Date Encounter Id Patient Instructions Last Modified By Organization Details Last Modified Time 06/30/2016 [id number] mammogram: about this test [email or web address] Not available 06/30/2016 16:27:19 learning about breast cancer screening [email or web address] Not available 06/30/2016 16:05:56 07/12/2018 [id number] mammogram: about this test [email or web address] Not available 07/12/2018 15:23:21 Reason for Referral None Reported. Results Created Date Observation Date Name Description Value Unit Range Abnormal Flag Note LastModifiedBy Organization Detail LastModifiedTime 07/12/20 18 07/12/2018 urina lysis , dipst ick Leukocytes Negati ve Not Available In-Office Order Internal Use Only DO Not Attach Compendium DO Not Attach Compendium, Do Not Delete/merge, [id number] 07/12/2018 15:09:56 07/12/20 18 07/12/2018 urina lysis , dipst ick Nitrite negati ve Not Available In-Office Order Internal Use Only DO Not Attach Compendium DO Not Attach Compendium, Do Not Delete/merge, [id number] 07/12/2018 15:09:56 07/12/20 18 07/12/2018 urina lysis , dipst ick Urobilinogen .2 Not Available In-Of fice Order Internal Use Only DO Not Attach Compendium DO Not Attach Compendium, Do Not Delete/merge, [id number] 07/12/2018 15:09:56 07/12/20 18 07/12/2018 urina lysis , dipst ick Protein Negati ve Not Available In-Office Order Internal Use Only DO Not Attach Compendium DO Not Attach Compendium, Do Not Delete/merge, [id number] 07/12/2018 15:09:56 07/12/20 18 07/12/2018 urina lysis , dipst ick pH 7.0 Not Available In-Office Order Internal Use Only DO Not Attach Compendium DO Not Attach Compendium, Do Not Delete/merge, [id number] 07/12/2018 15:09:56 07/12/20 18 07/12/2018 urina lysis , dipst ick Blood Non-He molyze d: Trace Not Available In-Office Order Internal Use Only DO Not Attach Compendium DO Not Attach Compendium, Do Not Delete/merge, [id number] 07/12/2018 15:09:56 07/12/20 18 07/12/2018 urina lysis , dipst ick Specific [place] 1.010 Not Available In-Off ice Order Internal Use Only DO Not Attach Compendium DO Not Attach Compendium, Do Not Delete/merge, [id number] 07/12/2018 15:09:56 07/12/20 18 07/12/2018 urina lysis , dipst ick Ketone Negati ve Not Available In-Office Order Internal Use Only DO Not Attach Compendium DO Not Attach Compendium, Do Not Delete/merge, [id number] 07/12/2018 15:09:56 07/12/20 18 07/12/2018 urina lysis , dipst ick Bilirubin Negati ve Not Available In-Office Order Internal Use Only DO Not Attach Compendium DO Not Attach Compendium, Do Not Delete/merge, [id number] 07/12/2018 15:09:56 07/12/20 18 07/12/2018 urina lysis , dipst ick Glucose Negati ve Not Available In-Office Order Internal Use Only DO Not Attach Compendium DO Not Attach Compendium, Do Not Delete/merge, [id number] 07/12/2018 15:09:56 08/19/20 14 08/15/2014 janna beaulieu/riki hartmann t No observ ation record ed. Not Available 09/05 15:45:59 07/19/20 16 07/19/2016 moisessofia w PT NAME: WILLIAM GALLARDO : 1949 PT SEX/AG E: / PT ACCT NUMBER : [id number] PT MR#: [id number] ROOM/B ED: PT STATUS : REG CLI DATE OF EXAMIN ATION: ORDERI NG PHYSIC CHANTE: HELNEA MCDANIEL MAN M.D. ATTEND ING PHYSIC CHANTE: HELENA MCDANIEL MAN , M.D. DICTAT ING PHYSIC CHANTE: Live HANNA M.D. 018 [id number] 3.001M IX 13:34: 00 61.007 2MVMAM ([facility]) : MOISE SCREEN KERA W/CAD INDICA TION: Screen ing. [...] ed, dictat ed and finali zed at [facility] on A. __ Electr onical ly signed by: SHERRIE HANNA Date: Time: 14:14 SHERRIE HANNA M.D.__ ___ [facility] [employer] [address] [place] [address] [facility] (Imaging) [address], [place], [address], 07/19/2016 15:17:29 07/19/20 16 07/19/2016 MAMMO , scree serjio, bilat eral No observ ation record ed. [facility] [address], [place], [address], 07/19/2016 16:42:23 07/12/20 18 04/29/2018 CT, abdom [...] ed. RAMIRO [facility] [address], [place], [address], 08/10/2018 12:42:16 Result Notes None recorded. Problems Name Problem SNOMED Code Status Onset Date Resolution Date Notes Provider Name and Address Organization Details Recorded Time Menopausal syndrome 305673210 Active Helena Oral jiménez, FCO Dougherty [facility] 4 11:23:52 Problem Notes None recorded. Procedures Surgical History Date Name Laterality Status Provider Name and Address Organization Details Recorded Time 06/16/20 18 lithotomy completed Roxi Bob MA [place] Ladonna [facility] 07/12/2018 15:00:50 07/19/20 16 Most Recent Mammogram completed Roxi Bob MA [facility] [address] 07/12/2018 15:01:41 07/31/20 14 Date of Last Pap Smear completed CESAR Garcia [facility] 06/30/2016 15:07:28 08/29/18 91 Laparoscopy completed CESAR Null [facility] 07/31/2014 10:46:09 08/29/18 82 Appendectomy completed Yin Bazzi MA [place] Ladonna [facility] 07/31/2014 10:46:09 04/07/19 79 Tubal Ligation completed CESAR Garcia [facility] 06/30/2016 15:08:33 04/07/19 79 Caesarean Section completed CESAR Garcia [facility] 06/30/2016 15:06:53 09/05/18 76 Caesarean Section completed CESAR Garcia [facility] 06/30/2016 15:07:08 09/12/18 72 Caesarean Section completed CESAR Garcia [facility] 06/30/2016 15:07:16 lithotripsy completed CESAR Leon [facility] 07/12/2018 15:00:39 Imaging Results Imaging Date Name Status LastModified by Organization Details LastModified Time 08/15/2014 imaging/diagnostic result completed [email or web address] Information not available 09/05/2014 15:45:59 07/19/2016 [email or web address] completed [facility] (Imaging) [address], [place], [address], 07/19/2016 15:17:29 07/19/2016 MAMMO, screening, bilateral completed [facility] [address], [place], [address], 07/19/2016 16:42:23 04/29/2018 CT, abdomen + pelvis, [...] 16:27:58 05/03/2018 XR, abdomen, 1 view completed [facility] Arielr viktor not available 07/28/2018 15:54:08 08/08/2018 MAMMO, screening, bilateral completed [facility] [address], [place], [address], 08/10/2018 12:42:16 Procedure Notes None recorded. Medical Equipment None Reported. Allergies Allergen ID Allergen Name Allergen Category Reaction Reaction Severity Criticality Documentation Date Start Date Code Code System Note Provider Name and Address Organization Details Recorded Time 4877 Non-stero idal anti-infl ammatory agent (product) medicatio n other severe Not available 07/31/2014 95827 005 SNOMED cause s gastr itis Yin Bazzi [place] null, [place] - [facility] 4 10:42:42 Medications Name Sig Start Date Stop Date [...] Not Available Not Available Not Available Afluria 3478-5118(PF ) 45 mcg (15 mcg x 3)/0.5 mL intramuscula r syringe active Not Available Not Available No t Available Fluzone High-Dose 4527-5774 (PF) 180 mcg/0.5 mL intramuscula r syringe 07/12 completed Not Available Not Available Not Available Vitals Date Recorded Body height Body mass index (BMI) Body weight Systolic blood pressure Diastolic blood pressure Provider Name and Address Organization Details Last Updated DateTime 07/12/2018 157.48 cm 32.6 kg/m2 42257.44 g 172 mm[Hg] 94 mm[Hg] Roxi Bob MA [facility] [address] 8 15:04:46 Date Recorded Body height Body weight Body mass index (BMI) Systolic blood pressure Diastolic blood pressure Provider Name and Address Organization Details Last Updated DateTime 06/30/2016 157.48 cm 12821.59 g 33.8 kg/m2 152 mm[Hg] 90 mm[Hg] Ciraa Mabry MA [facility] [address] 6 15:02:18 Social History Question Answer Notes LastModified by Organizat ion Details LastModified Time Tobacco Smoking Status Former Smoker quit 1991 Yin Bazzi MA [facility] 07/31/2014 10:50:46 Do You Have An Advance Directive? No Information not available 06/30/2016 Is Blood Transfusion Acceptable In An Emergency? Yes Information not available 06/30/2016 What Is Your Level Of Caffeine Consumption? Moderate Information not available 06/30/2016 How Much Tobacco Do You Chew? None Information not available 06/30/2016 What Type Of Diet Are You Following? REGULAR Information not available 06/30/2016 Which Illicit Or Recreational Drugs Have You Used? None Information not available 06/30/2016 Education 12 Information no t available 06/30/2016 Live Alone Or With Others? [...] ion Details LastModified Time What is your level of alcohol consumption? Occasional Information not available 06/30/2016 Are you currently employed? 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 Occasional Information [...] Disorder N Colon Polyps N Heart Attack ([place]) N Diabetes N Cardiomyopathy N Blood Transfusions [...] SNOMED-CT Code Diagnosis ICD10 Code Diagnosis Note [id number] Helena Fair MD [facility] (SYSTEMS TESTING LABORATORY TECHNICIAN) [address] [place] [address] 0 07/31/2014 10:09:36 07/31/2014 12:11:49 Gynecologic examination [id number] Menopausal syndrome [id number] Helena Fair MD [facility] (SYSTEMS TESTING LABORATORY TECHNICIAN) [address] [place] [address] 06/30/2016 14:18:34 07/01/2016 09:46:16 Screening mammography 22772653 Z12.31 Menopausal syndrome 1237 95906 N95.9 Screening for malignant neoplasm of breast 524708872 Z12.31 [id number] Helena Fair MD [facility] (SYSTEMS TESTING LABORATORY TECHNICIAN) [address] [place] [address] 0 07/12/2018 14:09:39 07/14/2018 13:36:30 Screening mammography 58358924 Z12.31 Health Concerns Section Related Observation LastModified by Organization Detai ls LastModified Time None Recorded Concern Status LastModified by Organization Details LastModified Time None Recorded Advance Directives Directive N: Payers Encounter Date Sequence Insurance Name Policy Number Policy Jefferson Covered Member ID Jefferson Member ID Guarantor Name 07/31/2014 2 [place] ([place]) 106 Joseph Gallardo Jr [id number] Joanna Gallardo 06/30/2016 2 [place] 106 Joseph Gallardo Jr [id number] Joanna Gallardo 06/30/2016 1 [place] Joanna Gallardo [id number] Joanna Gallardo 07/12/2018 2 [place] ([place]) 106 Joseph Gallardo Jr [id number] Joanna Gallardo 07/12/2018 1 [place] Joanna Gallardo [id number] Joanna Gallardo Notes Date Note Type Note Provider Name and Address Organization Details Recorded Time 06/30/2016 text/html Annual Volleyball Referee Post-MenopausalReporte d bypatient.Menopausal Symptoms:normal vaginal lubrication;hot flashes Vaginal Bleeding:history of menopause having occurred; no history of post menopausal bleeding Urinary Symptoms:no [id number]|2025-01-10 09:26:00|2025-01-10 09:26:00|XMS_ITS|BKG DAEMON|External Medical Summaries|[id number]|" Encounter Summary Created on: January 10, 2025 Joanna Gallardo : 1950 Sex: Female Author Organization [facility] Address [address] [place] [address] Care Team Providers Care Automotive Sales Manager Name Role Phone Prudence Reis MD Unavailable Unavailable Reuben Oneal MD Primary Care Provider [phone] Kristina Elias MD Primary Care Provider [phone] Encounter Details Date Type Department Care Team (Late st Contact Info) Description 04/18/2020 Prep for Procedure [facility] [address] [place], [place] [id number] Binh Scott MD [address] [place] [address] [id number] Social History Tobacco Use Types Packs/Day Years [...] CORONAVIRUS (COVID 19) (04/18/2020 11:00 AM CDT) CORONAVIRUS SARS COV 2 PCR (RESP) NOT DETECTED NOT DETECTED 04/19/2020 2:37 PM CDT [facility] Comment: A Not Detected (negative) test result [...] providers and patients using the following websites: https://www.[employer].Neventum/home/Covid-19/HCP/NAAT/fact-sheet2 https://www.[employer].Neventum/home/Covid-19/Patients/NAAT/ fact-sheet2 This test has been authorized by the FDA under an Emergency Use Authorization (EUA) for use by authorized laboratories. Due to the current public health emergency, [facility] is receiving a high volume of samples [...] about COVID-19 can be found at the [facility] website: www.Oppa/Covid19. Test performed at [facility] [address] [place] [address] [place] [address] Director: KIMBERLY ALCARAZ DO,MPH NASOPHARYNGEAL SWAB / Unknown 04/18/2020 11:00 AM CDT us Binh Scott MD MICROBIOLOGY - GENERAL ORDERABLE S Final Result [facility] [address] [address] documented in this encounter Visit Diagnoses Diagnosis Preoperative testing- Primary Preoperative examination, unspecified documented in this encounter Additional Health Concerns Infection Onset Date Last Indicated Resolved Time COVID-19 Rule Out 04/18/2020 04/18/2020 04/19/2020 2:38 PM CDT documented as of this encounter Care Teams Automotive Sales Manager Relationship Specialty Start Date End Date Reuben Oneal MD [address] [place] [address] PCP - General FAMILY PRACTICE 04/15/20 12/20/21 Krist[place] [address] PCP - General FAMILY PRACTICE 12/21/21 Prudence Reis MD CARDIOVASCULAR DISEASE 04/15/20 documented as of this encounter "
--- OUTSIDE RECORDS SUMMARY | 2025-01-10 09:26 | XMS_ITS | Clinical Summary ---
Author Organization [facility] Lili [facility]rd Address [address] [place] [address] Care Team Providers Care Television Engineer Name Role Phone Kristina Elias MD Primary Care Provider [phone] Allergies Active Allergy Reactions Criticality Noted Date [...] Take 50 mg by mouth daily. Active Active Problems Problem Noted Date Diagnosed Date Normocytic anemia 06/11/2021 Encounters Date Type Department Care Team Description 11/14/2024 External Device Data STL ABSTRACTION Provider, Abstract 11/03/2024 External Device Data [facility] ABSTRACTION Provider, Abstract 11/02/2024 External Device Data [facility] ABSTRACTION Provider, Abstract 11/01/2024 Orders Only [facility] [address] [place] [address] Walter Brothers MD 10/31/2024 External Device Data STL ABSTRACTION Provider, Abstract 10/30/2024 Abstract [facility] [address] [place] [address] Walter Brothers MD 10/26/2024 8:30 AM POLICE LIEUTENANT Office Visit [facility] Hematology [facility] [address] [place] [address] Walter Brothers MD Chronic anemia (Primary Dx) 10/24/2024 Orders Only [facility] [address] [place] [address] Walter Brothers MD 10/16/2024 External Device Data [...] Comments Blood Pressure 124/77 10/26/2024 8:34 AM POLICE LIEUTENANT Pulse 81 10/26/2024 8:34 AM POLICE LIEUTENANT Temperature 36.2 C (97.2 F) 10/26/2024 8:34 AM POLICE LIEUTENANT Respiratory Rate 15 10/26/2024 8:34 AM POLICE LIEUTENANT Oxygen Saturation 98% 10/26/2024 8:34 AM POLICE LIEUTENANT Inhaled Oxygen Concentration - - Weight 74.8 kg (164 lb 12.8 oz) 10/26/2024 8:34 AM POLICE LIEUTENANT Height 157.5 cm (5' 2 ) 03/16/2022 11:2 2 AM CDT Body Mass Index 30.14 03/16/2022 11:22 AM CDT Plan of Treatment Upcoming Encounters Date Type Department Care Team (Late st Contact Info) Description 02/25/2025 1:15 PM CDT Office Visit [facility] - [place] [address] [facility] [address] [place] [address] Walter Brothers MD [address] [facility] [address] [place] [address] Health Maintenance Due Date Last Done Comments DTAP/TDAP/TD VACCINES (1 - Tdap) 1969 FIT-DNA Q 3 years 1995 FIT/FOBT Q 1 year 1995 Flex Sig/CT Colonography Q 5 years 1995 ZOSTER VACCINE (1 of 2) 2000 RSV VACCINE (60+ or ) (1 - Risk 60-74 years 1-dose series) 2010 BREAST CANCER SCREENING 02/04/2024 02/04/20 23, 02/03/2023, 11/12/2021, Additional history exists INFLUENZA VACCINE (#1) 2024 9, 06/26/2018, 06/21/2017, Additional history exists OSTEOPOROSIS SCREENING 09/26/2024 09/26/2019 COLORECTAL SCREENING 07/27/2031 07/27/2021 Colorectal Cancer Screening 07/27/2031 PNEUMOCOCCAL VACCINE 50+ YEARS Completed 06/25/2020 , 06/04/2019 Procedures Procedure Name Priority Date/Time Associated Diagnosis Comments CBC WITH AUTODIFFERENTIAL Routine 2024 2:12 PM POLICE LIEUTENANT CBC WITH AUTODIFFERENTIAL Routine 2024 11:53 AM POLICE LIEUTENANT from Last 3 Months Results * CBC WITH AUTODIFFERENTIAL (11/01/2024 2:12 PM POLICE LIEUTENANT) Only the most recent of2 resultswithin the time period is included. Blood Walter Brothers MD HEMATOLOGY ORDERABLES Final Res ult from Last 3 [place] [address] [facility] FEDERAL MEDICARE RAILROAD Care Teams Television Engineer Relationship Specialty Start Date End Date Kristina Elias MD [address] [place] [address] PCP - General Family Practice 06/11/21
== END 2025-01-10 09:20 | disposition home or self-care (01) ==
PROVIDERS: PCP Family Medicine; Visit Provider Physician Assistant
DX: N20.0 Calculus of kidney (principal)
CPT/HCPCS: 74018

== ENCOUNTER 2025-02-11 18:04 | Emergency (ER) | payer MEDICARE, BC, SELFPAY ==
--- NOTE | ~2025-02-11 | CT_ITS ---
CLINICAL INDICATION: Suprapubic pain COMPARISON: None. TECHNIQUE: Multiple contiguous axial images of the abdomen and pelvis were performed following the ad ministration of with 100 mL Omnipaque-350 intravenous contrast The dose-length product (DLP) was 467.48 mGy-cm. Automated exposure control and iterative reconstruction technique were employed. FINDINGS/OBSERVATIONS: Visualized lower thorax: The bilateral lung bases are clear. The heart is enlarged, without pericardial effusion. Small hiatal hernia is present. Liver: The liver demonstrates homogeneous enhancement and is not enlarged. Gallbladder and biliary system: The gallbladder is decompressed, and otherwise unremarkable. Pancreas: Fatty atrophy of the pancreas is identified, limiting its evaluation. Spleen: The spleen enhances homogeneously and is significantly enlarged measuring 18 cm in longitudinal dimen dany. Kidneys: 5 mm nonobstructing calculus within the interpolar region of the left kidney. Exophytic focus of decreased attenuation from the lower pole of the left kidney, statistically a cyst . The remainder of the bilateral kidneys otherwise enhance symmetrically without hydronephrosis or arnie tional renal calculi. Adrenal glands: Unremarkable. Gastrointestinal tract: Sigmoid diverticulosis without surrounding inflammatory change. Appendix: The appendix is not definitively visualized. However, no pericecal inflammatory change is identified suggest the presence of acute appendicitis. Vasculature: Densely calcified atherosclerotic disease without aneurysmal dilatation Lymph nodes: No pathologically enlarged or morphologically suspicious lymph nodes within the retroperitoneum or at the root of the mesentery. Pelvic structures: The bladder is only minimally distended, and otherwise unremarkable. The uterus is anteverted and anteflexed, and otherwise unremarkable Body wall and musculoskeletal: Atrophy of the lateral rectus musculature, right greater than left. Age-appropriate degenerative disease within the lower thoracic and lumbosacral spines. IMPRESSION: Splenomegaly. Fatty atrophy of the pancreas. Nonobstructing 5 mm left renal calculus. Reviewed, dictated and finalized at location A.
--- OUTSIDE RECORDS SUMMARY | 2025-02-11 18:06 | XMS_ITS | Clinical Summary ---
Author Organization [facility] [address] Address [address] [place] [address] Care Team Providers Care Cartridge Assembler Name Role Phone Kristina Elias MD Primary Care Provider Allergies Active Allergy Reactions Criticality Noted Date [...] on file Legal Sex Female 8:03 PM TRUCK MECHANIC Gender Identity Not on file Sexual Orientation Not on file Obstetrics History Last Filed Vital Signs Vital Sign Reading Time Taken Comments Blood Pressure 124/62 09/27/2024 2:11 PM TRUCK MECHANIC Pulse 80 09/27/2024 2:11 PM TRUCK MECHANIC Temperature - - Respiratory Rate - - Oxygen Saturation 98% 09/27/2024 2:11 PM TRUCK MECHANIC Inhaled Oxygen Concentration - - Weight 74.4 kg (164 lb) 09/27/2024 2:11 PM TRUCK MECHANIC Height 157.5 cm (5' 2) 09/27/2024 2:11 PM TRUCK MECHANIC Body Mass Index 30 09/27/2024 2:11 PM TRUCK MECHANIC Plan of Treatment Health Maintenance Due Date Last Done Comments Colon Cancer Screening-Colonoscopy 1950 Depression Screening 1950 Fall Risk Assessment 1950 Hepatitis C Screening 1950 Osteoporosis Screening-Bone Density Scan 1950 DTaP/Tdap/Td Vaccine (1 - Tdap) 1961 Hepatitis B Screening 1968 Zoster Vaccine (1 of 2) 2000 Well Visit 65+ 2015 Breast Cancer Screening-Mammogram 08/09/2019 018, 07/19/2016 Influenza Vaccine (Season Ended) 2025 05/22/2021, 05/20/2020, 06/04/2019, Additional history exists Pneumococcal vaccine 65+ Completed 06/25/2020, 02/2019 Insurance MEDICARE [employer] [place] MEDIC[employer] RAILROAD [facility] Member Subscriber Plan / Payer (Ef fective 2015-Present) Name:Joanna Jeffery Nasrin Relation to Subscriber:Spouse Name:YRN JEFFERY JR Date of :1950 Address: [address] [place] [address] Payer ID:[id number] (NAIC) Group ID:[id number] Type:[employer] Address: [address] [place] [address] Care Teams Cartridge Assembler Relationship Specialty Start Date End Date Kristina Elias MD PCP - General Family Medicine 08/12/21
--- OUTSIDE RECORDS SUMMARY | 2025-02-11 18:06 | XMS_ITS | Referral Summary ---
Author Organization [facility] [address] Address [address] [place] [address] Care Team Providers Care Supervisor Glycerin Name Role Phone Kristina Elias MD Primary Care Provider [phone] Allergies Active Allergy Reactions Criticality Noted Date [...] on file Legal Sex Female 8:03 PM REAL ESTATE INVESTOR Gender Identity Not on file Sexual Orientation Not on file Last Filed Vital Signs Vital Sign Reading Time Taken Comments Blood Pressure 124/62 09/27/2024 2:11 PM REAL ESTATE INVESTOR Pulse 80 09/27/2024 2:11 PM REAL ESTATE INVESTOR Temperature - - Respiratory Rate - - Oxygen Saturation 98% 09/27/2024 2:11 PM REAL ESTATE INVESTOR Inhaled Oxygen Concentration - - Weight 74.4 kg (164 lb) 09/27/2024 2:11 PM REAL ESTATE INVESTOR Height 157.5 cm (5' 2) 09/27/2024 2:11 PM REAL ESTATE INVESTOR Body Mass Index 30 09/27/2024 2:11 PM REAL ESTATE INVESTOR Plan of Treatment Not on file [place] [address] MEDICARE RAILROAD [facility] FEDERAL Member Subscriber Plan / Payer (Ef fective 2015-Present) Name:Joanna Gallardo Relation to Subscriber:Spouse Name:JOSE D VERDUGOLISA Date of :1950 Address: [address] [place] [address] [place] [address] Payer ID:[id number] (NAIC) Group ID:[id number] Type:[facility] Address: [address] [place] [address] Care Teams Supervisor Glycerin Relationship Specialty Start Date End Date Kristina Elias MD PCP - General Family Medicine 08/12/21
--- OUTSIDE RECORDS SUMMARY | 2025-02-11 18:06 | XMS_ITS | Encounter Summary ---
Author Organization [facility] Address [address] [place] [address] Care Team Providers Care Field Evidence Technician Name Role Phone Prudence Reis MD Unavailable Unavailable Reuben Oneal MD Primary Care Provider [phone] Kristina Elias MD Primary Care Provider [phone] Encounter Details Date Type Department Care Team (Late Contact Info) Description 04/18/2020 Prep for Procedure [facility] [address] [place], [place] [id number] Binh Scott MD [address] [place] [address] Social History Tobacco Use Types Packs/Day [...] (COVID 19) (04/18/2020 11:00 AM CDT) Pathologist [facility] CORONAVIRUS SARS COV 2 PCR (RESP) NOT DETECTED NOT DETECTED 04/19/2020 2:37 PM CDT [facility] Comment: A Not Detected (negative) test result [...] providers and patients using the following websites: https://www.Sykio.Kyield/home/Covid-19/HCP/NAAT/fact-sheet2 https://www.Sykio.Kyield/home/Covid-19/Patients/NAAT/ fact-sheet2 This test has been authorized by the FDA under an Emergency Use Authorization (EUA) for use by authorized laboratories. Due to the current public health emergency, [facility] is receiving a high volume of samples [...] about COVID-19 can be found at the [facility] website: www.[employer].Kyield/Covid19. Test performed at [facility] [address] [place] [address] Director: KIMBERLY ALCARAZ DO,MPH NASOPHARYNGEAL SWAB / Unknown 04/18/2020 11:00 AM CDT Binh Scott MD MICROBIOLOGY - GENERAL ORDERABLE S Final Result [facility] [address] [place] [address], documented in this encounter Visit Diagnoses Diagnosis Preoperative testing- Primary Preoperative examination, unspecified documented in this encounter Additional Health Concerns Infection Onset Date Last Indicated Resolved Time COVID-19 Rule Out 04/18/2020 04/18/2020 04/19/2020 2:38 PM CDT documented as of this encounter Care Teams Field Evidence Technician Relationship Specialty Start Date End Date Reuben Oneal MD [address] [place] [address] PCP - General FAMILY PRACTICE 04/15/20 12/20/21 Kristina Elias MD [address] [place] [address] PCP - General FAMILY PRACTICE 12/21/21 Prudence Reis MD CARDIOVASCULAR DISEASE 04/15/20 documented as of this encounter
--- OUTSIDE RECORDS SUMMARY | 2025-02-11 18:06 | XMS_ITS | Clinical Summary ---
Author Organization [facility] Address [address] [place] [address] Care Team Providers Care Hardwood Floor Finisher Name Role Phone Prudence Reis MD Unavailable Unavailable Kristina Elias MD Primary Care Provider [phone] Allergies Active Allergy Reactions Criticality Noted Date [...] Mild chronic obstructive pul monary disease ([facility]) 11/01/2023 Dyspnea 11/01/2023 Symptomatic varicose veins [...] 7:13 AM CDT Height 157.5 cm (5' 2) 06/25/2024 7:13 AM CDT Body Mass Index [...] this topic Medical Devices Implanted Type Area Inset Cutter Device Identifier Shelf Expiration Date Model / Serial / Lot Iol [employer]ecnis Simplicity Dcb00 - [id number] Implanted:Qty: 1 on 05/21/2024 by Jabari Luis MD at [facility] Lens Left: Eye [employer] 10/09/2026 DCB00 / [id number] / Iol [employer]ecnis Simplicity Dcb00 - [id number] Implanted:Qty: 1 on 06/25/2024 by Jabari Luis MD at [facility] Lens Right: Eye [employer] 01/15/2027 [facility] / [id number] / Insurance [employer] MEDICARE [facility] Care Teams Hardwood Floor Finisher Relationship Specialty Start Date End Date Kristina Elias MD [address] [place] [address] PCP - General FAMILY PRACTICE 12/21/21 Prudence Reis MD CARDIOVASCULAR DISEASE 04/15/20
--- OUTSIDE RECORDS SUMMARY | 2025-02-11 18:06 | XMS_ITS | Encounter Summary ---
Author Organization [facility] Address [address] [place] [address] Care Team Providers Care Breast Splitter Name Role Phone Prudence Reis MD Unavailable Unavailable Kristian Elias MD Primary Care Provider [phone] Reason for Referral * Surgical (Routine) - Closed Specialty Diagnoses / Procedures Referred By Contac t Referred To Contact Diagnoses Varicose veins of lower extremity with pain, right Procedures Case request operating room: STAB PHLEBECTOMY (RIGHT LEG) Zelalem Ziegler MD [id number] [place] [address] Phone: tel: fax: Referral ID Status Reason Start Date Expiration Date Visits Re quested Visits Authorized [id number] Closed 01/10/2024 01/09/2025 1 1 Encounter Details Date Type Department Care Team (Late st Contact Info) Description 01/10/2024 Prep for Procedure [facility] [address] [place], [place] [id number] Zelalem Ziegler MD [facility] [address] [place] [address] Social History Tobacco Use Types Packs/Day Years Used Date Smoking Tobacco: Former Cigarettes - 1991 Smokeless Tobacco: Never Alcohol Use Standard [...] METABOLIC PANEL (02/20/2024 12:18 PM CDT) Pathologist [facility] GLUCOSE 94 70 - 99 MG/DL 02/20/2024 12:53 PM CDT [facility] BUN 11 7 - 18 MG/DL 02/20/2024 12:53 PM CDT [facility] CREATININE S/P/B 0.95 0.55 - 1.02 MG/DL 02/20/2024 12:53 PM CDT [facility] SODIUM S/P/B 139 136 - 145 MMOL/L 02/20/2024 12:53 PM CDT [facility] POTASSIUM S/P/B 4.3 3.5 - 5.1 MMOL/L 02/20/2024 12:53 PM CDT [facility] CHLORIDE S/P/B 109(H) 100 - 108 MMOL/L 02/20/2024 12:53 PM CDT [facility] CO2 24.2 21 - 32 MMOL/L 02/20/2024 12:53 PM CDT [facility] CALCIUM S/P/B 9.3 8.5 - 10.1 MG/DL 02/20/2024 12:53 PM CDT [facility] BILIRUBIN TOTAL S/P/B 1.4(H) 0.2 - 1.2 MG/DL 02/20/2024 12:53 PM CDT [facility] Comment: THIS ASSAY IS NOT RECOMMENDED FOR PATIENTS UNDERGOING TREATMENT WITH ELTROMBOPAG DUE TO THE POTENTIAL FOR FALSELY ELEVATED RESULTS. TOTAL PROTEIN S/P/B 6.3(L) 6.4 - 8.2 G/DL 02/20/2024 12:53 PM CDT [facility] ALBUMIN S/P/B 3.5 3.4 - 5.0 G/DL 02/20/2024 12:53 PM CDT [facility] AST 11(L) 15 - 37 U/L 02/20/2024 12:53 PM CDT [facility] ALT 11(L) 14 - 55 U/L 02/20/2024 12:53 PM CDT [facility] ALKALINE PHOSPHATASE S/P/B 79 50 - 136 U/L 02/20/2024 12:53 PM CDT [facility] ANION GAP 5.8 5 - 15 MMOL/L 02/20/2024 12:53 PM CDT [facility] BUN CREATININE RATIO 11.5 6 - 26 02/20/2024 12:53 PM CDT [facility] A/G RATIO 1.2 1.0 - 2.0 RATIO 02/20/2024 12:53 PM T [facility] GFR ESTIMATE 63(L) >90 ML/MIN/1.7 3 M2 02/20/2024 12:53 PM CDT [facility] Comment: NOTE: eGFR is not calculated for patients <18 years of age. This is an estimated GFR calculation using the new CKD EPI creatinine equation without race and so does not require a correction factor for race. This estimated GFR should not be used for calculating drug doses. 02/20/2024 12:1 8 PM CDT us Zelalem Ziegler MD LABORATORY Final Result [facility] [address] [place] [address], [place] [phone] * PROTIME/INR, VENOUS (02/20/2024 12:18 PM CDT) Pathologist [facility] PROTIME 10.5 10.2 - 12.9 SEC 02/20/2024 12:47 PM CDT [facility] INR 0.9 02/20/2024 12:47 PM CDT [facility] Comment: Recommended INR Therapeutic Goals: 2.0-3.0 Routine Therapy 2.5-3.5 Mechanical Prosthetic Valves (High Risk) 02/20/2024 12:1 8 PM CDT Zelalem Ziegler MD LABORATORY Final Result [facility] [address] [place] [address], [place] [phone] * (ABNORMAL) CBC W/DIFF AUTOMATED (02/20/2024 12:18 PM CDT) [facility] WBC 5.11 4.5 - 11.0 x10'3/uL 02/20/2024 1:01 PM CDT [facility] RBC 4.62 4.20 - 5.40 x10'6/uL 02/20/2024 1:01 PM CDT [facility] HGB 12.0 12.0 - 16.0 G/DL 02/20/2024 1:01 PM CDT [facility] HCT 36.8(L) 38.0 - 48.0 % 02/20/2024 1:01 PM CDT [facility] MCV 79.7(L) 81.0 - 99.0 FL 02/20/2024 1:01 PM CDT [facility] MCH 26.0(L) 27.0 - 31.0 PG 02/20/2024 1:01 PM CDT [facility] MCHC 32.6 32.0 - 36.0 G/DL 02/20/2024 1:01 PM CDT [facility] RDW 13.6 11.5 - 14.5 % 02/20/2024 1:01 PM CDT [facility] PLT 65(L) 130 - 400 x10'3/uL 02/20/2024 1:01 PM CDT [facility] MPV 12.1 9.3 - 12.2 FL 02/20/2024 1:01 PM CDT [facility] DIFFERENTIAL TYPE AUTOMATED DIFFERENTIAL 02/20/2024 1:01 PM CDT [facility] NEUTROPHILS % 58.1 % 02/20/2024 1:01 PM CDT [facility] LYMPHOCYTES % 32.9 % 02/20/2024 1:01 PM CDT [facility] MONOCYTES % 7.0 % 02/20/2024 1:01 PM CDT [facility] EOSINOPHILS 1.2 % 02/20/2024 1:01 PM CDT [facility] BASOPHILS 0.4 % 02/20/2024 1:01 PM CDT [facility] IMMATURE GRANS % 0.4 % 02/20/20 1:01 PM CDT [facility] ABS. NEUTROPHILS 2.97 1.80 - 7.70 x10'3/uL 02/20/2024 1:01 PM CDT [facility] ABS. LYMPHOCYTES 1.68 1.00 - 4.80 x10'3/uL 02/20/2024 1:01 PM CDT [facility] ABS. MONOCYTES 0.36 0.24 - 0.86 x10'3/uL 02/20/2024 1:01 PM CDT [facility] ABS. EOSINOPHILS 0.06 0.04 - 0.36 x10'3/uL 02/20/2024 1:01 PM CDT [facility] ABS. BASOPHILS 0.02 0.01 - 0.08 x10'3/uL 02/20/2024 1:01 PM CDT [facility] ABS. IMMATURE GRANULOCYTES 0.02 0.00 - 0.49 x10'3/uL 02/20/2024 1:01 PM CDT [facility] RBC MORPHOLOGY RBC MORPHOLOGY APPEARS NORMAL. SLIDE REVIEWED. 02/20/2024 1:01 PM CDT [facility] PLT EST. DECREASED 02/20/2024 1:01 PM CDT [facility] 02/20/2024 12:1 8 PM CDT us Zelalem Ziegler MD LABORATORY Final Result [facility] [address] [place] [address], documented in this encounter Visit Diagnoses Diagnosis Varicose veins of lower extremity with pain, right- Primary Abnormal coagulation profile documented in this encounter Care Teams Breast Splitter Relationship Specialty Start Date End Date Kristina Elias MD [address] [place] [address] PCP - General FAMILY PRACTICE 12/21/21 Prudence Reis MD CARDIOVASCULAR DISEASE 04/15/20 documented as of this encounter
--- OUTSIDE RECORDS SUMMARY | 2025-02-11 18:06 | XMS_ITS | Clinical Summary ---
Author Organization [facility] Lili Byrd Address [address] [place] [address] Care Team Providers Care Cherry Dipper Name Role Phone Kristina Elias MD Primary Care Provider [phone] Allergies Active Allergy Reactions Criticality Noted Date [...] Encounters Date Type Department Care Team Description 01/22/2025 External Device Data [facility] ABSTRACTION Provider, Abstract 01/17/2025 External Device Data [facility] ABSTRACTION Provider, Abstract 01/16/2025 External Device Data [facility] ABSTRACTION Provider, Abstract 01/15/2025 External Device Data [facility] ABSTRACTION Provider, Abstract 11/14/2024 External Device Data ST[facility] ABSTRACTION Provider, [...] Comments Blood Pressure 124/77 10/26/2024 8:34 AM PHOTOGRAPHS CURATOR Pulse 81 10/26/2024 8:34 AM PHOTOGRAPHS CURATOR Temperature 36.2 C (97.2 F) 10/26/2024 8:34 AM PHOTOGRAPHS CURATOR Respiratory Rate 15 10/26/2024 8:34 AM PHOTOGRAPHS CURATOR Oxygen Saturation 98% 10/26/2024 8:34 AM PHOTOGRAPHS CURATOR Inhaled Oxygen Concentration - - Weight 74.8 kg (164 lb 12.8 oz) 10/26/2024 8:34 AM PHOTOGRAPHS CURATOR Height 157.5 cm (5' 2) 03/16/2022 11:2 2 AM CDT Body Mass Index 30.14 03/16/2022 11:22 AM CDT Plan of Treatment Upcoming Encounters Date Type Department Care Team (Late st Contact Info) Description 02/25/2025 1:15 PM CDT Office Visit [facility] Oncology and Hematology - [place] [address] [place] [address] Walter Brothers MD [address] [facility] [facility] [address] [place] [address] Health Maintenance Due Date Last [...] VACCINE 50+ YEARS Completed 06/25/2020 , 06/04/2019 Insurance [place], [place] [id number] [place] [address] [facility] [place] [address] Care Teams Cherry Dipper Relationship Specialty Start Date End Date Kristina Elias MD [address] [place] [address] PCP - General Family Practice 06/11/21
--- OUTSIDE RECORDS SUMMARY | 2025-02-11 18:06 | XMS_ITS | Data Portability ---
Author Organization [facility] VICTOR MMargarita [facility] Address [address] [place] [address] Care Team Providers Care Prints And Drawings Curator Name Role Phone ORAL, HELENA Blast Furnace Operator Unavailable Assessment Encounter Date Assessment Date Assessment [...] DO Not Attach Compendium, Do Not Delete/merge, [id number] 8 17:43:21 pap, LB + HPV mRNA E6/E7 + reflex HPV (16+18+45 ) 2013 014 [email or web address] [facility], [address] [place] [address], [address], [place], [address], 5 12:38:54 Referral None recorded. Procedures None recorded. Surgeries None recorded. Imaging MAMMO, screening , bilateral 2017 018 RAMIRO [facility], [address], [address], [place], [address], 8 11:50:11 MAMMO, screening , bilateral 2015 016 [id number] [id number] [facility], [address], [address] [address], [place], [address], 6 04:31:01 mammogram , screening 2013 014 [email or web address] Not available 5 12:38:54 Medication Orders Osphena 60 mg tablet [address], [address] [place] [address], [address], 8 14:59:01 Estrace 0.01% (0.1 mg/gram) vaginal cream [address], [address] [place] [address], [address], 8 14:58:25 calcium 600 mg (as carbonate )-vitamin D3 20 mcg (800 unit) tablet [address], [address] [place] [address], [address], 8 14:57:53 multivita min tablet [address], [address] [place] [address], [address], 8 14:58:54 Estrace 0.5 mg tablet [address], [address] [place] [address], [address], 8 14:58:29 Estrace 0.01% (0.1 mg/gram) vaginal cream 2013 014 [address], [address] [place] [address], [address], 8 14:58:25 Linzess 145 mcg capsule 2013 014 [email or web address] [facility] #3746, [address] [place], [address], 8 14:58:46 Patient TargetsNo targets recorded. Patient Instructions Encounter Date Encounter Id Patient Instructions Last Modified By Organization Details Last Modified Time 06/30/2016 [id number] mammogram: about this test [email or web address] Not available 06/30/2016 16:27:19 learning about breast cancer screening [email or web address] Not available 06/30/2016 16:05:56 07/12/2018 [id number] mammogram: about this test [email or web address] Not available 07/12/2018 15:23:21 Reason for Referral None Reported. Results Created Date Observation Date Name Description Value Unit Range Abnormal Flag Note LastModifiedBy Organization Detail LastModifiedTime 07/12/20 18 07/12/2018 urina lysis , dipst ick Leukocytes Negati ve Not Available In-Office Order Internal Use Only DO Not Attach Compendium DO Not Attach Compendium, Do Not Delete/merge, [id number] 07/12/2018 15:09:56 07/12/20 18 07/12/2018 urina lysis , dipst ick Nitrite negati ve Not Available In-Office Order Internal Use Only DO Not Attach Compendium DO Not Attach Compendium, Do Not Delete/merge, [id number] 07/12/2018 15:09:56 07/12/20 18 07/12/2018 urina lysis , dipst ick Urobilinogen .2 Not Available In-Of fice Order Internal Use Only DO Not Attach Compendium DO Not Attach Compendium, Do Not Delete/merge, [id number] 07/12/2018 15:09:56 07/12/20 18 07/12/2018 urina lysis , dipst ick Protein Negati ve Not Available In-Office Order Internal Use Only DO Not Attach Compendium DO Not Attach Compendium, Do Not Delete/merge, [id number] 07/12/2018 15:09:56 07/12/20 18 07/12/2018 urina lysis , dipst ick pH 7.0 Not Available In-Office Order Internal Use Only DO Not Attach Compendium DO Not Attach Compendium, Do Not Delete/merge, [id number] 07/12/2018 15:09:56 07/12/20 18 07/12/2018 urina lysis , dipst ick Blood Non-He molyze d: Trace Not Available In-Office Order Internal Use Only DO Not Attach Compendium DO Not Attach Compendium, Do Not Delete/merge, [id number] 07/12/2018 15:09:56 07/12/20 18 07/12/2018 urina lysis , dipst ick Specific [place] 1.010 Not Available In-Off ice Order Internal Use Only DO Not Attach Compendium DO Not Attach Compendium, Do Not Delete/merge, [id number] 07/12/2018 15:09:56 07/12/20 18 07/12/2018 urina lysis , dipst ick Ketone Negati ve Not Available In-Office Order Internal Use Only DO Not Attach Compendium DO Not Attach Compendium, Do Not Delete/merge, [id number] 07/12/2018 15:09:56 07/12/20 18 07/12/2018 urina lysis , dipst ick Bilirubin Negati ve Not Available In-Office Order Internal Use Only DO Not Attach Compendium DO Not Attach Compendium, Do Not Delete/merge, [id number] 07/12/2018 15:09:56 07/12/20 18 07/12/2018 urina lysis , dipst ick Glucose Negati ve Not Available In-Office Order Internal Use Only DO Not Attach Compendium DO Not Attach Compendium, Do Not Delete/merge, [id number] 07/12/2018 15:09:56 08/19/20 14 08/15/2014 lylai christofer/riki hartmann t No observ ation record ed. [email or web address] Not Available 09/05 15:45:59 07/19/20 16 07/19/2016 mamssofia w PT NAME: WILLIAM GALLARDO : 1949 PT SEX/AG E: / PT ACCT NUMBER : [id number] PT MR#: [id number] ROOM/B ED: PT STATUS : REG CLI DATE OF EXAMIN ATION: ORDERI NG PHYSIC CHANTE: HELENA MCDANIEL MAN M.D. ATTEND ING PHYSIC CHANTE: HELENA MCDANIEL MAN , M.D. DICTAT ING PHYSIC CHANTE: Live HANNA M.D. 018 [id number] 3.001M IX 13:34: 00 61.007 2MVMAM ([facility]) : JAMEY SCREEN KERA W/CAD INDICA TION: [...] ed, dictat ed and finali zed at [facility] on A. __ Electr onical ly signed by: SHERRIE HANNA Date: Time: 14:14 SHERRIE HANNA M.D.__ ___ [facility] [employer] [address] [facility] [address] [place] [address] [facility] (Imaging) [address], [place], [address], 07/19/2016 15:17:29 07/19/20 16 07/19/2016 MAMMO , scree serjio, bilat eral No observ ation record ed. [facility] [address], [place], [address], 07/19/2016 16:42:23 07/12/20 18 04/29/2018 CT, abdom [...] ed. RAMIRO [facility] [address], [place], [address], 08/10/2018 12:42:16 Result Notes None recorded. Problems Name Problem SNOMED Code Status Onset Date Resolution Date Notes Provider Name and Address Organization Details Recorded Time Menopausal syndrome [id number] Active Helena jiménez [place] Ladonna [facility] 4 11:23:52 Problem Notes None recorded. Procedures Surgical History Date Name Laterality Status Provider Name and Address Organization Details Recorded Time 06/16/20 18 lithotomy completed Roxi Bob [place] [facility] 07/12/2018 15:00:50 07/19/20 16 Most Recent Mammogram completed Roxi Bob MA [facility] 07/12/2018 15:01:41 07/31/20 14 Date of Last Pap Smear completed Ciara Mabry MA [facility] 06/30/2016 15:07:28 08/29/18 91 Laparoscopy completed CESAR Null [facility] 07/31/2014 10:46:09 08/29/18 82 Appendectomy completed Yin Bazzi [place] Lad[place] [facility] 07/31/2014 10:46:09 04/07/19 79 Tubal Ligation completed CESAR Garcia [facility] 06/30/2016 15:08:33 04/07/19 79 Caesarean Section completed CESAR Garcia [facility] 06/30/2016 15:06:53 09/05/18 76 Caesarean Section completed CESAR Garcia [facility] 06/30/2016 15:07:08 09/12/18 72 Caesarean Section completed CESAR Garcia [facility] 06/30/2016 15:07:16 lithotripsy completed Roxi Bob [place] Lad[place] [facility] 07/12/2018 15:00:39 Imaging Results None recorded. Procedure Notes None recorded. Medical Equipment None Reported. Allergies Allergen ID Allergen Name Allergen Category Reaction Reaction Severity Criticality Documentation Date Start Date Code Code System Note Provider Name and Address Organization Details Recorded Time 4877 Non-stero idal anti-infl ammatory agent (product) medicatio n other severe Not available 07/31/2014 17708 005 SNOMED cause s gastr itis Yin CESAR Bazzi [place], [place] - [facility] 4 10:42:42 Medications [...] Not Available Not Available Not Available Afluria 8770-0560(PF ) 45 mcg (15 mcg x 3)/0.5 mL intramuscula r syringe active Not Available Not Available No t Available Fluzone High-Dose 2429-7827 (PF) 180 mcg/0.5 mL intramuscula r syringe 07/12 completed Not Available Not Available Not Available Vitals Date Recorded Body height Body weight Body mass index (BMI) Systolic blood pressure Diastolic blood pressure Provider Name and Address Organization Details Last Updated DateTime 06/30/2016 157.48 cm 60223.59 g 33.8 kg/m2 152 mm[Hg] 90 mm[Hg] Ciara Mabry MA [facility] 6 15:02:18 Date Recorded Body height Body mass index (BMI) Body weight Systolic blood pressure Diastolic blood pressure Provider Name and Address Organization Details Last Updated DateTime 07/12/2018 157.48 cm 32.6 kg/m2 87562.44 g 172 mm[Hg] 94 mm[Hg] Roxi Bob MA [facility] 8 15:04:46 Social History Question Answer Notes LastModified by Organizat ion Details LastModified Time Tobacco Smoking Status Former Smoker quit 1991 Yin Bazzi MA [facility], [facility] 07/31/2014 10:50:46 Do You Have An Advance [...] SNOMED-CT Code Diagnosis ICD10 Code Diagnosis Note [id number] Helena Fair MD [facility] ([facility] [employer]) [address] [place] [address] 07/31/2014 10:09:36 07/31/2014 12:11:49 Gynecologic examination [id number] Menopausal syndrome [id number] Helena Fair MD [facility] ([facility] [employer] [facility]) [address] [place] [address] 06/30/2016 14:18:34 07/01/2016 09:46:16 Screening mammography 59507432 Z12.31 Menopausal syndrome 1237 87494 N95.9 Screening for malignant neoplasm of breast 251403237 Z12.31 [id number] [facility] [address] [place] [address] 07/12/2018 14:09:39 07/14/2018 13:36:30 Screening mammography 67049913 Z12.31 Health Concerns Section Related Observation LastModified by Organization Detai ls LastModified Time None Recorded Concern Status LastModified by Organization Details LastModified Time None Recorded Advance Directives Directive N: Payers Insurance Date Sequence Insurance Name Policy Number Policy Jefferson Covered Member ID Jefferson Member ID Guarantor Name 07/27/2018 2 [facility] [facility] (PP[place]) 106 Joseph Gallardo [id number] Joanna Gallardo 07/09/2018 [place] FQHC Joanna Gallardo [id number] Joanna Gallardo 07/27/2018 1 [place] Joanna Khalida Gallardo [id number] Joanna Gallardo Notes Date Note Type Note Provider Name and Address Organization Details Recorded Time 06/30/2016 text/html Annual Ambulance Paramedic Post-MenopausalReporte d bypatient.Menopausal Symptoms:normal vaginal lubrication;hot flashes [...] abnormalities noted. Last mammogram 2 years ago. Helena jiménez [place] - [facility] 06/30/2016 18:21:51 07/12/2018 text/html Breast ProblemsReported bypatient.Quality:asym [...] skin 68 postmenopausal female here for CBE. Helena Fair [facility], [place] - SI 07/12/2018 17:43:52 OBGyn Episode Ob Episode Information Episode Created Date Number of Fetuses Patient Bloodtype Patient rh Status Prepregnancy Weight lbs Domestic Partner Domestic Partner Phone Father Name Laborer [employer] Status 07/31/20 14 1 CLOSED Fetus Data [...] Domestic Partner Domestic Partner Phone Father Name Laborer [employer] Status 07/31/20 14 1 CLOSED Fetus Data [...] Domestic Partner Domestic Partner Phone Father Name Laborer [employer] Status 07/31/20 14 1 CLOSED Fetus Data [...]
--- OUTSIDE RECORDS SUMMARY | 2025-02-11 18:06 | XMS_ITS | Encounter Summary ---
Author Organization [facility] Address [address] [place] [address] Care Team Providers Care Mainspring Former Arbor End Name Role Phone Prudence Reis MD Unavailable Unavailable Kristina Elias MD Primary Care Provider [phone] Encounter Details Date Type Department Care Team (Late st Contact Info) Description 12/02/2023 Prep for Procedure [facility], [facility] [address] [place], [place] [address] Zelalem Ziegler MD [facility]. [facility] [address] [place], [place] [id number] Social History Tobacco Use Types Packs/Day Years [...] 11.0 x10'3/uL 01/09/2024 8:58 AM CDT [facility] RBC 2.59(L) 4.20 - 5.40 x10'6/uL 01/09/2024 8:58 AM CDT [facility] HGB 6.7(LL) 12.0 - 16.0 G/DL 01/09/2024 8:58 AM CDT [facility] Comment: This result has been called to SOL HIGHTOWER by [id number] on 01/09/2024 08:58:40, and has been read back. HCT 21.7(L) 38.0 - 48.0 % 01/09/2024 8:58 AM CDT [facility] MCV 83.8 81.0 - 99.0 FL 01/09/2024 8:58 AM CDT [facility] MCH 25.9(L) 27.0 - 31.0 PG 01/09/2024 8:58 AM CDT [facility] MCHC 30.9(L) 32.0 - 36.0 G/DL 01/09/2024 8:58 AM CDT [facility] RDW 13.3 11.5 - 14.5 % 01/09/2024 8:58 AM CDT [facility] PLT 85(L) 130 - 400 x10'3/uL 01/09/2024 8:58 AM CDT [facility] MPV 8.8(L) 9.3 - 12.2 FL 01/09/2024 8:58 AM T [facility] DIFFERENTIAL TYPE AUTOMATED DIFFERENTIAL 01/09/2024 9:00 AM CDT [facility] NEUTROPHILS % 41.1 % 01/09/2024 9:00 AM T [facility] LYMPHOCYTES % 48.0 % 01/09/2024 9:00 AM T [facility] MONOCYTES % 7.4 % 01/09/2024 9:00 AM CDT [facility] EOSINOPHILS 0.8 % 01/09/2024 9:00 AM CDT [facility] BASOPHILS 0.3 % 01/09/2024 9:00 AM CDT [facility] IMMATURE GRANS % 2.4 % 01/09/20 9:00 AM CDT [facility] ABS. NEUTROPHILS 1.55(L) 1.80 - 7.70 x10'3/uL 01/09/2024 9:00 AM CDT [facility] ABS. LYMPHOCYTES 1.81 1.00 - 4.80 x10'3/uL 01/09/2024 9:00 AM CDT [facility] ABS. MONOCYTES 0.28 0.24 - 0.86 x10'3/uL 01/09/2024 9:00 AM CDT [facility] ABS. EOSINOPHILS 0.03(L) 0.04 - 0.36 x10'3/uL 01/09/2024 9:00 AM CDT [facility] ABS. BASOPHILS 0.01 0.01 - 0.08 x10'3/uL 01/09/2024 9:00 AM CDT [facility] ABS. IMMATURE GRANULOCYTES 0.09 0.00 - 0.49 x10'3/uL 01/09/2024 9:00 AM CDT [facility] RBC MORPHOLOGY SLIDE REVIEWED 2023 9:00 AM CDT [facility] CAREY 3+ 01/09/2024 9:00 AM CDT [facility] PLT EST. DECREASED 01/09/2024 9:00 AM CDT [facility] 01/09/2024 8:05 AM CDT us Zelalem Ziegler MD LABORATORY Final Result [facility] [address] [place] [address], [place] [phone] * (ABNORMAL) COMPREHENSIVE METABOLIC PANEL (01/09/2024 7:55 AM CDT) [facility] GLUCOSE 83 70 - 99 MG/DL 01/09/2024 8:50 AM CDT [facility] BUN 17 7 - 18 MG/DL 01/09/2024 8:50 AM CDT [facility] CREATININE S/P/B 1.01 0.55 - 1.02 MG/DL 01/09/2024 8:50 AM CDT [facility] SODIUM S/P/B 140 136 - 145 MMOL/L 01/09/2024 8:50 AM CDT [facility] POTASSIUM S/P/B 3.9 3.5 - 5.1 MMOL/L 01/09/2024 8:50 AM CDT [facility] CHLORIDE S/P/B 112(H) 100 - 108 MMOL/L 01/09/2024 8:50 AM CDT [facility] CO2 22.5 21 - 32 MMOL/L 01/09/2024 8:50 AM CDT [facility] CALCIUM S/P/B 9.1 8.5 - 10.1 MG/DL 01/09/2024 8:50 AM CDT [facility] BILIRUBIN TOTAL S/P/B 0.5 0.2 - 1.2 MG/DL 01/09/2024 8:50 AM CDT [facility] Comment: THIS ASSAY IS NOT RECOMMENDED FOR PATIENTS UNDERGOING TREATMENT WITH ELTROMBOPAG DUE TO THE POTENTIAL FOR FALSELY ELEVATED RESULTS. TOTAL PROTEIN S/P/B 5.9(L) 6.4 - 8.2 G/DL 01/09/2024 8:50 AM CDT [facility] ALBUMIN S/P/B 3.3(L) 3.4 - 5.0 G/DL 01/09/2024 8:50 AM CDT [facility] AST 9(L) 15 - 37 U/L 01/09/2024 8:50 AM CDT [facility] ALT 14 14 - 55 U/L 01/09/2024 8:50 AM CDT [facility] ALKALINE PHOSPHATASE S/P/B 74 50 - 136 U/L 01/09/2024 8:50 AM CDT [facility] ANION GAP 5.5 5 - 15 MMOL/L 01/09/2024 8:50 AM CDT [facility] BUN CREATININE RATIO 16.8 6 - 26 01/09/2024 8:50 AM CDT [facility] A/G RATIO 1.3 1.0 - 2.0 RATIO 01/09/2024 8:50 AM T [facility] GFR ESTIMATE 59(L) >90 ML/MIN/1.7 3 M2 01/09/2024 8:50 AM CDT [facility] Comment: NOTE: eGFR is not calculated for patients <18 years of age. This is an estimated GFR calculation using the new CKD EPI creatinine equation without race and so does not require a correction factor for race. This estimated GFR should not be used for calculating drug doses. 01/09/2024 7:55 AM CDT Zelalem Ziegler MD LABORATORY Final Result [facility] [address] [place] [address], [place] [phone] * PROTIME/INR, VENOUS (01/09/2024 7:55 AM CDT) PROTIME 10.2 10.2 - 12.9 SEC 01/09/2024 8:40 AM CDT [facility] INR 0.9 01/09/2024 8:40 AM CDT [facility] Comment: Recommended INR Therapeutic Goals: 2.0-3.0 Routine Therapy 2.5-3.5 Mechanical Prosthetic Valves (High Risk) 01/09/2024 7:55 AM CDT Zelalem Ziegler MD LABORATORY Final Result [facility] [address] [place] [address], [place] [phone] documented in this encounter Visit Diagnoses Diagnosis Varicose veins of lower extremity with pain, right- Primary Hyperlipidemia Other and unspecified hyperlipidemia Hypertension Unspecified essential hypertension Disease of the lung and heart (CMS/HCC [facility]/HCC) Chronic pulmonary heart disease, unspecified documented in this encounter Care Teams Mainspring Former Arbor End Relationship Specialty Start Date End Date Kristina Elias MD [address] [place] [address] PCP - General FAMILY PRACTICE 12/21/21 Prudence Reis MD CARDIOVASCULAR DISEASE 04/15/20 documented as of this encounter
[2025-02-11 18:12] VITALS: BP 145/65; PULSE 72; RESP 18; TEMP 36.6; O2SAT 98
[2025-02-11 19:54] LABS: Basophils Percent Auto 0.2 % (0.2-1.2); Eosinophils Absolute Auto 0.1 K/mm3 (0-0.3); Eosinophils Percent Auto 1.7 % (0-4.4); Hematocrit 35.5 % (37.0-47.0); Hemoglobin 11.3 g/dL (12.0-15.0); Immature Granulocyte Absolute 0.01 K/mm3 (0.00-0.031); Immature Granulocyte Percent A 0.2 % (0-0.5); Immature Platelet Fraction Pct 3.5 % (0.9-11.2); Lymphocytes Absolute Auto 1.14 K/mm3 (0.9-3.2); Lymphocytes Percent Auto 28.3 % (18.3-44.2); Mean Corpuscular HGB Conc 31.8 g/dl (32-36); Mean Corpuscular Hemoglobin 25.8 pg (26-34); Mean Corpuscular Volume 81.1 fl (80-100); Mean Platelet Volume 9.7 fl (7.4-10.4); Monocytes Absolute Auto 0.3 K/mm3 (0.1-0.6); Monocytes Percent Auto 7.2 % (2.6-8.5); Neutrophils Absolute Auto 2.5 K/mm3 (1.3-6.7); Neutrophils Percent Auto 62.4 % (45.5-73.1); Platelet Count Result 67 k/mm3 (150-375); Red Blood Count 4.38 M/mm3 (4.2-5.4); Red Cell Distribution Width 14.3 % (11.5-14.5)
[2025-02-11 20:00] LABS: Alanine Aminotransferase 11 U/L (6-35); Albumin Level 4.1 g/dL (3.5-5.1); Alkaline Phosphatase 77 U/L (38-126); Anion Gap 7 mmol/L (4-12); Aspartate Amino Transferase 22 U/L (14-36); Bilirubin,Total 0.6 mg/dL (0.2-1.3); Blood Urea Nitrogen 13 mg/dL (7-17); Carbon Dioxide 24 mmol/L (22-30); Chloride 104 mmol/L (98-107); Estimated CRCL calculation 46 ml/min; Estimated Glomerular Filt Rate > 60; Glucose 98 mg/dL (65-110); Lipase 35 U/L (23-300); Sodium 135 mmol/L (137-145); Total Protein 6.2 g/dL (6.3-8.2)
[2025-02-11 20:05] LABS: Add Urine Microscopic? YES; Appearance Urine Clear (Clear); Bacteria Urine None Seen /hpf; Bilirubin Urine Negative (Negative); Blood Urine Negative (Negative); Color Urine Yellow (Yellow); Glucose Urine UA Negative (Negative); Ketones Urine Negative (Negative); Leukocyte Esterase Ur 1+ LEU/UL (Negative); Nitrate Urine Negative (Negative); Non Pathogenic Casts 0-2; Protein Urine Negative (Negative); RBC Urine 0-2 /hpf (0-2); Specific Grav Ur 1.008 (1.001-1.035); Squamous Epithelial Cell Urine None Seen /hpf (Few); pH Urine 5.5 (5.0-9.0)
[2025-02-11 20:15] LABS: Platelet Estimate Decreased (Adequate)
[2025-02-11 20:16] LABS: Hypochromasia 1+
[2025-02-11 20:17] LABS: Anisocytosis 1+; Band Neutrophils Percent 0 % (0-6); Platelet Clumps Present; Schistocytes None Seen
--- OUTSIDE RECORDS SUMMARY | 2025-02-11 20:17 | XMS_ITS | Clinical Summary ---
Author Organization [facility] [address] Address [address] [place] [address] Care Team Providers Care Kaiawhina Kohanga Reo Name Role Phone Kristina Elias MD Primary Care Provider [phone] Allergies Active Allergy Reactions Criticality Noted Date [...] on file Legal Sex Female 8:03 PM NETWORKING TECHNICIAN Gender Identity Not on file Sexual Orientation Not on file Obstetrics History Last Filed Vital Signs Vital Sign Reading Time Taken Comments Blood Pressure 124/62 09/27/2024 2:11 PM NETWORKING TECHNICIAN Pulse 80 09/27/2024 2:11 PM NETWORKING TECHNICIAN Temperature - - Respiratory Rate - - Oxygen Saturation 98% 09/27/2024 2:11 PM NETWORKING TECHNICIAN Inhaled Oxygen Concentration - - Weight 74.4 kg (164 lb) 09/27/2024 2:11 PM NETWORKING TECHNICIAN Height 157.5 cm (5' 2) 09/27/2024 2:11 PM NETWORKING TECHNICIAN Body Mass Index 30 09/27/2024 2:11 PM NETWORKING TECHNICIAN Plan of Treatment Health Maintenance Due Date [...] vaccine 65+ Completed 06/25/2020, 02/2019 [facility]AD [facility] Member Subscriber Plan / Payer (Ef fective 2015-Present) Name:Joanna Jeffery Nasrin Relation to Subscriber:Spouse Name:YRN JEFFERY JR Date of :1950 Address: [facility] [place] [address] Payer ID:[id number] (NAIC) Group ID:[id number] Type:[employer] Address: [address] [place] [address] Care Teams Kaiawhina Kohanga Reo Relationship Specialty Start Date End Date Kristina Elias MD PCP - General Family Medicine 08/12/21
--- OUTSIDE RECORDS SUMMARY | 2025-02-11 20:17 | XMS_ITS | Clinical Summary ---
Author Organization [facility] Lili Byrd Address [address] [place] [address] Care Team Providers Care Field Care Advocate Name Role Phone Kristina Elias MD Primary Care Provider [phone] Allergies Active Allergy Reactions Criticality Noted Date [...] Comments Blood Pressure 124/77 10/26/2024 8:34 AM NET LEAD DEVELOPER Pulse 81 10/26/2024 8:34 AM NET LEAD DEVELOPER Temperature 36.2 C (97.2 F) 10/26/2024 8:34 AM NET LEAD DEVELOPER Respiratory Rate 15 10/26/2024 8:34 AM NET LEAD DEVELOPER Oxygen Saturation 98% 10/26/2024 8:34 AM NET LEAD DEVELOPER Inhaled Oxygen Concentration - - Weight 74.8 kg (164 lb 12.8 oz) 10/26/2024 8:34 AM NET LEAD DEVELOPER Height 157.5 cm (5' 2) 03/16/2022 11:2 2 AM CDT Body Mass Index 30.14 03/16/2022 11:22 AM CDT Plan of Treatment Upcoming Encounters Date Type Department Care Team (Late st Contact Info) Description 02/25/2025 1:15 PM CDT Office Visit [facility] Oncology and Hematology - [place] [address] [place] [address] Walter Brothers MD [address] [facility] [address] [place] [address] Health Maintenance Due Date Last [...] 50+ YEARS Completed 06/25/2020 , 06/04/2019 [place] [id number] [place] [address] [facility] MEDICARE RAILROAD Care Teams Field Care Advocate Relationship Specialty Start Date End Date Kristina Elias MD [address] [place] [address] PCP - General Family Practice 06/11/21
--- OUTSIDE RECORDS SUMMARY | 2025-02-11 20:17 | XMS_ITS | Referral Summary ---
Author Organization [facility] [address] Address [address] [place] [address] Care Team Providers Care Marine Steam Fitter Helper Name Role Phone Kristina Elias MD Primary Care Provider [phone] Allergies Active Allergy Reactions Criticality Noted Date [...] on file Legal Sex Female 8:03 PM MOBILITY MANAGER Gender Identity Not on file Sexual Orientation Not on file Last Filed Vital Signs Vital Sign Reading Time Taken Comments Blood Pressure 124/62 09/27/2024 2:11 PM MOBILITY MANAGER Pulse 80 09/27/2024 2:11 PM MOBILITY MANAGER Temperature - - Respiratory Rate - - Oxygen Saturation 98% 09/27/2024 2:11 PM MOBILITY MANAGER Inhaled Oxygen Concentration - - Weight 74.4 kg (164 lb) 09/27/2024 2:11 PM MOBILITY MANAGER Height 157.5 cm (5' 2) 09/27/2024 2:11 PM MOBILITY MANAGER Body Mass Index 30 09/27/2024 2:11 PM MOBILITY MANAGER Plan of Treatment Not on file [place] [address] MEDICARE RAILROAD [facility] [employer] Member Subscriber Plan / Payer (Ef fective 2015-Present) Name:Joanna Gallardo Relation to Subscriber:Spouse Name:JOSE D VERDUGOLISA Date of :1950 Address: [address] [place] [address] [place] [address] Payer ID:[id number] (NAIC) Group ID:[id number] Type:[facility] Address: [address] [place] [address] Care Teams Marine Steam Fitter Helper Relationship Specialty Start Date End Date Kristina Elias MD PCP - General Family Medicine 08/12/21
--- NOTE | 2025-02-11 21:47 | ED_ITS ---
HPI - Abdominal Pain General Chief Complaint: Abdominal Pain Stated Complaint: abd pain Time Seen by Provider: 02/11/25 19:45 History of Present Illness HPI narrative: Patient presenting here with suprapubic abdominal discomfort that started earlier today, no nausea vomiting, has been having normal bowel movements. Did take some extra bran per her doctor's advice for her inconsistent BMs. No fevers or chills. Related Data Home Medications ?Medication ?Instructions ?Recorded ?Confirmed ?Last Taken ?Type rosuvastatin 20 mg tablet 20 mg PO DAILY 09/12/20 02/08/25 05/02/23 History ferrous sulfate 325 mg (65 mg 325 mg PO DAILY 07/08/21 02/08/25 05/02/23 History iron) tablet vitamin B12 500 mcg-folic acid 400 1 tablet PO DAILY 12/04/21 02/08/25 05/02/23 History mcg tablet cholecalciferol (vitamin D3) 25 50 mcg PO DAILY 06/07/23 02/08/25 Unknown History mcg (1,000 unit) capsule losartan 25 mg tablet 25 mg PO DAILY 10/04/23 02/08/25 Unknown History Allergies Allergy/AdvReac Type Severity Reaction Status Date / Time doxycycline AdvReac Intermediate Vomiting Verified 02/08/25 13:04 NSAIDS (Non-Steroidal AdvReac Intermediate BLOATING/ABD. Verified 02/08/25 13:04 Anti-Inflamma PAIN cefaclor (From Ceclor) AdvReac Mild Nausea and Verified 02/08/25 13:04 Vomiting clavulanic acid (From AdvReac Mild Nausea and Verified 02/08/25 13:04 Augmentin) Vomiting sulfamethoxazole (From AdvReac Mild Nausea and Verified 02/08/25 13:04 Septra) Vomiting trimethoprim (From Septra) AdvReac Mild Nausea and Verified 02/08/25 13:04 Vomiting Review of Systems 2 Review of Systems: All systems reviewed & are unremarkable except as noted in HPI and below PMFSH Past Medical History Medical History Left knee DJD Bilateral sacroiliitis Belching GERD (gastroesophageal reflux disease) Hepatic steatosis Cervical spondylosis Cervicalgia Pain in thoracic spine Other spondylosis, thoracolumbar region Trochanteric bursitis of right hip Claustrophobia Right knee pain Posterior left knee pain Insomnia Symptomatic varicose veins of both lower extremities Thrombocytopenia Chronic renal insufficiency, stage III (moderate) Greater trochanteric bursitis of left hip Dyspnea Arthritis Hyperlipidemia Hypertension Neuropathy Colitis Mild chronic obstructive pulmonary disease Surgical History Surgical History History of colon surgery H/O rotator cuff surgery H/O section Family History Family History Father Heart attack Mother Cerebrovascular accident Sibling Heart attack COPD (chronic obstructive pulmonary disease) Arthritis Son Cerebrovascular accident Other HLD (hyperlipidemia) Hypertension Social History Social History Smoking packs per day: 1 Smoking cigarettes per day: 20.0 Years smoked: 18 Smoking pack-years: 18.00 Smoking status: Former smoker Tobacco type: cigarettes Second hand tobacco smoke exposure: Yes Smoking end date: 08/29/91 Additional smoking assessment comments: quit in 1991 Alcohol intake: current Alcohol use details: Socially Substance use: never Substance use type: does not use Do You Feel Safe in your Home?: Yes Lack of Transportation: No Lack of Food: Never True Current Housing: I Have Housing Concerned About Future Housing: No Difficulty Paying Gas/Electric Bills: No Difficulty Paying for Meds: No Currently Unemployed: No Education: High School Diploma/GED Difficulty w/ Childcare or Family Care: No Living arrangements: other Additional living arrangements comments: with sp Occupation/Education: retired Gender identity (if verbalized by the patient): Female Spiritual care concerns: No Exam 2 Narrative: EXAMINATION OF ORGAN SYSTEMS/BODY AREAS: Constitutional: Vital signs per nursing GENERAL:[No acute distress, non-toxic appearing.] HEAD: Normal with no signs of head trauma. EYES: EOMI, conjunctiva normal ENT: Hearing grossly intact LUNGS: Nonlabored breathing. HEART: [Regular rate and rhythm] ABD: [Soft], some surgical scar tissue lower abdomen, minimal tenderness suprapubic abdomen EXT: Normal range of motion SKIN: [No rashes or lesions.] NEURO: [Alert and oriented x 3. No gross focal sensory or strength deficits.] PSYCH: Normal affect Course Vital Signs Vital signs: Vital Signs Temperature 97.8 F 02/11/25 18:12 Pulse Rate 72 02/11/25 18:12 Respiratory Rate 18 02/11/25 18:12 Blood Pressure 145/65 H 02/11/25 18:12 Pulse Oximetry 98 02/11/25 18:12 Oxygen Delivery Room Air 02/11/25 18:12 Temperature 97.8 F 02/11/25 18:12 Pulse Rate 72 02/11/25 18:12 Respiratory Rate 18 02/11/25 18:12 Blood Pressure 145/65 H 02/11/25 18:12 Pulse Oximetry 98 02/11/25 18:12 Oxygen Delivery Room Air 02/11/25 18:12 MDM - Abdominal Pain MDM Narrative Medical decision making narrative: Electronic medical record was reviewed. Patient presented to the ED with complaint of suprapubic pain. Vitals [were within acceptable limits]. Physical exam revealed soft abdomen with some slight tenderness to the suprapubic abdomen. Based on the patient's history and physical exam, my differential includes but is not limited to [UTI, gastroenteritis, SBO she had an appendectomy]. [IV access was established by nursing staff]. CBC, BMP, lipase, LFTs, bilirubin and alk phos were obtained. Labs were pertinent for possible urinary tract infection. [Decision was made to obtain a CT-abdomen to evaluate for acute abdominal process. CT-abdomen per radiology interpretation is unremarkable for acute intra-abdominal process, no signs of hydronephrosis, cholecystitis, appendicitis.] She does have splenomegaly she had discussed with the patient and she already is aware of this and follows with hem-onc. On reevaluation, they are not complaining of any new abdominal pain. Repeat examination did not show any significant guarding or rebound. No new tenderness. At this time I do not feel there is any further emergent treatment to be provided. The patient was given strict return precautions, if they are to develop any worsening abdominal pain, vomiting, or blood in the vomit they are to return to the emergency department immediately. Patient verbally acknowledges understanding these directions. [The patient was informed of the above diagnostic test findings.] No further workup is necessary at this time. They will be discharged home [with prescriptions for Macrobid, 1 dose here]. They were advised to follow-up with [their PCP] in 2 days. The patient feels that this is appropriate medical decision making and verbalizes an understanding of the discharge instructions. Lab Data 02/11/25 19:34 02/11/25 19:34 Labs: Lab Results 02/11/25 02/11/25 Range/Units 19:34 19:52 WBC 4.0 L (4.5-10.0) K/mm3 RBC 4.38 (4.2-5.4) M/mm3 Hgb 11.3 L (12.0-15.0) g/dL Hct 35.5 L (37.0-47.0) % MCV 81.1 (80-100) fl MCH 25.8 L (26-34) pg MCHC 31.8 L (32-36) g/dl RDW 14.3 (11.5-14.5) % Plt Count 67 L (150-375) k/mm3 MPV 9.7 (7.4-10.4) fl Immature Gran % (Auto) 0.2 (0-0.5) % Neut % (Auto) 62.4 (45.5-73.1) % Lymph % (Auto) 28.3 (18.3-44.2) % [place] % (Auto) 7.2 (2.6-8.5) % Eos % (Auto) 1.7 (0-4.4) % Baso % (Auto) 0.2 (0.2-1.2) % Lymph # (Auto) 1.14 (0.9-3.2) K/mm3 [place] # (Auto) 0.3 (0.1-0.6) K/mm3 Eos # (Auto) 0.1 (0-0.3) K/mm3 Baso # (Auto) 0.0 (0.0-0.1) K/mm3 Abs Immat Gran (auto) 0.01 (0.00-0.031) K/mm3 Absolute Neuts (auto) 2.5 (1.3-6.7) K/mm3 Absolute Nucleated RBC 0.000 (0.0-0.012) K/mm3 Band Neutrophils % 0 (0-6) % Nucleated RBC % 0.0 (0.0-0.2) % Platelet Estimate Decreased (Adequate) Clumped Platelets Present % Immature Plt Fraction 3.5 (0.9-11.2) % Hypochromasia 1+ Anisocytosis 1+ Schistocytes None seen Sodium 135 L (137-145) mmol/L Potassium 4.0 (3.4-5.0) mmol/L Chloride 104 (98-107) mmol/L Carbon Dioxide 24 (22-30) mmol/L Anion Gap 7 (4-12) mmol/L BUN 13 (7-17) mg/dL Creatinine 0.89 (0.7-1.0) mg/dL Estim Creat Clear Calc 46 ml/min Estimated GFR > 60 (59 - ) Glucose 98 (65-110) mg/dL Calcium 9.0 (8.4-10.2) mg/dL Total Bilirubin 0.6 (0.2-1.3) mg/dL AST 22 (14-36) U/L ALT 11 (6-35) U/L Alkaline Phosphatase 77 (38-126) U/L Total Protein 6.2 L (6.3-8.2) g/dL Albumin 4.1 (3.5-5.1) g/dL Lipase 35 (23-300) U/L Urine Color Yellow (Yellow) Urine Appearance Clear (Clear) Urine pH 5.5 (5.0-9.0) Ur Specific [place] 1.008 (1.001-1.035) Urine Protein Negative (Negative) mg/dL Urine Glucose (UA) Negative (Negative) mg/dL Urine Ketones Negative (Negative) mg/dL Ur Blood (Man) Negative (Negative) Urine Nitrate Negative (Negative) Urine Bilirubin Negative (Negative) Urine Urobilinogen 1.0 (<2.0) mg/dL Leukocyte Esterase Rfl 1+ H (Negative) BETTY/UL Urine RBC 0-2 (0-2) /hpf Urine WBC 6-10 H (0-3) /hpf Ur Squamous Epith Cells None seen (Few) /hpf Urine Bacteria None seen /hpf Urine Casts 0-2 Imaging Data Radiologist's impression: ITS Impressions Abdomen/Pelvis CT 02/11/25 21:20 IMPRESSION: Splenomegaly. Fatty atrophy of the pancreas. Nonobstructing 5 mm left renal calculus. Discharge Plan Discharge Clinical Impression: Lower abdominal pain Patient Disposition: Home Condition: Stable Instructions: Antibiotic Form, Urinary Tract Infection in Women (ED), Abdominal Pain (ED) Additional Instructions: Please follow up with your doctor; take the antibiotics as prescribed and you can always return if your symptoms get worse or if you develop nausea/vomiting or fevers or anything else concerning. Patient Language: Grenadian Prescriptions: New nitrofurantoin monohyd/m-cryst [Macrobid] 100 mg capsule 100 mg PO Q12H 7 Days Qty: 14 0RF Rx Instructions: must administer with a meal/food acetaminophen [Tylenol Extra Strength] 500 mg tablet 1,000 mg PO Q6H PRN (Reason: pain) Qty: 50 0RF dicyclomine 20 mg tablet 20 mg PO TID PRN (Reason: abdominal pain) Qty: 30 0RF ondansetron 4 mg tablet,disintegrating 4 mg PO Q8H PRN (Reason: nausea and vomiting) Qty: 14 0RF No Action nystatin 100,000 unit/mL suspension 5 ml PO QID 14 Days Qty: 280 0RF Rx Instructions: swish and swallow vitamin [id number] acid 500-400 mcg tablet 1 tablet PO DAILY Rx Instructions: administer with a meal rosuvastatin 20 mg tablet 20 mg PO DAILY cholecalciferol (vitamin D3) 25 mcg (1,000 unit) capsule 50 mcg PO DAILY losartan 25 mg tablet 25 mg PO DAILY famotidine 40 mg tablet 40 mg PO DAILY Qty: 30 3RF ferrous sulfate 325 mg (65 mg iron) Tablet 325 mg PO DAILY trazodone 50 mg tablet 25 mg PO QHS PRN (Reason: insomnia) Qty: 90 2RF fluticasone propion-salmeterol [Wixela Inhub] 500-50 mcg/dose blister with device 1 inh inhalation Q12H Qty: 60 3RF Follow-up/Referrals: Kristina Elias MD [Primary Care Provider] -
[2025-02-11] MEDS: NITROFURANTOIN MONOHYD MACROCR 100 MG CAP PO (22:03)
== END 2025-02-11 22:08 | disposition home or self-care (01) ==
PROVIDERS: Emergency Provider Emergency Medicine; PCP Family Medicine
DX: R10.30 Lower abdominal pain, unspecified (principal); I12.9 Hypertensive chronic kidney disease with stage 1 through stage 4 chronic kidney disease, or unspecified chronic kidney disease; N18.30 Chronic kidney disease, stage 3 unspecified; E78.5 Hyperlipidemia, unspecified; J44.9 Chronic obstructive pulmonary disease, unspecified; G62.9 Polyneuropathy, unspecified; K21.9 Gastro-esophageal reflux disease without esophagitis; M17.12 Unilateral primary osteoarthritis, left knee; Z87.891 Personal history of nicotine dependence; K86.89 Other specified diseases of pancreas; N20.0 Calculus of kidney
CPT/HCPCS: 36415; 74177; 80053; 81001; 83690; 85025; 85055; 87086; 99284; A9270; Q9967

== ENCOUNTER 2025-02-19 10:02 | Outpatient (CLI) | payer MEDICARE, BC, SELFPAY ==
--- NOTE | 2025-02-19 11:30 | NEURO_ITS ---
Impression: # Complains of numbness of the right upper extremity.History of thrombocytopenia but No h/o malignancy. ? # Normal Nerve Conduction Study. ? # No Carpal Tunnel Syndrome or ulnar neuropathy. ? # Normal needle/EMG exam. ? # Clinical correlation recommended. Nerve Conduction Studies Anti Sensory Summary Table ?Stim Site NR Peak (ms) P-T Amp (?V) Site1 Site2 Delta-P (ms) Dist (cm) Eren (m/s) Left Median Anti Sensory (2-3nd Digit) Wrist ? 2.9 52.4 Wrist 2-3nd Digit 2.9 14.0 48 Wrist ? 2.9 39.5 Wrist 2-3nd Digit 2.9 14.0 48 Right Median Anti Sensory (2-3nd Digit) Wrist ? 3.1 49.8 Wrist 2-3nd Digit 3.1 14.0 45 Wrist ? 3.3 58.8 Wrist 2-3nd Digit 3.1 14.0 45 Left Radial Anti Sensory (Base 1st Digit) Wrist ? 2.0 27.3 Wrist Base 1st Digit 2.0 0.0 Right Radial Anti Sensory (Base 1st Digit) Wrist ? 2.0 28.9 Wrist Base 1st Digit 2.0 0.0 Left Ulnar Anti Sensory (5th Digit) Wrist ? 2.4 48.2 Wrist 5th Digit 2.4 14.0 58 Right Ulnar Anti Sensory (5th Digit) Wrist ? 2.4 44.7 Wrist 5th Digit 2.4 14.0 58 Motor Summary Table ?Stim Site NR Onset (ms) O-P Amp (mV) Site1 Site2 Delta-0 (ms) Dist (cm) Eren (m/s) Left Median Motor (Abd Poll Brev) Wrist ? 3.6 2.5 Elbow Wrist 4.4 27.0 61 Elbow ? 8.0 5.7 Right Median Motor (Abd Poll Brev) Wrist ? 3.1 3.2 Elbow Wrist 4.5 25.0 56 Elbow ? 7.6 9.0 Left Ulnar Motor (Abd Dig Minimi) Wrist ? 2.3 7.0 A Elbow Wrist 4.6 26.0 57 A Elbow ? 6.9 6.9 B Elbow Wrist 3.3 19.0 58 B Elbow ? 5.6 6.8 Right Ulnar Motor (Abd Dig Minimi) Wrist ? 2.4 8.8 A Elbow Wrist 4.2 26.0 62 A Elbow ? 6.6 7.7 B Elbow Wrist 3.2 19.0 59 B Elbow ? 5.6 7.9 F Wave Studies ?NR F-Lat (ms) L-R F-Lat (ms) Left Median (Mrkrs) (Abd Poll Brev) ? 24.43 0.41 Right Median (Mrkrs) (Abd Poll Brev) ? 24.84 0.41 Left Ulnar (Mrkrs) (Abd Dig Min) ? 26.55 0.92 Right Ulnar (Mrkrs) (Abd Dig Min) ? 25.63 0.92 EMG ?Side Muscle Nerve Root Ins Act Fibs Amp Dur Recrt Comment Right 1stDorInt Ulnar C8-T1 Nml Nml Nml Nml Nml Right Ext Indicis Radial (Post Int) C7-8 Nml Nml Nml Nml Nml Right Ext Digitorum Radial (Post Int) C7-8 Nml Nml Nml Nml Nml Right BrachioRad Radial C5-6 Nml Nml Nml Nml Nml Right PronatorTeres Median C6-7 Nml Nml Nml Nml Nml Right Abd Poll Brev Median C8-T1 Nml Nml Nml Nml Nml Right ABD Dig Min Ulnar C8-T1 Nml Nml Nml Nml Nml Right FlexPolLong Median (Ant Int) C7-8 Nml Nml Nml Nml Nml Right Abd Poll Long Radial (Post Int) C7-8 Nml Nml Nml Nml Nml Left 1stDorInt Ulnar C8-T1 Nml Nml Nml Nml Nml Left Ext Indicis Radial (Post Int) C7-8 Nml Nml Nml Nml Nml Left Ext Digitorum Radial (Post Int) C7-8 Nml Nml Nml Nml Nml Left BrachioRad Radial C5-6 Nml Nml Nml Nml Nml Left PronatorTeres Median C6-7 Nml Nml Nml Nml Nml Left Abd Poll Brev Median C8-T1 Nml Nml Nml Nml Nml Left ABD Dig Min Ulnar C8-T1 Nml Nml Nml Nml Nml Left FlexPolLong Median (Ant Int) C7-8 Nml Nml Nml Nml Nml Left Abd Poll Long Radial (Post Int) C7-8 Nml Nml Nml Nml Nml
== END 2025-02-19 10:03 | disposition home or self-care (01) ==
LOC: ANHNEURO 10:03
PROVIDERS: PCP Family Medicine; Visit Provider Family Medicine
DX: G56.93 Unspecified mononeuropathy of bilateral upper limbs (principal)
CPT/HCPCS: 95886; 95911

== ENCOUNTER 2025-02-21 09:15 | Outpatient (CLI) | payer MEDICARE, BC, SELFPAY ==
[2025-02-21 09:38] LABS: Hematocrit 37.2 % (37.0-47.0); Hemoglobin 12.2 g/dL (12.0-15.0); Mean Corpuscular HGB Conc 32.8 g/dl (32-36); Mean Corpuscular Hemoglobin 26.6 pg (26-34); Mean Corpuscular Volume 81.2 fl (80-100); Mean Platelet Volume 8.8 fl (7.4-10.4); Platelet Count Result 71 k/mm3 (150-375); Red Blood Count 4.58 M/mm3 (4.2-5.4); White Blood Count 4.5 K/mm3 (4.5-10.0)
[2025-02-21 11:15] LABS: Iron 52 ug/dL (37-170)
[2025-02-21 11:23] LABS: Anion Gap 8 mmol/L (4-12); Blood Urea Nitrogen 8 mg/dL (7-17); Carbon Dioxide 26 mmol/L (22-30); Chloride 102 mmol/L (98-107); Estimated Glomerular Filt Rate > 60; Glucose 97 mg/dL (65-110); Potassium 3.9 mmol/L (3.4-5.0); Sodium 136 mmol/L (137-145)
[2025-02-21 11:24] LABS: Percent Iron Saturation 23 % (20-50)
[2025-02-21 12:33] LABS: Folic Acid 9.9 ng/mL (2.76->20)
== END 2025-02-21 09:16 | disposition home or self-care (01) ==
PROVIDERS: PCP Family Medicine; Visit Provider Internal Medicine Hematology & Oncology
DX: D64.9 Anemia, unspecified (principal)
CPT/HCPCS: 36415; 80048; 82607; 82728; 82746; 83540; 83550; 85027

== ENCOUNTER 2025-02-25 13:45 | Outpatient (CLI) | payer MEDICARE, BC, SELFPAY ==
--- NOTE | 2025-02-25 13:31 | CY_PTH ---
PATIENT: Joanna Gallardo LOC: [facility] U#:[id number] AGE/SX: 74/F ROOM: RE02/25/[address]: Walter Brothers MD : 1950 BED: DIS: 02/25/2025 SPEC #: [id number] RECD: 02/26/25 10:18 STATUS: SOULive REQ #: [id number] ROBERTO: 02/25/25 13:[address]: Walter Brothers DEPT: [facility] Cytology RECD BY: Bridget Harper ENTERED: 02/26/25 10:19 SP TYPE: Cytology OTHR DR: Kristina EliasMD Tissues: A - Flow Procedures: Flow Cytometry
--- OUTSIDE RECORDS SUMMARY | 2025-02-25 14:04 | XMS_ITS | Clinical Summary ---
Author Organization [facility] [place] Address [address] [place] [address] Care Team Providers Care Service Plumber Name Role Phone Kristina Elias MD Primary Care Provider [phone] Allergies Active Allergy Reactions Criticality Noted Date [...] Encounters Date Type Department Care Team Description 02/25/2025 1:15 PM CDT Office Visit [facility] Oncology and Hematology [place] [address] [place] [id number] Walter Brothers MD Splenomegaly (Primary Dx); Chronic anemia 02/21/2025 Orders Only [facility] Oncology and Hematology [place] [address] [place] [id number] Walter Brothers MD 02/19/2025 External Device Data STL ABSTRACTION Provider, Abstract 02/12/2025 External Device Data STL ABSTRACTION Provider, Abstract 01/22/2025 External Device Data STL ABSTRACTION Provider, [...] Sign Reading Time Taken Comments Blood Pressure 134/74 02/25/2025 1:19 PM CDT Pulse 78 02/25/2025 1:17 PM CDT Temperature 36.6 C (97.8 F) 02/25/2025 1:17 PM CDT Respiratory Rate 15 02/25/2025 1:17 PM CDT Oxygen Saturation 96% 02/25/2025 1:17 PM CDT Inhaled Oxygen Concentration - - Weight 73.5 kg (162 lb) 02/25/2025 1:17 PM CDT Height 157.5 cm (5' 2) 03/16/2022 11:22 AM CDT Body Mass Index 29.63 03/16/2022 11:22 AM CDT Plan of Treatment Upcoming Encounters Date Type Department Care Team (Late st Contact Info) Description 03/11/2025 4:30 PM CDT Telephone Check Up [facility] Oncology and Hematology - [place] [address] [place] [address] Walter Brothers MD [address] [facility] [address] [place] [address] Health Maintenance Due Date Last Done Comments DTAP/TDAP/TD VACCINES (1 - Tdap) 1969 Traditional Medicare (ACO) A nnual Wellness Visit 1969 FIT-DNA Q 3 years 1995 FIT/FOBT [...] Procedure Name Priority Date/Time Associated Diagnosis Comments BASIC METABOLIC PANEL Routine 02/21/2025 4:55 PM CDT CBC WITH DIFFERENTIAL Routine 02/21/2025 3:37 PM CDT from Last 3 Months Results * BASIC METABOLIC PANEL (02/21/2025 4:55 PM CDT) Blood Walter Brothers MD CHEMISTRY ORDERABLES Final Resu lt * CBC WITH DIFFERENTIAL (02/21/2025 3:37 PM CDT) Blood us Walter Brothers MD HEMATOLOGY ORDERABLES Final Res ult from Last 3 Months Insurance [facility] [employer]ER[employer] MEDICARE RAILROAD Care Teams Service Plumber Relationship Specialty Start Date End Date Kristina Elias MD [address] [place] [address] PCP - General Family Practice 06/11/21
--- OUTSIDE RECORDS SUMMARY | 2025-02-25 14:04 | XMS_ITS | Clinical Summary ---
Author Organization [facility] [address] Address [address] [place] [address] Care Team Providers Care Buckle Sorter Name Role Phone Kristina Elias MD Primary Care Provider [phone] Allergies Active Allergy Reactions Criticality Noted Date [...] on file Legal Sex Female 8:03 PM INDUSTRIAL CHEMIST Gender Identity Not on file Sexual Orientation Not on file Obstetrics History Last Filed Vital Signs Vital Sign Reading Time Taken Comments Blood Pressure 124/62 09/27/2024 2:11 PM INDUSTRIAL CHEMIST Pulse 80 09/27/2024 2:11 PM INDUSTRIAL CHEMIST Temperature - - Respiratory Rate - - Oxygen Saturation 98% 09/27/2024 2:11 PM INDUSTRIAL CHEMIST Inhaled Oxygen Concentration - - Weight 74.4 kg (164 lb) 09/27/2024 2:11 PM INDUSTRIAL CHEMIST Height 157.5 cm (5' 2) 09/27/2024 2:11 PM INDUSTRIAL CHEMIST Body Mass Index 30 09/27/2024 2:11 PM INDUSTRIAL CHEMIST Plan of Treatment Health Maintenance Due Date [...] vaccine 65+ Completed 06/25/2020, 02/2019 [place] [facility] [place] [facility] Member Subscriber Plan / Payer (Ef fective 2015-Present) Name:Joanna Jeffery Nasrin Relation to Subscriber:Spouse Name:YRN JEFFERY JR Date of :1950 Address: [facility] [place] [address] Payer ID:[id number] (NAIC) Group ID:[id number] Type:[employer] Address: [address] [place] [address] Care Teams Buckle Sorter Relationship Specialty Start Date End Date Kristina Elias MD PCP - General Family Medicine 08/12/21
--- OUTSIDE RECORDS SUMMARY | 2025-02-25 14:04 | XMS_ITS | Encounter Summary ---
Author Organization [facility] Address [address] [place] [address] Care Team Providers Care Roofing Superintendent Name Role Phone Prudence Reis MD Unavailable Unavailable Kristina Elias MD Primary Care Provider Reason for Referral * Surgical (Routine) - Closed Specialty Diagnoses / Procedures Referred By Contac t Referred To Contact Diagnoses Varicose veins of lower extremity with pain, right Procedures Case request operating room: STAB PHLEBECTOMY (RIGHT LEG) Zelalem Ziegler MD [id number] [place] [address] Phone: tel: fax: Referral ID Status Reason Start Date Expiration Date Visits Re quested Visits Authorized [id number] Closed 01/10/2024 01/09/2025 1 1 Encounter Details Date Type Department Care Team (Late st Contact Info) Description 01/10/2024 Prep for Procedure [place] [facility], [facility] [address] [place], [place] [id number] Zelalem Ziegler MD [facility] [address] [place] [address] Social History Tobacco Use Types [...] METABOLIC PANEL (02/20/2024 12:18 PM CDT) Pathologist [facility] GLUCOSE 94 70 - 99 MG/DL 02/20/2024 12:53 PM CDT [facility] BUN 11 7 - 18 MG/DL 02/20/2024 12:53 PM CDT [facility] CREATININE S/P/B 0.95 0.55 - 1.02 MG/DL 02/20/2024 12:53 PM CDT [facility] SODIUM S/P/B 139 136 - 145 MMOL/L 02/20/2024 12:53 PM CDT [facility] POTASSIUM S/P/B 4.3 3.5 - 5.1 MMOL/L 02/20/2024 12:53 PM CDT [facility] CHLORIDE S/P/B 109(H) 100 - 108 MMOL/L 02/20/2024 12:53 PM CDT [facility] CO2 24.2 21 - 32 MMOL/L 02/20/2024 12:53 PM CDT [facility] CALCIUM S/P/B 9.3 8.5 - 10.1 MG/DL 02/20/2024 12:53 PM CDT [facility] BILIRUBIN TOTAL S/P/B 1.4(H) 0.2 - 1.2 MG/DL 02/20/2024 12:53 PM CDT [facility] Comment: THIS ASSAY IS NOT RECOMMENDED FOR PATIENTS UNDERGOING TREATMENT WITH ELTROMBOPAG DUE TO THE POTENTIAL FOR FALSELY ELEVATED RESULTS. TOTAL PROTEIN S/P/B 6.3(L) 6.4 - 8.2 G/DL 02/20/2024 12:53 PM CDT [facility] ALBUMIN S/P/B 3.5 3.4 - 5.0 G/DL 02/20/2024 12:53 PM CDT [facility] AST 11(L) 15 - 37 U/L 02/20/2024 12:53 PM CDT [facility] ALT 11(L) 14 - 55 U/L 02/20/2024 12:53 PM CDT [facility] ALKALINE PHOSPHATASE S/P/B 79 50 - 136 U/L 02/20/2024 12:53 PM CDT [facility] ANION GAP 5.8 5 - 15 MMOL/L 02/20/2024 12:53 PM CDT [facility] BUN CREATININE RATIO 11.5 6 - 26 02/20/2024 12:53 PM CDT [facility] A/G RATIO 1.2 1.0 - 2.0 RATIO 02/20/2024 12:53 PM T [facility] GFR ESTIMATE 63(L) >90 ML/MIN/1.7 3 M2 02/20/2024 12:53 PM CDT [facility] Comment: NOTE: eGFR is not calculated for patients <18 years of age. This is an estimated GFR calculation using the new CKD EPI creatinine equation without race and so does not require a correction factor for race. This estimated GFR should not be used for calculating drug doses. 02/20/2024 12:1 8 PM CDT us Zelalem Ziegler MD LABORATORY Final Result [facility] [address] [place] [address], [place] [phone] * PROTIME/INR, VENOUS (02/20/2024 12:18 PM CDT) Pathologist [facility] PROTIME 10.5 10.2 - 12.9 SEC 02/20/2024 12:47 PM CDT [facility] INR 0.9 02/20/2024 12:47 PM CDT [facility] Comment: Recommended INR Therapeutic Goals: 2.0-3.0 Routine Therapy 2.5-3.5 Mechanical Prosthetic Valves (High Risk) 02/20/2024 12:1 8 PM CDT Zelalem Ziegler MD LABORATORY Final Result [facility] [address] [place] [address], [place] [phone] * (ABNORMAL) CBC W/DIFF AUTOMATED (02/20/2024 12:18 PM CDT) [facility] WBC 5.11 4.5 - 11.0 x10'3/uL 02/20/2024 1:01 PM CDT [facility] RBC 4.62 4.20 - 5.40 x10'6/uL 02/20/2024 1:01 PM CDT [facility] HGB 12.0 12.0 - 16.0 G/DL 02/20/2024 1:01 PM CDT [facility] HCT 36.8(L) 38.0 - 48.0 % 02/20/2024 1:01 PM CDT [facility] MCV 79.7(L) 81.0 - 99.0 FL 02/20/2024 1:01 PM CDT [facility] MCH 26.0(L) 27.0 - 31.0 PG 02/20/2024 1:01 PM CDT [facility] MCHC 32.6 32.0 - 36.0 G/DL 02/20/2024 1:01 PM CDT [facility] RDW 13.6 11.5 - 14.5 % 02/20/2024 1:01 PM CDT [facility] PLT 65(L) 130 - 400 x10'3/uL 02/20/2024 1:01 PM CDT [facility] MPV 12.1 9.3 - 12.2 FL 02/20/2024 1:01 PM CDT [facility] DIFFERENTIAL TYPE AUTOMATED DIFFERENTIAL 02/20/2024 1:01 PM CDT [facility] NEUTROPHILS % 58.1 % 02/20/2024 1:01 PM CDT [facility] LYMPHOCYTES % 32.9 % 02/20/2024 1:01 PM CDT [facility] MONOCYTES % 7.0 % 02/20/2024 1:01 PM CDT [facility] EOSINOPHILS 1.2 % 02/20/2024 1:01 PM CDT [facility] BASOPHILS 0.4 % 02/20/2024 1:01 PM CDT [facility] IMMATURE GRANS % 0.4 % 02/20/20 1:01 PM CDT [facility] ABS. NEUTROPHILS 2.97 1.80 - 7.70 x10'3/uL 02/20/2024 1:01 PM CDT [facility] ABS. LYMPHOCYTES 1.68 1.00 - 4.80 x10'3/uL 02/20/2024 1:01 PM CDT [facility] ABS. MONOCYTES 0.36 0.24 - 0.86 x10'3/uL 02/20/2024 1:01 PM CDT [facility] ABS. EOSINOPHILS 0.06 0.04 - 0.36 x10'3/uL 02/20/2024 1:01 PM CDT [facility] ABS. BASOPHILS 0.02 0.01 - 0.08 x10'3/uL 02/20/2024 1:01 PM CDT [facility] ABS. IMMATURE GRANULOCYTES 0.02 0.00 - 0.49 x10'3/uL 02/20/2024 1:01 PM CDT [facility] RBC MORPHOLOGY RBC MORPHOLOGY APPEARS NORMAL. SLIDE REVIEWED. 02/20/2024 1:01 PM CDT [facility] PLT EST. DECREASED 02/20/2024 1:01 PM CDT [facility] 02/20/2024 12:1 8 PM CDT us Zelalem Ziegler MD LABORATORY Final Result [facility] [address] [place] [address], documented in this encounter Visit Diagnoses Diagnosis Varicose veins of lower extremity with pain, right- Primary Abnormal coagulation profile documented in this encounter Care Teams Roofing Superintendent Relationship Specialty Start Date End Date Kristina Elias MD [address] [place] [address] PCP - General FAMILY PRACTICE 12/21/21 Prudence Reis MD CARDIOVASCULAR DISEASE 04/15/20 documented as of this encounter
--- OUTSIDE RECORDS SUMMARY | 2025-02-25 14:04 | XMS_ITS | Encounter Summary ---
Author Organization [facility] Address [address] [place] [address] Care Team Providers Care Audit Machine Operator Name Role Phone Prudence Reis MD Unavailable Unavailable Kristina Elias MD Primary Care Provider [phone] Encounter Details Date Type Department Care Team (Late st Contact Info) Description 12/02/2023 Prep for Procedure [place] [facility] [address] [place], [place] [phone] Zelalem Ziegler MD [facility]. [facility] [address] [place], [place] [id number] Social History Tobacco Use Types Packs/Day Years [...] - 11.0 x10'3/uL 01/09/2024 8:58 AM CDT [facility] RBC 2.59(L) 4.20 - 5.40 x10'6/uL 01/09/2024 8:58 AM CDT [facility] HGB 6.7(LL) 12.0 - 16.0 G/DL 01/09/2024 8:58 AM CDT [facility] Comment: This result has been called to SOL HIGHTOWER by [id number] on 01/09/2024 08:58:40, and has been read back. HCT 21.7(L) 38.0 - 48.0 % 01/09/2024 8:58 AM CDT [facility] MCV 83.8 81.0 - 99.0 FL 01/09/2024 8:58 AM CDT [facility] MCH 25.9(L) 27.0 - 31.0 PG 01/09/2024 8:58 AM CDT [facility] MCHC 30.9(L) 32.0 - 36.0 G/DL 01/09/2024 8:58 AM CDT [facility] RDW 13.3 11.5 - 14.5 % 01/09/2024 8:58 AM CDT [facility] PLT 85(L) 130 - 400 x10'3/uL 01/09/2024 8:58 AM CDT [facility] MPV 8.8(L) 9.3 - 12.2 FL 01/09/2024 8:58 AM T [facility] DIFFERENTIAL TYPE AUTOMATED DIFFERENTIAL 01/09/2024 9:00 AM CDT [facility] NEUTROPHILS % 41.1 % 01/09/2024 9:00 AM T [facility] LYMPHOCYTES % 48.0 % 01/09/2024 9:00 AM T [facility] MONOCYTES % 7.4 % 01/09/2024 9:00 AM CDT [facility] EOSINOPHILS 0.8 % 01/09/2024 9:00 AM CDT [facility] BASOPHILS 0.3 % 01/09/2024 9:00 AM CDT [facility] IMMATURE GRANS % 2.4 % 01/09/20 9:00 AM CDT [facility] ABS. NEUTROPHILS 1.55(L) 1.80 - 7.70 x10'3/uL 01/09/2024 9:00 AM CDT [facility] ABS. LYMPHOCYTES 1.81 1.00 - 4.80 x10'3/uL 01/09/2024 9:00 AM CDT [facility] ABS. MONOCYTES 0.28 0.24 - 0.86 x10'3/uL 01/09/2024 9:00 AM CDT [facility] ABS. EOSINOPHILS 0.03(L) 0.04 - 0.36 x10'3/uL 01/09/2024 9:00 AM CDT [facility] ABS. BASOPHILS 0.01 0.01 - 0.08 x10'3/uL 01/09/2024 9:00 AM CDT [facility] ABS. IMMATURE GRANULOCYTES 0.09 0.00 - 0.49 x10'3/uL 01/09/2024 9:00 AM CDT [facility] RBC MORPHOLOGY SLIDE REVIEWED 2023 9:00 AM CDT [facility] CAREY 3+ 01/09/2024 9:00 AM CDT [facility] PLT EST. DECREASED 01/09/2024 9:00 AM CDT [facility] 01/09/2024 8:05 AM CDT us Zelalem Ziegler MD LABORATORY Final Result [facility] [address] [place] [address], [place] [phone] * (ABNORMAL) COMPREHENSIVE METABOLIC PANEL (01/09/2024 7:55 AM CDT) [facility] GLUCOSE 83 70 - 99 MG/DL 01/09/2024 8:50 AM CDT [facility] BUN 17 7 - 18 MG/DL 01/09/2024 8:50 AM CDT [facility] CREATININE S/P/B 1.01 0.55 - 1.02 MG/DL 01/09/2024 8:50 AM CDT [facility] SODIUM S/P/B 140 136 - 145 MMOL/L 01/09/2024 8:50 AM CDT [facility] POTASSIUM S/P/B 3.9 3.5 - 5.1 MMOL/L 01/09/2024 8:50 AM CDT [facility] CHLORIDE S/P/B 112(H) 100 - 108 MMOL/L 01/09/2024 8:50 AM CDT [facility] CO2 22.5 21 - 32 MMOL/L 01/09/2024 8:50 AM CDT [facility] CALCIUM S/P/B 9.1 8.5 - 10.1 MG/DL 01/09/2024 8:50 AM CDT [facility] BILIRUBIN TOTAL S/P/B 0.5 0.2 - 1.2 MG/DL 01/09/2024 8:50 AM CDT [facility] Comment: THIS ASSAY IS NOT RECOMMENDED FOR PATIENTS UNDERGOING TREATMENT WITH ELTROMBOPAG DUE TO THE POTENTIAL FOR FALSELY ELEVATED RESULTS. TOTAL PROTEIN S/P/B 5.9(L) 6.4 - 8.2 G/DL 01/09/2024 8:50 AM CDT [facility] ALBUMIN S/P/B 3.3(L) 3.4 - 5.0 G/DL 01/09/2024 8:50 AM CDT [facility] AST 9(L) 15 - 37 U/L 01/09/2024 8:50 AM CDT [facility] ALT 14 14 - 55 U/L 01/09/2024 8:50 AM CDT [facility] ALKALINE PHOSPHATASE S/P/B 74 50 - 136 U/L 01/09/2024 8:50 AM CDT [facility] ANION GAP 5.5 5 - 15 MMOL/L 01/09/2024 8:50 AM CDT [facility] BUN CREATININE RATIO 16.8 6 - 26 01/09/2024 8:50 AM CDT [facility] A/G RATIO 1.3 1.0 - 2.0 RATIO 01/09/2024 8:50 AM T [facility] GFR ESTIMATE 59(L) >90 ML/MIN/1.7 3 M2 01/09/2024 8:50 AM CDT [facility] Comment: NOTE: eGFR is not calculated for patients <18 years of age. This is an estimated GFR calculation using the new CKD EPI creatinine equation without race and so does not require a correction factor for race. This estimated GFR should not be used for calculating drug doses. 01/09/2024 7:55 AM CDT Zelalem Ziegler MD LABORATORY Final Result [facility] [address] [place] [address], [place] [phone] * PROTIME/INR, VENOUS (01/09/2024 7:55 AM CDT) PROTIME 10.2 10.2 - 12.9 SEC 01/09/2024 8:40 AM CDT [facility] INR 0.9 01/09/2024 8:40 AM CDT [facility] Comment: Recommended INR Therapeutic Goals: 2.0-3.0 Routine Therapy 2.5-3.5 Mechanical Prosthetic Valves (High Risk) 01/09/2024 7:55 AM CDT Zelalem Ziegler MD LABORATORY Final Result [facility] [address] [place] [address], [place] [phone] documented in this encounter Visit Diagnoses Diagnosis Varicose veins of lower extremity with pain, right- Primary Hyperlipidemia Other and unspecified hyperlipidemia Hypertension Unspecified essential hypertension Disease of the lung and heart (CMS/HCC [facility]/HCC) Chronic pulmonary heart disease, unspecified documented in this encounter Care Teams Audit Machine Operator Relationship Specialty Start Date End Date Kristina Elias MD [address] [place] [address] PCP - General FAMILY PRACTICE 12/21/21 Prudence Reis MD CARDIOVASCULAR DISEASE 04/15/20 documented as of this encounter
--- OUTSIDE RECORDS SUMMARY | 2025-02-25 14:04 | XMS_ITS | Clinical Summary ---
Author Organization [facility] Address [address] [place] [address] Care Team Providers Care Business Line Manager Name Role Phone Prudence Reis MD Unavailable Unavailable Kristina Elias MD Primary Care Provider [phone] Allergies Active Allergy Reactions Criticality Noted Date [...] 11/01/2023 Mild chronic obstructive pul monary disease ([facility]/HCC [facility]) 11/01/2023 Dyspnea 11/01/2023 Symptomatic varicose veins [...] this topic Medical Devices Implanted Type Area Palaeontologist Device Identifier Shelf Expiration Date Model / Serial / Lot Iol [employer] Simplicity Dcb00 - [id number] Implanted:Qty: 1 on 05/21/2024 by Jabari Luis MD at [facility] Lens Left: Eye [employer] 10/09/2026 DCB00 / [id number] / Iol [employer] Simplicity Dcb00 - [id number] Implanted:Qty: 1 on 06/25/2024 by Jabari Luis MD at [facility] Lens Right: Eye [employer] 01/15/2027 [facility] / [id number] / Insurance [employer]ICARE [facility] Care Teams Business Line Manager Relationship Specialty Start Date End Date Kristina Elias MD [address] [place] [address] PCP - General FAMILY PRACTICE 12/21/21 Prudence Reis MD CARDIOVASCULAR DISEASE 04/15/20
--- OUTSIDE RECORDS SUMMARY | 2025-02-25 14:04 | XMS_ITS | Encounter Summary ---
Author Organization [facility] [employer] [facility] Address [address] [place] [address] Care Team Providers Care Education Administrator Name Role Phone Kristina Elias MD Primary Care Provider [phone] Encounter Details Date Type Department Care Team (Late Contact Info) Description 02/21/2025 Orders Only [facility] Oncology and Hematology - [place] [address] [place] [address] Walter Brothers MD [facility] [employer] [address] [place] [phone] Social History Tobacco Use Types Packs/Day Years [...] Department Care Team (Late Contact Info) Description 03/11/2025 4:30 PM CDT Telephone Check Up [facility] Oncology and Hematology - Juan Fernando [address] [place] [address] Walter Brothers MD [address] [employer] [address] [place] [phone] documented as of this encounter Procedures Procedure Name Priority Date/Time Associated Diagnosis Comments BASIC METABOLIC PANEL Routine 02/21/2025 4:55 PM CDT CBC WITH DIFFERENTIAL Routine 02/21/2025 3:37 PM CDT documented in this encounter Results * BASIC METABOLIC PANEL (02/21/2025 4:55 PM CDT) Blood us Walter Brothers MD CHEMISTRY ORDERABLES Final Resu lt * CBC WITH DIFFERENTIAL (02/21/2025 3:37 PM CDT) Blood us Walter Brothers MD HEMATOLOGY ORDERABLES Final Res ult documented in this encounter Visit Diagnoses Not on filedocumented in this encounter Care Teams Education Administrator Relationship Specialty Start Date End Date Kristina Elias MD [address] [place] [id number] PCP - General Family Practice 06/11/21 documented as of this encounter
--- OUTSIDE RECORDS SUMMARY | 2025-02-25 14:04 | XMS_ITS | Data Portability ---
Author Organization [facility] VICTOR MFrancescoashley Knowles Address [address] [place] [address] Care Team Providers Care Stitch Bonding Machine Drawer In Name Role Phone ORAL, HELENA Plastic Maker Unavailable Assessment Encounter Date Assessment Date Assessment [...] DO Not Attach Compendium, Do Not Delete/merge, [id number] 8 17:43:21 pap, LB + HPV mRNA E6/E7 + reflex HPV (16+18+45 ) 2013 014 [email or web address] [facility], [address] [place] [address], [address], [place], [address], 5 12:38:54 Referral None recorded. Procedures None recorded. Surgeries None recorded. Imaging MAMMO, screening , bilateral 2017 018 [facility], [address], [address], [place], [address], 8 11:50:11 MAMMO, screening , bilateral 2015 016 [id number] [id number] [facility], [address], [place] [address] [address], [place], [address], 6 04:31:01 mammogram , screening 2013 014 [email or web address] Not available 5 12:38:54 Medication Orders Osphena 60 mg tablet [address]/Pharmacy #2510, [address] [place] [address], [address], 8 14:59:01 Estrace 0.01% (0.1 mg/gram) vaginal cream [address]/Pharmacy #2510, [address] [place] [address], [address], 8 14:58:25 calcium 600 mg (as carbonate )-vitamin D3 20 mcg (800 unit) tablet [address]/Pharmacy #2510, [address] [place] [address], [address], 8 14:57:53 multivita min tablet [address]/Pharmacy #2510, [address] [place] [address], [address], 8 14:58:54 Estrace 0.5 mg tablet [address]/Pharmacy #2510, [address] [place] [address], [address], 8 14:58:29 Estrace 0.01% (0.1 mg/gram) vaginal cream [address]/Pharmacy #2510, [address] [place] [address], [address], 8 14:58:25 Linzess 145 mcg capsule 2013 014 [email or web address] [facility]/Pharmacy #6400, [address] [place], [address], 8 14:58:46 Patient TargetsNo targets recorded. Patient Instructions Encounter Date Encounter Id Patient Instructions Last Modified By Organization Details Last Modified Time 06/30/2016 [id number] mammogram: about this test [email or web address] Not available 06/30/2016 16:27:19 learning about breast cancer screening [email or web address] Not available 06/30/2016 16:05:56 07/12/2018 [id number] mammogram: about this test [email or web address] Not available 07/12/2018 15:23:21 Reason for Referral None Reported. Results Created Date Observation Date Name Description Value Unit Range Abnormal Flag Note LastModifiedBy Organization Detail LastModifiedTime 07/12/20 18 07/12/2018 urina lysis , dipst ick Leukocytes Negati ve Not Available In-Office Order Internal Use Only DO Not Attach Compendium DO Not Attach Compendium, Do Not Delete/merge, [id number] 07/12/2018 15:09:56 07/12/20 18 07/12/2018 urina lysis , dipst ick Nitrite negati ve Not Available In-Office Order Internal Use Only DO Not Attach Compendium DO Not Attach Compendium, Do Not Delete/merge, [id number] 07/12/2018 15:09:56 07/12/20 18 07/12/2018 urina lysis , dipst ick Urobilinogen .2 Not Available In-Of fice Order Internal Use Only DO Not Attach Compendium DO Not Attach Compendium, Do Not Delete/merge, [id number] 07/12/2018 15:09:56 07/12/20 18 07/12/2018 urina lysis , dipst ick Protein Negati ve Not Available In-Office Order Internal Use Only DO Not Attach Compendium DO Not Attach Compendium, Do Not Delete/merge, [id number] 07/12/2018 15:09:56 07/12/20 18 07/12/2018 urina lysis , dipst ick pH 7.0 Not Available In-Office Order Internal Use Only DO Not Attach Compendium DO Not Attach Compendium, Do Not Delete/merge, [id number] 07/12/2018 15:09:56 07/12/20 18 07/12/2018 urina lysis , dipst ick Blood Non-He molyze d: Trace Not Available In-Office Order Internal Use Only DO Not Attach Compendium DO Not Attach Compendium, Do Not Delete/merge, [id number] 07/12/2018 15:09:56 07/12/20 18 07/12/2018 urina lysis , dipst ick Specific Cowdrey 1.010 Not Available In-Off ice Order Internal Use Only DO Not Attach Compendium DO Not Attach Compendium, Do Not Delete/merge, [id number] 07/12/2018 15:09:56 07/12/20 18 07/12/2018 urina lysis , dipst ick Ketone Negati ve Not Available In-Office Order Internal Use Only DO Not Attach Compendium DO Not Attach Compendium, Do Not Delete/merge, [id number] 07/12/2018 15:09:56 07/12/20 18 07/12/2018 urina lysis , dipst ick Bilirubin Negati ve Not Available In-Office Order Internal Use Only DO Not Attach Compendium DO Not Attach Compendium, Do Not Delete/merge, [id number] 07/12/2018 15:09:56 07/12/20 18 07/12/2018 urina lysis , dipst ick Glucose Negati ve Not Available In-Office Order Internal Use Only DO Not Attach Compendium DO Not Attach Compendium, Do Not Delete/merge, [id number] 07/12/2018 15:09:56 08/19/20 14 08/15/2014 janna beaulieu/riki hartmann t No observ ation record ed. [email or web address] Not Available 09/05 15:45:59 07/19/20 16 07/19/2016 sharif w PT NAME: WILLIAM GALLARDO : 1949 PT SEX/AG E: / PT ACCT NUMBER : [id number] PT MR#: [id number] ROOM/B ED: PT STATUS : REG CLI DATE OF EXAMIN ATION: ORDERI PHYSIC CHANTE: HELENA MCDANIEL MAN M.D. ATTEND ING PHYSIC CHANTE: HELENA MCDANIEL MAN , M.D. DICTAT ING PHYSIC CHANTE: Live HANNA M.D. 018 [id number] 3.001M IX 13:34: 00 61.007 2MVMAM ([facility]) : JAMEY SCREEN KERA W/CAD INDICA TION: [...] ed, dictat ed and finali zed at [facility] on A. __ Electr onical ly signed by: SHERRIE HANNA Date: Time: 14:14 SHERRIE HANNA M.D.__ ___ [facility] [address] [facility] [address] [place] [address] [facility] (Imaging) [address], [place], [address], 07/19/2016 15:17:29 07/19/20 16 07/19/2016 MAMMO , scree serjio, bilat eral No observ ation record ed. [facility] [address] [facility] [address], [place], [address], 07/19/2016 16:42:23 07/12/20 18 04/29/2018 CT, abdom [...] record ed. [facility] [address], [place], [address], 08/10/2018 12:42:16 Result Notes None recorded. Problems Name Problem SNOMED Code Status Onset Date Resolution Date Notes Provider Name and Address Organization Details Recorded Time Menopausal syndrome [id number] Active Helena Oral jiménez [place] [facility] 4 11:23:52 Problem Notes None recorded. Procedures Surgical History Date Name Laterality Status Provider Name and Address Organization Details Recorded Time 06/16/20 18 lithotomy completed Roxi Bob [place] [facility] 07/12/2018 15:00:50 07/19/20 16 Most Recent Mammogram completed Roxi oBb MA [facility] 07/12/2018 15:01:41 07/31/20 14 Date of Last Pap Smear completed Ciara Mabry MA [facility] 06/30/2016 15:07:28 08/29/18 91 Laparoscopy completed Yin Bazzi MA [facility] 07/31/2014 10:46:09 08/29/18 82 Appendectomy completed Yin Bazzi [place] [facility] 07/31/2014 10:46:09 04/07/19 79 Tubal Ligation completed Ciara Mabry [place] [facility] 06/30/2016 15:08:33 04/07/19 79 Caesarean Section completed CESAR Garcia [facility] 06/30/2016 15:06:53 09/05/18 76 Caesarean Section completed CESAR Garcia [facility] 06/30/2016 15:07:08 09/12/18 72 Caesarean Section completed CESAR Garcia [facility] 06/30/2016 15:07:16 lithotripsy completed CESAR Leon [facility] 07/12/2018 15:00:39 Imaging Results None recorded. Procedure Notes None recorded. Medical Equipment None Reported. Allergies Allergen ID Allergen Name Allergen Category Reaction Reaction Severity Criticality Documentation Date Start Date Code Code System Note Provider Name and Address Organization Details Recorded Time 4877 Non-stero idal anti-infl ammatory agent (product) medicatio n other severe Not available 07/31/2014 19198 005 SNOMED cause s gastr itis Yin [...] Not Available Not Available Not Available Afluria 7538-4289(PF ) 45 mcg (15 mcg x 3)/0.5 mL intramuscula r syringe active Not Available Not Available No t Available Fluzone High-Dose 4675-0956 (PF) 180 mcg/0.5 mL intramuscula r syringe 07/12 completed Not Available Not Available Not Available Vitals Date Recorded Body height Body weight Body mass index (BMI) Systolic blood pressure Diastolic blood pressure Provider Name and Address Organization Details Last Updated DateTime 06/30/2016 157.48 cm 54328.59 g 33.8 kg/m2 152 mm[Hg] 90 mm[Hg] Ciara Mabry MA [facility] 6 15:02:18 Date Recorded Body height Body mass index (BMI) Body weight Systolic blood pressure Diastolic blood pressure Provider Name and Address Organization Details Last Updated DateTime 07/12/2018 157.48 cm 32.6 kg/m2 61263.44 g 172 mm[Hg] 94 mm[Hg] Roxi Bob MA [facility] 8 15:04:46 Social History Question Answer Notes LastModified by Organizat ion Details LastModified Time Tobacco Smoking Status Former Smoker quit 1991 Yin Bazzi MA [facility], [facility] 07/31/2014 10:50:46 Do You Have An Advance [...] Disorder N Colon Polyps N Heart Attack ([place]) N Diabetes N Cardiomyopathy N Blood Transfusions [...] SNOMED-CT Code Diagnosis ICD10 Code Diagnosis Note [id number] Helena Fair MD [facility] ([employer]AR PROJECT COORDINATION SPECIALIST) [address] [place] [phone] 07/31/2014 10:09:36 07/31/2014 12:11:49 Gynecologic examination [id number] Menopausal syndrome [id number] Helena Fair MD [facility] ([employer] PROJECT COORDINATION SPECIALIST) [address] [place] [phone] 06/30/2016 14:18:34 07/01/2016 09:46:16 Screening mammography 64531587 Z12.31 Menopausal syndrome 1237 31650 N95.9 Screening for malignant neoplasm of breast 082447689 Z12.31 [id number] [facility]INATION SPECIALIST) [address] [place] [phone] 07/12/2018 14:09:39 07/14/2018 13:36:30 Screening mammography 92536815 Z12.31 Health Concerns Section Related Observation LastModified by Organization Detai ls LastModified Time None Recorded Concern Status LastModified by Organization Details LastModified Time None Recorded Advance Directives Directive N: Payers Insurance Date Sequence Insurance Name Policy Number Policy Jefferson Covered Member ID Jefferson Member ID Guarantor Name 07/27/2018 2 [place] 106 Joseph Gallardo Jr [id number] Joanna Gallardo 07/09/2018 [place] - FQHC Joanna Gallardo [id number] Joanna Gallardo 07/27/2018 1 [place] Joanna A Gallardo [id number] Joanna Gallardo Notes Date Note Type Note Provider Name and Address Organization Details Recorded Time 06/30/2016 text/html Annual Recreation Adviser Post-MenopausalReporte d bypatient.Menopausal Symptoms:normal vaginal lubrication;hot flashes [...] Last mammogram 2 years ago. [facility] 06/30/2016 18:21:51 07/12/2018 text/html Breast ProblemsReported bypatient.Quality:asym [...] postmenopausal female here for CBE. Helena Fair [facility], [place] - [facility] 07/12/2018 17:43:52 OBGyn Episode Ob Episode Information Episode Created Date Number of Fetuses Patient Bloodtype Patient rh Status Prepregnancy Weight lbs Domestic Partner Domestic Partner Phone Father Name Barrel Filler Head Status 07/31/20 14 1 CLOSED Fetus Data [...] Domestic Partner Domestic Partner Phone Father Name Barrel Filler Head Status 07/31/20 14 1 CLOSED Fetus Data [...] Domestic Partner Domestic Partner Phone Father Name Barrel Filler Head Status 07/31/20 14 1 CLOSED Fetus Data [...]
--- OUTSIDE RECORDS SUMMARY | 2025-02-25 14:04 | XMS_ITS | Encounter Summary ---
Author Organization [facility] Address [address] [place] [address] Care Team Providers Care Sales Representative Adding Machines Name Role Phone Prudence Reis MD Unavailable Unavailable Reuben Oneal MD Primary Care Provider [phone] Kristina Elias MD Primary Care Provider [phone] Encounter Details Date Type Department Care Team (Late Contact Info) Description 04/18/2020 Prep for Procedure [facility] Pre-Admission Testing [address] [place], [place] [id number] Binh Scott MD [address] [place] [address] Social History Tobacco Use Types Packs/Day [...] 19) (04/18/2020 11:00 AM CDT) Pathologist [facility] CORONAVIRUS SARS COV 2 PCR (RESP) NOT DETECTED NOT DETECTED 04/19/2020 2:37 PM CDT [facility] Comment: A Not Detected (negative) test result [...] providers and patients using the following websites: https://www.EasyCopay.Vigster/home/Covid-19/HCP/NAAT/fact-sheet2 https://www.[employer]Cop[employer].Vigster/home/Covid-19/Patients/NAAT/ fact-sheet2 This test has been authorized by the FDA under an Emergency Use Authorization (EUA) for use by authorized laboratories. Due to the current public health emergency, [facility] is receiving a high volume of samples [...] about COVID-19 can be found at the [facility] website: www.eCommHub.Vigster/Covid19. Test performed at [facility] [address] [place] [address] Director: KIMBERLY ALCARAZ DO,MPH NASOPHARYNGEAL SWAB / Unknown 04/18/2020 11:00 AM CDT Binh Scott MD MICROBIOLOGY - GENERAL ORDERABLE S Final Result [facility] [address] [place] [address], documented in this encounter Visit Diagnoses Diagnosis Preoperative testing- Primary Preoperative examination, unspecified documented in this encounter Additional Health Concerns Infection Onset Date Last Indicated Resolved Time COVID-19 Rule Out 04/18/2020 04/18/2020 04/19/2020 2:38 PM CDT documented as of this encounter Care Teams Sales Representative Adding Machines Relationship Specialty Start Date End Date Reuben Oneal MD [address] [place] [address] PCP - General FAMILY PRACTICE 04/15/20 12/20/21 Kristina Elias MD [address] [place] [address] PCP - General FAMILY PRACTICE 12/21/21 Prudence Reis MD CARDIOVASCULAR DISEASE 04/15/20 documented as of this encounter
--- OUTSIDE RECORDS SUMMARY | 2025-02-25 14:04 | XMS_ITS | Encounter Summary ---
Author Organization [facility] Address [address] [place] [address] Care Team Providers Care Chief Procurement Officer Name Role Phone Kristina Elias MD Primary Care Provider [phone] Reason for Referral * Laboratory Services (Routine) - Open Specialty Diagnoses / Procedures Referred By Contac t Referred To Contact Diagnoses Splenomegaly Chronic anemia Procedures JAK2 MUTATION Walter Brothers MD [address] [facility] [employer] [place] [id number] Phone: tel: fax: Referral ID Status Reason Start Date Expiration Date Visits Re quested Visits Authorized [id number] Open 02/25/2025 03/28/2026 1 1 * Laboratory Services (Routine) - Open Specialty Diagnoses / Procedures Referred By Contac t Referred To Contact Diagnoses Splenomegaly Chronic anemia Procedures BCR/ABL1, QUANTITATIVE W/REFLEX Walter Brothers MD [address] [place] [address] Phone: tel: fax: Referral ID Status Reason Start Date Expiration Date Visits Re quested Visits Authorized [id number] Open 02/25/2025 03/28/2026 1 1 Reason for Visit * Reason Comments Follow Up Encounter Details Date Type Department Care Team (Late st Contact Info) Description 02/25/2025 1:15 PM CDT Office Visit [facility] Oncology and Hematology - [place] [address] [facility] [address] [place] [address] Walter Brothers MD [address] [facility] [address] [place] [address] Splenomegaly (Primary Dx); Chronic anemia Social History Tobacco Use Types Packs/Day Years [...] on file documented as of this encounter Last Filed Vital Signs Vital Sign Reading Time Taken Comments Blood Pressure 134/74 02/25/2025 1:19 PM CDT Pulse 78 02/25/2025 1:17 PM CDT Temperature 36.6 C (97.8 F) 02/25/2025 1:17 PM CDT Respiratory Rate 15 02/25/2025 1:17 PM CDT Oxygen Saturation 96% 02/25/2025 1:17 PM CDT Inhaled Oxygen Concentration - - Weight 73.5 kg (162 lb) 02/25/2025 1:17 PM CDT Height - - Body Mass Index 29.63 03/16/2022 11:22 AM CDT documented in this encounter Progress Notes * Walter Brothers MD - 02/25/2025 1:12 PM CDT HEMATOLOGY / ONCOLOGY PROGRESS NOTE Patient Identification: Name: Joanna Gallardo Age: 74 y.o. Sex: female : 1950 DIAGNOSIS Normocytic anemia CURRENT TREATMENT Ferrous sulfate 325 mg daily TREATMENT HISTORY SUBJECTIVE Patient came to the office for follow-up visit. She went to the ER on February 11 with the lower abdominal pain and was diagnosed with UTI. She denies any new lumps bumps or lymphadenopathy. No other newcomplaints. Review of system Constitutional: denies fevers, sweats, denies any tiredness and fatigue HEENT: denies sinus congestion, hearing or vision problems Respiratory: denies cough, dyspnea, wheeze Cardiovascular: denies chest pain, exertional chest pressure/discomfort, nausea, syncope, shortnessof breath GI: denies constipation, diarrhea, dsyphagia, reflux symptoms, vomiting, melena, complain of lower abdominal pain : denies dysuria, incontinence, urgency, denies any frequency of urination Integumentary system: no lymphadenopathy, sweats, flushing Musculoskeletal: denies: myalgia, arthralgia Neurological: denies blurry or disturbed vision, numbness/weakness, dizziness Skin: No lumps, bumps or rashes,complaint of bruising involving the upper extremity Point review of system was reviewed Objective: Vital signs in last 24 hours: As per nursing note Exam: General appearance: alert, cooperative, no distress, appears stated age Head: normocephalic, without obvious abnormality, atraumatic Eyes: conjunctivae/corneas clear, EOM's intact Ears: normal external ear canals AU Nose: Nares normal. Septum midline. Mucosa normal. No drainage or sinus tenderness Throat: Lips, mucosa, and tongue normal. Teeth and gums normal Neck: supple, symmetrical, trachea midline. Lungs: clear to auscultation bilaterally Heart: regular rate and rhythm, S1, S2 normal, no murmur, click, rub or gallop Abdomen: soft, non-tender. Bowel sounds normal. No masses, No organomegaly Extremities: extremities normal, atraumatic, no cyanosis or edema Skin: Skin color, texture, turgor normal. No rashes or lesions Lymph nodes: No lymphadenopathy Neuro: No obvious focal deficit Exam as above PATH LABS Labs from June 11, 2021 showed hemoglobin 11.5 platelet 93,000 creatinine 1.0 total bilirubin 0.7 LDH 388 iron 38 iron saturation 14% vitamin B12 400 Labs from September 10 showed WBC 5.2 hemoglobin 11.9 platelet 124,000 B12 465 iron 60 saturation 22% Labs from March 15 showed WBC 5.0 hemoglobin 12.1 platelet 93,000 iron 40 iron saturation 15% ferritin 60 vitamin B12 more than 1000 creatinine 1.0 Labs from September 13 showed iron 45 saturation 16% ferritin 73 creatinine 1.1 vitamin B12 833 WBC 5.3 hemoglobin 12.3 platelet 84,000 Labs from March 14 showed creatinine 0.9 vitamin B12 more than 1000 iron 44 iron saturation 18% ferritin 119 hemoglobin 11.5 WBC 3.8 platelet 111,000 neutrophil 59% lymphocyte 24% Labs from September 15 showed WBC 4.2 hemoglobin 12.3 platelets 76,000 ferritin 104 vitamin B12 more than 1000 Labs from April 17 showed hemoglobin 11.8 WBC 4.4 platelet 84,000 neutrophils 61% creatinine 1 GFR54 B12 982 iron 54 saturation 24 ferritin 113 Labs from October 24 showed WBC 3.3 hemoglobin 11.6 platelet 62,000 vitamin B12 782 iron 44 saturation 19 ferritin 109 creatinine 0.9 Labs from February 21 showed WBC 4.5 hemoglobin 12.2 platelets 71,000 creatinine 0.8 B12 993 iron 52 saturation 23 ferritin 134 @IMAGEIMP@ Assessment: Plan: Patient Active Problem List Diagnosis Date Noted Normocytic anemia 06/11/2021 Pancytopenia. Secondary to splenomegaly, iron deficiency and mild renal insufficiency. Patient went to the ER on February 11 with the lower abdominal pain and CT abdomen pelvis was done thatshowed enlarged spleen measures 13 cm. Liver was not enlarged. No enlarged lymph nodes. Platelet count stable but and spleen become more enlarged. Patient has a history of hepatic steatosis. I will rule out other myeloproliferative disorder for splenomegaly and will order BCR-ABL translocation, JAK2 mutation, flow cytometry for lymphoma an angiotensin-converting enzyme. Phone visit in2 weeks. No need for bone marrow biopsy. Suprapubic pain. She will follow-up with the gynecology tomorrow and also have a urology appointment in June. Vitamin B12 deficiency. Stable. Continue vitamin B12 500 mcg daily. Easy bruising. Stable. She is off the Plavix. Follow-up phone visit in 2 weeks. 02/25/2025 Walter Brothers MD documented in this encounter Plan of Treatment Upcoming Encounters Date Type Department Care Team (Late st Contact Info) Description 03/11/2025 4:30 PM CDT Telephone Check Up [facility] and [facility]ematology - [place] [address] [facility] [address] [place] [address] Walter Brothers MD [address] [facility] [address] [place] [address] Scheduled Orders Name Type Priority Associated Diagnoses Orde r Schedule BCR/ABL1, QUANTITATIVE W/REFLEX Lab Routine Splenomegaly Chronic anemia Expected: 02/25/2025, Expires: 02/25/2026 JAK2 MUTATION Lab Routine Splenomegaly Chronic anemia Expected: 02/25/2025, Expires: 02/25/2026 FLOW CYTOMETRY PANEL Lab Routine Splenomegaly Expected: 02/25/2025, Expires: 02/25/2026 ANGIOTENSIN CONVERTING ENZYME Lab Routine Splenomegaly Expected: 02/25/2025, Expires: 02/25/2026 documented as of this encounter Visit Diagnoses Diagnosis Splenomegaly- Primary Chronic anemia Anemia, unspecified documented in this encounter Care Teams Chief Procurement Officer Relationship Specialty Start Date End Date Kristina Elias MD [address] [place] [address] PCP - General Family Practice 06/11/21 documented as of this encounter
--- OUTSIDE RECORDS SUMMARY | 2025-02-25 14:04 | XMS_ITS | Referral Summary ---
Author Organization [facility] [address] Address [address] [place] [address] Care Team Providers Care Instructor Pilot Name Role Phone Kristina Elias MD Primary Care Provider [phone] Allergies Active Allergy Reactions Criticality Noted Date [...] on file Legal Sex Female 8:03 PM MOVIE PRODUCER Gender Identity Not on file Sexual Orientation Not on file Last Filed Vital Signs Vital Sign Reading Time Taken Comments Blood Pressure 124/62 09/27/2024 2:11 PM MOVIE PRODUCER Pulse 80 09/27/2024 2:11 PM MOVIE PRODUCER Temperature - - Respiratory Rate - - Oxygen Saturation 98% 09/27/2024 2:11 PM MOVIE PRODUCER Inhaled Oxygen Concentration - - Weight 74.4 kg (164 lb) 09/27/2024 2:11 PM MOVIE PRODUCER Height 157.5 cm (5' 2) 09/27/2024 2:11 PM MOVIE PRODUCER Body Mass Index 30 09/27/2024 2:11 PM MOVIE PRODUCER Plan of Treatment Not on file Insurance [place] [address] MEDICARE RAILROAD [facility] FEDERAL Member Subscriber Plan / Payer (Ef fective 2015-Present) Name:Joanna Gallardo Relation to Subscriber:Spouse Name:JOSE D VERDUGOLISA Date of :1950 Address: [address] [place] [address] [place] [address] Payer ID:[id number] (NAIC) Group ID:[id number] Type:[facility] Address: [address] [place] [address] Care Teams Instructor Pilot Relationship Specialty Start Date End Date Kristina Elias MD PCP - General Family Medicine 08/12/21
[2025-02-25 15:32] LABS: BCR/abl P190 Chg YES; BCR/abl P210 Chg YES
[2025-02-27 11:53] LABS: Angiotensin Converting Enzyme. 21 U/L (9-67)
== END 2025-02-25 13:46 | disposition home or self-care (01) ==
PROVIDERS: PCP Family Medicine; Visit Provider Internal Medicine Hematology & Oncology
DX: R16.1 Splenomegaly, not elsewhere classified (principal); D64.9 Anemia, unspecified
CPT/HCPCS: 36415; 81206; 81207; 81270; 82164; 88184

== ENCOUNTER 2025-03-22 18:48 | Emergency (ER) | payer MEDICARE, BC, SELFPAY ==
--- NOTE | ~2025-03-22 | XR_ITS ---
EXAMINATION: XR chest 2V DATE: 03/22/2025 19:22 INDICATION: Chest pain TECHNIQUE: PA and lateral views of the chest were obtained. COMPARISON: Chest radiograph dated 03/06/2019 FINDINGS: The lungs remain clear with no focal airspace opacities, pulmonary edema, pleural effusion or pneumot horax. The cardiomediastinal silhouette is normal. Visualized bones and soft tissues are unremarkable . IMPRESSION: 1. No acute cardiopulmonary disease. Reviewed, dictated and finalized at location A.
[2025-03-22 18:50] VITALS: BP 183/78; PULSE 87; RESP 18; TEMP 36.6; O2SAT 98
--- OUTSIDE RECORDS SUMMARY | 2025-03-22 18:50 | XMS_ITS | Clinical Summary ---
Author Organization [facility] Address [address] [place] [address] Care Team Providers Care Assurance Analyst Name Role Phone Prudence Reis MD Unavailable Unavailable Kristina Elias MD Primary Care Provider [phone] Allergies Active Allergy Reactions Criticality Noted Date [...] 11/01/2023 Mild chronic obstructive pul monary disease ([facility] 11/01/2023 Dyspnea 11/01/2023 Symptomatic varicose veins of [...] this topic Medical Devices Implanted Type Area Relief Map Modeler Device Identifier Shelf Expiration Date Model / Serial / Lot Iol Tecnis Simplicity Dcb00 - [id number] Implanted:Qty: 1 on 05/21/2024 by Jabari Luis MD at [facility] Lens Left: Eye [employer] 10/09/2026 DCB00 / [id number] / Iol [employer]nis Simplicity Dcb00 - [id number] Implanted:Qty: 1 on 06/25/2024 by Jabari Luis MD at [facility] Lens Right: Eye [employer] 01/15/2027 [facility]00 / [id number] / Insurance [employer]RO[employer] MEDICARE [facility] Care Teams Assurance Analyst Relationship Specialty Start Date End Date Kristina Elias MD [address] [place] [address] PCP - General FAMILY PRACTICE 12/21/21 Prudence Reis MD CARDIOVASCULAR DISEASE 04/15/20
--- OUTSIDE RECORDS SUMMARY | 2025-03-22 18:50 | XMS_ITS | Encounter Summary ---
Author Organization [facility] Address [address] [place] [address] Care Team Providers Care Chief Risk Officer Name Role Phone Prudence Reis MD Unavailable Unavailable Kristina Elias MD Primary Care Provider [phone] Encounter Details Date Type Department Care Team (Late st Contact Info) Description 12/02/2023 Prep for Procedure [facility], [facility] [address] [place], [place] [id number] Zelalem Ziegler MD [facility]. [facility] [address] [place], [place] [id number] Social History Tobacco Use Types Packs/Day Years [...] - 11.0 x10'3/uL 01/09/2024 8:58 AM CDT [facility] RBC 2.59(L) 4.20 - 5.40 x10'6/uL 01/09/2024 8:58 AM CDT [facility] HGB 6.7(LL) 12.0 - 16.0 G/DL 01/09/2024 8:58 AM CDT [facility] Comment: This result has been called to SOL HIGHOTWER by [id number] on 01/09/2024 08:58:40, and has been read back. HCT 21.7(L) 38.0 - 48.0 % 01/09/2024 8:58 AM CDT [facility] MCV 83.8 81.0 - 99.0 FL 01/09/2024 8:58 AM CDT [facility] MCH 25.9(L) 27.0 - 31.0 PG 01/09/2024 8:58 AM CDT [facility] MCHC 30.9(L) 32.0 - 36.0 G/DL 01/09/2024 8:58 AM CDT [facility] RDW 13.3 11.5 - 14.5 % 01/09/2024 8:58 AM CDT [facility] PLT 85(L) 130 - 400 x10'3/uL 01/09/2024 8:58 AM CDT [facility] MPV 8.8(L) 9.3 - 12.2 FL 01/09/2024 8:58 AM T [facility] DIFFERENTIAL TYPE AUTOMATED DIFFERENTIAL 01/09/2024 9:00 AM CDT [facility] NEUTROPHILS % 41.1 % 01/09/2024 9:00 AM T [facility] LYMPHOCYTES % 48.0 % 01/09/2024 9:00 AM T [facility] MONOCYTES % 7.4 % 01/09/2024 9:00 AM CDT [facility] EOSINOPHILS 0.8 % 01/09/2024 9:00 AM CDT [facility] BASOPHILS 0.3 % 01/09/2024 9:00 AM CDT [facility] IMMATURE GRANS % 2.4 % 01/09/20 9:00 AM CDT [facility] ABS. NEUTROPHILS 1.55(L) 1.80 - 7.70 x10'3/uL 01/09/2024 9:00 AM CDT [facility] ABS. LYMPHOCYTES 1.81 1.00 - 4.80 x10'3/uL 01/09/2024 9:00 AM CDT [facility] ABS. MONOCYTES 0.28 0.24 - 0.86 x10'3/uL 01/09/2024 9:00 AM CDT [facility] ABS. EOSINOPHILS 0.03(L) 0.04 - 0.36 x10'3/uL 01/09/2024 9:00 AM CDT [facility] ABS. BASOPHILS 0.01 0.01 - 0.08 x10'3/uL 01/09/2024 9:00 AM CDT [facility] ABS. IMMATURE GRANULOCYTES 0.09 0.00 - 0.49 x10'3/uL 01/09/2024 9:00 AM CDT [facility] RBC MORPHOLOGY SLIDE REVIEWED 2023 9:00 AM CDT [facility] CAREY 3+ 01/09/2024 9:00 AM CDT [facility] PLT EST. DECREASED 01/09/2024 9:00 AM CDT [facility] 01/09/2024 8:05 AM CDT us Zelalem Ziegler MD LABORATORY Final Result [facility] [address] [place] [address], [place] [phone] * (ABNORMAL) COMPREHENSIVE METABOLIC PANEL (01/09/2024 7:55 AM CDT) [facility] GLUCOSE 83 70 - 99 MG/DL 01/09/2024 8:50 AM CDT [facility] BUN 17 7 - 18 MG/DL 01/09/2024 8:50 AM CDT [facility] CREATININE S/P/B 1.01 0.55 - 1.02 MG/DL 01/09/2024 8:50 AM CDT [facility] SODIUM S/P/B 140 136 - 145 MMOL/L 01/09/2024 8:50 AM CDT [facility] POTASSIUM S/P/B 3.9 3.5 - 5.1 MMOL/L 01/09/2024 8:50 AM CDT [facility] CHLORIDE S/P/B 112(H) 100 - 108 MMOL/L 01/09/2024 8:50 AM CDT [facility] CO2 22.5 21 - 32 MMOL/L 01/09/2024 8:50 AM CDT [facility] CALCIUM S/P/B 9.1 8.5 - 10.1 MG/DL 01/09/2024 8:50 AM CDT [facility] BILIRUBIN TOTAL S/P/B 0.5 0.2 - 1.2 MG/DL 01/09/2024 8:50 AM CDT [facility] Comment: THIS ASSAY IS NOT RECOMMENDED FOR PATIENTS UNDERGOING TREATMENT WITH ELTROMBOPAG DUE TO THE POTENTIAL FOR FALSELY ELEVATED RESULTS. TOTAL PROTEIN S/P/B 5.9(L) 6.4 - 8.2 G/DL 01/09/2024 8:50 AM CDT [facility] ALBUMIN S/P/B 3.3(L) 3.4 - 5.0 G/DL 01/09/2024 8:50 AM CDT [facility] AST 9(L) 15 - 37 U/L 01/09/2024 8:50 AM CDT [facility] ALT 14 14 - 55 U/L 01/09/2024 8:50 AM CDT [facility] ALKALINE PHOSPHATASE S/P/B 74 50 - 136 U/L 01/09/2024 8:50 AM CDT [facility] ANION GAP 5.5 5 - 15 MMOL/L 01/09/2024 8:50 AM CDT [facility] BUN CREATININE RATIO 16.8 6 - 26 01/09/2024 8:50 AM CDT [facility] A/G RATIO 1.3 1.0 - 2.0 RATIO 01/09/2024 8:50 AM T [facility] GFR ESTIMATE 59(L) >90 ML/MIN/1.7 3 M2 01/09/2024 8:50 AM CDT [facility] Comment: NOTE: eGFR is not calculated for patients <18 years of age. This is an estimated GFR calculation using the new CKD EPI creatinine equation without race and so does not require a correction factor for race. This estimated GFR should not be used for calculating drug doses. 01/09/2024 7:55 AM CDT Zelalem Ziegler MD LABORATORY Final Result [facility] [address] [place] [address], [place] [phone] * PROTIME/INR, VENOUS (01/09/2024 7:55 AM CDT) PROTIME 10.2 10.2 - 12.9 SEC 01/09/2024 8:40 AM CDT [facility] INR 0.9 01/09/2024 8:40 AM CDT [facility] Comment: Recommended INR Therapeutic Goals: 2.0-3.0 Routine Therapy 2.5-3.5 Mechanical Prosthetic Valves (High Risk) 01/09/2024 7:55 AM CDT Zelalem Ziegler MD LABORATORY Final Result [facility] [address] [place] [address], [place] [phone] documented in this encounter Visit Diagnoses Diagnosis Varicose veins of lower extremity with pain, right- Primary Hyperlipidemia Other and unspecified hyperlipidemia Hypertension Unspecified essential hypertension Disease of the lung and heart (CMS/HCC [facility]/HCC) Chronic pulmonary heart disease, unspecified documented in this encounter Care Teams Chief Risk Officer Relationship Specialty Start Date End Date Kristina Elias MD [address] [place] [address] PCP - General FAMILY PRACTICE 12/21/21 Prudence Reis MD CARDIOVASCULAR DISEASE 04/15/20 documented as of this encounter
--- OUTSIDE RECORDS SUMMARY | 2025-03-22 18:50 | XMS_ITS | Clinical Summary ---
Author Organization [facility] [place] [place] [address] Address [address] [place] [address] Care Team Providers Care Supervisory Clerk Name Role Phone Kristina Elias MD Primary Care Provider [phone] Allergies Active Allergy Reactions Criticality Noted Date [...] Encounters Date Type Department Care Team Description 03/21/2025 Telephone [facility] Cardiology [address] [place] [address] Rebecca Velazquez NP from Last 3 Months Surgical History Surgery [...] on file Legal Sex Female 8:03 PM TYPESETTERS PRINTER Gender Identity Not on file Sexual Orientation Not on file Obstetrics History Last Filed Vital Signs Vital Sign Reading Time Taken Comments Blood Pressure 124/62 09/27/2024 2:11 PM TYPESETTERS PRINTER Pulse 80 09/27/2024 2:11 PM TYPESETTERS PRINTER Temperature - - Respiratory Rate - - Oxygen Saturation 98% 09/27/2024 2:11 PM TYPESETTERS PRINTER Inhaled Oxygen Concentration - - Weight 74.4 kg (164 lb) 09/27/2024 2:11 PM TYPESETTERS PRINTER Height 157.5 cm (5' 2) 09/27/2024 2:11 PM TYPESETTERS PRINTER Body Mass Index 30 09/27/2024 2:11 PM TYPESETTERS PRINTER Plan of Treatment Health Maintenance Due Date Last Done Comments Colon Cancer Screening-Colonoscopy 1950 Depression Screening 1950 Fall Risk Assessment 1950 Hepatitis C Screening 1950 Osteoporosis Screening-Bone Density Scan 1950 DTaP/Tdap/Td Vaccine (1 - Tdap) 1961 Hepatitis B Screening 1968 Zoster Vaccine (1 of 2) 2000 Well Visit 65+ 2015 Breast Cancer Screening-Mammogram 08/09/2019 018, 07/19/2016 Influenza Vaccine (#1) 2025 1, 05/20/2020, 06/04/2019, Additional history exists Pneumococcal vaccine 65+ Completed 06/25/2020, 02/2019 [facility] FEDERAL Member Subscriber Plan / Payer (Ef fective 2015-Present) Name:Joanna Jeffery Relation to Subscriber:Spouse Name:JEFFERY YRN VERDUGO A Date of :1950 Address: [address] [place] [address] [place] [address] Payer ID:[id number] (NAIC) Group ID:[id number] Type: [employer] Address: [facility] [id number] [place] [address] Care Teams Supervisory Clerk Relationship Specialty Start Date End Date Kristina Elias MD PCP - General Family Medicine 08/12/21
--- OUTSIDE RECORDS SUMMARY | 2025-03-22 18:50 | XMS_ITS | Encounter Summary ---
Author Organization [facility] Address [address] [place] [address] Care Team Providers Care Cook Helper Vegetable Name Role Phone Prudence Reis MD Unavailable Unavailable Kristina Elias MD Primary Care Provider [phone] Reason for Referral * Surgical (Routine) - Closed Specialty Diagnoses / Procedures Referred By Contac t Referred To Contact Diagnoses Varicose veins of lower extremity with pain, right Procedures Case request operating room: STAB PHLEBECTOMY (RIGHT LEG) Zelalem Ziegler MD [address] [place] [address] Phone: tel: fax: Referral ID Status Reason Start Date Expiration Date Visits Re quested Visits Authorized [id number] Closed 01/10/2024 01/09/2025 1 1 Encounter Details Date Type Department Care Team (Late st Contact Info) Description 01/10/2024 Prep for Procedure [place] [facility] [address] [place], [place] [id number] Zelalem Ziegler MD [facility] [address] [place] [address] Social History Tobacco Use Types [...] METABOLIC PANEL (02/20/2024 12:18 PM CDT) Pathologist [facility] GLUCOSE 94 70 - 99 MG/DL [...] - 136 U/L 02/20/2024 12:53 PM CDT [facility] ANION GAP 5.8 5 - 15 MMOL/L 02/20/2024 12:53 PM CDT [facility] BUN CREATININE RATIO 11.5 6 - 26 02/20/2024 12:53 PM CDT [facility] A/G RATIO 1.2 1.0 - 2.0 RATIO 02/20/2024 12:53 PM T [facility] GFR ESTIMATE 63(L) >90 ML/MIN/1.7 3 M2 02/20/2024 12:53 PM CDT [facility] Comment: NOTE: eGFR [...] Final Result [facility] [address] [place] [address], [place] [phone] * PROTIME/INR, VENOUS (02/20/2024 12:18 PM CDT) Pathologist [facility] PROTIME 10.5 10.2 - 12.9 SEC 02/20/2024 12:47 PM CDT [facility] INR 0.9 02/20/2024 12:47 PM CDT [facility] Comment: Recommended INR Therapeutic Goals: 2.0-3.0 Routine Therapy 2.5-3.5 Mechanical Prosthetic Valves (High Risk) 02/20/2024 12:1 8 PM CDT Zelalem Ziegler MD LABORATORY Final Result [facility] [address] [place] [address], [place] [phone] * (ABNORMAL) CBC W/DIFF AUTOMATED (02/20/2024 12:18 PM CDT) [facility] WBC 5.11 4.5 - 11.0 [...] Final Result [facility] [address] [place] [address], documented in this encounter Visit Diagnoses Diagnosis Varicose veins of lower extremity with pain, right- Primary Abnormal coagulation profile documented in this encounter Care Teams Cook Helper Vegetable Relationship Specialty Start Date End Date Kristina Elias MD [address] [place] [address] PCP - General FAMILY PRACTICE 12/21/21 Prudence Reis MD CARDIOVASCULAR DISEASE 04/15/20 documented as of this encounter
--- OUTSIDE RECORDS SUMMARY | 2025-03-22 18:50 | XMS_ITS | Referral Summary ---
Author Organization [facility] [address] [facility] [address] Address [address] [place] [address] Care Team Providers Care Shank Sorter Name Role Phone Kristina Elias MD Primary Care Provider [phone] Encounters Date Type Department Care Team Description 03/21/2025 Telephone [facility] Cardiology [address] [place] [address] Rebecca Velazquez, CHARU from Last 3 Months Allergies Active Allergy [...] on file Legal Sex Female 8:03 PM INSOLE AND OUTSOLE SPLITTER Gender Identity Not on file Sexual Orientation Not on file Last Filed Vital Signs Vital Sign Reading Time Taken Comments Blood Pressure 124/62 09/27/2024 2:11 PM INSOLE AND OUTSOLE SPLITTER Pulse 80 09/27/2024 2:11 PM INSOLE AND OUTSOLE SPLITTER Temperature - - Respiratory Rate - - Oxygen Saturation 98% 09/27/2024 2:11 PM INSOLE AND OUTSOLE SPLITTER Inhaled Oxygen Concentration - - Weight 74.4 kg (164 lb) 09/27/2024 2:11 PM INSOLE AND OUTSOLE SPLITTER Height 157.5 cm (5' 2) 09/27/2024 2:11 PM INSOLE AND OUTSOLE SPLITTER Body Mass Index 30 09/27/2024 2:11 PM INSOLE AND OUTSOLE SPLITTER Plan of Treatment [place] [address] MEDICARE RAILROAD MEDICARE [facility] FEDERAL Member Subscriber Plan / Payer ( fective 2015-Present) Name:Joanna Jeffery Relation to Subscriber:Spouse Name:YRN EJFFERY JR Date of :1950 Address: [facility] [address] Payer ID:[id number] (NAIC) Group ID:[id number] Type:[facility] Address: [address] [place] [address] Care Teams Shank Sorter Relationship Specialty Start Date End Date Kristina Elias MD PCP - General Family Medicine 08/12/21
--- OUTSIDE RECORDS SUMMARY | 2025-03-22 18:51 | XMS_ITS | Data Portability ---
Author Organization [facility] VICTOR MFrancescoashley Knowles Address [address] [place] [address] Care Team Providers Care Verification Rep Name Role Phone ORAL, HELENA Deputy Chief Sheriff Unavailable Assessment Encounter Date Assessment Date Assessment [...] DO Not Attach Compendium, Do Not Delete/merge, [id number] 8 17:43:21 pap, LB + HPV mRNA E6/E7 + reflex HPV (16+18+45 ) 2013 014 [email or web address] [facility], [address] [place] [address], [address], [place], [address], 5 12:38:54 Referral None recorded. Procedures None recorded. Surgeries None recorded. Imaging MAMMO, screening , bilateral 2017 018 [facility], [address], [place], [address], 8 11:50:11 MAMMO, screening , bilateral 2015 016 [id number] [id number] [facility], [address], [address] [address], [place], [address], 6 04:31:01 mammogram , screening 2013 014 [email or web address] Not available 5 12:38:54 Medication Orders Osphena 60 mg tablet [address]/Pharmacy #2510, [address] [place] [address], [address], 8 14:59:01 Estrace 0.01% (0.1 mg/gram) vaginal cream [address]/Pharmacy #2510, [address] [place] [address], [address], 8 14:58:25 calcium 600 mg (as carbonate )-vitamin D3 20 mcg (800 unit) tablet [address]/Pharmacy #2510, [address] [place] [address], [address], 8 14:57:53 multivita min tablet [address]/Pharmacy #2510, [address] [place] [address], [address], 8 14:58:54 Estrace 0.5 mg tablet [address]/Pharmacy #2510, [address] [place] [address], [address], 8 14:58:29 Estrace 0.01% (0.1 mg/gram) vaginal cream [address]/Pharmacy #2510, [address] [place] [address], [address], 8 14:58:25 Linzess 145 mcg capsule 2013 014 [email or web address] [facility]/Pharmacy #2860, [address] [place], [address], 8 14:58:46 Patient TargetsNo targets recorded. Patient Instructions Encounter Date Encounter Id Patient Instructions Last Modified By Organization Details Last Modified Time 06/30/2016 [id number] mammogram: about this test [email or web address] Not available 06/30/2016 16:27:19 learning about breast cancer screening [email or web address] Not available 06/30/2016 16:05:56 07/12/2018 [id number] mammogram: about this test [email or web address] Not available 07/12/2018 15:23:21 Reason for Referral None Reported. Results Created Date Observation Date Name Description Value Unit Range Abnormal Flag Note LastModifiedBy Organization Detail LastModifiedTime 07/12/20 18 07/12/2018 urina lysis , dipst ick Leukocytes Negati ve Not Available In-Office Order Internal Use Only DO Not Attach Compendium DO Not Attach Compendium, Do Not Delete/merge, [id number] 07/12/2018 15:09:56 07/12/20 18 07/12/2018 urina lysis , dipst ick Nitrite negati ve Not Available In-Office Order Internal Use Only DO Not Attach Compendium DO Not Attach Compendium, Do Not Delete/merge, [id number] 07/12/2018 15:09:56 07/12/20 18 07/12/2018 urina lysis , dipst ick Urobilinogen .2 Not Available In-Of fice Order Internal Use Only DO Not Attach Compendium DO Not Attach Compendium, Do Not Delete/merge, [id number] 07/12/2018 15:09:56 07/12/20 18 07/12/2018 urina lysis , dipst ick Protein Negati ve Not Available In-Office Order Internal Use Only DO Not Attach Compendium DO Not Attach Compendium, Do Not Delete/merge, [id number] 07/12/2018 15:09:56 07/12/20 18 07/12/2018 urina lysis , dipst ick pH 7.0 Not Available In-Office Order Internal Use Only DO Not Attach Compendium DO Not Attach Compendium, Do Not Delete/merge, [id number] 07/12/2018 15:09:56 07/12/20 18 07/12/2018 urina lysis , dipst ick Blood Non-He molyze d: Trace Not Available In-Office Order Internal Use Only DO Not Attach Compendium DO Not Attach Compendium, Do Not Delete/merge, [id number] 07/12/2018 15:09:56 07/12/20 18 07/12/2018 urina lysis , dipst ick Specific Gazelle 1.010 Not Available In-Off ice Order Internal Use Only DO Not Attach Compendium DO Not Attach Compendium, Do Not Delete/merge, [id number] 07/12/2018 15:09:56 07/12/20 18 07/12/2018 urina lysis , dipst ick Ketone Negati ve Not Available In-Office Order Internal Use Only DO Not Attach Compendium DO Not Attach Compendium, Do Not Delete/merge, [id number] 07/12/2018 15:09:56 07/12/20 18 07/12/2018 urina lysis , dipst ick Bilirubin Negati ve Not Available In-Office Order Internal Use Only DO Not Attach Compendium DO Not Attach Compendium, Do Not Delete/merge, [id number] 07/12/2018 15:09:56 07/12/20 18 07/12/2018 urina lysis , dipst ick Glucose Negati ve Not Available In-Office Order Internal Use Only DO Not Attach Compendium DO Not Attach Compendium, Do Not Delete/merge, [id number] 07/12/2018 15:09:56 08/19/20 14 08/15/2014 janna beaulieu/riki hartmann t No observ ation record ed. [email or web address] Not Available 09/05 15:45:59 07/19/20 16 07/19/2016 sharif w PT NAME: WILLIAM GALLARDO : 1949 PT SEX/AG E: / PT ACCT NUMBER : [id number] PT MR#: [id number] ROOM/B ED: PT STATUS : REG CLI DATE OF EXAMIN ATION: ORDERI PHYSIC CHANTE: HELENA MCDANIEL MAN M.D. ATTEND ING PHYSIC CHANTE: HELENA MCDANIEL MAN , M.D. DICTAT ING PHYSIC CHANTE: Live HANNA M.D. 018 [id number] 3.001M IX 13:34: 00 61.007 2MVMAM ([facility]) : JAMEY SCREEN KERA W/CAD INDICA TION: [...] ed, dictat ed and finali zed at [facility] on A. __ Electr onical ly signed by: SHERRIE HANNA Date: Time: 14:14 SHERRIE HANNA M.D.__ ___ [facility] [address] [facility] [address] [place] [address] [facility] (Imaging) [address], [place], [address], 07/19/2016 15:17:29 07/19/20 16 07/19/2016 MAMMO , scree serjio, bilat eral No observ ation record ed. [facility] [address], [place], [address], 07/19/2016 16:42:23 07/12/20 18 04/29/2018 CT, abdom [...] [facility] [address], [place], [address], 08/10/2018 12:42:16 Result Notes None recorded. Problems Name Problem SNOMED Code Status Onset Date Resolution Date Notes Provider Name and Address Organization Details Recorded Time Menopausal syndrome 243181700 Active Helena Oral jiménez [place] Ladonna [facility] 4 11:23:52 Problem Notes None recorded. Procedures Surgical History Date Name Laterality Status Provider Name and Address Organization Details Recorded Time 06/16/20 18 lithotomy completed Roxi Bob MA [place] [facility] 07/12/2018 15:00:50 07/19/20 16 Most Recent Mammogram completed Roxi Bob MA [facility] 07/12/2018 15:01:41 07/31/20 14 Date of Last Pap Smear completed Ciara Mabry MA [facility] 06/30/2016 15:07:28 08/29/18 91 Laparoscopy completed Yin Bazzi MA [facility] 07/31/2014 10:46:09 08/29/18 82 Appendectomy completed Yin Bazzi MA [place] [facility] 07/31/2014 10:46:09 04/07/19 79 Tubal Ligation completed Ciara Mabry MA [place] [facility] 06/30/2016 15:08:33 04/07/19 79 Caesarean Section completed CESAR Garcia [facility] 06/30/2016 15:06:53 09/05/18 76 Caesarean Section completed CESAR Garcia [facility] 06/30/2016 15:07:08 09/12/18 72 Caesarean Section completed CESAR Garcia [facility] 06/30/2016 15:07:16 lithotripsy completed CESAR Leon [facility] 07/12/2018 15:00:39 Imaging Results None recorded. Procedure Notes None recorded. Medical Equipment None Reported. Allergies Allergen ID Allergen Name Allergen Category Reaction Reaction Severity Criticality Documentation Date Start Date Code Code System Note Provider Name and Address Organization Details Recorded Time 4877 Non-stero idal anti-infl ammatory agent (product) medicatio n other severe Not available 07/31/2014 34900 005 SNOMED cause s gastr itis Yin [...] Not Available Not Available Not Available Afluria 1845-7710(PF ) 45 mcg (15 mcg x 3)/0.5 mL intramuscula r syringe active Not Available Not Available No t Available Fluzone High-Dose 5337-8563 (PF) 180 mcg/0.5 mL intramuscula r syringe 07/12 completed Not Available Not Available Not Available Vitals Date Recorded Body height Body weight Body mass index (BMI) Systolic And Diastolic Provider Name and Address Organization Details Last Updated DateTime 06/30/2016 157.48 cm 70184.59 g 33.8 kg/m2 152/90 mm[Hg] Ciara Mabry MA [facility] 06/30/2016 15:02:18 Date Recorded Body height Body mass index (BMI) Body weight Systolic And Diastolic Provider Name and Address Organization Details Last Updated DateTime 07/12/2018 157.48 cm 32.6 kg/m2 12924.44 g 172/94 mm[Hg] Roxi Bob MA [facility] 07/12/2018 15:04:46 Social History Question Answer Notes LastModified by Organizat ion Details LastModified Time Tobacco Smoking Status Former Smoker quit 1991 Yin Bazzi MA [facility], [facility] 07/31/2014 10:50:46 Do You Have An [...] MRSA N Blood Transfusion Y Emphysema N Depression N COPD N Blood Clots N Pneumonia N Peripheral Arterial Disease N [...] SNOMED-CT Code Diagnosis ICD10 Code Diagnosis Note [id number] Helena Fair MD [facility] (DELICATESSEN STORE MANAGER) [address] [place] [address] 07/31/2014 10:09:36 07/31/2014 12:11:49 Gynecologic examination [id number] Menopausal syndrome [id number] Helena Fair MD [facility] (DELICATESSEN STORE MANAGER) [address] [place] [address] 06/30/2016 14:18:34 07/01/2016 09:46:16 Screening mammography 24547110 Z12.31 Menopausal syndrome 1237 47185 N95.9 Screening for malignant neoplasm of breast 670569958 Z12.31 [id number] [facility] [address] [place] [address] 07/12/2018 14:09:39 07/14/2018 13:36:30 Screening mammography 83473697 Z12.31 Health Concerns Section Related Observation LastModified by Organization Detai ls LastModified Time None Recorded Concern Status LastModified by Organization Details LastModified Time None Recorded Advance Directives Directive N: Payers Insurance Date Sequence Insurance Name Policy Number Policy Jefferson Covered Member ID Jefferson Member ID Guarantor Name 07/27/2018 2 [place] 106 Joseph Gallardo Jr [id number] Joannaalec Gallardo 07/09/2018 [place]QHC Joanna Gallardo [id number] Joannaalec Gallardo 07/27/2018 1 [place] Joanna Khalida Gallardo [id number] Joanna Gallardo Notes Date Note Type Note Provider Name and Address Organization Details Recorded Time 4 text/html Annual GYNReported by PatientGenitourinary symptomsFor menstrual cycle, patient reportsnormal menses. For urinary symptoms, patient reportsno hematuriaandno incontinence. For vulva, patient reportsno genital lesion. For vagina, patient reportsnormal vaginal discharge.Breast symptomsFor breast, patient reportsno breast pain,no breast lump, andno nipple discharge.Endocrine symptomsFor sexual complaints, patient reportsno sexual complaints,no pain during intercourse, andnormal libido. For menopausal symptoms, patient reportsno menopausal symptomsandnormal vaginal lubrication.Psychological symptomsFor psychological symptoms, patient reportsno depression,no anxiety, andno pmdd. Helena jiménez, [place] - [facility] 07/31/2014 11:24:02 6 text/html Annual Hand Launderer Post-MenopausalReported by PatientGenitourinary symptomsFor menopausal symptoms, patient reportshot flashesbut reportsnormal vaginal lubrication. For vulva, patient reportsatrophic vulvabut reportsno genital lesion. For vagina, patient reportsatrophic vaginabut reportsnormal vaginal discharge. For vaginal bleeding, patient reportshistory of menopause having occurredandno history of post menopausal bleeding. For urinary symptoms, patient reportsno hematuria,no incontinence,no nocturia, andno urinary frequency.Breast symptomsFor breast, patient reportsno breast lump,no nipple discharge, andno breast pain.Psychological symptomsFor sexual complaints, patient reportsno sexual complaints. For psychological symptoms, patient reportsno depressionandno anxiety. 66yo menopausal WF who presents for routine annual. Using Estrace for menopausal symptoms. Notes vaginal dryness but does not use Estrace cream. No breast abnormalities noted. Last mammogram 2 years ago. [facility] - [facility] 06/30/2016 18:21:51 8 text/html Breast ProblemsReported by PatientHPIFor quality, patient reportsasymptomatic,no bloody discharge,no brown discharge,no milky discharge,no yellow-clear discharge,no yellow-green discharge,non-tender,impr oving, andno mass. For context, patient reportsprior mammogram normal,performs breast self-examination,no breast implants,no family history of breast cancer,no history of breast cancer,no radiation treatment,no chemotherapy,no cancer,no previous biopsies,no miscarriages,recent mri normal, andlymph node status negative. For modifying factors, patient reportsno recent change in exercise habits,no recent changes in weight,no recent changes in diet, andno recent changes in medication dosage of hormone replacement therapy. For aggravating factors, patient reportsnone. For associated symptoms, patient reportsno fever,no chills,no breast reddening,no nipple discharge,no sore nipples,no nipple inversion,breasts feel normal,no breast swelling,no arm pain,no arm swelling,no chest pain,no malaise,no breast lump, andno change in breast skin.ROS as noted in the HPI 68 postmenopausal female here for CBE. Helena jiménez, [facility] 07/12/2018 17:43:52 OBGyn Episode Ob Episode Information Episode Created Date Number of Fetuses Patient Bloodtype Patient rh Status Prepregnancy Weight lbs Domestic Partner Domestic Partner Phone Father Name Resistance Machine Welder Setter Status 07/31/20 14 1 CLOSED Fetus Data First Name Last Name Admitted to NICU Weight (g) Sex Living Outcome Pediatric Complications Fetus ID Race Codes Race Delivery Type 3089.86 8704 F Full Term 2064 King Calculation Initial King [...] Domestic Partner Domestic Partner Phone Father Name Resistance Machine Welder Setter Status 07/31/20 14 1 CLOSED Fetus Data First Name Last Name Admitted to NICU Weight (g) Sex Living Outcome Pediatric Complications Fetus ID Race Codes Race Delivery Type 3089.86 8704 M Full Term 5 King Calculation Initial King Date Initial Exam [...] Domestic Partner Domestic Partner Phone Father Name Resistance Machine Welder Setter Status 07/31/20 14 1 CLOSED Fetus Data First Name Last Name Admitted to NICU Weight (g) Sex Living Outcome Pediatric Complications Fetus ID Race Codes Race Delivery Type 3259.96 5704 M Full Term 2066 Only King Calculation Initial King Date Initial [...]
--- OUTSIDE RECORDS SUMMARY | 2025-03-22 18:51 | XMS_ITS | Encounter Summary ---
Author Organization [facility] Address [address] [place] [address] Care Team Providers Care Sandwich Peddler Name Role Phone Kristina Elias MD Primary Care Provider [phone] Encounter Details Date Type Department Care Team (Late st Contact Info) Description 03/21/2025 Telephone [facility] Medical Group Cardiology [address] [facility] [address] [place] [address] Rebecca Velazquez, CHARU [address] [place] [address] Social History Tobacco Use Types Packs/Day Years Used Date Smoking Tobacco: Former Cigarettes Q uit: 1991 Smokeless Tobacco: Never Alcohol Use Standard Drinks/Week Comments Yes 0 (1 standard drink = 0.6 oz pur e alcohol) Comments Unknown Sex and Gender Information Value Date Recorded Sex Assigned at Not on file Legal Sex Female 8:03 PM MANAGER INTERNSHIP Gender Identity Not on file Sexual Orientation Not on file documented as of this encounter Miscellaneous Notes * Telephone Encounter - Mel Langford - 03/21/2025 10:27 AM CDT Pt had an abdominal pelvic CT at on 02/12. * Telephone Encounter - Parul Williamson - 03/21/2025 10:04 AM CDT Spoke with pt about CT results for her appt with CT on 04/[address] was done at if we could please retreive those results so CT has something to review before the appt thank you documented in this encounter Plan of Treatment Not on file documented as of this encounter Visit Diagnoses Not on filedocumented in this encounter Care Teams Sandwich Peddler Relationship Specialty Start Date End Date Kristina Elias MD PCP - General Family Medicine 08/12/21 documented as of this encounter
--- OUTSIDE RECORDS SUMMARY | 2025-03-22 18:51 | XMS_ITS | Clinical Summary ---
Author Organization [facility] Lili Henrydilia Address [address] [place] [address] Care Team Providers Care Wash Oil Pump Operator Name Role Phone Kristina Elias MD Primary Care Provider [phone] Allergies Active Allergy Reactions Criticality Noted Date [...] Encounters Date Type Department Care Team Description 03/13/2025 External Device Data STL ABSTRACTION Provider, Abstract 03/12/2025 External Device Data STL ABSTRACTION Provider, Abstract 03/11/2025 4:30 PM CDT Telephone Check Up [facility] Oncology and Hematology [facility] [address] [place] [address] Walter Brothers MD Splenomegaly (Primary Dx) 02/25/2025 1:15 PM CDT Office Visit [facility] Oncology and Hematology [facility] [address] [place] [address] Walter Brothers MD Splenomegaly (Primary Dx); Chronic anemia 02/21/2025 Orders Only [facility] Oncology and [facility] [address] [place] [address] Walter Brothers MD 02/19/2025 External Device Data [...] Care Team (Late st Contact Info) Description 05/15/2025 2:30 PM CDT Office Visit [facility] Oncology and Hematology - [place] [address] [facility] [address] [place] [address] Walter Brothers MD [address] [facility] [address] [place] [address] Health Maintenance Due Date Last [...] 02/04/20 23, 02/03/2023, 11/12/2021, Additional history exists OSTEOPOROSIS SCREENING 09/26/2024 09/26/2019 INFLUENZA VACCINE (#1) 2025 9, 06/26/2018, 06/21/2017, Additional history exists COLORECTAL [...] Res ult from Last 3 Months Insurance [facility] RAILROAD Care Teams Wash Oil Pump Operator Relationship Specialty Start Date End Date Kristina Elias MD [address] [place] [address] PCP - General Family Practice 06/11/21
--- OUTSIDE RECORDS SUMMARY | 2025-03-22 18:51 | XMS_ITS | Encounter Summary ---
Author Organization [facility] Address [address] [place] [address] Care Team Providers Care Principal Security Architect Name Role Phone Prudence Reis MD Unavailable Unavailable Reuben Oneal MD Primary Care Provider [phone] Kristina Elias MD Primary Care Provider [phone] Encounter Details Date Type Department Care Team (Late Contact Info) Description 04/18/2020 Prep for Procedure [facility]-Ad[facility] [address] [place], [place] [id number] Binh Scott MD [address] [place] [address] Social History Tobacco Use Types Packs/Day [...] (COVID 19) (04/18/2020 11:00 AM CDT) Pathologist [facility] CORONAVIRUS SARS COV 2 PCR (RESP) NOT DETECTED NOT DETECTED 04/19/2020 2:37 PM CDT [facility] Comment: A Not Detected (negative) [...] providers and patients using the following websites: https://www.[employer]/home/Covid-19/HCP/NAAT/fact-sheet2 https://www.[employer]/home/Covid-19/Patients/NAAT/ fact-sheet2 This test has been authorized by the FDA under an Emergency Use Authorization (EUA) for use by authorized laboratories. Due to the current public health emergency, [facility] is receiving a high volume of samples [...] about COVID-19 can be found at the [employer] website: www.[employer] Crossing/Covid19. Test performed at [facility] [place] [address] [place] [address] Director: KIMBERLY ALCARAZ DO,MPH NASOPHARYNGEAL SWAB / Unknown 04/18/2020 11:00 AM CDT Binh Scott MD MICROBIOLOGY - GENERAL ORDERABLE S Final Result [facility] [address] [place] [address], documented in this encounter Visit Diagnoses Diagnosis Preoperative testing- Primary Preoperative examination, unspecified documented in this encounter Additional Health Concerns Infection Onset Date Last Indicated Resolved Time COVID-19 Rule Out 04/18/2020 04/18/2020 04/19/2020 2:38 PM CDT documented as of this encounter Care Teams Principal Security Architect Relationship Specialty Start Date End Date Reuben Oneal MD [address] [place] [address] PCP - General FAMILY PRACTICE 04/15/20 12/20/21 Kristina Elias MD [address] [place] [address] PCP - General FAMILY PRACTICE 12/21/21 Prudence Reis MD CARDIOVASCULAR DISEASE 04/15/20 documented as of this encounter
--- NOTE | 2025-03-22 18:57 | ECG_ITS ---
Test Date: 2025-03-22 19:05:32 Measurements Intervals [place] Rate: 64 P: 37 VT: 185 QRS: -15 QRSD: 94 T: 7 QT: 365 QTc: 378 Interpretive Statements SINUS RHYTHM POSSIBLE LEFT ATRIAL ENLARGEMENT [-0.1mV P WAVE IN V1/V2] POSSIBLE ANTERIOR MYOCARDIAL INFARCTION , PROBABLY OLD [30 ms Q WAVE IN V3/V4, OR R < 0.2 mV IN V4] No previous ECG available for comparison Electronically Signed On 03-23-2025 18:49:05 CDT by Carlos Fields M.D.
[2025-03-22 19:14] LABS: Hematocrit 35.9 % (37.0-47.0); Hemoglobin 11.6 g/dL (12.0-15.0); Immature Platelet Fraction Pct 2.8 % (0.9-11.2); Mean Corpuscular HGB Conc 32.3 g/dl (32-36); Mean Corpuscular Hemoglobin 26.2 pg (26-34); Mean Corpuscular Volume 81.2 fl (80-100); Platelet Count Result 92 k/mm3 (150-375); Red Blood Count 4.42 M/mm3 (4.2-5.4); White Blood Count 5.5 K/mm3 (4.5-10.0)
[2025-03-22 19:24] LABS: INR 0.9; Prothrombin Time 12.2 Seconds (11.1-14.7)
[2025-03-22 19:25] LABS: Partial Thromboplastin Time 25.2 Seconds (22.3-36.8)
[2025-03-22 19:29] LABS: Alanine Aminotransferase 9 U/L (6-35); Albumin Level 4.0 g/dL (3.5-5.1); Alkaline Phosphatase 71 U/L (38-126); Anion Gap 8 mmol/L (4-12); Aspartate Amino Transferase 20 U/L (14-36); Bilirubin,Total 0.3 mg/dL (0.2-1.3); Blood Urea Nitrogen 10 mg/dL (7-17); Calcium 9.1 mg/dL (8.4-10.2); Carbon Dioxide 25 mmol/L (22-30); Chloride 100 mmol/L (98-107); Estimated CRCL calculation 47 ml/min; Estimated Glomerular Filt Rate > 60; Glucose 98 mg/dL (65-110); Lipase 34 U/L (23-300); Potassium 4.2 mmol/L (3.4-5.0); Sodium 133 mmol/L (137-145); Total Protein 6.2 g/dL (6.3-8.2)
[2025-03-22 19:41] LABS: Troponin I < 0.012 ng/mL (0.000-0.034)
[2025-03-22 19:50] LABS: Lymphocytes Absolute Manual 2.14 K/mm3 (1.1-4.5); Lymphocytes Percent Manual 39.0 % (18-44); Monocytes Absolute Manual 0.22 K/mm3 (0.1-0.90); Monocytes Percent Manual 4 % (3-9); Neutrophils Percent Manual 57 % (46-73); Total Cells Counted 100
[2025-03-22 19:51] LABS: Schistocytes None Seen
[2025-03-22 19:52] LABS: Anisocytosis 1+; Microcytosis 1+ (NORMAL)
[2025-03-22 20:22] LABS: Band Neutrophils Percent 0 % (0-6); Neutrophils Absolute Manual 3.13 K/mm3 (1.3-6.7)
[2025-03-22 23:22] LABS: Troponin I < 0.012 ng/mL (0.000-0.034)
[2025-03-22 23:42] VITALS: BP 164/60; PULSE 63; RESP 16; O2SAT 100; O2SAT 98
--- NOTE | 2025-03-22 23:55 | PC.NURSE ---
pt not given asa at this time due to pmh of gastritis from taking asa. CP currently resolved.
[2025-03-23] VITALS (15 sets, daily range): BP systolic 167–180; BP diastolic 62–77; PULSE 62–77; RESP 11–18; TEMP 36.7; O2SAT 98–100
--- OUTSIDE RECORDS SUMMARY | 2025-03-23 00:14 | XMS_ITS | Clinical Summary ---
Author Organization [facility] [address] Address [address] [place] [address] Care Team Providers Care Steel Burner Name Role Phone Kristina Elias MD Primary Care Provider [phone] Allergies Active Allergy Reactions Criticality Noted Date [...] Type Department Care Team Description 03/21/2025 Telephone [facility] Medical Group Cardiology [address] [place] [address] Rebecca Velazquez NP from Last [...] on file Legal Sex Female 8:03 PM BROKE HANDLER Gender Identity Not on file Sexual Orientation Not on file Obstetrics History Last Filed Vital Signs Vital Sign Reading Time Taken Comments Blood Pressure 124/62 09/27/2024 2:11 PM BROKE HANDLER Pulse 80 09/27/2024 2:11 PM BROKE HANDLER Temperature - - Respiratory Rate - - Oxygen Saturation 98% 09/27/2024 2:11 PM BROKE HANDLER Inhaled Oxygen Concentration - - Weight 74.4 kg (164 lb) 09/27/2024 2:11 PM BROKE HANDLER Height 157.5 cm (5' 2) 09/27/2024 2:11 PM BROKE HANDLER Body Mass Index 30 09/27/2024 2:11 PM BROKE HANDLER Plan of Treatment Health Maintenance Due Date [...] vaccine 65+ Completed 06/25/2020, 02/2019 [facility] FEDERAL Member Subscriber Plan / Payer (Ef fective 2015-Present) Name:Joanna Jeffery Relation to Subscriber:Spouse Name:JEFFERY YRN VERDUGO A Date of :1950 Address: [address] [place] [address] [place] [address] Payer ID:[id number] (NAIC) Group ID:[id number] Type: [employer]IANCE Address: [facility] [address] [place] [address] Care Teams Steel Burner Relationship Specialty Start Date End Date Kristina Elias MD PCP - General Family Medicine 08/12/21
--- OUTSIDE RECORDS SUMMARY | 2025-03-23 00:14 | XMS_ITS | Referral Summary ---
Author Organization [facility] [address] [facility] [address] Address [address] [place] [address] Care Team Providers Care Pai Gow Dealer Name Role Phone Kristina lEias MD Primary Care Provider [phone] Encounters Date Type Department Care Team Description 03/21/2025 Telephone [facility] Medical Group Cardiology [address] [place] [address] Rebecca Velazquez, CHARU from Last [...] on file Legal Sex Female 8:03 PM CAPTAIN WAITER/WAITRESS Gender Identity Not on file Sexual Orientation Not on file Last Filed Vital Signs Vital Sign Reading Time Taken Comments Blood Pressure 124/62 09/27/2024 2:11 PM CAPTAIN WAITER/WAITRESS Pulse 80 09/27/2024 2:11 PM CAPTAIN WAITER/WAITRESS Temperature - - Respiratory Rate - - Oxygen Saturation 98% 09/27/2024 2:11 PM CAPTAIN WAITER/WAITRESS Inhaled Oxygen Concentration - - Weight 74.4 kg (164 lb) 09/27/2024 2:11 PM CAPTAIN WAITER/WAITRESS Height 157.5 cm (5' 2) 09/27/2024 2:11 PM CAPTAIN WAITER/WAITRESS Body Mass Index 30 09/27/2024 2:11 PM CAPTAIN WAITER/WAITRESS Plan of Treatment [place] [address] MED[address] RAILROAD [facility] FEDERAL Member Subscriber Plan / Payer ( fective 2015-Present) Name:Joanna Jeffery Relation to Subscriber:Spouse Name:YRN JEFFERY JR Date of :1950 Address: [facility] [place] [address] Payer ID:[id number] (NAIC) Group ID:[id number] Type:[facility] Address: [address] [place] [address] Care Teams Pai Gow Dealer Relationship Specialty Start Date End Date Kristina Elias MD PCP - General Family Medicine 08/12/21
--- OUTSIDE RECORDS SUMMARY | 2025-03-23 00:14 | XMS_ITS | Encounter Summary ---
Author Organization [facility] Address [address] [place] [address] Care Team Providers Care On Air Announcer Name Role Phone Prudence Reis MD Unavailable Unavailable Kristina Elias MD Primary Care Provider [phone] Encounter Details Date Type Department Care Team (Late st Contact Info) Description 12/02/2023 Prep for Procedure [facility] [address] [place], [place] [id number] Zelalem Ziegler MD [facility] [address] [place], [place] [id number] Social History Tobacco Use Types Packs/Day Years [...] - 11.0 x10'3/uL 01/09/2024 8:58 AM CDT [facility] RBC 2.59(L) 4.20 - 5.40 x10'6/uL 01/09/2024 8:58 AM CDT [facility] HGB 6.7(LL) 12.0 - 16.0 G/DL 01/09/2024 8:58 AM CDT [facility] Comment: This result has been called to SOL HIGHTOWER by [id number] on 01/09/2024 08:58:40, and has been read back. HCT 21.7(L) 38.0 - 48.0 % 01/09/2024 8:58 AM CDT [facility] MCV 83.8 81.0 - 99.0 FL 01/09/2024 8:58 AM CDT [facility] MCH 25.9(L) 27.0 - 31.0 PG 01/09/2024 8:58 AM CDT [facility] MCHC 30.9(L) 32.0 - 36.0 G/DL 01/09/2024 8:58 AM CDT [facility] RDW 13.3 11.5 - 14.5 % 01/09/2024 8:58 AM CDT [facility] PLT 85(L) 130 - 400 x10'3/uL 01/09/2024 8:58 AM CDT [facility] MPV 8.8(L) 9.3 - 12.2 FL 01/09/2024 8:58 AM T [facility] DIFFERENTIAL TYPE AUTOMATED DIFFERENTIAL 01/09/2024 9:00 AM CDT [facility] NEUTROPHILS % 41.1 % 01/09/2024 9:00 AM T [facility] LYMPHOCYTES % 48.0 % 01/09/2024 9:00 AM T [facility] MONOCYTES % 7.4 % 01/09/2024 9:00 AM CDT [facility] EOSINOPHILS 0.8 % 01/09/2024 9:00 AM CDT [facility] BASOPHILS 0.3 % 01/09/2024 9:00 AM CDT [facility] IMMATURE GRANS % 2.4 % 01/09/20 9:00 AM CDT [facility] ABS. NEUTROPHILS 1.55(L) 1.80 - 7.70 x10'3/uL 01/09/2024 9:00 AM CDT [facility] ABS. LYMPHOCYTES 1.81 1.00 - 4.80 x10'3/uL 01/09/2024 9:00 AM CDT [facility] ABS. MONOCYTES 0.28 0.24 - 0.86 x10'3/uL 01/09/2024 9:00 AM CDT [facility] ABS. EOSINOPHILS 0.03(L) 0.04 - 0.36 x10'3/uL 01/09/2024 9:00 AM CDT [facility] ABS. BASOPHILS 0.01 0.01 - 0.08 x10'3/uL 01/09/2024 9:00 AM CDT [facility] ABS. IMMATURE GRANULOCYTES 0.09 0.00 - 0.49 x10'3/uL 01/09/2024 9:00 AM CDT [facility] RBC MORPHOLOGY SLIDE REVIEWED 2023 9:00 AM CDT [facility] CAREY 3+ 01/09/2024 9:00 AM CDT [facility] PLT EST. DECREASED 01/09/2024 9:00 AM CDT [facility] 01/09/2024 8:05 AM CDT us Zelalem Ziegler MD LABORATORY Final Result [facility] [address] [place] [address], [place] [phone] * (ABNORMAL) COMPREHENSIVE METABOLIC PANEL (01/09/2024 7:55 AM CDT) [facility] GLUCOSE 83 70 - 99 MG/DL 01/09/2024 8:50 AM CDT [facility] BUN 17 7 - 18 MG/DL 01/09/2024 8:50 AM CDT [facility] CREATININE S/P/B 1.01 0.55 - 1.02 MG/DL 01/09/2024 8:50 AM CDT [facility] SODIUM S/P/B 140 136 - 145 MMOL/L 01/09/2024 8:50 AM CDT [facility] POTASSIUM S/P/B 3.9 3.5 - 5.1 MMOL/L 01/09/2024 8:50 AM CDT [facility] CHLORIDE S/P/B 112(H) 100 - 108 MMOL/L 01/09/2024 8:50 AM CDT [facility] CO2 22.5 21 - 32 MMOL/L 01/09/2024 8:50 AM CDT [facility] CALCIUM S/P/B 9.1 8.5 - 10.1 MG/DL 01/09/2024 8:50 AM CDT [facility] BILIRUBIN TOTAL S/P/B 0.5 0.2 - 1.2 MG/DL 01/09/2024 8:50 AM CDT [facility] Comment: THIS ASSAY IS NOT RECOMMENDED FOR PATIENTS UNDERGOING TREATMENT WITH ELTROMBOPAG DUE TO THE POTENTIAL FOR FALSELY ELEVATED RESULTS. TOTAL PROTEIN S/P/B 5.9(L) 6.4 - 8.2 G/DL 01/09/2024 8:50 AM CDT [facility] ALBUMIN S/P/B 3.3(L) 3.4 - 5.0 G/DL 01/09/2024 8:50 AM CDT [facility] AST 9(L) 15 - 37 U/L 01/09/2024 8:50 AM CDT [facility] ALT 14 14 - 55 U/L 01/09/2024 8:50 AM CDT [facility] ALKALINE PHOSPHATASE S/P/B 74 50 - 136 U/L 01/09/2024 8:50 AM CDT [facility] ANION GAP 5.5 5 - 15 MMOL/L 01/09/2024 8:50 AM CDT [facility] BUN CREATININE RATIO 16.8 6 - 26 01/09/2024 8:50 AM CDT [facility] A/G RATIO 1.3 1.0 - 2.0 RATIO 01/09/2024 8:50 AM T [facility] GFR ESTIMATE 59(L) >90 ML/MIN/1.7 3 M2 01/09/2024 8:50 AM CDT [facility] Comment: NOTE: eGFR is not calculated for patients <18 years of age. This is an estimated GFR calculation using the new CKD EPI creatinine equation without race and so does not require a correction factor for race. This estimated GFR should not be used for calculating drug doses. 01/09/2024 7:55 AM CDT Zelalem Ziegler MD LABORATORY Final Result [facility] [address] [place] [address], [place] [phone] * PROTIME/INR, VENOUS (01/09/2024 7:55 AM CDT) PROTIME 10.2 10.2 - 12.9 SEC 01/09/2024 8:40 AM CDT [facility] INR 0.9 01/09/2024 8:40 AM CDT [facility] Comment: Recommended INR Therapeutic Goals: 2.0-3.0 Routine Therapy 2.5-3.5 Mechanical Prosthetic Valves (High Risk) 01/09/2024 7:55 AM CDT Zelalem Ziegler MD LABORATORY Final Result [facility] [address] [place] [address], [place] [phone] documented in this encounter Visit Diagnoses Diagnosis Varicose veins of lower extremity with pain, right- Primary Hyperlipidemia Other and unspecified hyperlipidemia Hypertension Unspecified essential hypertension Disease of the lung and heart (CMS/HCC [facility]/HCC) Chronic pulmonary heart disease, unspecified documented in this encounter Care Teams On Air Announcer Relationship Specialty Start Date End Date Kristina Elias MD [address] [place] [address] PCP - General FAMILY PRACTICE 12/21/21 Prudence Reis MD CARDIOVASCULAR DISEASE 04/15/20 documented as of this encounter
--- OUTSIDE RECORDS SUMMARY | 2025-03-23 00:14 | XMS_ITS | Clinical Summary ---
Author Organization [facility] Address [address] [place] [address] Care Team Providers Care Craps Dealer Name Role Phone Prudence Reis MD Unavailable Unavailable Kristina Elias MD Primary Care Provider [phone] Allergies Active Allergy Reactions Criticality Noted Date [...] 11/01/2023 Mild chronic obstructive pul monary disease ([facility]/HCC [facility]) 11/01/2023 Dyspnea 11/01/2023 Symptomatic varicose veins of [...] this topic Medical Devices Implanted Type Area Art Gallery Internship Device Identifier Shelf Expiration Date Model / Serial / Lot Iol Tecnis Simplicity Dcb00 - [id number] Implanted:Qty: 1 on 05/21/2024 by Jabari Luis MD at [facility] Lens Left: Eye [employer] 10/09/2026 DCB00 / [id number] / Iol Tecnis Simplicity Dcb00 - [id number] Implanted:Qty: 1 on 06/25/2024 by Jabari Luis MD at [facility] Lens Right: Eye [employer] 01/15/2027 [facility] / [id number] / Insurance RAILROAD MEDICARE [facility] Care Teams Craps Dealer Relationship Specialty Start Date End Date Kristina Elias MD [address] [place] [address] PCP - General FAMILY PRACTICE 12/21/21 Prudence Reis MD CARDIOVASCULAR DISEASE 04/15/20
--- OUTSIDE RECORDS SUMMARY | 2025-03-23 00:15 | XMS_ITS | Encounter Summary ---
Author Organization [facility] Healthcare Address [address] [place] [address] Care Team Providers Care Electronic Data Processing Auditor Name Role Phone Kristina Elias MD Primary Care Provider [phone] Encounter Details Date Type Department Care Team (Late st Contact Info) Description 03/21/2025 Telephone [facility] Medical Group Cardiology [address] [facility] [address] [place] [address] Rebecca Velazquez, CHARU [address] [place] [address] Social History Tobacco Use Types Packs/Day Years Used Date Smoking Tobacco: Former Cigarettes Q uit: 1991 Smokeless Tobacco: Never Alcohol Use Standard Drinks/Week Comments Yes 0 (1 standard drink = 0.6 oz pur e alcohol) Comments Unknown Sex and Gender Information Value Date Recorded Sex Assigned at Not on file Legal Sex Female 8:03 PM DIRECTOR INPATIENT HEADACHE PROGRAM Gender Identity Not on file Sexual Orientation [...] on filedocumented in this encounter Care Teams Electronic Data Processing Auditor Relationship Specialty Start Date End Date Kristina Elias MD PCP - General Family Medicine 08/12/21 documented as of this encounter
--- OUTSIDE RECORDS SUMMARY | 2025-03-23 00:15 | XMS_ITS | Clinical Summary ---
Author Organization [facility] Address [address] [place] [address] Care Team Providers Care Thermostat Repairer Name Role Phone Kristina Elias MD Primary Care Provider [phone] Allergies Active Allergy Reactions Criticality Noted Date [...] 03/11/2025 4:30 PM CDT Telephone Check Up [facility] Oncology and Hematology [facility] [address] [place] [address] Walter Brothers MD Splenomegaly (Primary Dx) 02/25/2025 1:15 PM CDT Office Visit [facility] Oncology and Hematology [facility] [address] [place] [address] Walter Brothers MD Splenomegaly (Primary Dx); Chronic anemia 02/21/2025 Orders Only [facility] Oncology and [facility] [address] [place] [address] Walter Brothers MD 02/19/2025 External Device Data [...] Description 05/15/2025 2:30 PM CDT Office Visit [facility] Oncology and Hematology - [place] [address] [facility] [address] [place] [address] Walter Brothers MD [address] [facility] [address] [place] [address] Health Maintenance Due Date Last [...] WITH DIFFERENTIAL (02/21/2025 3:37 PM CDT) Blood Walter Brothers MD HEMATOLOGY ORDERABLES Final Res ult from Last 3 [place] [address] [facility] [place] [address] Care Teams Thermostat Repairer Relationship Specialty Start Date End Date Kristina Elias MD [address] [place] [address] PCP - General Family Practice 06/11/21
--- OUTSIDE RECORDS SUMMARY | 2025-03-23 00:15 | XMS_ITS | Encounter Summary ---
Author Organization [facility] Address [address] [place] [address] Care Team Providers Care Product Support Rep Name Role Phone Prudence Reis MD Unavailable Unavailable Reuben Oneal MD Primary Care Provider [phone] Kristina Elias MD Primary Care Provider [phone] Encounter Details Date Type Department Care Team (Late Contact Info) Description 04/18/2020 Prep for Procedure [facility] [address] [place], [place] [id number] Binh Scott MD [address] [place] [address] Social History Tobacco Use Types Packs/Day [...] DETECTED NOT DETECTED 04/19/2020 2:37 PM CDT [facility] Comment: A Not Detected [...] providers and patients using the following websites: https://www.FlatStack.TicTacTi/home/Covid-19/HCP/NAAT/fact-sheet2 https://www.FlatStack.TicTacTi/home/Covid-19/Patients/NAAT/ fact-sheet2 This test has been authorized by the FDA under an Emergency Use Authorization (EUA) for use by authorized laboratories. Due to the current public health emergency, [facility] is receiving a high volume of samples [...] about COVID-19 can be found at the [facility] website: www.Ultimate Shopper.TicTacTi/Covid19. Test performed at [facility] [place] [address] [place] [address] Director: KIMBERLY ALCARAZ DO,MPH NASOPHARYNGEAL SWAB / Unknown 04/18/2020 11:00 AM CDT Binh Scott MD MICROBIOLOGY - GENERAL ORDERABLE S Final Result [facility] [address] [place] [address], documented in this encounter Visit Diagnoses Diagnosis Preoperative testing- Primary Preoperative examination, unspecified documented in this encounter Additional Health Concerns Infection Onset Date Last Indicated Resolved Time COVID-19 Rule Out 04/18/2020 04/18/2020 04/19/2020 2:38 PM CDT documented as of this encounter Care Teams Product Support Rep Relationship Specialty Start Date End Date Reuben Oneal MD [address] [place] [address] PCP - General FAMILY PRACTICE 04/15/20 12/20/21 Kristina Elias MD [address] [place] [address] PCP - General FAMILY PRACTICE 12/21/21 Prudence Reis MD CARDIOVASCULAR DISEASE 04/15/20 documented as of this encounter
--- OUTSIDE RECORDS SUMMARY | 2025-03-23 00:15 | XMS_ITS | Encounter Summary ---
Author Organization [facility] Address [address] [place] [address] Care Team Providers Care Color Strainer Name Role Phone Prudence Reis MD Unavailable Unavailable Kristina Elias MD Primary Care Provider [phone] Reason for Referral * Surgical (Routine) - Closed Specialty Diagnoses / Procedures Referred By Contac t Referred To Contact Diagnoses Varicose veins of lower extremity with pain, right Procedures Case request operating room: STAB PHLEBECTOMY (RIGHT LEG) Zelalem Ziegler MD [address] [place] [address] Phone: tel: fax: Referral ID Status Reason Start Date Expiration Date Visits Re quested Visits Authorized [id number] Closed 01/10/2024 01/09/2025 1 1 Encounter Details Date Type Department Care Team (Late st Contact Info) Description 01/10/2024 Prep for Procedure [facility] [address] [place], [place] [id number] Zelalem Ziegler MD [facility] [address] [place] [address] Social History Tobacco Use Types [...] PANEL (02/20/2024 12:18 PM CDT) Pathologist [facility] GLUCOSE 94 70 - 99 MG/DL 02/20/2024 12:53 PM CDT [facility] BUN 11 7 - 18 MG/DL 02/20/2024 12:53 PM CDT [facility] CREATININE S/P/B 0.95 0.55 - 1.02 MG/DL 02/20/2024 12:53 PM CDT [facility] SODIUM S/P/B 139 136 - 145 MMOL/L 02/20/2024 12:53 PM CDT [facility] POTASSIUM S/P/B 4.3 3.5 - 5.1 MMOL/L 02/20/2024 12:53 PM CDT [facility] CHLORIDE S/P/B 109(H) 100 - 108 MMOL/L 02/20/2024 12:53 PM CDT [facility] CO2 24.2 21 - 32 MMOL/L 02/20/2024 12:53 PM CDT [facility] CALCIUM S/P/B 9.3 8.5 - 10.1 MG/DL 02/20/2024 12:53 PM CDT [facility] BILIRUBIN TOTAL S/P/B 1.4(H) 0.2 - 1.2 MG/DL 02/20/2024 12:53 PM CDT [facility] Comment: THIS ASSAY IS NOT RECOMMENDED FOR PATIENTS UNDERGOING TREATMENT WITH ELTROMBOPAG DUE TO THE POTENTIAL FOR FALSELY ELEVATED RESULTS. TOTAL PROTEIN S/P/B 6.3(L) 6.4 - 8.2 G/DL 02/20/2024 12:53 PM CDT [facility] ALBUMIN S/P/B 3.5 3.4 - 5.0 G/DL 02/20/2024 12:53 PM CDT [facility] AST 11(L) 15 - 37 U/L 02/20/2024 12:53 PM CDT [facility] ALT 11(L) 14 - 55 U/L 02/20/2024 12:53 PM CDT [facility] ALKALINE PHOSPHATASE S/P/B 79 50 - 136 U/L 02/20/2024 12:53 PM CDT [facility] ANION GAP 5.8 5 - 15 MMOL/L 02/20/2024 12:53 PM CDT [facility] BUN CREATININE RATIO 11.5 6 - 26 02/20/2024 12:53 PM CDT [facility] A/G RATIO 1.2 1.0 - 2.0 RATIO 02/20/2024 12:53 PM T [facility] GFR ESTIMATE 63(L) >90 ML/MIN/1.7 3 M2 02/20/2024 12:53 PM CDT [facility] Comment: NOTE: eGFR is not calculated for patients <18 years of age. This is an estimated GFR calculation using the new CKD EPI creatinine equation without race and so does not require a correction factor for race. This estimated GFR should not be used for calculating drug doses. 02/20/2024 12:1 8 PM CDT us Zelalem Ziegler MD LABORATORY Final Result [facility] [address] [place] [address], [place] [phone] * PROTIME/INR, VENOUS (02/20/2024 12:18 PM CDT) Pathologist [facility] PROTIME 10.5 10.2 - 12.9 SEC 02/20/2024 12:47 PM CDT [facility] INR 0.9 02/20/2024 12:47 PM CDT [facility] Comment: Recommended INR Therapeutic Goals: 2.0-3.0 Routine Therapy 2.5-3.5 Mechanical Prosthetic Valves (High Risk) 02/20/2024 12:1 8 PM CDT Zelalem Ziegler MD LABORATORY Final Result [facility] [address] [place] [address], [place] [phone] * (ABNORMAL) CBC W/DIFF AUTOMATED (02/20/2024 12:18 PM CDT) [facility] WBC 5.11 4.5 - 11.0 x10'3/uL 02/20/2024 1:01 PM CDT [facility] RBC 4.62 4.20 - 5.40 x10'6/uL 02/20/2024 1:01 PM CDT [facility] HGB 12.0 12.0 - 16.0 G/DL 02/20/2024 1:01 PM CDT [facility] HCT 36.8(L) 38.0 - 48.0 % 02/20/2024 1:01 PM CDT [facility] MCV 79.7(L) 81.0 - 99.0 FL 02/20/2024 1:01 PM CDT [facility] MCH 26.0(L) 27.0 - 31.0 PG 02/20/2024 1:01 PM CDT [facility] MCHC 32.6 32.0 - 36.0 G/DL 02/20/2024 1:01 PM CDT [facility] RDW 13.6 11.5 - 14.5 % 02/20/2024 1:01 PM CDT [facility] PLT 65(L) 130 - 400 x10'3/uL 02/20/2024 1:01 PM CDT [facility] MPV 12.1 9.3 - 12.2 FL 02/20/2024 1:01 PM CDT [facility] DIFFERENTIAL TYPE AUTOMATED DIFFERENTIAL 02/20/2024 1:01 PM CDT [facility] NEUTROPHILS % 58.1 % 02/20/2024 1:01 PM CDT [facility] LYMPHOCYTES % 32.9 % 02/20/2024 1:01 PM CDT [facility] MONOCYTES % 7.0 % 02/20/2024 1:01 PM CDT [facility] EOSINOPHILS 1.2 % 02/20/2024 1:01 PM CDT [facility] BASOPHILS 0.4 % 02/20/2024 1:01 PM CDT [facility] IMMATURE GRANS % 0.4 % 02/20/20 1:01 PM CDT [facility] ABS. NEUTROPHILS 2.97 1.80 - 7.70 x10'3/uL 02/20/2024 1:01 PM CDT [facility] ABS. LYMPHOCYTES 1.68 1.00 - 4.80 x10'3/uL 02/20/2024 1:01 PM CDT [facility] ABS. MONOCYTES 0.36 0.24 - 0.86 x10'3/uL 02/20/2024 1:01 PM CDT [facility] ABS. EOSINOPHILS 0.06 0.04 - 0.36 x10'3/uL 02/20/2024 1:01 PM CDT [facility] ABS. BASOPHILS 0.02 0.01 - 0.08 x10'3/uL 02/20/2024 1:01 PM CDT [facility] ABS. IMMATURE GRANULOCYTES 0.02 0.00 - 0.49 x10'3/uL 02/20/2024 1:01 PM CDT [facility] RBC MORPHOLOGY RBC MORPHOLOGY APPEARS NORMAL. SLIDE REVIEWED. 02/20/2024 1:01 PM CDT [facility] PLT EST. DECREASED 02/20/2024 1:01 PM CDT [facility] 02/20/2024 12:1 8 PM CDT us Zelalem Ziegler MD LABORATORY Final Result [facility] [address] [place] [address], documented in this encounter Visit Diagnoses Diagnosis Varicose veins of lower extremity with pain, right- Primary Abnormal coagulation profile documented in this encounter Care Teams Color Strainer Relationship Specialty Start Date End Date Kristina Elias MD [address] [place] [address] PCP - General FAMILY PRACTICE 12/21/21 Prudence Reis MD CARDIOVASCULAR DISEASE 04/15/20 documented as of this encounter
--- NOTE | 2025-03-23 01:08 | ECG_ITS ---
Test Date: 2025-03-23 01:38:56 Measurements Intervals [place] Rate: 65 P: 37 MI: 202 QRS: -21 QRSD: 86 T: 9 QT: 369 QTc: 385 Interpretive Statements SINUS RHYTHM POSSIBLE LEFT ATRIAL ENLARGEMENT [-0.1mV P-WAVE IN V1/V2] LOW QRS VOLTAGE IN PRECORDIAL LEADS [QRS DEFLECTION < 1.0 mV IN CHEST LEADS] Compared to ECG 03/22/2025 19:05:32 Low QRS voltage now present Electronically Signed On 03-23-2025 21:35:55 CDT by Carlos Fields M.D.
--- NOTE | 2025-03-23 01:09 | ED_ITS ---
HPI - Chest Pain General Chief Complaint: Chest Pain Stated Complaint: blood pressure problems Time Seen by Provider: 03/22/25 23:56 Source: patient and family Mode of arrival: ambulatory Limitations: no limitations History of Present Illness HPI narrative: Patient presents with concern for elevated blood pressure. Patient was at an OB Gyne appointment and her systolic blood pressure was noted to be 180mmHg x3 checks. Her ObGyn Dr Saez advised she check it at home (she had not taken her losartan yet) and it remained 180 at home after she took this medicine. It was after this that she experienced was initially described as a chest heaviness however patient describes it as a heavy breathing. Subjective edema. Patient notes that there have been no changes to her antihypertensive dose. Patient typically does not check her blood pressure at home although it had been normal at appointment she had within the past month. No change in urine output. Patient denies any pain. She denies any shortness of breath, nausea, vomiting, fevers, chills. She reports a cough but takes Wixela for her COPD. No radiating pain. She has not had a stress test or echo or cardiac catheterization. She confirms she has a primary care physician Dr Elias. She states she had a CT scan in January that showed an enlarged heart. Her needle valve operator is Dr Reis. Cardiac risk factors HTN: Yes HLD: Yes DM:0 Obese: 0 Smoker: Quit >3 mos ago Personal history [place]/TIA/CVA: No Fam Hx [place] in first degree relative <65yo: Yes Related Data Home Medications ?Medication ?Instructions ?Recorded ?Confirmed ?Last Taken ?Type rosuvastatin 20 mg tablet 20 mg PO DAILY 09/12/20 03/12/25 05/02/23 History ferrous sulfate 325 mg (65 mg 325 mg PO DAILY 07/08/21 03/12/25 05/02/23 History iron) tablet vitamin B12 500 mcg-folic acid 400 1 tablet PO DAILY 12/04/21 03/12/25 05/02/23 History mcg tablet cholecalciferol (vitamin D3) 25 50 mcg PO DAILY 06/07/23 03/12/25 Unknown History mcg (1,000 unit) capsule losartan 25 mg tablet 25 mg PO DAILY 10/04/23 03/12/25 Unknown History diazepam 5 mg tablet 5 mg PO QHS PRN 03/05/25 03/12/25 Unknown History Allergies Allergy/AdvReac Type Severity Reaction Status Date / Time doxycycline AdvReac Intermediate Vomiting Verified 03/22/25 18:56 NSAIDS (Non-Steroidal AdvReac Intermediate BLOATING/ABD. Verified 03/22/25 18:56 Anti-Inflamma PAIN cefaclor (From Ceclor) AdvReac Mild Nausea and Verified 03/22/25 18:56 Vomiting clavulanic acid (From AdvReac Mild Nausea and Verified 03/22/25 18:56 Augmentin) Vomiting sulfamethoxazole (From AdvReac Mild Nausea and Verified 03/22/25 18:56 Septra) Vomiting trimethoprim (From Septra) AdvReac Mild Nausea and Verified 03/22/25 18:56 Vomiting PMFSH Past Medical History Medical History Left knee DJD Bilateral sacroiliitis Belching GERD (gastroesophageal reflux disease) Hepatic steatosis Cervical spondylosis Cervicalgia Pain in thoracic spine Other spondylosis, thoracolumbar region Trochanteric bursitis of right hip Claustrophobia Right knee pain Posterior left knee pain Insomnia Symptomatic varicose veins of both lower extremities Thrombocytopenia Chronic renal insufficiency, stage III (moderate) Greater trochanteric bursitis of left hip Dyspnea Arthritis Hyperlipidemia Hypertension Neuropathy Colitis Mild chronic obstructive pulmonary disease Surgical History Surgical History History of colon surgery H/O rotator cuff surgery H/O section Family History Family History (Updated 03/24/25 @ 07:51 by Cecilia Alexandre MD) Father Heart attack <65yo Mother Cerebrovascular accident <65yo Sibling Heart attack COPD (chronic obstructive pulmonary disease) Arthritis Son Cerebrovascular accident, Onset Age: 40 Other HLD (hyperlipidemia) Hypertension Social History Social History Years smoked: 18 Smoking status: Former smoker Tobacco type: cigarettes Second hand tobacco smoke exposure: Yes Smoking end date: 08/29/91 Additional smoking assessment comments: quit in 1991 Alcohol intake: current Alcohol use details: Socially Substance use: never Substance use type: does not use Do You Feel Safe in your Home?: Yes Lack of Transportation: No Lack of Food: Never True Current Housing: I Have Housing Concerned About Future Housing: No Difficulty Paying Gas/Electric Bills: No Difficulty Paying for Meds: No Currently Unemployed: No Education: High School Diploma/GED Difficulty w/ Childcare or Family Care: No Living arrangements: other Additional living arrangements comments: with sp Occupation/Education: retired Gender identity (if verbalized by the patient): Female Spiritual care concerns: No Exam 2 Narrative: GENERAL: Well-appearing, well-nourished, and in no acute distress. HEAD: Normocephalic, atraumatic. EYES: Non injected, non icteric ENT: Nares clear, no rhinorrhea or epistaxis. Gross auditory acuity intact. NECK: Supple. No meningismus. CHEST: Speaking in full sentences. No respiratory distress. Lungs clear to auscultation bilaterally without appreciable crackles or wheezes. HEART: Regular rate and rhythm. . ABDOMEN: Soft, nondistended. No rigidity or guarding. Not peritoneal EXTREMITIES: Normal range of motion. No edema in bilateral lower extremities. SKIN: Warm, dry, no rash. NEURO: No focal deficits. Alert and oriented. Answering questions. Following commands. Normal speech without aphasia or dysarthria. PSYCH: Normal mood and affect. Course Vital Signs Vital signs: Vital Signs Temperature 97.9 F 03/22/25 18:50 Pulse Rate 87 03/22/25 18:50 Respiratory Rate 18 03/22/25 18:50 Blood Pressure 183/78 H 03/22/25 18:50 Pulse Oximetry 98 03/22/25 18:50 Oxygen Delivery Room Air 03/22/25 18:50 Temperature 98.0 F 03/23/25 02:56 Pulse Rate 69 03/23/25 02:56 Respiratory Rate 17 03/23/25 02:56 Blood Pressure 180/77 H 03/23/25 02:56 Pulse Oximetry 100 03/23/25 02:56 Oxygen Delivery Room Air 03/22/25 23:42 MDM - Chest Pain MDM Narrative Medical decision making narrative: Patient presents with concern for hypertension. Patient was noted to have a systolic blood pressure of 180 mmHg on 3 attempts while at her Ob Gyne appointment today. She had not yet taken her losartan. Her OB Gyne doctor may give advise that she recheck at home after taking her medicine which she has been on as a steady dose without any changes recently. It remained elevated at 180 at home and she developed heavy breathing. In the emergency department she is afebrile with vital signs notable for hypertension. Her hypertension improves on reassessment without interval intervention, still elevated but improved. Patient denies any chest pain. Rather, she describes it as a chest heaviness/heavy breathing. While patient would be a HEART score of 4, she explicitly states mutliple times that she did not have chest pain, only a heaviness while breathing. For this reason, it does not seem that the use of the HEART score is appropriate to be applied. Normocytic anemia although only 0.6g drop from previous the patient had anemia noted before. Chronic mild hyponatremia. BNP mildly elevated but not to a degree to suggest acute heart failure especially for the reference range of the assay given patient's age. 3 hr and 6 hour troponins normal. D dimer normal. Extensive conversation was had with the patient. Explained that abruptly lowering her blood pressure med here in the emergency department is not in line with the standard of care or have good research behind it as unknown what her blood pressure has been over the past few weeks. Offered observation admission but unsure what elements of work up would be performed given her symptoms. Ultimately, through shared decision making patient would like to be discharged and follow-up outpatient. She was given strict ED return precautions and she and her verified understanding. I advised that she keep a log of her blood pressure as she checks over the next several days to weeks and follows up with her PCP and needle valve operator for long-term monitoring and management of her hypertension. She has an upcoming trip in will be flying and I advised her to get up and walk and stay active in addition to staying hydrated. She and her verifies understanding and are in agreement. Otherwise stable for discharge. Differential Diagnosis Differential diagnosis: Likely pneumothorax, stable angina, unstable angina pectoris, atypical chest pain, st elevation myocardial infarction, chest pain, biliary colic and other (Asymptomatic hypertension, hypertensive emergency/urgency/crisis; acute heart failure; PE; pneumonia; COPD exacerbation psychogenic) Lab Data Attestation: I reviewed the patient's lab results. 03/22/25 19:03 03/22/25 19:03 Labs: Lab Results 03/22/25 03/22/25 03/23/25 Range/Units 19:03 22:53 01:01 WBC 5.5 (4.5-10.0) K/mm3 RBC 4.42 (4.2-5.4) M/mm3 Hgb 11.6 L (12.0-15.0) g/dL Hct 35.9 L (37.0-47.0) % MCV 81.2 (80-100) fl MCH 26.2 (26-34) pg MCHC 32.3 (32-36) g/dl RDW 14.1 (11.5-14.5) % Plt Count 92 L (150-375) k/mm3 MPV 11.1 H (7.4-10.4) fl Immature Gran % (Auto) Not Reportable Neut % (Auto) Not Reportable Lymph % (Auto) Not Reportable [place] % (Auto) Not Reportable Eos % (Auto) Not Reportable Baso % (Auto) Not Reportable Lymph # (Auto) Not Reportable [place] # (Auto) Not Reportable Eos # (Auto) Not Reportable Baso # (Auto) Not Reportable Abs Immat Gran (auto) Not Reportable Absolute Neuts (auto) Not Reportable Absolute Nucleated RBC Not Reportable Total Counted 100 Neutrophils % (Manual) 57 (46-73) % Band Neutrophils % 0 (0-6) % Lymphocytes % (Manual) 39.0 (18-44) % Monocytes % (Manual) 4 (3-9) % Nucleated RBC % Not Reportable Abs Neuts (Manual) 3.13 (1.3-6.7) K/mm3 Abs Lymphs (Manual) 2.14 (1.1-4.5) K/mm3 Abs Monocytes (Manual) 0.22 (0.1-0.90) K/mm3 Platelet Estimate Decreased (Adequate) Clumped Platelets Present % Immature Plt Fraction 2.8 (0.9-11.2) % Anisocytosis 1+ Microcytosis 1+ (NORMAL) Schistocytes None seen PT 12.2 (11.1-14.7) Seconds INR 0.9 APTT 25.2 (22.3-36.8) Seconds D-Dimer (<0.48) ug/mL Sodium 133 L (137-145) mmol/L Potassium 4.2 (3.4-5.0) mmol/L Chloride 100 (98-107) mmol/L Carbon Dioxide 25 (22-30) mmol/L Anion Gap 8 (4-12) mmol/L BUN 10 (7-17) mg/dL Creatinine 0.87 (0.7-1.0) mg/dL Estim Creat Clear Calc 47 ml/min Estimated GFR > 60 (59 - ) Glucose 98 (65-110) mg/dL Calcium 9.1 (8.4-10.2) mg/dL Total Bilirubin 0.3 (0.2-1.3) mg/dL AST 20 (14-36) U/L ALT 9 (6-35) U/L Alkaline Phosphatase 71 (38-126) U/L Troponin I < 0.012 < 0.012 (0.000-0.034) ng/mL NT-Pro-B Natriuret Pep (19.9-100) pg/mL Total Protein 6.2 L (6.3-8.2) g/dL Albumin 4.0 (3.5-5.1) g/dL Lipase 34 (23-300) U/L Urine Color Yellow (Yellow) Urine Appearance Clear (Clear) Urine pH 7.0 (5.0-9.0) Ur Specific [place] 1.006 (1.001-1.035) Urine Protein Negative (Negative) mg/dL Urine Glucose (UA) Negative (Negative) mg/dL Urine Ketones Negative (Negative) mg/dL Ur Blood (Man) Negative (Negative) Urine Nitrate Negative (Negative) Urine Bilirubin Negative (Negative) Urine Urobilinogen 0.2 (<2.0) mg/dL Leukocyte Esterase Rfl Trace H (Negative) BETTY/UL Urine RBC 0-2 (0-2) /hpf Urine WBC 0-5 (0-3) /hpf Ur Squamous Epith Cells None seen (Few) /hpf Urine Bacteria None seen /hpf Urine Casts 0-2 03/23/25 03/23/25 Range/Units 01:21 01:54 WBC (4.5-10.0) K/mm3 RBC (4.2-5.4) M/mm3 Hgb (12.0-15.0) g/dL Hct (37.0-47.0) % MCV (80-100) fl MCH (26-34) pg MCHC (32-36) g/dl RDW (11.5-14.5) % Plt Count (150-375) k/mm3 MPV (7.4-10.4) fl Immature Gran % (Auto) Neut % (Auto) Lymph % (Auto) [place] % (Auto) Eos % (Auto) Baso % (Auto) Lymph # (Auto) [place] # (Auto) Eos # (Auto) Baso # (Auto) Abs Immat Gran (auto) Absolute Neuts (auto) Absolute Nucleated RBC Total Counted Neutrophils % (Manual) (46-73) % Band Neutrophils % (0-6) % Lymphocytes % (Manual) (18-44) % Monocytes % (Manual) (3-9) % Nucleated RBC % Abs Neuts (Manual) (1.3-6.7) K/mm3 Abs Lymphs (Manual) (1.1-4.5) K/mm3 Abs Monocytes (Manual) (0.1-0.90) K/mm3 Platelet Estimate (Adequate) Clumped Platelets % Immature Plt Fraction (0.9-11.2) % Anisocytosis Microcytosis (NORMAL) Schistocytes PT (11.1-14.7) Seconds INR APTT (22.3-36.8) Seconds D-Dimer 0.33 (<0.48) ug/mL Sodium (137-145) mmol/L Potassium (3.4-5.0) mmol/L Chloride (98-107) mmol/L Carbon Dioxide (22-30) mmol/L Anion Gap (4-12) mmol/L BUN (7-17) mg/dL Creatinine (0.7-1.0) mg/dL Estim Creat Clear Calc ml/min Estimated GFR (59 - ) Glucose (65-110) mg/dL Calcium (8.4-10.2) mg/dL Total Bilirubin (0.2-1.3) mg/dL AST (14-36) U/L ALT (6-35) U/L Alkaline Phosphatase (38-126) U/L Troponin I < 0.012 (0.000-0.034) ng/mL NT-Pro-B Natriuret Pep 614 H (19.9-100) pg/mL Total Protein (6.3-8.2) g/dL Albumin (3.5-5.1) g/dL Lipase (23-300) U/L Urine Color (Yellow) Urine Appearance (Clear) Urine pH (5.0-9.0) Ur Specific [place] (1.001-1.035) Urine Protein (Negative) mg/dL Urine Glucose (UA) (Negative) mg/dL Urine Ketones (Negative) mg/dL Ur Blood (Man) (Negative) Urine Nitrate (Negative) Urine Bilirubin (Negative) Urine Urobilinogen (<2.0) mg/dL Leukocyte Esterase Rfl (Negative) BETTY/UL Urine RBC (0-2) /hpf Urine WBC (0-3) /hpf Ur Squamous Epith Cells (Few) /hpf Urine Bacteria /hpf Urine Casts Imaging Data Radiologist's impression: IMPRESSION: 1. No acute cardiopulmonary disease. ECG Data EKG #1: Attestation: I personally reviewed and interpreted this ECG as follows: ECG completion date: 03/22/25 ECG completion time: 19:05 Prior ECG tracings: not available for review (no prior for comparison) Interpretation: Normal sinus rhythm at a rate of 64 beats per minute. FL interval 185. QRS 94. QT/QTC 365/378. T-wave inversion in 3 and upright in contiguous inferior leads 2 and AVF. T-wave flattening versus inversion in V3, suspect due to lead placement. No other T-wave inversions. Incomplete RBBB given QRS less [id number]; RSR' M-shaped pattern in V1-V3; wide, slurred S wave in lateral leads (I, aVL, V5-6). EKG #2: Attestation: I personally reviewed and interpreted this ECG as follows: ECG completion date: 03/23/25 ECG completion time: 01:38 Interpretation: Normal sinus rhythm at a rate of 65 beats per minute. FL interval 202. QRS 86. QT/QTC 369/381. Poor R-wave progression across the precordial leads. T-wave inversion isolated to lead 3 but upright in contiguous inferior leads. T-wave flattening in V3 likely due to lead placement. Discharge Plan Discharge Clinical Impression: Chronic hyponatremia, Heavy breathing Hypertension Qualifiers: Hypertension type: essential hypertension Qualified Code(s): I10 - Essential (primary) hypertension Anemia Qualifiers: Anemia type: iron deficiency Iron deficiency anemia type: other iron deficiency Qualified Code(s): D50.8 - Other iron deficiency anemias Patient Disposition: Home Condition: Stable Instructions: Antibiotic Form, Hyponatremia (ED), Chronic Hypertension (ED), Dyspnea (ED), Anemia (ED) Additional Instructions: As we discussed, continue to take your blood pressure medication and keep a log to take with you to follow-up with your primary care physician /needle valve operator. Return to the emergency department with any new or worsening symptoms. While you are flying for your upcoming trip make sure you stay well hydrated and get up and walk around frequently. Patient Language: Czech Prescriptions: No Action vitamin N70-adlee acid 500-400 mcg tablet 1 tablet PO DAILY Rx Instructions: administer with a meal omeprazole 40 mg capsule,delayed release(DR/EC) 40 mg PO DAILY Qty: 30 2RF rosuvastatin 20 mg tablet 20 mg PO DAILY cholecalciferol (vitamin D3) 25 mcg (1,000 unit) capsule 50 mcg PO DAILY losartan 25 mg tablet 25 mg PO DAILY famotidine 40 mg tablet 40 mg PO DAILY Qty: 30 3RF diazepam 5 mg tablet 5 mg PO QHS PRN Patient Comments: intravaginally, through medical superintendent ferrous sulfate 325 mg (65 mg iron) Tablet 325 mg PO DAILY acetaminophen [Tylenol Extra Strength] 500 mg tablet 1,000 mg PO Q6H PRN (Reason: pain) Qty: 50 0RF trazodone 50 mg tablet 25 mg PO QHS PRN (Reason: insomnia) Qty: 90 2RF fluticasone propion-salmeterol [Wixela Inhub] 500-50 mcg/dose blister with device 1 inh inhalation Q12H Qty: 60 3RF Follow-up/Referrals: Kristina Elias MD [Primary Care Provider] - [facility]*Clarke*,Prudence Sanders MD [Physician] - Time of Disposition: 02:39
[2025-03-23 01:17] LABS: Add Urine Microscopic? YES; Appearance Urine Clear (Clear); Glucose Urine UA Negative (Negative); Leukocyte Esterase Ur Trace LEU/UL (Negative); Nitrate Urine Negative (Negative); Non Pathogenic Casts 0-2; Specific Grav Ur 1.006 (1.001-1.035)
[2025-03-23 01:50] LABS: Troponin I < 0.012 ng/mL (0.000-0.034)
[2025-03-23 02:15] LABS: NT Pro B Type Natriuretic Pept 614 pg/mL (19.9-100)
== END 2025-03-23 02:58 | disposition home or self-care (01) ==
PROVIDERS: Emergency Medicine; Emergency Provider Student in an Organized Health Care Education/Training Program; PCP Family Medicine
DX: I12.9 Hypertensive chronic kidney disease with stage 1 through stage 4 chronic kidney disease, or unspecified chronic kidney disease (principal); N18.30 Chronic kidney disease, stage 3 unspecified; R06.89 Other abnormalities of breathing; D50.8 Other iron deficiency anemias; E87.1 Hypo-osmolality and hyponatremia; J44.9 Chronic obstructive pulmonary disease, unspecified; E78.5 Hyperlipidemia, unspecified; K21.9 Gastro-esophageal reflux disease without esophagitis; G62.9 Polyneuropathy, unspecified; M17.12 Unilateral primary osteoarthritis, left knee; Z87.891 Personal history of nicotine dependence; Z79.899 Other long term (current) drug therapy; R94.31 Abnormal electrocardiogram [ECG] [EKG]
CPT/HCPCS: 36415; 71046; 80053; 81001; 83690; 83880; 84484; 85025; 85055; 85380; 85610; 85730; 93005; 99284

== ENCOUNTER 2025-04-22 01:02 | Day surgery (SDC) | payer MEDICARE, BC, SELFPAY ==
[2025-04-16 11:25] VITALS: BMI 29.8
--- NOTE | 2025-04-16 11:48 | PC.NURSE ---
Addendum entered by Razia Pickering RN 04/16/25 15:28: INSTRUCTED PATIENT TO TAKE SHOWER OR BATH NIGHT BEFORE AND MORNING OF SURGERY. SHE RELAYS UNDERSTANDING. Original Note: Report to the Outpatient Waiting Room, entrance under the green pavilion located off [facility], at time __2:00PM___ on date ___04/22/25__. Planned Procedure Time: ___3:00PM___.? Time changes happen often and if your time is changed the preop area will call you the afternoon before. - You and your visitor will be asked to self-screen and do not enter if you have any COVID symptoms. Please call surgeon if you need to reschedule. - A mask is optional within the hospital at this time. MAY EAT LIGHT BREAKFAST/LUNCH PER DR DESIR. NO EATING OR DRINKING 2HR PRIOR TO PROCEDURE (NOTHING AFTER 1:00PM). Take only the following medications with a SIP of water on the morning of surgery: MORNING MEDICATION DO NOT STOP ANY OF YOUR OTHER PRESCRIPTION MEDICATIONS PRIOR TO SURGERY EXCEPT THE FOLLOWING Medications to discontinue per physician ____NONE Please no make-up, nail wolof, hairspray, perfume, deodorant, or body powder the day of surgery.? No jewelry (including any body piercings) or valuables the day of surgery, leave them at home.? Please take a shower or bath the night before AND the morning of, surgery with an antibacterial soap.? Wear comfortable, loose fitting clothing.? - Jewelry must be removed prior to entering the operating room.? Rings and piercings that are not removed may be cut off. - The hospital will not accept responsibility for valuables.? - Please leave all valuables, including medications, at home the day of surgery. NO DRIVING FOR 24HRS PER DR DESIR. Follow any additional instructions given to you from your surgeon. Telephone instructions given to ____PATIENT and asked if any additional questions and then verbalized understanding. Patient advised to call surgeon office or pre surgery nurse liaison [phone] if any additional questions.
--- NOTE | ~2025-04-22 | XR_ITS ---
XR fluoroscopy no charge Indication:steroid injection right sacroiliac joint TECHNIQUE: Fluoroscopy used during steroid injection right sacroiliac joint performed by [Shashank Xiong MD] on 04/22/2025. 14 seconds of fluoroscopy with 8 fluoroscopic images captured. FINDINGS: Correlate with procedure note. IMPRESSION: Fluoroscopy used during steroid injection right sacroiliac joint. Reviewed, dictated and finalized at location O.
[2025-04-22 14:05] VITALS: BP 154/65; PULSE 70; RESP 18; TEMP 36.6; O2SAT 100
--- NOTE | 2025-04-22 14:40 | WPDHPUPDATE1 ---
History and Physical Update Update Date/Time: 04/22/25 14:40 History and Physical has been reviewed, including an updated exam of the patient. There are NO changes in the patient's condition. Risks, benefits, and alternatives have been discussed and questions answered. Patient agrees to proceed with procedure.
--- NOTE | 2025-04-22 14:41 | W.PM.PROC2 ---
Procedure Note - Detailed Date of Procedure 04/22/25 Pre-op Diagnosis sacroiliitis Post-op Diagnosis Same Procedure Performed Right Sacroiliac Joint Steroid Injection under Fluoroscopic Guidance and with Contrast Control. Surgeon Shashank Xiong MD Wood Turning Lathe Operator None Anesthesia Local Description of Procedure INFORMED CONSENT: Risks, benefits and alternatives to the procedure were discussed in detail with the patient who expressed explicit understanding and consent to proceed. Patient was informed verbally and in written form regarding the risks associated with the procedure including the low risk of serious infection, bleeding/bruising, allergic reaction, nerve or organ injury, paralysis, procedural site pain or discomfort, worsening pain and/or mobility, failure to treat and/or disfigurement. The patient expressed explicit understanding and consent to proceed. All materials required for the procedure were available prior to procedure start. Site and side were marked prior to procedure and confirmed in the presence of the patient. PROCEDURE IN DETAIL: The patient was brought to the procedural suite and placed in the prone position. Patient was made comfortable with use of pillows under the head/chest, hips and ankles. Skin overlying the injection site on the affected side(s) was prepared broadly with ChloraPrep applicator and draped in a sterile manner. Aseptic technique was used throughout. The right SI joint was identified in the AP view and contralateral oblique angulation with caudal tilt was utilized to optimize visualization of the inferior and medial joint line representing the posterior portion of the joint. Local anesthesia was established by infiltration with approximately 5 mL of 2% lidocaine via a 1-1/2 inch 27-gauge needle. A 22-gauge 3.5 inch Quincke spinal needle was advanced until the needle entered the inferior third of the joint space approximately 1cm cephalad from its most inferior point. In the AP view, 0.5 mL of Omnipaque 300 contrast medium was injected after negative aspiration for CSF, blood or other bodily fluid, showing appropriate intra-articular spread of contrast without evidence of intravascular, perineural or intrathecal placement. A 1.5 mL solution containing 10 mg of dexamethasone in 0.5% PF bupivacaine was injected after repeat negative aspiration. Appropriate spread of the injectate was confirmed with washout of previous injected contrast. No parasthesias were elicited. Needle was removed completely intact without difficulty. Images were saved and documented in the patient chart. Patient's skin was cleansed and sterile bandage applied. The patient tolerated the procedure well. The patient was transported to the recovery area in stable condition where they were observed for an appropriate amount of time prior to discharge, without evidence of complication. The patient was instructed to avoid excessive activity for the next 48 hours, including climbing and frequent use of stairs. Showers only for 48 hours. They were instructed not to drive or operate heavy machinery for 24 hours. They are to monitor for severe headaches, fevers, chills, night sweats, erythema/swelling at the site or any other signs of infection, bleeding/bruising, bowel or bladder changes as well as new pain, weakness or numbness in the upper or lower extremity. Should they notice these changes, they are instructed to call our office immediately or report directly to the nearest Emergency Department if no answer or if after posted office hours. COMPLICATIONS: None COMMENTS: None CONTRAST WASTED: 29.5mL Omnipaque 300. Complications No immediate complications Condition Stable Disposition Same day [facility] Billing Surgery - Charge Forward: Surgery Billing
[2025-04-22 14:55] VITALS: BP 174/75; PULSE 71; RESP 14; O2SAT 100
[2025-04-22] MEDS: dexAMETHasone SOD PHOS INJ 10 MG/ML 1 ML VIAL IV PUSH (14:55)
[2025-04-22 15:00] VITALS: BP 159/74; PULSE 72; RESP 14; O2SAT 100
[2025-04-22 15:01] VITALS: BP 128/58; PULSE 64; RESP 16; O2SAT 100
== END 2025-04-22 15:20 | disposition home or self-care (01) ==
PROVIDERS: PCP Family Medicine; Visit Provider Anesthesiology Pain Medicine
PROC: (CPT 64451; principal; 2025-04-22 15:00)
DX: M46.1 Sacroiliitis, not elsewhere classified (principal); M70.61 Trochanteric bursitis, right hip; E78.5 Hyperlipidemia, unspecified; I12.9 Hypertensive chronic kidney disease with stage 1 through stage 4 chronic kidney disease, or unspecified chronic kidney disease; N18.30 Chronic kidney disease, stage 3 unspecified; J44.9 Chronic obstructive pulmonary disease, unspecified; M17.12 Unilateral primary osteoarthritis, left knee; K21.9 Gastro-esophageal reflux disease without esophagitis; M47.892 Other spondylosis, cervical region; M47.895 Other spondylosis, thoracolumbar region; M47.817 Spondylosis without myelopathy or radiculopathy, lumbosacral region; M48.061 Spinal stenosis, lumbar region without neurogenic claudication; F40.240 Claustrophobia; G47.00 Insomnia, unspecified; D69.6 Thrombocytopenia, unspecified; G62.9 Polyneuropathy, unspecified; Z98.890 Other specified postprocedural states; Z87.891 Personal history of nicotine dependence; Z87.19 Personal history of other diseases of the digestive system; Z82.49 Family history of ischemic heart disease and other diseases of the circulatory system
CPT/HCPCS: 64451; 99199; J1100; Q9965

== ENCOUNTER 2025-05-15 13:32 | Outpatient (CLI) | payer MEDICARE, BC, SELFPAY ==
[2025-05-15 13:48] LABS: Hematocrit 35.8 % (37.0-47.0); Hemoglobin 12.0 g/dL (12.0-15.0); Immature Granulocyte Percent A 0.2 % (0-0.5); Lymphocytes Absolute Auto 1.50 K/mm3 (0.9-3.2); Mean Corpuscular HGB Conc 33.5 g/dl (32-36); Mean Corpuscular Hemoglobin 27.5 pg (26-34); Mean Corpuscular Volume 82.1 fl (80-100); Nucleated Red Blood Cells Absolute Auto 0.000 K/mm3 (0.0-0.012); Nucleated Red Blood Cells Perc 0.0 % (0.0-0.2); Platelet Count Result 85 k/mm3 (150-375); Red Blood Count 4.36 M/mm3 (4.2-5.4); White Blood Count 4.3 K/mm3 (4.5-10.0)
[2025-05-15 13:52] LABS: Blood Urea Nitrogen 11 mg/dL (8-26); Carbon Dioxide 25 mmol/L (22-30); Chloride 100 mmol/L (98-109); Estimated Glomerular Filt Rate 54; Glucose 119 mg/dL (70-105); Ionized Calcium (POC) 1.24 mmol/L (1.11-1.31); Potassium 3.9 mmol/L (3.5-4.9); Sodium 136 mmol/L (138-146)
--- OUTSIDE RECORDS SUMMARY | 2025-05-15 13:53 | XMS_ITS | Encounter Summary ---
Author Organization [facility] Address [address] [place] [address] Care Team Providers Care Senior Manager Quality Assurance Name Role Phone Kristina Elias MD Primary Care Provider [phone] Encounter Details Date Type Department Care Team (Late st Contact Info) Description 05/14/2025 External Device Data [facility] ABSTRACTION Provider, Abstract [...] Department Care Team (Late Contact Info) Description 05/15/2025 2:30 PM CDT Office Visit [facility] Oncology and Hematology - Juan [address] [facility] [address] [address] Walter Brothers MD [address] [facility] [address] [place] [address] Arrived documented as of this encounter Visit Diagnoses Not on filedocumented in this encounter Care Teams Senior Manager Quality Assurance Relationship Specialty Start Date End Date Kristina Elias MD [address] [place] [address] PCP - General Family Practice 06/11/21 documented as of this encounter
--- OUTSIDE RECORDS SUMMARY | 2025-05-15 13:53 | XMS_ITS | Encounter Summary ---
Author Organization [facility] Address [address] [place] [address] Care Team Providers Care Set Decorator Name Role Phone Prudence Reis MD Unavailable Unavailable Kristina Elias MD Primary Care Provider [phone] Reason for Referral * Surgical (Routine) - Closed Specialty Diagnoses / Procedures Referred By Contac t Referred To Contact Diagnoses Varicose veins of lower extremity with pain, right Procedures Case request operating room: STAB PHLEBECTOMY (RIGHT LEG) Zelalem Ziegler MD [address] [place] [address] Phone: tel: fax: Referral ID Status Reason Start Date Expiration Date Visits Re quested Visits Authorized [id number] Closed 01/10/2024 01/09/2025 1 1 Encounter Details Date Type Department Care Team (Late st Contact Info) Description 01/10/2024 Prep for Procedure [facility] [address] [place], [place] [id number] Zelalem Ziegler MD [facility] [address] [place] [address] Social History Tobacco Use Types [...] - 99 MG/DL 02/20/2024 12:53 PM CDT [facility] BUN 11 7 - 18 MG/DL 02/20/2024 12:53 PM CDT [facility] CREATININE S/P/B 0.95 0.55 - 1.02 MG/DL 02/20/2024 12:53 PM CDT [facility] SODIUM S/P/B 139 136 - 145 MMOL/L 02/20/2024 12:53 PM CDT [facility] POTASSIUM S/P/B 4.3 3.5 - 5.1 MMOL/L 02/20/2024 12:53 PM CDT [facility] CHLORIDE S/P/B 109(H) 100 - 108 MMOL/L 02/20/2024 12:53 PM CDT [facility] CO2 24.2 21 - 32 MMOL/L 02/20/2024 12:53 PM CDT [facility] CALCIUM S/P/B 9.3 8.5 - 10.1 MG/DL 02/20/2024 12:53 PM CDT [facility] BILIRUBIN TOTAL S/P/B 1.4(H) 0.2 - 1.2 MG/DL 02/20/2024 12:53 PM CDT [facility] Comment: THIS ASSAY IS NOT RECOMMENDED FOR PATIENTS UNDERGOING TREATMENT WITH ELTROMBOPAG DUE TO THE POTENTIAL FOR FALSELY ELEVATED RESULTS. TOTAL PROTEIN S/P/B 6.3(L) 6.4 - 8.2 G/DL 02/20/2024 12:53 PM CDT [facility] ALBUMIN S/P/B 3.5 3.4 - 5.0 G/DL 02/20/2024 12:53 PM CDT [facility] AST 11(L) 15 - 37 U/L 02/20/2024 12:53 PM CDT [facility] ALT 11(L) 14 - 55 U/L 02/20/2024 12:53 PM CDT [facility] ALKALINE PHOSPHATASE S/P/B 79 50 - 136 U/L 02/20/2024 12:53 PM CDT [facility] ANION GAP 5.8 5 - 15 MMOL/L 02/20/2024 12:53 PM CDT [facility] BUN CREATININE RATIO 11.5 6 - 26 02/20/2024 12:53 PM CDT [facility] A/G RATIO 1.2 1.0 - 2.0 RATIO 02/20/2024 12:53 PM T [facility] GFR ESTIMATE 63(L) >90 ML/MIN/1.7 3 M2 02/20/2024 12:53 PM CDT [facility] Comment: NOTE: eGFR is not calculated for patients <18 years of age. This is an estimated GFR calculation using the new CKD EPI creatinine equation without race and so does not require a correction factor for race. This estimated GFR should not be used for calculating drug doses. 02/20/2024 12:1 8 PM CDT us Zelalem Ziegler MD LABORATORY Final Result [facility] [address] [place] [address], [place] [phone] * PROTIME/INR, VENOUS (02/20/2024 12:18 PM CDT) Pathologist [facility] PROTIME 10.5 10.2 - 12.9 SEC 02/20/2024 12:47 PM CDT [facility] INR 0.9 02/20/2024 12:47 PM CDT [facility] Comment: Recommended INR Therapeutic Goals: 2.0-3.0 Routine Therapy 2.5-3.5 Mechanical Prosthetic Valves (High Risk) 02/20/2024 12:1 8 PM CDT Zelalem Ziegler MD LABORATORY Final Result [facility] [address] [place] [address], [place] [phone] * (ABNORMAL) CBC W/DIFF AUTOMATED (02/20/2024 12:18 PM CDT) [facility] WBC 5.11 4.5 - 11.0 x10'3/uL 02/20/2024 1:01 PM CDT [facility] RBC 4.62 4.20 - 5.40 x10'6/uL 02/20/2024 1:01 PM CDT [facility] HGB 12.0 12.0 - 16.0 G/DL 02/20/2024 1:01 PM CDT [facility] HCT 36.8(L) 38.0 - 48.0 % 02/20/2024 1:01 PM CDT [facility] MCV 79.7(L) 81.0 - 99.0 FL 02/20/2024 1:01 PM CDT [facility] MCH 26.0(L) 27.0 - 31.0 PG 02/20/2024 1:01 PM CDT [facility] MCHC 32.6 32.0 - 36.0 G/DL 02/20/2024 1:01 PM CDT [facility] RDW 13.6 11.5 - 14.5 % 02/20/2024 1:01 PM CDT [facility] PLT 65(L) 130 - 400 x10'3/uL 02/20/2024 1:01 PM CDT [facility] MPV 12.1 9.3 - 12.2 FL 02/20/2024 1:01 PM CDT [facility] DIFFERENTIAL TYPE AUTOMATED DIFFERENTIAL 02/20/2024 1:01 PM CDT [facility] NEUTROPHILS % 58.1 % 02/20/2024 1:01 PM CDT [facility] LYMPHOCYTES % 32.9 % 02/20/2024 1:01 PM CDT [facility] MONOCYTES % 7.0 % 02/20/2024 1:01 PM CDT [facility] EOSINOPHILS 1.2 % 02/20/2024 1:01 PM CDT [facility] BASOPHILS 0.4 % 02/20/2024 1:01 PM CDT [facility] IMMATURE GRANS % 0.4 % 02/20/20 1:01 PM CDT [facility] ABS. NEUTROPHILS 2.97 1.80 - 7.70 x10'3/uL 02/20/2024 1:01 PM CDT [facility] ABS. LYMPHOCYTES 1.68 1.00 - 4.80 x10'3/uL 02/20/2024 1:01 PM CDT [facility] ABS. MONOCYTES 0.36 0.24 - 0.86 x10'3/uL 02/20/2024 1:01 PM CDT [facility] ABS. EOSINOPHILS 0.06 0.04 - 0.36 x10'3/uL 02/20/2024 1:01 PM CDT [facility] ABS. BASOPHILS 0.02 0.01 - 0.08 x10'3/uL 02/20/2024 1:01 PM CDT [facility] ABS. IMMATURE GRANULOCYTES 0.02 0.00 - 0.49 x10'3/uL 02/20/2024 1:01 PM CDT [facility] RBC MORPHOLOGY RBC MORPHOLOGY APPEARS NORMAL. SLIDE REVIEWED. 02/20/2024 1:01 PM CDT [facility] PLT EST. DECREASED 02/20/2024 1:01 PM CDT [facility] 02/20/2024 12:1 8 PM CDT us Zelalem Ziegler MD LABORATORY Final Result [facility] [address] [place] [address], documented in this encounter Visit Diagnoses Diagnosis Varicose veins of lower extremity with pain, right- Primary Abnormal coagulation profile documented in this encounter Care Teams Set Decorator Relationship Specialty Start Date End Date Kristina Elias MD [address] [place] [address] PCP - General FAMILY PRACTICE 12/21/21 Prudence Reis MD CARDIOVASCULAR DISEASE 04/15/20 documented as of this encounter
--- OUTSIDE RECORDS SUMMARY | 2025-05-15 13:53 | XMS_ITS | Clinical Summary ---
Author Organization [facility] Address [address] [place] [address] Care Team Providers Care Plan Manager Name Role Phone Kristina Elias MD Primary Care Provider [phone] Allergies Active Allergy Reactions Criticality Noted Date [...] Encounters Date Type Department Care Team Description 05/14/2025 External Device Data [facility] ABSTRACTION Provider, Abstract 03/13/2025 External Device Data [facility] ABSTRACTION Provider, Abstract 03/12/2025 External Device Data [facility] ABSTRACTION Provider, Abstract 03/11/2025 4:30 PM CDT Telephone Check Up [facility] Oncology and Hematology - Juan [address] [place] [address] Walter Brothers MD Splenomegaly (Primary Dx) 02/25/2025 1:15 PM CDT Office Visit [facility] Oncology and Hematology - Juan [address] [place] [phone] Walter Brothers MD Splenomegaly (Primary Dx); Chronic anemia 02/21/2025 Orders Only [facility] Oncology and Hematology [facility] [address] [place] [phone] Walter Brothers MD 02/19/2025 External Device Data [...] Description 05/15/2025 2:30 PM CDT Office Visit [facility] Oncology and Hematology - Juan [address] [facility] [address] [place] [address] Walter Brothers MD [address] [facility] [address] [place] [address] Arrived Health Maintenance Due Date Last Done Comments DTAP/TDAP/TD VACCINES (1 - Tdap) 1969 FIT-DNA Q 3 years 1995 FIT/FOBT Q 1 year 1995 Flex Sig/CT Colonography Q 5 years 1995 ZOSTER VACCINE (1 of 2) 2000 INFLUENZA VACCINE (#1) 2025 9, 06/26/2018, 06/21/2017, Additional history exists RSV VACCINE (60+ or ) (1 - 1-dose 75+ series) 2025 OSTEOPOROSIS SCREENING 10/15/2029 10/15/2024, 2019 COLORECTAL SCREENING 07/27/2031 07/27/2021 Colorectal Cancer Screening [...] Res ult from Last 3 Months [place] [address] [facility] [employer] RAILRO[employer] Care Teams Plan Manager Relationship Specialty Start Date End Date Kristina Elias MD [address] [place] [address] PCP - General Family Practice 06/11/21
--- OUTSIDE RECORDS SUMMARY | 2025-05-15 13:53 | XMS_ITS | Encounter Summary ---
Author Organization [facility] Address [address] [place] [address] Care Team Providers Care Analysis Tester Name Role Phone Kristina Elias MD Primary Care Provider [phone] Encounter Details Date Type Department Care Team (Late st Contact Info) Description 02/11/2025 Orders Only [facility] Health Information Management [address] [place] [address] Scanning, Provider Social History Tobacco Use Types Packs/Day Years Used Date Smoking Tobacco: Former Cigarettes Q uit: 1991 Smokeless Tobacco: Never Alcohol Use Standard Drinks/Week Comments Yes 0 (1 standard drink = 0.6 oz pur e alcohol) Comments Unknown Sex and Gender Information Value Date Recorded Sex Assigned at Not on file 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 Gender Identity Not on file Sexual Orientation Not on file documented as of this encounter Plan of Treatment Not on file documented as of this encounter Procedures Procedure Name Priority Date/Time Associated Diagnosis Comments SCAN - RADIOLOGY/IMAGING 02/11/2025 documented in this encounter Results * SCAN - RADIOLOGY/IMAGING (02/11/2025) Anatomical Region Laterality Modality Other us Provider Scanning Final Result documented in this encounter Visit Diagnoses Not on filedocumented in this encounter Care Teams Analysis Tester Relationship Specialty Start Date End Date Kristina Elias MD PCP - General Family Medicine 08/12/21 documented as of this encounter
--- OUTSIDE RECORDS SUMMARY | 2025-05-15 13:53 | XMS_ITS | Encounter Summary ---
Author Organization [facility] Address [address] [place] [address] Care Team Providers Care Statistical Consultant Name Role Phone Prudence Reis MD Unavailable Unavailable Reuben Oneal MD Primary Care Provider [phone] Kristina Elias MD Primary Care Provider [phone] Encounter Details Date Type Department Care Team (Late Contact Info) Description 04/18/2020 Prep for Procedure [facility] Pre-Ad[facility] [address] [place], [place] [phone] Binh Scott MD [address] [place] [address] Social History Tobacco Use Types Packs/Day [...] (COVID 19) (04/18/2020 11:00 AM CDT) Pathologist [facility] CORONAVIRUS SARS COV 2 PCR (RESP) NOT DETECTED NOT DETECTED 04/19/2020 2:37 PM [address] [facility] Comment: A Not Detected (negative) test result [...] providers and patients using the following websites: https://www.The Personal [employer].fr/home/Covid-19/HCP/NAAT/fact-sheet2 https://www.[employer].fr/home/Covid-19/Patients/NAAT/ fact-sheet2 This test has been authorized by the FDA under an Emergency Use Authorization (EUA) for use by authorized laboratories. Due to the current public health emergency, [facility] is receiving a high volume of samples [...] about COVID-19 can be found at the [facility] website: www.Conferensum.Lekiosque.fr/Covid19. Test performed at [facility] [address] [place] [address] Director: KIMBERLY ALCARAZ DO,MPH NASOPHARYNGEAL SWAB / Unknown 04/18/2020 11:00 AM CDT Binh Scott MD MICROBIOLOGY - GENERAL ORDERABLE S Final Result [facility] [address] [place] [address], documented in this encounter Visit Diagnoses Diagnosis Preoperative testing- Primary Preoperative examination, unspecified documented in this encounter Additional Health Concerns Infection Onset Date Last Indicated Resolved Time COVID-19 Rule Out 04/18/2020 04/18/2020 04/19/2020 2:38 PM CDT documented as of this encounter Care Teams Statistical Consultant Relationship Specialty Start Date End Date Reuben Oneal MD [address] [place] [address] PCP - General FAMILY PRACTICE 04/15/20 12/20/21 Kristina Elias MD [address] [place] [address] PCP - General FAMILY PRACTICE 12/21/21 Prudence Reis MD CARDIOVASCULAR DISEASE 04/15/20 documented as of this encounter
--- OUTSIDE RECORDS SUMMARY | 2025-05-15 13:53 | XMS_ITS | Clinical Summary ---
Author Organization [facility] [place] [address] Address [address] [place] [address] Care Team Providers Care Cocoa Bean Cleaner Name Role Phone Kristina Elias MD Primary Care Provider [phone] Allergies Active Allergy Reactions Criticality Noted Date Comments Atorvastatin Other (See comments) Low 08/12/2021 Upset stomach Naproxen Other (See comments) Low Gastritis Medications omeprazole (PriLOSEC) 20 mg capsule Take 1 capsule (20 mg total) by mouth daily Active Wixela Inhub 500-50 mcg/dose diskus inhaler INHALE 1 PUFF BY MOUTH EVERY 12 HOURS 07/16/20 21 Active ferrous sulfate (IRON ORAL) Take by mouth Active cyanocobalamin (Vitamin B-12) 500 mcg tabletIndication s:Prevention of Vitamin B12 Deficiency Take 1 tablet (500 mcg total) by mouth daily Active cholecalciferol (VITAMIN D-3) 2000 unit tablet Act cornelius traZODone (DESYREL) 50 mg tablet Take 1 tablet (50 mg total) by mouth nightly Active rosuvastatin (CRESTOR) 20 mg tabletIndication s:Hypercholester emia TAKE 1 TABLET(20 MG) BY MOUTH DAILY 90 tablet 1 04/23/20 24 Active famotidine (PEPCID) 40 mg tablet Take 1 tablet (40 mg total) by mouth daily 02/09/20 25 Active losartan (COZAAR) 25 mg tabletIndication s:Essential hypertension Take 2 tablets (50 mg total) by mouth daily 05/07/20 25 Active losartan (COZAAR) 25 mg tabletIndication s:Essential hypertension Take 1 tablet (25 mg total) by mouth daily 90 tablet 3 10/25/19 25 025 Discontinued Active Problems Problem Noted Date Diagnosed Date Bruit of right carotid artery 09/26/2023 Thrombocytopenia 09/13/2022 Shortness of breath 01/29/2019 Essential hypertension 01/29/2019 Hypercholesteremia 01/29/2019 Family history of premature CAD 01/29/2019 Encounters Date Type Department Care Team Description 05/07/2025 Telephone [facility] Cardiology [address] [place] [address] [place] [phone] Rebecca Chong NP 05/06/2025 9:15 AM CDT Ancillary Procedure [place] [address] [place] [phone] Chest heaviness 05/06/2025 8:15 AM CDT Ancillary Procedure [place] [address] [place] [phone]; Essential (primary) hypertension 05/06/2025 Results Follow-Up [place] [address] [place] [phone] Rebecca Chong NP Transthoracic Echo (TTE) Complete W Doppler/CF, NM MPI SPECT (Rest and/or Stress) Multiple Studies 04/11/2025 3:30 PM CDT Office Visit [place] [address] [place] [phone] Rebecca Chong NP Abnormal chest CT (Primary Dx); Chest heaviness; Essential (primary) hypertension 03/21/2025 Telephone [place] [address] [place] [phone] Rebecca Chnog NP from Last 3 Months Surgical History [...] on file Legal Sex Female 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 Gender Identity Not on file Sexual Orientation Not on file Obstetrics History Last Filed Vital Signs Vital Sign Reading Time Taken Comments Blood Pressure 144/60 04/11/2025 3:35 PM CDT Pulse 78 04/11/2025 3:35 PM CDT Temperature - - Respiratory Rate - - Oxygen Saturation 97% 04/11/2025 3:35 PM CDT Inhaled Oxygen Concentration - - Weight 73.9 kg (163 lb) 04/11/2025 3:35 PM CDT Height 157.5 cm (5' 2) 04/11/2025 3:35 PM CDT Body Mass Index 29.81 04/11/2025 3:35 PM CDT Plan of Treatment Health Maintenance Due Date Last Done Comments Colon Cancer Screening-Colonoscopy 1950 Depression Screening 1950 Fall Risk Assessment 1950 Hepatitis C Screening 1950 Osteoporosis Screening-Bone Density Scan 1950 DTaP/Tdap/Td Vaccine (1 - Tdap) 1961 Hepatitis B Screening 1968 Zoster Vaccine (1 of 2) 2000 Well Visit 65+ 2015 Influenza Vaccine (#1) 2025 4, 06/04/2022, 05/22/2021, Additional history exists Breast Cancer Screening-Mammogram Discontinued 018, 07/19/2016 Pneumococcal vaccine 65+ Completed 06/25/2020, 1002/2019 Procedures Procedure Name Priority Date/Time Associated Diagnosis Comments NM MPI SPECT (REST AND/OR STRESS) MULTIPLE STUDIES Schedule Routine, Read Routine (OP Routine) 05/06/2025 9:56 AM CDT Chest heaviness TRANSTHORACIC ECHO (TTE) COMPLETE W DOPPLER/CF WO CONTRAST Routine 05/06/2025 9:04 AM CDT Abnormal chest CT Essential (primary) hypertension from Last 3 Months Results * NM MPI SPECT (Rest and/or Stress) Multiple Studies (05/06/2025 9:56 AM CDT) Anatomical Region Laterality Modality Body N/A Nuclear Medicine 05/06/2025 8:32 AM CDT Narrative 05/07/2025 3:40 PM CDT [facility] Cardiology [address] [facility] [address], [place] [address] [address] [facility] [address], [place] [address], [place] [address] P:[phone] P:[phone] MPI Imaging Report Patient Name: JOANNA JEFFERY A : 1950 Study Date: 05/06/2025 8:32:20 AM Sex: F Tech: VINCENT RIDLEYMT Location: [facility] Provider: REBECCA CHONG Height(Cm): 157.5 BSA: Weight(Kg): 73.9 BMI: 29.79 Order Provider: REBECCA CHONG PHYSICIAN: Primary Care Physician: Dr. Elias. [facility] [place]ician: Horacio Mcclure M.D. Stress Supervision: Sofia Padilla M.D., F.A.C.C. Stress Interpreting Physician: Sofia Padilla M.D., F.A.C.CEl Image Interpreting Physician: Yin Cervantes D.O. PROCEDURES: Pharmacologic SPECT Report: Myocardial perfusion imaging with Tc99M Sestamibi SPECT at rest and stress post regadenoson (Lexiscan) infusion. INDICATIONS: Abnormal CT scan, Hypertension, Family Hx CAD, High Cholesterol, Former Smoker, and R07.89 Other chest pain. FINDINGS: Procedural Findings: One day rest/stress was used. Tc99m Sestamibi injected IV at rest was 10.5 millicuries 32.6 millicuries of Tc99M Sestamibi injected IV during Lexiscan stress Lexiscan 0.4mg administered IV over 10 seconds. Patient had no symptoms during stress test. Baseline heart rate was 60 BPM Maximum Heart Rate Achieved was: 96 BPM Baseline blood pressure was 154/74 mmHg Post Stress Blood Pressure was 134/68 mmHg Termination: Protocol complete. Resting ECG: Sinus rhythm, poor R-wave progression. Post ECG: Findings do not meet strict criteria for ischemia. Arrhythmia: No arrhythmias seen. Perfusion Findings: Technical quality of study is good. Significant patient motion was not noted. Prone imaging was performed. Left ventricle cavity size at rest is normal. Left ventricle cavity size with stress is unchanged. A TID of 0.84 was automatically calculated. defect 1: Size is small. Severity is mild to moderate in intensity. Location of defect is in the apical anterior segment. Reversibility is full. Type of Type of defect is attenuation artifact. Resolved with prone imaging. LV Function: Global left ventricular function is normal. Left ventricular ejection fraction is 74 %. CONCLUSIONS: Negative EKG portion of stress test. There is no ischemia. There is a small anteroapical defect that resolves with prone imaging, consistent with a attenuation artifact. Global left ventricular function is normal. Electronically Signed By: Dr. Sofia Padilla FACC 05/06/2025 12:56:33 PM CDT Electronically Signed By: Yin Cervantes DO, FACC, REBECCA, PABLITO 05/07/2025 2:23:54 PM CDT Procedure Note Yin Cervantes DO - 05/07/2025 [facility]iology [address] [facility] [address], [place] [address] [address] [facility] [address], [place] [address], [place] [address] P:[phone] P:[phone] MPI Imaging Report Patient Name: JOANNA JEFFERY A : 1950 Study Date: 05/06/2025 8:32:20 AM Sex: F Tech: [facility] Location: [facility] Provider: REBECCA CHONG Height(Cm): 157.5 BSA: Weight(Kg): 73.9 BMI: 29.79 Order Provider: REBECCA CHONG PHYSICIAN: Primary Care Physician: Dr. Elias. [facility] [place]ician: Horacio Mcclure M.D.Stress Supervision: Sofia Padilla M.D., F.A.C.C. Stress Interpreting Physician:Sofia Padilla M.D., F.A.C.CEl Image Interpreting Physician: Yin Cervantes D.O. PROCEDURES: Pharmacologic SPECT Report: Myocardial perfusion imaging with Tc99M Sestamibi SPECT at rest and stresspost regadenoson (Lexiscan) infusion. INDICATIONS: Abnormal CT scan, Hypertension, Family Hx CAD, High Cholesterol, FormerSmoker, and R07.89 Other chest pain. FINDINGS: Procedural Findings: One day rest/stress was used. Tc99m Sestamibi injected IV at rest was 10.5 millicuries 32.6 millicuries of Tc99M Sestamibi injected IV during Lexiscan stress Lexiscan 0.4mg administered IV over 10 seconds. Patient had no symptoms during stress test. Baseline heart rate was 60 BPM Maximum Heart Rate Achieved was: 96 BPM Baseline blood pressure was 154/74 mmHg Post Stress Blood Pressure was 134/68 mmHg Termination: Protocol complete. Resting ECG: Sinus rhythm, poor R-wave progression. Post ECG: Findings do not meet strict criteria for ischemia. Arrhythmia: No arrhythmias seen. Perfusion Findings: Technical quality of study is good. Significant patient motion was notnoted. Prone imaging was performed. Left ventricle cavity size at rest is normal. Leftventricle cavity size with stress is unchanged. A TID of 0.84 was automaticallycalculated. defect 1: Size is small. Severity is mild to moderate in intensity. Location ofdefect is in the apical anterior segment. Reversibility is full. Type of Type of defect isattenuation artifact. Resolved with prone imaging. LV Function: Global left ventricular function is normal. Left ventricular ejectionfraction is 74 %. CONCLUSIONS: Negative EKG portion of stress test. There is no ischemia. There is a small anteroapical defect that resolveswith prone imaging, consistent with a attenuation artifact. Global left ventricular function is normal. Electronically Signed By: Dr. Sofia Padilla [facility] 05/06/2025 12:56:33 PM CDT Electronically Signed By: Yin Cervantes DO, FACC, FASMikey, PABLITO 05/07/2025 2:23:54 PM CDT Rebecca Chong NP IMG NM PROCEDURES Final R esult * TRANSTHORACIC ECHO (TTE) COMPLETE W DOPPLER/CF WO CONTRAST (05/06/2025 9:04 AM CDT) EF Mod BP 71 % CONS SCIMAGE Anatomical Region Laterality Modality Ultrasound 05/06/2025 8:06 AM CDT Narrative 05/06/2025 11:49 AM CDT [facility] [address] [facility] [address], [place] [address] [address] [facility] [address], [place] [address] P:[phone] P:[phone] Echocardiographic Report Patient Name: JOANNA JEFFERY A : 1950 Study Date: 05/06/2025 8:06:20 AM Sex: F Top Frame Maker: Sangeetha Hernandez)(CT), [facility] Location: [facility] Provider: REBECCA CHONG Height(Cm): 157 BSA: 1.8 Weight(Kg): 73.9 Heart Rate: 67 BP: 144 / 60 Quality: Good Order Provider: REBECCA CHONG PROCEDURES: Echocardiographic Report: Transthoracic echocardiogram with complete 2D, M-Mode, and color Doppler examination. With Strain Analysis. INDICATIONS: R93.89 Abnormal findings on diagnostic imaging of other specified body structures and I10 Essential (primary) hypertension. MEASUREMENTS: 2D/MM Value Range Doppler Value Range EF Mod BP 71 % [ 54 - 74 ] BETSEY Vmax 2.72 cm2 [ 2.00 - 4.00 ] LV GLS -17.21 % AV Mean PG 4 mmHg LVIDd 2D 4.63 cm [ 3.80 - 5.20 ] AV Peak Eren 1.44 m/s [ 1.00 - 1.70 ] LVIDs 2D 2.78 cm [ 2.20 - 3.50 ] AV Peak PG 8 mmHg LVPWd 2D 0.86 cm [ 0.60 - 0.90 ] AV VTI 31.82 cm IVSd 2D 0.90 cm [ 0.60 - 0.90 ] LVOT Diam 2.02 cm [ 1.70 - 2.10 ] AoR Diam 2D 3.06 cm [ 2.70 - 3.70 ] LVOT Peak Erne 1.22 m/s [ 0.70 - 1.10 ] LA Volume 40.31 ml [ 22.00 - 52.00 ] LVOT VTI 25.39 cm LA Volume Index 22 cc/m2 [ 16 - 28 ] MV E Peak Eren 0.94 m/s [ 0.60 - 1.30 ] RA Volume 29.19 ml MV A Peak Eren 1.13 m/s [ 1.00 - 1.20 ] MV Decel Time 152 msec [ 104 - 258 ] PV Peak Eren 1.07 m/s [ 0.40 - 0.80 ] TR Peak Eren 2.20 m/s [ 1.00 - 2.80 ] TR Peak PG 19 mmHg RVSP 24.00 mmHg [ 10.00 - 36.00 ] RV S` 14.48 mmHg Lateral E` 0.06 m/s [ 0.10 - 0.15 ] Septal E` 0.07 m/s [ 0.08 - 0.15 ] E` 0.06 m/s E/E` 15 Tapse 2.12 cm [ 1.71 - 5.00 ] 2D/MM Value Range Doppler Value Range - FINDINGS: Interpretation Site: Exam was interpreted at [facility]. Left Ventricle: Normal left ventricular systolic function. No focal wall motion abnormalities. Normal left ventricular size. Normal left ventricular wall thickness. Impaired diastolic relaxation Grade I. Ejection fraction is measured at 71 %. Global Longitudinal Strain is -17 %. GLS is abnormal. Right Ventricle: Normal right ventricular size. Normal right ventricular systolic function. Left Atrium: The left atrium is normal in size. Right Atrium: The right atrium is normal in size. Atrial Septum: Normal atrial septum. Mitral Valve: Normal appearance of the mitral valve. No mitral valve regurgitation is seen. There is no hemodynamically significant mitral stenosis by Doppler. Aortic Valve: No evidence of hemodynamically significant aortic stenosis by Doppler. Aortic cusps appear mildly sclerotic. Trileaflet aortic valve. No aortic regurgitation. Tricuspid Valve: Normal appearance of the tricuspid valve. Estimated peak RVSP is 24 mmHg. Mild tricuspid regurgitation. Pulmonic Valve: Normal appearance of the pulmonic valve. No evidence of pulmonic regurgitation. Pericardium: Small pericardial effusion. Aorta: Sinus of Valsalva is normal. Ascending aorta is mildly dilated. Ascending Aorta 3.7 cm. IVC: Normal size and normal respiratory collapse consistent with normal right atrial pressure (<5 mmHg). Pulmonary Artery: Normal pulmonary artery size. CONCLUSIONS: Normal left ventricular systolic function. No focal wall motion abnormalities. Normal left ventricular size. Normal left ventricular wall thickness. Impaired diastolic relaxation Grade I. Ejection fraction is measured at 71 %. Global Longitudinal Strain is -17 %. GLS is abnormal. Estimated peak RVSP is 24 mmHg. Mild tricuspid regurgitation. Small pericardial effusion. Sinus of Valsalva is normal. Ascending aorta is mildly dilated. Ascending Aorta 3.7 cm. Electronically Signed By: Dr. Sofia Padilla [facility] 05/06/2025 11:48:55 AM CDT Procedure Note Sofia Padilla MD - 05/06/2025 [facility] Card[facility] [address] [facility] [address], [place] [address] [address] [facility] [address], [place] [address] P:[phone] P:[phone] Echocardiographic Report Patient Name: JOANNA JEFFERY A : 1950 Study Date: 05/06/2025 8:06:20 AM Sex: F Top Frame Maker: Sangeetha Hernandez)(CT), [facility] Location: [facility] Provider: REBECCA CHONG Height(Cm): 157 BSA: 1.8 Weight(Kg): 73.9 Heart Rate: 67 BP: 144 / 60 Quality: Good Order Provider: REBECCA CHONG PROCEDURES: Echocardiographic Report: Transthoracic echocardiogram with complete 2D, M-Mode, and color Dopplerexamination. With Strain Analysis. INDICATIONS: R93.89 Abnormal findings on diagnostic imaging of other specified bodystructures and I10 Essential (primary) hypertension. MEASUREMENTS: 2D/MM Value Range Doppler ValueRange EF Mod BP 71 % [ 54 - 74 ] BETSEY Vmax 2.72cm2 [ 2.00 - 4.00 ] LV GLS -17.21 % AV Mean PG 4mmHg LVIDd 2D 4.63 cm [ 3.80 - 5.20 ] AV Peak Eren 1.44m/s [ 1.00 - 1.70 ] LVIDs 2D 2.78 cm [ 2.20 - 3.50 ] AV Peak PG 8mmHg LVPWd 2D 0.86 cm [ 0.60 - 0.90 ] AV VTI 31.82cm IVSd 2D 0.90 cm [ 0.60 - 0.90 ] LVOT Diam 2.02cm [ 1.70 - 2.10 ] AoR Diam 2D 3.06 cm [ 2.70 - 3.70 ] LVOT Peak Eren 1.22m/s [ 0.70 - 1.10 ] LA Volume 40.31 ml [ 22.00 - 52.00 ] LVOT VTI 25.39cm LA Volume Index 22 cc/m2 [ 16 - 28 ] MV E Peak Eren 0.94m/s [ 0.60 - 1.30 ] RA Volume 29.19 ml MV A Peak Eren 1.13m/s [ 1.00 - 1.20 ] MV Decel Time 152 msec [ 104 - 258 ] PV Peak Eren 1.07 m/s [ 0.40 - 0.80 ] TR Peak Eren 2.20 m/s [ 1.00 - 2.80 ] TR Peak PG 19 mmHg RVSP 24.00 mmHg [ 10.00 - 36.00 ] RV S` 14.48 mmHg Lateral E` 0.06 m/s [ 0.10 - 0.15 ] Septal E` 0.07 m/s [ 0.08 - 0.15 ] E` 0.06 m/s E/E` 15 Tapse 2.12 cm [ 1.71 - 5.00 ] 2D/MM Value Range Doppler ValueRange - FINDINGS: Interpretation Site: Exam was interpreted at [facility]. Left Ventricle: Normal left ventricular systolic function. No focal wall motionabnormalities. Normal left ventricular size. Normal left ventricular wall thickness. Impaireddiastolic relaxation Grade I. Ejection fraction is measured at 71 %. GlobalLongitudinal Strain is -17 %. GLS is abnormal. Right Ventricle: Normal right ventricular size. Normal right ventricular systolicfunction. Left Atrium: The left atrium is normal in size. Right Atrium: The right atrium is normal in size. Atrial Septum: Normal atrial septum. Mitral Valve: Normal appearance of the mitral valve. No mitral valve regurgitation isseen. There is no hemodynamically significant mitral stenosis by Doppler. Aortic Valve: No evidence of hemodynamically significant aortic stenosis by Doppler.Aortic cusps appear mildly sclerotic. Trileaflet aortic valve. No aorticregurgitation. Tricuspid Valve: Normal appearance of the tricuspid valve. Estimated peak RVSP is 24 mmHg.Mild tricuspid regurgitation. Pulmonic Valve: Normal appearance of the pulmonic valve. No evidence of pulmonicregurgitation. Pericardium: Small pericardial effusion. Aorta: Sinus of Valsalva is normal. Ascending aorta is mildly dilated. AscendingAorta 3.7 cm. IVC: Normal size and normal respiratory collapse consistent with normal rightatrial pressure (<5 mmHg). Pulmonary Artery: Normal pulmonary artery size. CONCLUSIONS: Normal left ventricular systolic function. No focal wall motionabnormalities. Normal left ventricular size. Normal left ventricular wall thickness. Impaireddiastolic relaxation Grade I. Ejection fraction is measured at 71 %. GlobalLongitudinal Strain is -17 %. GLS is abnormal. Estimated peak RVSP is 24 mmHg. Mild tricuspid regurgitation. Small pericardial effusion. Sinus of Valsalva is normal. Ascending aorta is mildly dilated. AscendingAorta 3.7 cm. Electronically Signed By: Dr. Sofia Padilla [facility] 05/06/2025 11:48:55 AM CDT Rebecca Chong NP CV ECHO PROCEDURES Final Result from Last 3 Months [place] [address] [place] [address] [address] [facility] [employer] Member Subscriber Plan / Payer ( fective 2015-Present) Name:Joanna Jeffery Relation to Subscriber:Spouse Name:JOSE D YRN VERDUGO A Date of :1950 Address: [facility] [address] [place] [address] Payer ID:[id number] (NAIC) Group ID:[id number] Type:[facility] Address: [address] [place] [address] Care Teams Cocoa Bean Cleaner Relationship Specialty Start Date End Date Kristina Elias MD PCP - General Family Medicine 08/12/21
--- OUTSIDE RECORDS SUMMARY | 2025-05-15 13:53 | XMS_ITS | Encounter Summary ---
Author Organization [facility] Address [address] [place] [address] Care Team Providers Care Team Assembler Name Role Phone Prudence Reis MD Unavailable Unavailable Kristina Elias MD Primary Care Provider [phone] Encounter Details Date Type Department Care Team (Late st Contact Info) Description 12/02/2023 Prep for Procedure [facility] [address] [place], [place] [id number] Zelalem Ziegler MD Three [facility]. [facility] [address] [place], [place] [id number] Social History Tobacco Use Types Packs/Day Years [...] - 11.0 x10'3/uL 01/09/2024 8:58 AM CDT [facility] RBC 2.59(L) 4.20 - 5.40 x10'6/uL 01/09/2024 8:58 AM CDT [facility] HGB 6.7(LL) 12.0 - 16.0 G/DL 01/09/2024 8:58 AM CDT [facility] Comment: This result has been called to SOL HIGHTOWER by [id number] on 01/09/2024 08:58:40, and has been read back. HCT 21.7(L) 38.0 - 48.0 % 01/09/2024 8:58 AM CDT [facility] MCV 83.8 81.0 - 99.0 FL 01/09/2024 8:58 AM CDT [facility] MCH 25.9(L) 27.0 - 31.0 PG 01/09/2024 8:58 AM CDT [facility] MCHC 30.9(L) 32.0 - 36.0 G/DL 01/09/2024 8:58 AM CDT [facility] RDW 13.3 11.5 - 14.5 % 01/09/2024 8:58 AM CDT [facility] PLT 85(L) 130 - 400 x10'3/uL 01/09/2024 8:58 AM CDT [facility] MPV 8.8(L) 9.3 - 12.2 FL 01/09/2024 8:58 AM T [facility] DIFFERENTIAL TYPE AUTOMATED DIFFERENTIAL 01/09/2024 9:00 AM CDT [facility] NEUTROPHILS % 41.1 % 01/09/2024 9:00 AM T [facility] LYMPHOCYTES % 48.0 % 01/09/2024 9:00 AM T [facility] MONOCYTES % 7.4 % 01/09/2024 9:00 AM CDT [facility] EOSINOPHILS 0.8 % 01/09/2024 9:00 AM CDT [facility] BASOPHILS 0.3 % 01/09/2024 9:00 AM CDT [facility] IMMATURE GRANS % 2.4 % 01/09/20 9:00 AM CDT [facility] ABS. NEUTROPHILS 1.55(L) 1.80 - 7.70 x10'3/uL 01/09/2024 9:00 AM CDT [facility] ABS. LYMPHOCYTES 1.81 1.00 - 4.80 x10'3/uL 01/09/2024 9:00 AM CDT [facility] ABS. MONOCYTES 0.28 0.24 - 0.86 x10'3/uL 01/09/2024 9:00 AM CDT [facility] ABS. EOSINOPHILS 0.03(L) 0.04 - 0.36 x10'3/uL 01/09/2024 9:00 AM CDT [facility] ABS. BASOPHILS 0.01 0.01 - 0.08 x10'3/uL 01/09/2024 9:00 AM CDT [facility] ABS. IMMATURE GRANULOCYTES 0.09 0.00 - 0.49 x10'3/uL 01/09/2024 9:00 AM CDT [facility] RBC MORPHOLOGY SLIDE REVIEWED 2023 9:00 AM CDT [facility] CAREY 3+ 01/09/2024 9:00 AM CDT [facility] PLT EST. DECREASED 01/09/2024 9:00 AM CDT [facility] 01/09/2024 8:05 AM CDT us Zelalem Ziegler MD LABORATORY Final Result [facility] [address] [place] [address], [place] [phone] * (ABNORMAL) COMPREHENSIVE METABOLIC PANEL (01/09/2024 7:55 AM CDT) [facility] GLUCOSE 83 70 - 99 MG/DL 01/09/2024 8:50 AM CDT [facility] BUN 17 7 - 18 MG/DL 01/09/2024 8:50 AM CDT [facility] CREATININE S/P/B 1.01 0.55 - 1.02 MG/DL 01/09/2024 8:50 AM CDT [facility] SODIUM S/P/B 140 136 - 145 MMOL/L 01/09/2024 8:50 AM CDT [facility] POTASSIUM S/P/B 3.9 3.5 - 5.1 MMOL/L 01/09/2024 8:50 AM CDT [facility] CHLORIDE S/P/B 112(H) 100 - 108 MMOL/L 01/09/2024 8:50 AM CDT [facility] CO2 22.5 21 - 32 MMOL/L 01/09/2024 8:50 AM CDT [facility] CALCIUM S/P/B 9.1 8.5 - 10.1 MG/DL 01/09/2024 8:50 AM CDT [facility] BILIRUBIN TOTAL S/P/B 0.5 0.2 - 1.2 MG/DL 01/09/2024 8:50 AM CDT [facility] Comment: THIS ASSAY IS NOT RECOMMENDED FOR PATIENTS UNDERGOING TREATMENT WITH ELTROMBOPAG DUE TO THE POTENTIAL FOR FALSELY ELEVATED RESULTS. TOTAL PROTEIN S/P/B 5.9(L) 6.4 - 8.2 G/DL 01/09/2024 8:50 AM CDT [facility] ALBUMIN S/P/B 3.3(L) 3.4 - 5.0 G/DL 01/09/2024 8:50 AM CDT [facility] AST 9(L) 15 - 37 U/L 01/09/2024 8:50 AM CDT [facility] ALT 14 14 - 55 U/L 01/09/2024 8:50 AM CDT [facility] ALKALINE PHOSPHATASE S/P/B 74 50 - 136 U/L 01/09/2024 8:50 AM CDT [facility] ANION GAP 5.5 5 - 15 MMOL/L 01/09/2024 8:50 AM CDT [facility] BUN CREATININE RATIO 16.8 6 - 26 01/09/2024 8:50 AM CDT [facility] A/G RATIO 1.3 1.0 - 2.0 RATIO 01/09/2024 8:50 AM T [facility] GFR ESTIMATE 59(L) >90 ML/MIN/1.7 3 M2 01/09/2024 8:50 AM CDT [facility] Comment: NOTE: eGFR is not calculated for patients <18 years of age. This is an estimated GFR calculation using the new CKD EPI creatinine equation without race and so does not require a correction factor for race. This estimated GFR should not be used for calculating drug doses. 01/09/2024 7:55 AM CDT Zelalem Ziegler MD LABORATORY Final Result [facility] [address] [place] [address], [place] [phone] * PROTIME/INR, VENOUS (01/09/2024 7:55 AM CDT) PROTIME 10.2 10.2 - 12.9 SEC 01/09/2024 8:40 AM CDT [facility] INR 0.9 01/09/2024 8:40 AM CDT [facility] Comment: Recommended INR Therapeutic Goals: 2.0-3.0 Routine Therapy 2.5-3.5 Mechanical Prosthetic Valves (High Risk) 01/09/2024 7:55 AM CDT Zelalem Ziegler MD LABORATORY Final Result [facility] [address] [place] [address], [place] [phone] documented in this encounter Visit Diagnoses Diagnosis Varicose veins of lower extremity with pain, right- Primary Hyperlipidemia Other and unspecified hyperlipidemia Hypertension Unspecified essential hypertension Disease of the lung and heart (CMS/HCC [facility]/HCC) Chronic pulmonary heart disease, unspecified documented in this encounter Care Teams Team Assembler Relationship Specialty Start Date End Date Kristina Elias MD [address] [place] [address] PCP - General FAMILY PRACTICE 12/21/21 Prudence Reis MD CARDIOVASCULAR DISEASE 04/15/20 documented as of this encounter
--- OUTSIDE RECORDS SUMMARY | 2025-05-15 13:53 | XMS_ITS | Encounter Summary ---
Author Organization [facility] Address [address] [place] [address] Care Team Providers Care Speech Language Pathologist Name Role Phone Kristina Elias MD Primary Care Provider [phone] Encounter Details Date Type Department Care Team (Late st Contact Info) Description 05/06/2025 Results Follow-Up [facility] Cardiology [address] [place] [address] Rebecca Velazquez, CHARU [address] [place] [address] Transthoracic Echo (TTE) Complete W Doppler/CF, NM MPI SPECT (Rest and/or Stress) Multiple Studies Social History Tobacco Use Types Packs/Day Years Used Date Smoking Tobacco: Former Cigarettes Q uit: 1991 Smokeless Tobacco: Never Alcohol Use Standard Drinks/Week Comments Yes 0 (1 standard drink = 0.6 oz pur e alcohol) Comments Unknown Sex and Gender Information Value Date Recorded Sex Assigned at Not on file Legal Sex Female 8:03 PM ASSET MANAGER Gender Identity Not on file Sexual Orientation Not on file documented as of this encounter Plan of Treatment Not on file documented as of this encounter Visit Diagnoses Not on filedocumented in this encounter Care Teams Speech Language Pathologist Relationship Specialty Start Date End Date Kristina Elias MD PCP - General Family Medicine 08/12/21 documented as of this encounter
--- OUTSIDE RECORDS SUMMARY | 2025-05-15 13:53 | XMS_ITS | Clinical Summary ---
Author Organization [facility] Address [address] [place] [address] Care Team Providers Care Crib Pad Maker Name Role Phone Prudence Reis MD Unavailable Unavailable Kristina Elias MD Primary Care Provider [phone] Allergies Active Allergy Reactions Criticality Noted Date [...] 11/01/2023 Mild chronic obstructive pul monary disease ([facility]/HCC [facility]) 11/01/2023 Dyspnea 11/01/2023 Symptomatic varicose [...] Td Vaccines ( 1 - Tdap) 1969 Zoster Vaccines (1 of 2) 2000 Annual Medicare Wellness Visit 2015 Dexa Scan (General) 2015 RSV Immunization or 60+ Years (1 - 1-dose 75+ series) 2025 COVID-19 Vaccine (4 - 2024-2 6 season) 2025 06/16/2021, 11/13/2020, 10/23/2020 Pneumococcal Vaccine: 50+ Years [...] this topic Medical Devices Implanted Type Area Personal Driver Device Identifier Shelf Expiration Date Model / Serial / Lot Iol Tecnis Simplicity Dcb00 - [id number] Implanted:Qty: 1 on 05/21/2024 by Jabari Luis MD at [facility] Lens Left: Eye [employer] 10/09/2026 DCB00 / [id number] / Iol Tecnis Simplicity Dcb00 - [id number] Implanted:Qty: 1 on 06/25/2024 by Jabari Luis MD at [facility] Lens Right: Eye [employer] 01/15/2027 DCB00 / [id number] / Insurance RAILROAD MEDICARE [facility] Care Teams Crib Pad Maker Relationship Specialty Start Date End Date Kristina Elias MD [address] [place] [address] PCP - General FAMILY PRACTICE 12/21/21 Prudence Reis MD CARDIOVASCULAR DISEASE 04/15/20
== END 2025-05-15 13:33 | disposition home or self-care (01) ==
LOC: ANHLAB 13:34
PROVIDERS: PCP Family Medicine; Visit Provider Internal Medicine Hematology & Oncology
DX: R16.1 Splenomegaly, not elsewhere classified (principal)
CPT/HCPCS: 36415; 80047; 85025

== ENCOUNTER 2025-06-11 15:04 | Outpatient (CLI) | payer MEDICARE, BC, SELFPAY ==
--- NOTE | ~2025-06-11 | MR_ITS ---
EXAMINATION: MR lumbar spine wo con DATE: 06/11/2025 15:33 INDICATION: Lumbar spondylosis without myelopathy or radiculopathy. TECHNIQUE: Magnetic resonance imaging (MRI) of the lumbar spine was performed without intravenous contrast. Sequences included sagittal T2-weighted FSE, sagittal T2-weighted FS FSE, sagittal T1-weighted FSE, and axial T2-weighted FSE. COMPARISON: None FINDINGS: Alignment is normal. There is mild chronic anterior wedging of T11 and L2 vertebral bodies. There is moderately decreased disc height at L2-L3, severely decreased disc height at L3-L4, mildly decreased disc height at L4-L5, and severely decreased disc height at L5-S1. The distal spinal cord signal intensity is normal. The conus medullaris is at L1-L2. The following disc levels are specifically discussed: L1-L2: The disc is bulging. There is mild bilateral facet joint osteoarthritis. There is mild bilateral neural foraminal stenosis. There is mild central canal stenosis. L2-L3: The disc is bulging. There is severe bilateral facet joint osteoarthritis. There is mild bilateral neural foraminal stenosis. There is mild central canal stenosis. L3-L4: The disc is bulging and has an annular fissure. There is moderate bilateral facet joint osteoarthritis. There is mild right and moderate left neural foraminal stenosis. There is mild central canal stenosis. L4-L5: The disc is bulging. There is moderate bilateral facet joint osteoarthritis. There is moderate bilateral neural foraminal stenosis. There is mild central canal stenosis. L5-S1: The disc is bulging. There is severe bilateral facet joint osteoarthritis. There is moderate bilateral neural foraminal stenosis. There is mild central canal stenosis. IMPRESSION: 1. Severe lumbar spondylosis. Reviewed, dictated and finalized at location E.
== END 2025-06-11 15:05 | disposition home or self-care (01) ==
LOC: MICIMG 15:05
PROVIDERS: PCP Family Medicine; Visit Provider Nurse Practitioner Adult Health
DX: M47.817 Spondylosis without myelopathy or radiculopathy, lumbosacral region (principal); M51.27 Other intervertebral disc displacement, lumbosacral region; M48.061 Spinal stenosis, lumbar region without neurogenic claudication
CPT/HCPCS: 72148

== ENCOUNTER 2025-07-02 01:26 | Day surgery (SDC) | payer MEDICARE, BC, SELFPAY ==
[2025-06-21 15:12] VITALS: BMI 29.8
--- NOTE | 2025-06-21 15:19 | PC.NURSE ---
[facility] has started construction of its new state of the art ER which will open Spring 2026. With this, we anticipate parking may be a challenge for some our surgical patients and families. Parking spaces are limited but are available for all Surgical, obstetrics, and ER patients sharing this lot. If you arrive and find you are having a hard time finding a parking space, please note that we understand the challenges, please drive around the hospital and park near Hospital Entrance 1. When you enter this entrance, you can ask a volunteer to direct or take you back to the surgical waiting area to check in. We appreciate everyone?s understanding of these expected challenges while we build for your future. Report to the Outpatient Waiting Room, entrance under the green pavilion located off [address], at time ___0630am____ on date __07/02/25 . Planned Procedure Time: ___0730am .? Time changes happen often and if your time is changed the preop area will call you the afternoon before. - You and your visitor will be asked to self-screen and do not enter if you have any COVID symptoms. Please call surgeon if you need to reschedule. - A mask is optional within the hospital at this time. - No food or drink from midnight until time of surgery and no smoking, or chewing tobacco (or any form of nicotine). No chewing gum, candy or mints. Take only the following medications with a SIP of water on the morning of surgery: AM MEDICATIONS DO NOT STOP ANY OF YOUR OTHER PRESCRIPTION MEDICATIONS PRIOR TO SURGERY EXCEPT THE FOLLOWING Hold all vitamins and supplements for 3 days per anesthesiologist. Medications to discontinue per physician NONE Date to take last dose NONE Please no make-up, nail slovenian, hairspray, perfume, deodorant, or body powder the day of surgery.? No jewelry (including any body piercings) or valuables the day of surgery, leave them at home.? Please take a shower or bath the night before, or the morning of, surgery with an antibacterial soap.? Wear comfortable, loose fitting clothing.? Children are encouraged to wear pajamas. - Jewelry must be removed prior to entering the operating room.? Rings and piercings that are not removed may be cut off. - The hospital will not accept responsibility for valuables.? - Please leave all valuables, including medications, at home the day of surgery. If you are going home after surgery, a licensed jitney driver must drive you home.? - NO public transportation without another adult if you receive anesthesia. - We recommend that an adult stay with you for 24 hours following discharge. - We also recommend that you do not drive, make important decision, drink alcoholic beverages, or take any drugs that were not prescribed by your health care provider for at least 24 hours after your discharge time. NO DRIVING FOR [address] DESIR Follow any additional instructions given to you from your surgeon. Telephone instructions given to ___Patient and asked if any additional questions and then verbalized understanding. Patient advised to call surgeon office or pre surgery nurse liaison [phone] if any additional questions.
--- NOTE | ~2025-07-02 | XR_ITS ---
EXAMINATION: XR fluoroscopy, no charge INDICATION: L5/S1 TRANSFORAMINAL STEROID INJECTION . COMPARISON: None TECHNIQUE: 20 fluoroscopic images of the lower lumbar spine were obtained during L5-S1 transforaminal steroid injection. Fluoroscopy exposure time was 15 seconds. Air Kerma 5.2909 mGy. DAP 0.9285 mGym2. FINDINGS/IMPRESSION: No radiologist was present or involved at the time of the procedure. Static images were submitted for interpretation. Catheters project over L5-S1 on both sides. Some images show an oblique orientation with contrast injection. Fluoroscopic documentation of intraprocedural images for control purposes. Please refer to the operative note for complete procedural details. Reviewed, dictated and finalized at location A. ER ESTIMATOR
--- OUTSIDE RECORDS SUMMARY | 2025-07-02 01:29 | XMS_ITS | Encounter Summary ---
Author Organization [facility] Address [address] [place] [address] Care Team Providers Care Fabrication Machine Operator Name Role Phone Prudence Reis MD Unavailable Unavailable Reuben Oneal MD Primary Care Provider [phone] Kristina Elias MD Primary Care Provider [phone] Encounter Details Date Type Department Care Team (Late Contact Info) Description 04/18/2020 Prep for Procedure Force's Pre-Admission Testing [address] [place], [place] [id number] Binh Scott MD [address] [place] [id number] Social History Tobacco Use Types Packs/Day [...] (COVID 19) (04/18/2020 11:00 AM CDT) Pathologist [facility] CORONAVIRUS SARS COV 2 PCR (RESP) NOT DETECTED NOT DETECTED 04/19/2020 2:37 PM CDT [facility] Comment: A Not Detected (negative) [...] providers and patients using the following websites: https://www.Renrendai.Ciashop/home/Covid-19/HCP/NAAT/fact-sheet2 https://www.[facility].Ciashop/home/Covid-19/Patients/NAAT/ fact-sheet2 This test has been authorized by the FDA under an Emergency Use Authorization (EUA) for use by authorized laboratories. Due to the current public health emergency, [facility] is receiving a high volume of samples [...] about COVID-19 can be found at the [facility] website: www.Lemon.Ciashop/Covid19. Test performed at [facility] [address] [place] [address] Director: KIMBERLY ALCARAZ DO,MPH NASOPHARYNGEAL SWAB / Unknown 04/18/2020 11:00 AM CDT Binh Scott MD MICROBIOLOGY - GENERAL ORDERABLE S Final Result [facility] [address] [place] [address], documented in this encounter Visit Diagnoses Diagnosis Preoperative testing- Primary Preoperative examination, unspecified documented in this encounter Additional Health Concerns Infection Onset Date Last Indicated Resolved Time COVID-19 Rule Out 04/18/2020 04/18/2020 04/19/2020 2:38 PM CDT documented as of this encounter Care Teams Fabrication Machine Operator Relationship Specialty Start Date End Date Reuben Oneal MD [address] [place] [id number] PCP - General FAMILY PRACTICE 04/15/20 12/20/21 Kristina Elias MD [address] [place] [address] PCP - General FAMILY PRACTICE 12/21/21 Prudence Reis MD CARDIOVASCULAR DISEASE 04/15/20 documented as of this encounter
--- OUTSIDE RECORDS SUMMARY | 2025-07-02 01:29 | XMS_ITS | Clinical Summary ---
Author Organization [facility] Address [address] [place] [address] Care Team Providers Care Termite Treater Helper Name Role Phone Prudence Reis MD Unavailable Unavailable Kristina Elias MD Primary Care Provider [phone] Allergies Active Allergy Reactions Criticality Noted Date [...] 11/01/2023 Menopausal syndrome 11/01/2023 Mild chronic obstructive pulmonary disease 10/31 Dyspnea 11/01/2023 Symptomatic varicose veins of both [...] and Td Vaccines (1 - Tdap) 1969 Zoster Vaccines (1 of 2) 2000 Annual Medicare Wellness Visit 2015 Dexa Scan (General) 2015 RSV Immunization or 60+ Years (1 - 1-dose 75+ series) 2025 COVID-19 Vaccine ( - 2024- season) 2025 06/16/2021, 11/13/2020, 10/23/2020 Influenza Adult (#1) 2025 05/22/2021, 06/04/2019, 06/26/2018, Additional history exists Pneumococcal Vaccine: 50+ Years Completed 06/25/2020, 06/04/2019 Hepatitis A Vaccines Aged Out No long er eligible based on patient's age to complete this topic Meningococcal B Vaccine Aged Out No l onger eligible based on patient's age to complete this topic Meningococcal Vaccine Aged Out No delphine jack eligible based on patient's age to complete this topic RSV Immunizations Under 20 Months Aged Out No longer eligible based on patient's age to complete this topic Medical Devices Implanted Type Area Sole Buffer Device Identifier Shelf Expiration Date Model / Serial / Lot Iol Tecmolly Flores Dcb00 - [id number] Implanted:Qty: 1 on 05/21/2024 by aJbari Luis MD at [facility] Lens Left: Eye [employer] 10/09/2026 DCB00 / [id number] / Iol Tecnis Simplicity Dcb00 - [id number] Implanted:Qty: 1 on 06/25/2024 by Jabari Luis MD at [facility] Lens Right: Eye [employer] 01/15/2027 [facility] / [id number] / Insurance RAILROAD MEDICARE [facility] Care Teams Termite Treater Helper Relationship Specialty Start Date End Date Kristina Elias MD [address] [place] [address] PCP - General FAMILY PRACTICE 12/21/21 Prudence Reis MD CARDIOVASCULAR DISEASE 04/15/20
--- OUTSIDE RECORDS SUMMARY | 2025-07-02 01:29 | XMS_ITS | Clinical Summary ---
Author Organization [facility] Lili Henrydilia Address [address] [place] [address] Care Team Providers Care Screener Operator Name Role Phone Kristina Elias MD Primary Care Provider [phone] Allergies Active Allergy Reactions Criticality Noted Date [...] Encounters Date Type Department Care Team Description 06/19/2025 External Device Data STL ABSTRACTION Provider, Abstract 06/18/2025 External Device Data STL ABSTRACTION Provider, Abstract 05/21/2025 External Device Data STL ABSTRACTION Provider, Abstract 05/16/2025 Orders Only [facility] [address] [place] [id number] Walter Brothers MD 05/15/2025 2:30 PM CDT Office Visit [facility] - [address] [place] [address] Walter Brothers MD Chronic anemia (Primary Dx) 05/14/2025 External Device Data STL ABSTRACTION Provider, [...] Sign Reading Time Taken Comments Blood Pressure 139/70 05/15/2025 1:57 PM CDT Pulse 71 05/15/2025 1:55 PM CDT Temperature 36.7 C (98 F) 05/15/2025 1:55 PM CDT Respiratory Rate 15 05/15/2025 1:55 PM CDT Oxygen Saturation 98% 05/15/2025 1:55 PM CDT Inhaled Oxygen Concentration - - Weight 75.4 kg (166 lb 3.2 oz) 05/15/2025 1:55 P M CDT Height 157.5 cm (5' 2) 03/16/2022 11:22 AM CDT Body Mass Index 30.4 03/16/2022 11:22 AM CDT Plan of Treatment Upcoming Encounters Date Type Department Care Team (Late st Contact Info) Description 08/13/2025 2:00 PM INVESTIGATION MANAGER Office Visit [facility] - [address] [facility] [address] [place] [address] Walter Brothers MD [address] [facility] [address] [place] [address] Health Maintenance Due Date Last [...] Diagnosis Comments CBC WITH AUTODIFFERENTIAL Routine 2024 2:42 PM CDT from Last 3 Months Results * CBC WITH AUTODIFFERENTIAL (05/15/2025 2:42 PM CDT) Blood us Walter Brothers MD HEMATOLOGY ORDERABLES Final Res ult from Last 3 Months Insurance BCBS FEDERAL MEDICARE RAILROAD Care Teams Screener Operator Relationship Specialty Start Date End Date Kristina Elias MD [address] [place] [address] PCP - General Family Practice 06/11/21
--- OUTSIDE RECORDS SUMMARY | 2025-07-02 01:29 | XMS_ITS | Encounter Summary ---
Author Organization [facility] Healthcare Address [address] [place] [address] Care Team Providers Care Jewelry Dipper Name Role Phone Kristina Elias MD Primary Care Provider Encounter Details Date Type Department Care Team (Late st Contact Info) Description 02/11/2025 Orders Only [facility] Health Information Management [address] [place] [address] Scanning, Provider Social History Tobacco Use Types Packs/Day Years Used Date Smoking Tobacco: Former Cigarettes Q uit: 1991 Smokeless Tobacco: Never Alcohol Use Standard Drinks/Week Comments Yes 0 (1 standard drink = 0.6 oz pur e alcohol) Comments Unknown Sex and Gender Information Value Date Recorded Sex Assigned at Not on file Legal Sex Female 8:03 PM SUPPLY ANALYST Gender Identity Not on file Sexual Orientation [...] on filedocumented in this encounter Care Teams Jewelry Dipper Relationship Specialty Start Date End Date Kristina Elias MD PCP - General Family Medicine 08/12/21 documented as of this encounter
--- OUTSIDE RECORDS SUMMARY | 2025-07-02 01:29 | XMS_ITS | Clinical Summary ---
Author Organization [facility] [address] Address [address] [place] [address] Care Team Providers Care Card Mounter Name Role Phone Kristina Elias MD Primary [...] mouth Active cyanocobalamin (Vitamin B-12) 500 mcg tabletIndications :Prevention of Vitamin B12 Deficiency Take 1 tablet (500 mcg total) by mouth daily Active cholecalciferol (VITAMIN D-3) 2000 unit tablet Act cornelius traZODone (DESYREL) 50 mg tablet Take 1 tablet (50 mg total) by mouth nightly Active rosuvastatin (CRESTOR) 20 mg tabletIndications :Hypercholesterem ia TAKE 1 TABLET(20 MG) BY MOUTH DAILY 90 tablet 1 4 Active famotidine (PEPCID) 40 mg tablet Take 1 tablet (40 mg total) by mouth daily 5 Active losartan (COZAAR) 25 mg tabletIndications :Essential hypertension Take 2 tablets (50 mg total) by mouth daily 5 Active Active Problems Problem Noted Date Diagnosed Date Bruit of right carotid artery 09/26/2023 Thrombocytopenia 09/13/2022 Shortness of breath 01/29/2019 Essential hypertension 01/29/2019 Hypercholesteremia 01/29/2019 Family history of premature CAD 01/29/2019 Encounters Date Type Department Care Team Description 05/07/2025 Telephone [facility] Cardiology [address] [place] [address] [place] [phone] Rebecca Chong NP 05/06/2025 9:15 AM CDT Ancillary Procedure [place] [address] [place] [phone] Chest heaviness 05/06/2025 8:15 AM CDT Ancillary Procedure [place] [address] [place] [phone]; Essential (primary) hypertension 05/06/2025 Results Follow-Up [place] [address] [place] [phone] Rebecca Chong NP Transthoracic Echo (TTE) Complete W Doppler/CF, NM MPI SPECT (Rest and/or Stress) Multiple Studies 04/11/2025 3:30 PM CDT Office Visit [place] [address] [place] [phone] Rebecca Chong NP Abnormal chest CT (Primary Dx); Chest heaviness; Essential (primary) hypertension from Last 3 Months Surgical History Surgery [...] on file 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 Location: [facility] Provider: REBECCA CHONG Height(Cm): 157.5 BSA: Weight(Kg): 73.9 BMI: 29.79 Order Provider: REBECCA CHONG PHYSICIAN: Primary Care Physician: Dr. Elias. [facility] Physician: Horacio Mcclure M.D. Stress Supervision: Sofia Padilla M.D., F.A.C.C. Stress Interpreting Physician: Sofia Padilla M.D., F.A.C.C. Image Interpreting Physician: Yin Cervantes D.O. PROCEDURES: [...] normal. Electronically Signed By: Dr. Sofia Padilla [facility] 05/06/2025 12:56:33 PM CDT Electronically Signed By: Yin Cervantes DO, FACC, PABLITO FERNANDEZ 05/07/2025 2:23:54 PM CDT Procedure Note Yin Cervantes DO - 05/07/2025 [facility] Cardiology [address], [place] [address] [address] [facility] [address], [place] [address] [address], [place] [address] P:[phone] P:[phone] MPI Imaging Report Patient Name: JOANNA JEFFERY A : 1950 Study Date: 05/06/2025 8:32:20 AM Sex: F Tech: KEYANA [facility] Location: [facility] Provider: REBECCA CHONG Height(Cm): 157.5 BSA: Weight(Kg): 73.9 BMI: 29.79 Order Provider: ARLETTEREBECCA PHYSICIAN: Primary Care Physician: Dr. Elias. [facility] Physician: Horacio Mcclure M.D.Stress Supervision: Sofia Padilla M.D., F.A.C.C. Stress Interpreting Physician:Sofia Padilla M.D., F.A.C.C. Image Interpreting Physician: Yin Cervantes D.O. PROCEDURES: [...] normal. Electronically Signed By: Dr. Sofia Padilla [facility] 05/06/2025 12:56:33 PM CDT Electronically Signed By: Yin Cervantes DO, ALLI, PABLITO FERNANDEZ 05/07/2025 2:23:54 PM CDT us Rebecca Chong TELECOMMUNICATIONS PROFESSIONAL IMG NM PROCEDURES Final R esult * TRANSTHORACIC ECHO (TTE) COMPLETE W DOPPLER/CF WO CONTRAST (05/06/2025 9:04 AM CDT) EF Mod BP 71 % CONS SCIMAGE Anatomical Region Laterality Modality Ultrasound 05/06/2025 8:06 AM CDT Narrative 05/06/2025 11:49 AM CDT [facility] Cardiology [address] [facility] [address] [address] [address] [facility] [address], [place] [address] P:[phone] P:[phone] Echocardiographic Report Patient Name: JOANNA JEFFERY A : 1950 Study Date: 05/06/2025 8:06:20 AM Sex: F Retail Agent: Sangeetha Hernandez)([place]), [facility] Location: [place] Ref Provider: REBECCA HCONG Height(Cm): 157 BSA: 1.8 Weight(Kg): 73.9 Heart Rate: 67 BP: 144 / 60 Quality: Good Order Provider: ARLETTE,REBECCA PROCEDURES: Echocardiographic Report: Transthoracic echocardiogram with complete [...] 2.70 - 3.70 ] LVOT Peak Eren 1.22 m/s [ 0.70 - 1.10 ] [...] FINDINGS: Interpretation Site: Exam was interpreted at [facility]. Left Ventricle: Normal left ventricular systolic function. [...] cm. Electronically Signed By: Dr. Sofia Padilla [facility] 05/06/2025 11:48:55 AM CDT Procedure Note Sofia Padilla MD - 05/06/2025 [facility] Cardiology [address], [place] [address] [address] [facility] [address], [place] [address] P:[phone] P:[phone] Echocardiographic Report Patient Name: JOANNA JEFFERY A : 1950 Study Date: 05/06/2025 8:06:20 AM Sex: F Retail Agent: Sangeetha Espinosa ([place])([place]), [facility] Location: [facility] Provider: REBECCA CHONG Height(Cm): 157 BSA: 1.8 [...] FINDINGS: Interpretation Site: Exam was interpreted at [facility]. Left Ventricle: Normal left ventricular systolic function. [...] cm. Electronically Signed By: Dr. Sofia Padilla [facility] 05/06/2025 11:48:55 AM CDT Rebecca Chong NP CV ECHO PROCEDURES Final Result from Last 3 Months Insurance MEDICARE RAILROAD [facility] Address: [address] [address] MEDICARE RAILROAD [facility] FEDERAL Member Subscriber Plan / Payer (Ef fective 2015-Present) Name:Joanna Jeffery Relation to Subscriber:Spouse Name:YRN JEFFERY JR Date of :1950 Address: [address] [place] [address] [place] [address] Payer ID:[id number] (NAIC) Group ID:[id number] Type:[facility] Address: [address] [place] [address] Care Teams Card Mounter Relationship Specialty Start Date End Date Kristina Elias MD PCP - General Family Medicine 08/12/21
--- OUTSIDE RECORDS SUMMARY | 2025-07-02 01:29 | XMS_ITS | Encounter Summary ---
Author Organization [facility] Address [address] [place] [address] Care Team Providers Care Nuclear Weapons Mechanical Specialist Name Role Phone Prudence Reis MD Unavailable Unavailable Kristina Elias MD Primary Care Provider [phone] Encounter Details Date Type Department Care Team (Late st Contact Info) Description 12/02/2023 Prep for Procedure [facility], [facility] [address] [place], [place] [phone] Zelalem Ziegler MD [facility]. [facility] [address] [place], [place] [phone] Social History Tobacco Use Types Packs/Day Years [...] - 11.0 x10'3/uL 01/09/2024 8:58 AM CDT [facility] RBC 2.59(L) 4.20 - 5.40 x10'6/uL 01/09/2024 8:58 AM CDT [facility] HGB 6.7(LL) 12.0 - 16.0 G/DL 01/09/2024 8:58 AM CDT [facility] Comment: This result has been called to SOL HIGHTOWER by [id number] on 01/09/2024 08:58:40, and has been read back. HCT 21.7(L) 38.0 - 48.0 % 01/09/2024 8:58 AM CDT [facility] MCV 83.8 81.0 - 99.0 FL 01/09/2024 8:58 AM CDT [facility] MCH 25.9(L) 27.0 - 31.0 PG 01/09/2024 8:58 AM CDT [facility] MCHC 30.9(L) 32.0 - 36.0 G/DL 01/09/2024 8:58 AM CDT [facility] RDW 13.3 11.5 - 14.5 % 01/09/2024 8:58 AM CDT [facility] PLT 85(L) 130 - 400 x10'3/uL 01/09/2024 8:58 AM CDT [facility] MPV 8.8(L) 9.3 - 12.2 FL 01/09/2024 8:58 AM T [facility] DIFFERENTIAL TYPE AUTOMATED DIFFERENTIAL 01/09/2024 9:00 AM CDT [facility] NEUTROPHILS % 41.1 % 01/09/2024 9:00 AM T [facility] LYMPHOCYTES % 48.0 % 01/09/2024 9:00 AM T [facility] MONOCYTES % 7.4 % 01/09/2024 9:00 AM CDT [facility] EOSINOPHILS 0.8 % 01/09/2024 9:00 AM CDT [facility] BASOPHILS 0.3 % 01/09/2024 9:00 AM CDT [facility] IMMATURE GRANS % 2.4 % 01/09/20 9:00 AM CDT [facility] ABS. NEUTROPHILS 1.55(L) 1.80 - 7.70 x10'3/uL 01/09/2024 9:00 AM CDT [facility] ABS. LYMPHOCYTES 1.81 1.00 - 4.80 x10'3/uL 01/09/2024 9:00 AM CDT [facility] ABS. MONOCYTES 0.28 0.24 - 0.86 x10'3/uL 01/09/2024 9:00 AM CDT [facility] ABS. EOSINOPHILS 0.03(L) 0.04 - 0.36 x10'3/uL 01/09/2024 9:00 AM CDT [facility] ABS. BASOPHILS 0.01 0.01 - 0.08 x10'3/uL 01/09/2024 9:00 AM CDT [facility] ABS. IMMATURE GRANULOCYTES 0.09 0.00 - 0.49 x10'3/uL 01/09/2024 9:00 AM CDT [facility] RBC MORPHOLOGY SLIDE REVIEWED 2023 9:00 AM CDT [facility] CAREY 3+ 01/09/2024 9:00 AM CDT [facility] PLT EST. DECREASED 01/09/2024 9:00 AM CDT [facility] 01/09/2024 8:05 AM CDT us Zelalem Ziegler MD LABORATORY Final Result [facility] [address] [place] [address], [place] [phone] * (ABNORMAL) COMPREHENSIVE METABOLIC PANEL (01/09/2024 7:55 AM CDT) [facility] GLUCOSE 83 70 - 99 MG/DL 01/09/2024 8:50 AM CDT [facility] BUN 17 7 - 18 MG/DL 01/09/2024 8:50 AM CDT [facility] CREATININE S/P/B 1.01 0.55 - 1.02 MG/DL 01/09/2024 8:50 AM CDT [facility] SODIUM S/P/B 140 136 - 145 MMOL/L 01/09/2024 8:50 AM CDT [facility] POTASSIUM S/P/B 3.9 3.5 - 5.1 MMOL/L 01/09/2024 8:50 AM CDT [facility] CHLORIDE S/P/B 112(H) 100 - 108 MMOL/L 01/09/2024 8:50 AM CDT [facility] CO2 22.5 21 - 32 MMOL/L 01/09/2024 8:50 AM CDT [facility] CALCIUM S/P/B 9.1 8.5 - 10.1 MG/DL 01/09/2024 8:50 AM CDT [facility] BILIRUBIN TOTAL S/P/B 0.5 0.2 - 1.2 MG/DL 01/09/2024 8:50 AM CDT [facility] Comment: THIS ASSAY IS NOT RECOMMENDED FOR PATIENTS UNDERGOING TREATMENT WITH ELTROMBOPAG DUE TO THE POTENTIAL FOR FALSELY ELEVATED RESULTS. TOTAL PROTEIN S/P/B 5.9(L) 6.4 - 8.2 G/DL 01/09/2024 8:50 AM CDT [facility] ALBUMIN S/P/B 3.3(L) 3.4 - 5.0 G/DL 01/09/2024 8:50 AM CDT [facility] AST 9(L) 15 - 37 U/L 01/09/2024 8:50 AM CDT [facility] ALT 14 14 - 55 U/L 01/09/2024 8:50 AM CDT [facility] ALKALINE PHOSPHATASE S/P/B 74 50 - 136 U/L 01/09/2024 8:50 AM CDT [facility] ANION GAP 5.5 5 - 15 MMOL/L 01/09/2024 8:50 AM CDT [facility] BUN CREATININE RATIO 16.8 6 - 26 01/09/2024 8:50 AM CDT [facility] A/G RATIO 1.3 1.0 - 2.0 RATIO 01/09/2024 8:50 AM T [facility] GFR ESTIMATE 59(L) >90 ML/MIN/1.7 3 M2 01/09/2024 8:50 AM CDT [facility] Comment: NOTE: eGFR is not calculated for patients <18 years of age. This is an estimated GFR calculation using the new CKD EPI creatinine equation without race and so does not require a correction factor for race. This estimated GFR should not be used for calculating drug doses. 01/09/2024 7:55 AM CDT Zellaem Ziegler MD LABORATORY Final Result [facility] [address] [place] [address], [place] [phone] * PROTIME/INR, VENOUS (01/09/2024 7:55 AM CDT) PROTIME 10.2 10.2 - 12.9 SEC 01/09/2024 8:40 AM CDT [facility] INR 0.9 01/09/2024 8:40 AM CDT [facility] Comment: Recommended INR Therapeutic Goals: 2.0-3.0 Routine Therapy 2.5-3.5 Mechanical Prosthetic Valves (High Risk) 01/09/2024 7:55 AM CDT Zelalem Ziegler MD LABORATORY Final Result [facility] [address] [place] [address], [place] [phone] documented in this encounter Visit Diagnoses Diagnosis Varicose veins of lower extremity with pain, right- Primary Hyperlipidemia Other and unspecified hyperlipidemia Hypertension Unspecified essential hypertension Disease of the lung and heart (CMS/HCC [facility]/HCC) Chronic pulmonary heart disease, unspecified documented in this encounter Care Teams Nuclear Weapons Mechanical Specialist Relationship Specialty Start Date End Date Kristina Elias MD [address] [place] [address] PCP - General FAMILY PRACTICE 12/21/21 Prudence Reis MD CARDIOVASCULAR DISEASE 04/15/20 documented as of this encounter
--- OUTSIDE RECORDS SUMMARY | 2025-07-02 01:29 | XMS_ITS | Encounter Summary ---
Author Organization [facility] Address [address] [place] [address] Care Team Providers Care Refining Supervisor Name Role Phone Prudence Reis MD Unavailable Unavailable Kristina Elias MD Primary Care Provider [phone] Reason for Referral * Surgical (Routine) - Closed Specialty Diagnoses / Procedures Referred By Contac t Referred To Contact Diagnoses Varicose veins of lower extremity with pain, right Procedures Case request operating room: STAB PHLEBECTOMY (RIGHT LEG) Zelalem Ziegler MD [id number] [place] [address] Phone: tel: fax: Referral ID Status Reason Start Date Expiration Date Visits Re quested Visits Authorized [id number] Closed 01/10/2024 01/09/2025 1 1 Encounter Details Date Type Department Care Team (Late st Contact Info) Description 01/10/2024 Prep for Procedure [facility] [address] [place], [place] [id number] Zelalem Ziegler MD [facility] [address] [place] [address] Social History Tobacco Use Types [...] METABOLIC PANEL (02/20/2024 12:18 PM CDT) Pathologist [facility] GLUCOSE 94 70 - 99 MG/DL 02/20/2024 12:53 PM CDT [facility] BUN 11 7 - 18 MG/DL 02/20/2024 12:53 PM CDT [facility] CREATININE S/P/B 0.95 0.55 - 1.02 MG/DL 02/20/2024 12:53 PM CDT [facility] SODIUM S/P/B 139 136 - 145 MMOL/L 02/20/2024 12:53 PM CDT [facility] POTASSIUM S/P/B 4.3 3.5 - 5.1 MMOL/L 02/20/2024 12:53 PM CDT [facility] CHLORIDE S/P/B 109(H) 100 - 108 MMOL/L 02/20/2024 12:53 PM CDT [facility] CO2 24.2 21 - 32 MMOL/L 02/20/2024 12:53 PM CDT [facility] CALCIUM S/P/B 9.3 8.5 - 10.1 MG/DL 02/20/2024 12:53 PM CDT [facility] BILIRUBIN TOTAL S/P/B 1.4(H) 0.2 - 1.2 MG/DL 02/20/2024 12:53 PM CDT [facility] Comment: THIS ASSAY IS NOT RECOMMENDED FOR PATIENTS UNDERGOING TREATMENT WITH ELTROMBOPAG DUE TO THE POTENTIAL FOR FALSELY ELEVATED RESULTS. TOTAL PROTEIN S/P/B 6.3(L) 6.4 - 8.2 G/DL 02/20/2024 12:53 PM CDT [facility] ALBUMIN S/P/B 3.5 3.4 - 5.0 G/DL 02/20/2024 12:53 PM CDT [facility] AST 11(L) 15 - 37 U/L 02/20/2024 12:53 PM CDT [facility] ALT 11(L) 14 - 55 U/L 02/20/2024 12:53 PM CDT [facility] ALKALINE PHOSPHATASE S/P/B 79 50 - 136 U/L 02/20/2024 12:53 PM CDT [facility] ANION GAP 5.8 5 - 15 MMOL/L 02/20/2024 12:53 PM CDT [facility] BUN CREATININE RATIO 11.5 6 - 26 02/20/2024 12:53 PM CDT [facility] A/G RATIO 1.2 1.0 - 2.0 RATIO 02/20/2024 12:53 PM T [facility] GFR ESTIMATE 63(L) >90 ML/MIN/1.7 3 M2 02/20/2024 12:53 PM CDT [facility] Comment: NOTE: eGFR is not calculated for patients <18 years of age. This is an estimated GFR calculation using the new CKD EPI creatinine equation without race and so does not require a correction factor for race. This estimated GFR should not be used for calculating drug doses. 02/20/2024 12:1 8 PM CDT us Zelalem Ziegler MD LABORATORY Final Result [facility] [address] [place] [address], [place] [phone] * PROTIME/INR, VENOUS (02/20/2024 12:18 PM CDT) Pathologist [facility] PROTIME 10.5 10.2 - 12.9 SEC 02/20/2024 12:47 PM CDT [facility] INR 0.9 02/20/2024 12:47 PM CDT [facility] Comment: Recommended INR Therapeutic Goals: 2.0-3.0 Routine Therapy 2.5-3.5 Mechanical Prosthetic Valves (High Risk) 02/20/2024 12:1 8 PM CDT Zelalem Ziegler MD LABORATORY Final Result [facility] [address] [place] [id number], [place] [phone] * (ABNORMAL) CBC W/DIFF AUTOMATED (02/20/2024 12:18 PM CDT) [facility] WBC 5.11 4.5 - 11.0 x10'3/uL 02/20/2024 1:01 PM CDT [facility] RBC 4.62 4.20 - 5.40 x10'6/uL 02/20/2024 1:01 PM CDT [facility] HGB 12.0 12.0 - 16.0 G/DL 02/20/2024 1:01 PM CDT [facility] HCT 36.8(L) 38.0 - 48.0 % 02/20/2024 1:01 PM CDT [facility] MCV 79.7(L) 81.0 - 99.0 FL 02/20/2024 1:01 PM CDT [facility] MCH 26.0(L) 27.0 - 31.0 PG 02/20/2024 1:01 PM CDT [facility] MCHC 32.6 32.0 - 36.0 G/DL 02/20/2024 1:01 PM CDT [facility] RDW 13.6 11.5 - 14.5 % 02/20/2024 1:01 PM CDT [facility] PLT 65(L) 130 - 400 x10'3/uL 02/20/2024 1:01 PM CDT [facility] MPV 12.1 9.3 - 12.2 FL 02/20/2024 1:01 PM CDT [facility] DIFFERENTIAL TYPE AUTOMATED DIFFERENTIAL 02/20/2024 1:01 PM CDT [facility] NEUTROPHILS % 58.1 % 02/20/2024 1:01 PM CDT [facility] LYMPHOCYTES % 32.9 % 02/20/2024 1:01 PM CDT [facility] MONOCYTES % 7.0 % 02/20/2024 1:01 PM CDT [facility] EOSINOPHILS 1.2 % 02/20/2024 1:01 PM CDT [facility] BASOPHILS 0.4 % 02/20/2024 1:01 PM CDT [facility] IMMATURE GRANS % 0.4 % 02/20/20 1:01 PM CDT [facility] ABS. NEUTROPHILS 2.97 1.80 - 7.70 x10'3/uL 02/20/2024 1:01 PM CDT [facility] ABS. LYMPHOCYTES 1.68 1.00 - 4.80 x10'3/uL 02/20/2024 1:01 PM CDT [facility] ABS. MONOCYTES 0.36 0.24 - 0.86 x10'3/uL 02/20/2024 1:01 PM CDT [facility] ABS. EOSINOPHILS 0.06 0.04 - 0.36 x10'3/uL 02/20/2024 1:01 PM CDT [facility] ABS. BASOPHILS 0.02 0.01 - 0.08 x10'3/uL 02/20/2024 1:01 PM CDT [facility] ABS. IMMATURE GRANULOCYTES 0.02 0.00 - 0.49 x10'3/uL 02/20/2024 1:01 PM CDT [facility] RBC MORPHOLOGY RBC MORPHOLOGY APPEARS NORMAL. SLIDE REVIEWED. 02/20/2024 1:01 PM CDT [facility] PLT EST. DECREASED 02/20/2024 1:01 PM CDT [facility] 02/20/2024 12:1 8 PM CDT us Zelalem Ziegler MD LABORATORY Final Result [facility] [address] [place] [address], documented in this encounter Visit Diagnoses Diagnosis Varicose veins of lower extremity with pain, right- Primary Abnormal coagulation profile documented in this encounter Care Teams Refining Supervisor Relationship Specialty Start Date End Date Kristina Elias MD [address] [place] [address] PCP - General FAMILY PRACTICE 12/21/21 Prudence Reis MD CARDIOVASCULAR DISEASE 04/15/20 documented as of this encounter
--- OUTSIDE RECORDS SUMMARY | 2025-07-02 01:29 | XMS_ITS | Encounter Summary ---
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
[2025-07-02 07:10] VITALS: BP 126/47; PULSE 84; RESP 14; TEMP 36.6; O2SAT 98
[2025-07-02 07:25] VITALS: BMI 29.7
--- NOTE | 2025-07-02 08:00 | WPDHPUPDATE1 ---
History and Physical Update Update Date/Time: 07/02/25 08:00 History and Physical has been reviewed, including an updated exam of the patient. There are NO changes in the patient's condition. Risks, benefits, and alternatives have been discussed and questions answered. Patient agrees to proceed with procedure.
--- NOTE | 2025-07-02 08:01 | W.PM.PROC2 ---
Procedure Note - Detailed Date of Procedure 07/02/25 Pre-op Diagnosis lumbar radiculopathy Post-op Diagnosis Same Procedure Performed [Right] [Lumbar] Transforaminal Epidural Steroid Injection under Fluoroscopic Guidance and with Contrast Control at [L4-5, L5-S1]. Surgeon Shashank Xiong MD Anesthesia Local Description of Procedure INFORMED CONSENT: Risks, benefits and alternatives to the procedure were discussed in detail with the patient who expressed explicit understanding and consent to proceed. Patient was informed verbally and in written form regarding the risks associated with the procedure including the low risk of serious infection, bleeding/bruising, allergic reaction, nerve or organ injury, paralysis, procedural site pain or discomfort, worsening pain and/or mobility, failure to treat and/or disfigurement. The patient expressed explicit understanding and consent to proceed. All materials required for the procedure were available prior to procedure start. Site and side was marked prior to procedure and confirmed in the presence of the patient. PROCEDURE IN DETAIL: The patient was brought to the procedural suite and placed in the prone position. Patient was made comfortable with use of pillows under the head/chest, hips and ankles. Skin overlying the injection site was prepared broadly with ChloraPrep applicator and draped in a sterile manner. Aseptic technique was employed throughout. The endplates of the vertebral body at the site of interest were aligned in the AP view. Ipsilateral oblique angulation was utilized to better visualize the neuroforamen of interest. Local anesthesia was established by infiltration with approximately 5 mL of 0.5% PF lidocaine via a 1-1/2 inch 27-gauge needle. A 22-gauge 5.0 inch Marly (pencil point) spinal needle was advanced until the needle approached the 6 o'clock position on the pedicle just superior to the exiting nerve root. on the right at L5-S1. Lateral view was utilized to confirm appropriate position of the needle tip within the superior and posterior portion of the respective foramen. In an AP view, 1 mL of Omnipaque 300 contrast medium was injected after negative aspiration for CSF, blood or other bodily fluid, showing appropriate neurogram without evidence of intravascular or intrathecal spread of contrast. Digital subtraction imaging was used with an additional 1ml of the same contrast medium to confirm absence of intravascular contrast spread. A 1mL solution containing 5 mg of dexamethasone was injected after negative repeat aspiration. Appropriate spread of the injectate was confirmed with washout of previously injected contrast. No parasthesias were elicited. Needle was removed completely intact without difficulty. The same exact procedure was repeated for all remaining levels on the ipsilateral side, right L5-S1 neuroforamen, modified as necessary to accommodate for the new target location with identical findings and results and no evidence of complication. Images were saved and documented in the patient chart. Patient's skin was cleaned and sterile bandage applied. The patient tolerated the procedure well. The patient was transported to the recovery area in stable condition where they were observed for an appropriate amount of time prior to discharge, without evidence of complication. The patient was instructed to avoid excessive activity for the next 48 hours, including climbing and frequent use of stairs. Showers only for 48 hours. They were instructed not to drive or operate heavy machinery for 24 hours. They are to monitor for severe headaches, fevers, chills, night sweats, erythema/swelling at the site or any other signs of infection, bleeding/bruising, bowel or bladder changes as well as new pain, weakness or numbness in the upper or lower extremity. Should they notice these changes, they are instructed to call our office immediately or report directly to the nearest Emergency Department if no answer or if after posted office hours. COMPLICATIONS: None COMMENTS: None CONTRAST WASTED: 26 mL Omnipaque 300. STEROID WASTED: 0 mg of dexamethasone. Complications No immediate complications Condition Stable Disposition Same day [facility] Billing Surgery - Charge Forward: Surgery Billing
[2025-07-02 08:18] VITALS: BP 162/70; PULSE 67; RESP 16; O2SAT 100
[2025-07-02] MEDS: DEXAMETHASONE SODIUM PHOSP/PF 10 MG/ML 1 ML VIAL XX (08:21)
[2025-07-02] MEDS: LIDOCAINE 2% PF LOCAL INJ 5 ML VIAL INFILTRATE (08:22)
[2025-07-02 08:30] VITALS: BP 153/67; PULSE 83; RESP 16; O2SAT 98
[2025-07-02 08:34] VITALS: BP 129/46; PULSE 64; RESP 16; O2SAT 100
== END 2025-07-02 08:51 | disposition home or self-care (01) ==
PROVIDERS: PCP Family Medicine; Visit Provider Anesthesiology Pain Medicine
PROC: (CPT 64483; principal; 2025-07-02 08:00)
DX: M47.27 Other spondylosis with radiculopathy, lumbosacral region (principal); M48.061 Spinal stenosis, lumbar region without neurogenic claudication; M51.27 Other intervertebral disc displacement, lumbosacral region; M46.1 Sacroiliitis, not elsewhere classified; M17.0 Bilateral primary osteoarthritis of knee; M19.049 Primary osteoarthritis, unspecified hand; I12.9 Hypertensive chronic kidney disease with stage 1 through stage 4 chronic kidney disease, or unspecified chronic kidney disease; N18.30 Chronic kidney disease, stage 3 unspecified; K21.9 Gastro-esophageal reflux disease without esophagitis; G47.00 Insomnia, unspecified; D69.6 Thrombocytopenia, unspecified; M47.895 Other spondylosis, thoracolumbar region; G89.29 Other chronic pain; F40.240 Claustrophobia; Z79.51 Long term (current) use of inhaled steroids; Z98.890 Other specified postprocedural states; Z87.891 Personal history of nicotine dependence; Z82.49 Family history of ischemic heart disease and other diseases of the circulatory system
CPT/HCPCS: 64483; 64484; 99199; J2003; Q9965

== ENCOUNTER 2025-07-18 13:45 | Outpatient (RCR) | payer MEDICARE, BC, SELFPAY ==
--- NOTE | 2025-05-01 14:58 | OPREHPOC ---
Outpatient Therapy Plan of Care This is a Multidisciplinary Plan of Care that may contain components documented by all disciplines (PT, OT, and ST.) PT Problem 1 PT Problem #1 Knowledge Deficit PT Goal 1 Goal / Goal Update 1. Patient will perform independent HEP 2. Patient will verbalize urge suppression strategies Target Visit 3 PT Problem 2 PT Problem #2 Pain PT Goal 1 Goal / Goal Update 1. No pain with pelvic palpation 2. Pain 2/10 highest with typical daily activities including lifting Target Visit 6 PT Problem 3 PT Problem #3 Impaired Strength PT Goal 1 Goal / Goal Update 1. Improve hip abduction to 5/5 juan francisco Target Visit 6 PT Problem 4 PT Problem #4 Impaired Functional ADLs PT Goal 1 Goal / Goal Update 1. Patient will be able to hold 30 minutes before voiding at all times 2. Patient will void no more than 8 times in a 24 hour period Target Visit 6
--- NOTE | 2025-05-01 14:58 | PTOPEVAL1 ---
Assessment and note entered by Roro Patel DPT Evaluation Information Assessment Status Evaluation ICD-10 Condition Codes (PT) Weakness R53.1,Pelvic and perineal pain R10.2 Subjective Information Pt has pelvic pain that started on February 11. Went to ED and was told she had a UTI ([employer] later said no). Also found a kidney stone, fatty liver, and spleen issue. [employer] also issued vaginal valium which helped some. Voiding more than 10 times a day and 2 times at night. No pain with urination. Can hold urinary urge up to 30 minutes but chooses not to at home. Stress incontinence with sneezing, one time a month. BM once a day. Pt describes pelvic pain as cramping and is in her low abdomen. Highest pain recently 5/10 and lowest 0/10. Pain causes difficulty doing certain things at home including making her bed, lifting groceries and putting things away. No history of pelvic pain. Pt has been 3 times, 3 C-sections. Bladder ripped and had to be repaired during her third C -section. No other b/b history. Returns to MD sometime in 2024. Patient goal: get rid of the pain. Reported Pain Level Pain Score 5: Self Report Assessment PT Clinical Summary The patient is presenting to skilled physical therapy with a several month history of pelvic/low abdominal pain. She also reports increased urinary frequency and intermittent stress incontinence. She demonstrates significantly increased pelvic floor muscle tone and pain with palpation, as well as decreased hip and abdominal strength, which are contributing to her pain and difficulty with normal household tasks. She will benefit from therapy to address her impairments in order to reduce pain and improve function. Plan of Care Interventions Electrical Stimulation,Gait Training,Hot Pack/Cold Pack,Manual Therapy,Neuro Re-education,Patient/ Caregiver Education,Therapeutic Activities, Therapeutic Exercise PT Services Indicated Yes Treatment Frequency and 1 time a week for 6 visits Duration These treatments will address the objective and functional deficits as defined above. The patient will be advanced safely and appropriately in order for the patient to progress towards his/her prior level of function. Additional exercises will be introduced and as well as a comprehensive home exercise program upon discharge, if needed, ?to ensure carryover of functional gains achieved in the clinic. This treatment plan has been reviewed and agreement upon by the patient.
--- NOTE | 2025-06-04 14:47 | OPREHPOC ---
Outpatient Therapy Plan of Care This is a Multidisciplinary Plan of Care that may contain components documented by all disciplines (PT, OT, and ST.) PT Problem 1 PT Problem #1 Knowledge Deficit PT Goal 1 Goal / Goal Update 1. Patient will perform independent HEP 2. Patient will verbalize urge suppression strategies update 06/04/25 1. met 2. not met Target Visit 10 Progress Partially Met PT Problem 2 PT Problem #2 Pain PT Goal 1 Goal / Goal Update 1. No pain with pelvic palpation 2. Pain 2/10 highest with typical daily activities including lifting update 06/04/25 1. not met 2. still 5/10 highest but not as often Target Visit 10 Progress Partially Met PT Problem 3 PT Problem #3 Impaired Strength PT Goal 1 Goal / Goal Update 1. Improve hip abduction to 5/5 juan francisco update 06/04/25 1. improved to 4+/5 juan francisco Target Visit 10 Progress Partially Met PT Problem 4 PT Problem #4 Impaired Functional ADLs PT Goal 1 Goal / Goal Update 1. Patient will be able to hold 30 minutes before voiding at all times 2. Patient will void no more than 8 times in a 24 hour period update 06/04/25 1. not met 2. 7 times during the day, 2 at night Target Visit 10 Progress Partially Met
--- NOTE | 2025-06-04 14:47 | PTOPPROG ---
Assessment and note entered by Roro Patel DPT Evaluation Information Assessment Status Progress ICD-10 Condition Codes (PT) Weakness R53.1,Pelvic and perineal pain R10.2 Subjective Information Highest pain recently 5/10 and lowest 0/10. Does think her pain is happening less often but she does still have it. Voiding 7 times a day and 2-3 times a day. Can hold urinary urge 20 minutes and still gets some discomfort with holding urine. Stress incontinence once in the last month. Does feel some improvement with tasks like making her bed, lifting groceries and putting things away. Assessment PT Clinical Summary The patient has made some progress during her time in therapy and reports her pain has decreased in frequency. She reports decreased frequency of urination during the day and demonstrates improved hip and abdominal strength. She continues to demonstrate increased pelvic floor muscle tone and pain with palpation and will benefit from continued therapy to further address pain and restore full function. Plan of Care Interventions Electrical Stimulation,Gait Training,Hot Pack/Cold Pack,Manual Therapy,Neuro Re-education,Patient/ Caregiver Education,Therapeutic Activities, Therapeutic Exercise PT Services Indicated Yes Treatment Frequency and 1 time a week for 4 visits Duration These treatments will address the objective and functional deficits as defined above. The patient will be advanced safely and appropriately in order for the patient to progress towards his/her prior level of function. Additional exercises will be introduced and as well as a comprehensive home exercise program upon discharge, if needed, ?to ensure carryover of functional gains achieved in the clinic. This treatment plan has been reviewed and agreement upon by the patient.
--- NOTE | 2025-07-05 11:09 | OPREHPOC ---
Outpatient Therapy Plan of Care This is a Multidisciplinary Plan of Care that may contain components documented by all disciplines (PT, OT, and ST.) PT Problem 1 PT Problem #1 Knowledge Deficit PT Goal 1 Goal / Goal Update 1. Patient will perform independent HEP 2. Patient will verbalize urge suppression strategies update 06/04/25 1. met 2. not met Target Visit 10 Progress Met PT Problem 2 PT Problem #2 Pain PT Goal 1 Goal / Goal Update 1. No pain with pelvic palpation 2. Pain 2/10 highest with typical daily activities including lifting update 06/04/25 1. not met 2. still 5/10 highest but not as often update 07/05/25 1. not reassessed 2. met Target Visit 12 Progress Partially Met PT Problem 3 PT Problem #3 Impaired Strength PT Goal 1 Goal / Goal Update 1. Improve hip abduction to 5/5 juan francisco update 06/04/25 1. improved to 4+/5 juan francisco update 07/05/25 1. 5/5 hip abduction 4+/5 extension Target Visit 12 Progress Partially Met PT Problem 4 PT Problem #4 Impaired Functional ADLs PT Goal 1 Goal / Goal Update 1. Patient will be able to hold 30 minutes before voiding at all times 2. Patient will void no more than 8 times in a 24 hour period update 06/04/25 1. not met 2. 7 times during the day, 2 at night update 07/05/25 1. some of the time but not all the time 2. same Target Visit 12 Progress Partially Met
--- NOTE | 2025-07-05 11:09 | PTOPPROG ---
Assessment and note entered by Roro Patel DPT Evaluation Information Assessment Status Evaluation ICD-10 Condition Codes (PT) Weakness R53.1,Pelvic and perineal pain R10.2 Subjective Information Pt reports she had her spinal pain management procedure earlier this week, reports their office is okay with her being here today. Highest pain recently 1/10 and lowest 0/10. Describes what she does have as more of a bowel cramping feeling. Can hold urge to void longer than 30 minutes at some times, but other times less. Voiding 7 times a day and 2-3 times at night. Feels further improvement with tasks like lifting grocery and putting things away. Assessment PT Clinical Summary The patient has made good progress in therapy and reports greatly decreased pelvic pain to 1/10 at the most. She demonstrates less tenderness with palpation and improved hip strength. She does continue to report some urgency and incontinence and will benefit from further skilled therapy to fully return to function. Plan of Care Interventions Electrical Stimulation,Gait Training,Hot Pack/Cold Pack,Manual Therapy,Neuro Re-education,Patient/ Caregiver Education,Therapeutic Activities, Therapeutic Exercise PT Services Indicated Yes Treatment Frequency and 1 visit every other week x 2 visits Duration These treatments will address the objective and functional deficits as defined above. The patient will be advanced safely and appropriately in order for the patient to progress towards his/her prior level of function. Additional exercises will be introduced and as well as a comprehensive home exercise program upon discharge, if needed, ?to ensure carryover of functional gains achieved in the clinic. This treatment plan has been reviewed and agreement upon by the patient.
== END 2025-07-30 23:59 | disposition home or self-care (01) ==
LOC: ANHPT 13:45
PROVIDERS: PCP Family Medicine; Visit Provider Obstetrics & Gynecology Gynecology
DX: R10.20 Pelvic and perineal pain unspecified side (principal); R10.30 Lower abdominal pain, unspecified
CPT/HCPCS: 97110; 97112; 97140; 97162; 97530

== ENCOUNTER 2025-08-12 00:53 | Day surgery (SDC) | payer MEDICARE, BC, SELFPAY ==
[2025-08-06 15:45] VITALS: BMI 30.2
--- NOTE | 2025-08-06 16:03 | PC.NURSE ---
[facility] has started construction of its new state of the art ER which will open Spring 2026. With this, we anticipate parking may be a challenge for some our surgical patients and families. Parking spaces are limited but are available for all Surgical, obstetrics, and ER patients sharing this lot. If you arrive and find you are having a hard time finding a parking space, please note that we understand the challenges, please drive around the hospital and park near Hospital Entrance 1. When you enter this entrance, you can ask a volunteer to direct or take you back to the surgical waiting area to check in. We appreciate everyone?s understanding of these expected challenges while we build for your future. Report to the Outpatient Waiting Room, entrance under the green pavilion located off [address], at time __2:00PM on date __08/12/25 . Planned Procedure Time: __3:00PM .? Time changes happen often and if your time is changed the preop area will call you the afternoon before. - You and your visitor will be asked to self-screen and do not enter if you have any COVID symptoms. Please call surgeon if you need to reschedule. - A mask is optional within the hospital at this time. LIGHT BREAKFAST /LUNCH. STOP EATING/DRINKING 2 HRS PRIOR TO PROCEDURE(1:00PM). ONLY SIPS OF WATER TO TAKE MEDS AFTER 1:00PM. Take only the following medications with a SIP of water on the morning of surgery: ___AM MEDICATION DO NOT STOP ANY OF YOUR OTHER PRESCRIPTION MEDICATIONS PRIOR TO SURGERY EXCEPT THE FOLLOWING Hold all vitamins and supplements for 3 days per anesthesiologist. Medications to discontinue per physician NONE Date to take last dose Please no make-up, nail romansh, hairspray, perfume, deodorant, or body powder the day of surgery.? No jewelry (including any body piercings) or valuables the day of surgery, leave them at home.? Please take a shower or bath the night before, or the morning of, surgery with an antibacterial soap.? Wear comfortable, loose fitting clothing.? Children are encouraged to wear pajamas. - Jewelry must be removed prior to entering the operating room.? Rings and piercings that are not removed may be cut off. - The hospital will not accept responsibility for valuables.? - Please leave all valuables, including medications, at home the day of surgery. If you are going home after surgery, a licensed driver lifter of sanitation truck must drive you home.? - NO public transportation without another adult if you receive anesthesia. - We recommend that an adult stay with you for 24 hours following discharge. - We also recommend that you do not drive, make important decision, drink alcoholic beverages, or take any drugs that were not prescribed by your health care provider for at least 24 hours after your discharge time. For Pediatric surgeries, we recommend two adults accompany the child home. Follow any additional instructions given to you from your surgeon. NO DRIVING FOR 24 HRS POST PROCEDURE PER DR DESIR. Telephone instructions given to ____PATIENT and asked if any additional questions and then verbalized understanding. Patient advised to call surgeon office or pre surgery nurse liaison [phone] if any additional questions.
--- NOTE | ~2025-08-12 | XR_ITS ---
EXAM/PROCEDURE: XR fluoroscopy no charge HISTORY: DIAGNOSTIC/PROGNOSTIC BLOCKS LUMBAR COMPARISON: None available. TECHNIQUE: Fluoroscopic assisted procedure. Fluoroscopy time: 50.9 seconds. DAP: 3.5473 Busby per square centimeter IMPRESSION: Images of the region of the spine. No radiologist present. See procedure/operative notes for complete details. Reviewed, dictated and finalized at location A. TH CARE / MEDICAL JOB TITLES IMPRESSION: Images of the region of the spine. No radiologist present. See procedure/operat cornelius notes for complete details.
--- OUTSIDE RECORDS SUMMARY | 2025-08-12 00:56 | XMS_ITS | Clinical Summary ---
Author Organization [facility] Address [address] [place] [address] Care Team Providers Care Phosphoric Acid Supervisor Name Role Phone Prudence Reis MD Unavailable Unavailable Kristina Elias MD Primary Care Provider [phone] Allergies Active Allergy Reactions Criticality Noted Date [...] this topic Medical Devices Implanted Type Area Certified Control Systems Technician Device Identifier Shelf Expiration Date Model / Serial / Lot Iol Tecmolly Flores Dcb00 - [id number] Implanted:Qty: 1 on 05/21/2024 by Jabari Luis MD at [facility] Lens Left: Eye [employer] 10/09/2026 DCB00 / [id number] / Iol [employer]ec[employer] Simplicity Dcb00 - [id number] Implanted:Qty: 1 on 06/25/2024 by Jabari Luis MD at [facility] Lens Right: Eye [employer] 01/15/2027 [facility] / [id number] / Insurance [employer]RO[employer] MEDICARE [facility] Care Teams Phosphoric Acid Supervisor Relationship Specialty Start Date End Date Kristina Elias MD [address] [place] [address] PCP - General FAMILY PRACTICE 12/21/21 Prudence Reis MD CARDIOVASCULAR DISEASE 04/15/20
--- OUTSIDE RECORDS SUMMARY | 2025-08-12 00:56 | XMS_ITS | Encounter Summary ---
Author Organization [facility] Healthcare Address [address] [place] [address] Care Team Providers Care Currency Machine Operator Name Role Phone Kristina Elias MD Primary Care Provider [phone] Encounter Details Date Type Department Care Team (Late st Contact Info) Description 07/05/2025 Results Follow-Up [facility] Medical Group Cardiology [address] [facility] [address] [place] [address] Rebecca Velazquez NP [address] [place] [address] Transthoracic Echo (TTE) Limited/Followup Social History Tobacco Use Types Packs/Day Years Used Date Smoking Tobacco: Former Cigarettes Q uit: 1991 Smokeless Tobacco: Never Alcohol Use Standard Drinks/Week Comments Yes 0 (1 standard drink = 0.6 oz pur e alcohol) Comments Unknown Sex and Gender Information Value Date Recorded Sex Assigned at Not on file Legal Sex 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
--- OUTSIDE RECORDS SUMMARY | 2025-08-12 00:56 | XMS_ITS | Encounter Summary ---
Author Organization [facility] Address [address] [place] [address] Care Team Providers Care Charge Manager Name Role Phone Prudence Reis MD Unavailable Unavailable Kristina Elias MD Primary Care Provider [phone] Encounter Details Date Type Department Care Team (Late st Contact Info) Description 12/02/2023 Prep for Procedure [place] [facility] [address] [place], [place] [phone] Zelalem Ziegler MD [facility]. [facility] [address] [place], [place] [phone] Social History Tobacco Use Types Packs/Day Years [...] - 11.0 x10'3/uL 01/09/2024 8:58 AM CDT [facility] RBC 2.59(L) 4.20 - 5.40 x10'6/uL 01/09/2024 8:58 AM CDT [facility] HGB 6.7(LL) 12.0 - 16.0 G/DL 01/09/2024 8:58 AM CDT [facility] Comment: This result has been called to SOL HIGHTOWER by [id number] on 01/09/2024 08:58:40, and has been read back. HCT 21.7(L) 38.0 - 48.0 % 01/09/2024 8:58 AM CDT [facility] MCV 83.8 81.0 - 99.0 FL 01/09/2024 8:58 AM CDT [facility] MCH 25.9(L) 27.0 - 31.0 PG 01/09/2024 8:58 AM CDT [facility] MCHC 30.9(L) 32.0 - 36.0 G/DL 01/09/2024 8:58 AM CDT [facility] RDW 13.3 11.5 - 14.5 % 01/09/2024 8:58 AM CDT [facility] PLT 85(L) 130 - 400 x10'3/uL 01/09/2024 8:58 AM CDT [facility] MPV 8.8(L) 9.3 - 12.2 FL 01/09/2024 8:58 AM T [facility] DIFFERENTIAL TYPE AUTOMATED DIFFERENTIAL 01/09/2024 9:00 AM CDT [facility] NEUTROPHILS % 41.1 % 01/09/2024 9:00 AM T [facility] LYMPHOCYTES % 48.0 % 01/09/2024 9:00 AM T [facility] MONOCYTES % 7.4 % 01/09/2024 9:00 AM CDT [facility] EOSINOPHILS 0.8 % 01/09/2024 9:00 AM CDT [facility] BASOPHILS 0.3 % 01/09/2024 9:00 AM CDT [facility] IMMATURE GRANS % 2.4 % 01/09/20 9:00 AM CDT [facility] ABS. NEUTROPHILS 1.55(L) 1.80 - 7.70 x10'3/uL 01/09/2024 9:00 AM CDT [facility] ABS. LYMPHOCYTES 1.81 1.00 - 4.80 x10'3/uL 01/09/2024 9:00 AM CDT [facility] ABS. MONOCYTES 0.28 0.24 - 0.86 x10'3/uL 01/09/2024 9:00 AM CDT [facility] ABS. EOSINOPHILS 0.03(L) 0.04 - 0.36 x10'3/uL 01/09/2024 9:00 AM CDT [facility] ABS. BASOPHILS 0.01 0.01 - 0.08 x10'3/uL 01/09/2024 9:00 AM CDT [facility] ABS. IMMATURE GRANULOCYTES 0.09 0.00 - 0.49 x10'3/uL 01/09/2024 9:00 AM CDT [facility] RBC MORPHOLOGY SLIDE REVIEWED 2023 9:00 AM CDT [facility] CAREY 3+ 01/09/2024 9:00 AM CDT [facility] PLT EST. DECREASED 01/09/2024 9:00 AM CDT [facility] 01/09/2024 8:05 AM CDT us Zelalem Ziegler MD LABORATORY Final Result [facility] [address] [place] [address], [place] [phone] * (ABNORMAL) COMPREHENSIVE METABOLIC PANEL (01/09/2024 7:55 AM CDT) [facility] GLUCOSE 83 70 - 99 MG/DL 01/09/2024 8:50 AM CDT [facility] BUN 17 7 - 18 MG/DL 01/09/2024 8:50 AM CDT [facility] CREATININE S/P/B 1.01 0.55 - 1.02 MG/DL 01/09/2024 8:50 AM CDT [facility] SODIUM S/P/B 140 136 - 145 MMOL/L 01/09/2024 8:50 AM CDT [facility] POTASSIUM S/P/B 3.9 3.5 - 5.1 MMOL/L 01/09/2024 8:50 AM CDT [facility] CHLORIDE S/P/B 112(H) 100 - 108 MMOL/L 01/09/2024 8:50 AM CDT [facility] CO2 22.5 21 - 32 MMOL/L 01/09/2024 8:50 AM CDT [facility] CALCIUM S/P/B 9.1 8.5 - 10.1 MG/DL 01/09/2024 8:50 AM CDT [facility] BILIRUBIN TOTAL S/P/B 0.5 0.2 - 1.2 MG/DL 01/09/2024 8:50 AM CDT [facility] Comment: THIS ASSAY IS NOT RECOMMENDED FOR PATIENTS UNDERGOING TREATMENT WITH ELTROMBOPAG DUE TO THE POTENTIAL FOR FALSELY ELEVATED RESULTS. TOTAL PROTEIN S/P/B 5.9(L) 6.4 - 8.2 G/DL 01/09/2024 8:50 AM CDT [facility] ALBUMIN S/P/B 3.3(L) 3.4 - 5.0 G/DL 01/09/2024 8:50 AM CDT [facility] AST 9(L) 15 - 37 U/L 01/09/2024 8:50 AM CDT [facility] ALT 14 14 - 55 U/L 01/09/2024 8:50 AM CDT [facility] ALKALINE PHOSPHATASE S/P/B 74 50 - 136 U/L 01/09/2024 8:50 AM CDT [facility] ANION GAP 5.5 5 - 15 MMOL/L 01/09/2024 8:50 AM CDT [facility] BUN CREATININE RATIO 16.8 6 - 26 01/09/2024 8:50 AM CDT [facility] A/G RATIO 1.3 1.0 - 2.0 RATIO 01/09/2024 8:50 AM T [facility] GFR ESTIMATE 59(L) >90 ML/MIN/1.7 3 M2 01/09/2024 8:50 AM CDT [facility] Comment: NOTE: eGFR is not calculated for patients <18 years of age. This is an estimated GFR calculation using the new CKD EPI creatinine equation without race and so does not require a correction factor for race. This estimated GFR should not be used for calculating drug doses. 01/09/2024 7:55 AM CDT Zelalem Ziegler MD LABORATORY Final Result [facility] [address] [place] [address], [place] [phone] * PROTIME/INR, VENOUS (01/09/2024 7:55 AM CDT) PROTIME 10.2 10.2 - 12.9 SEC 01/09/2024 8:40 AM CDT [facility] INR 0.9 01/09/2024 8:40 AM CDT [facility] Comment: Recommended INR Therapeutic Goals: 2.0-3.0 Routine Therapy 2.5-3.5 Mechanical Prosthetic Valves (High Risk) 01/09/2024 7:55 AM CDT Zelalem Ziegler MD LABORATORY Final Result [facility] [address] [place] [address], [place] [phone] documented in this encounter Visit Diagnoses Diagnosis Varicose veins of lower extremity with pain, right- Primary Hyperlipidemia Other and unspecified hyperlipidemia Hypertension Unspecified essential hypertension Disease of the lung and heart (CMS/HCC [facility]/HCC) Chronic pulmonary heart disease, unspecified documented in this encounter Care Teams Charge Manager Relationship Specialty Start Date End Date Kristina Elias MD [address] [place] [address] PCP - General FAMILY PRACTICE 12/21/21 Prudence Reis MD CARDIOVASCULAR DISEASE 04/15/20 documented as of this encounter
--- OUTSIDE RECORDS SUMMARY | 2025-08-12 00:56 | XMS_ITS | Encounter Summary ---
Author Organization [facility] Address [address] [place] [address] Care Team Providers Care Financial Sales Manager Name Role Phone Prudence Reis MD Unavailable Unavailable Kristina Elias MD Primary Care Provider [phone] Reason for Referral * Surgical (Routine) - Closed Specialty Diagnoses / Procedures Referred By Contac t Referred To Contact Diagnoses Varicose veins of lower extremity with pain, right Procedures Case request operating room: STAB PHLEBECTOMY (RIGHT LEG) Zelalem Ziegler MD [address] [place] [address] Phone: tel: fax: Referral ID Status Reason Start Date Expiration Date Visits Re quested Visits Authorized [id number] Closed 01/10/2024 01/09/2025 1 1 Encounter Details Date Type Department Care Team (Late st Contact Info) Description 01/10/2024 Prep for Procedure [place] [facility], [facility] [address] [place], [place] [phone] Zelalem Ziegler MD [facility] [address] [place] [address] Social History Tobacco Use Types [...] METABOLIC PANEL (02/20/2024 12:18 PM CDT) Pathologist [facility] GLUCOSE 94 70 - 99 MG/DL 02/20/2024 12:53 PM CDT [facility] BUN 11 7 - 18 MG/DL 02/20/2024 12:53 PM CDT [facility] CREATININE S/P/B 0.95 0.55 - 1.02 MG/DL 02/20/2024 12:53 PM CDT [facility] SODIUM S/P/B 139 136 - 145 MMOL/L 02/20/2024 12:53 PM CDT [facility] POTASSIUM S/P/B 4.3 3.5 - 5.1 MMOL/L 02/20/2024 12:53 PM CDT [facility] CHLORIDE S/P/B 109(H) 100 - 108 MMOL/L 02/20/2024 12:53 PM CDT [facility] CO2 24.2 21 - 32 MMOL/L 02/20/2024 12:53 PM CDT [facility] CALCIUM S/P/B 9.3 8.5 - 10.1 MG/DL 02/20/2024 12:53 PM CDT [facility] BILIRUBIN TOTAL S/P/B 1.4(H) 0.2 - 1.2 MG/DL 02/20/2024 12:53 PM CDT [facility] Comment: THIS ASSAY IS NOT RECOMMENDED FOR PATIENTS UNDERGOING TREATMENT WITH ELTROMBOPAG DUE TO THE POTENTIAL FOR FALSELY ELEVATED RESULTS. TOTAL PROTEIN S/P/B 6.3(L) 6.4 - 8.2 G/DL 02/20/2024 12:53 PM CDT [facility] ALBUMIN S/P/B 3.5 3.4 - 5.0 G/DL 02/20/2024 12:53 PM CDT [facility] AST 11(L) 15 - 37 U/L 02/20/2024 12:53 PM CDT [facility] ALT 11(L) 14 - 55 U/L 02/20/2024 12:53 PM CDT [facility] ALKALINE PHOSPHATASE S/P/B 79 50 - 136 U/L 02/20/2024 12:53 PM CDT [facility] ANION GAP 5.8 5 - 15 MMOL/L 02/20/2024 12:53 PM CDT [facility] BUN CREATININE RATIO 11.5 6 - 26 02/20/2024 12:53 PM CDT [facility] A/G RATIO 1.2 1.0 - 2.0 RATIO 02/20/2024 12:53 PM T [facility] GFR ESTIMATE 63(L) >90 ML/MIN/1.7 3 M2 02/20/2024 12:53 PM CDT [facility] Comment: NOTE: eGFR is not calculated for patients <18 years of age. This is an estimated GFR calculation using the new CKD EPI creatinine equation without race and so does not require a correction factor for race. This estimated GFR should not be used for calculating drug doses. 02/20/2024 12:1 8 PM CDT us Zelalem Ziegler MD LABORATORY Final Result [facility] [address] [place] [address], [place] [phone] * PROTIME/INR, VENOUS (02/20/2024 12:18 PM CDT) Pathologist [facility] PROTIME 10.5 10.2 - 12.9 SEC 02/20/2024 12:47 PM CDT [facility] INR 0.9 02/20/2024 12:47 PM CDT [facility] Comment: Recommended INR Therapeutic Goals: 2.0-3.0 Routine Therapy 2.5-3.5 Mechanical Prosthetic Valves (High Risk) 02/20/2024 12:1 8 PM CDT Zelalem Ziegler MD LABORATORY Final Result [facility] [address] [place] [address], [place] [phone] * (ABNORMAL) CBC W/DIFF AUTOMATED (02/20/2024 12:18 PM CDT) [facility] WBC 5.11 4.5 - 11.0 x10'3/uL 02/20/2024 1:01 PM CDT [facility] RBC 4.62 4.20 - 5.40 x10'6/uL 02/20/2024 1:01 PM CDT [facility] HGB 12.0 12.0 - 16.0 G/DL 02/20/2024 1:01 PM CDT [facility] HCT 36.8(L) 38.0 - 48.0 % 02/20/2024 1:01 PM CDT [facility] MCV 79.7(L) 81.0 - 99.0 FL 02/20/2024 1:01 PM CDT [facility] MCH 26.0(L) 27.0 - 31.0 PG 02/20/2024 1:01 PM CDT [facility] MCHC 32.6 32.0 - 36.0 G/DL 02/20/2024 1:01 PM CDT [facility] RDW 13.6 11.5 - 14.5 % 02/20/2024 1:01 PM CDT [facility] PLT 65(L) 130 - 400 x10'3/uL 02/20/2024 1:01 PM CDT [facility] MPV 12.1 9.3 - 12.2 FL 02/20/2024 1:01 PM CDT [facility] DIFFERENTIAL TYPE AUTOMATED DIFFERENTIAL 02/20/2024 1:01 PM CDT [facility] NEUTROPHILS % 58.1 % 02/20/2024 1:01 PM CDT [facility] LYMPHOCYTES % 32.9 % 02/20/2024 1:01 PM CDT [facility] MONOCYTES % 7.0 % 02/20/2024 1:01 PM CDT [facility] EOSINOPHILS 1.2 % 02/20/2024 1:01 PM CDT [facility] BASOPHILS 0.4 % 02/20/2024 1:01 PM CDT [facility] IMMATURE GRANS % 0.4 % 02/20/20 1:01 PM CDT [facility] ABS. NEUTROPHILS 2.97 1.80 - 7.70 x10'3/uL 02/20/2024 1:01 PM CDT [facility] ABS. LYMPHOCYTES 1.68 1.00 - 4.80 x10'3/uL 02/20/2024 1:01 PM CDT [facility] ABS. MONOCYTES 0.36 0.24 - 0.86 x10'3/uL 02/20/2024 1:01 PM CDT [facility] ABS. EOSINOPHILS 0.06 0.04 - 0.36 x10'3/uL 02/20/2024 1:01 PM CDT [facility] ABS. BASOPHILS 0.02 0.01 - 0.08 x10'3/uL 02/20/2024 1:01 PM CDT [facility] ABS. IMMATURE GRANULOCYTES 0.02 0.00 - 0.49 x10'3/uL 02/20/2024 1:01 PM CDT [facility] RBC MORPHOLOGY RBC MORPHOLOGY APPEARS NORMAL. SLIDE REVIEWED. 02/20/2024 1:01 PM CDT [facility] PLT EST. DECREASED 02/20/2024 1:01 PM CDT [facility] 02/20/2024 12:1 8 PM CDT us Zelalem Ziegler MD LABORATORY Final Result [facility] [address] [place] [address], documented in this encounter Visit Diagnoses Diagnosis Varicose veins of lower extremity with pain, right- Primary Abnormal coagulation profile documented in this encounter Care Teams Financial Sales Manager Relationship Specialty Start Date End Date Kristina Elias MD [address] [place] [address] PCP - General FAMILY PRACTICE 12/21/21 Prudence Reis MD CARDIOVASCULAR DISEASE 04/15/20 documented as of this encounter
--- OUTSIDE RECORDS SUMMARY | 2025-08-12 00:56 | XMS_ITS | Clinical Summary ---
Author Organization [facility] Address [address] [place] [address] Care Team Providers Care Agricultural Engineering Technicians Name Role Phone Kristina Elias MD Primary Care Provider [phone] Allergies Active Allergy Reactions Criticality Noted Date [...] STL ABSTRACTION Provider, Abstract 05/16/2025 Orders Only [facility] [place] [address] [place] [phone] Walter Brothers MD 05/15/2025 2:30 PM CDT Office Visit [facility] - [address] [place] [phone] Walter Brothers MD Chronic anemia (Primary Dx) [...] st Contact Info) Description 08/13/2025 2:00 PM COMMERCIAL TITLE EXAMINER Office Visit [facility] - [place] [address] [facility] [address] [place] [address] Walter Brothers MD [address] [facility] [address] [place] [address] Health Maintenance Due Date Last [...] from Last 3 Months Insurance [employer] FEDERAL Member Subscriber Plan / Payer (Ef fective 2021-Present) Name:JOANNA JEFFERY Relation to Subscriber:Spouse Name:YRN JEFFERY JR Date of :1899 (Home) Address: [address] [place] [address] [place] [address] Payer ID:[id number] (NAIC) Group ID:[id number] Type:O MEDICARE RAILROAD Care Teams Agricultural Engineering Technicians Relationship Specialty Start Date End Date Kristina Elias MD [address] [place] [address] PCP - General Family Practice 06/11/21
--- OUTSIDE RECORDS SUMMARY | 2025-08-12 00:56 | XMS_ITS | Data Portability ---
Author Organization [facility] VICTOR MFrancescoashley Knowles Address [address] [place] [address] Care Team Providers Care Battery Builder Name Role Phone ORAL, HELENA Pathology Secretary Unavailable Assessment Encounter Date Assessment Date Assessment [...] DO Not Attach Compendium, Do Not Delete/merge, [id number] 8 17:43:21 pap, LB + HPV mRNA E6/E7 + reflex HPV (16+18+45 ) 2013 014 [facility], [address] [place] [address], [address], [place], [address], 5 12:38:54 Referral None recorded. Procedures None recorded. Surgeries None recorded. Imaging MAMMO, screening , bilateral 2017 018 [facility], [address], [address], [place], [address], 8 11:50:11 MAMMO, screening , bilateral 2015 016 [id number] [facility], [address], [address] [address], [place], [address], 6 04:31:01 mammogram , screening 2013 014 [email or web address] Not available 5 12:38:54 Medication Orders Osphena 60 mg tablet [address]/Pharmacy #2510, [address] [place] [address], [address], 8 14:59:01 Estrace 0.01% (0.1 mg/gram) vaginal cream [address]/Pharmacy #2510, [address] [place] [address], [address], 8 14:58:25 calcium 600 mg (as carbonate )-vitamin D3 20 mcg (800 unit) tablet [address]/Pharmacy #2510, [address] [place] [address], [address], 8 14:57:53 multivita min tablet [address]/Pharmacy #2510, [address] [place] [address], [address], 8 14:58:54 Estrace 0.5 mg tablet [address]/Pharmacy #2510, [address] [place] [address], [address], 8 14:58:29 Estrace 0.01% (0.1 mg/gram) vaginal cream [address]/Pharmacy #2510, [address] [place] [address], [address], 8 14:58:25 Linzess 145 mcg capsule 2013 014 [email or web address] [facility]/Pharmacy #8610, [address] [place], [address], 8 14:58:46 Patient TargetsNo targets recorded. Patient Instructions Encounter Date Encounter Id Patient Instructions Last Modified By Organization Details Last Modified Time 06/30/2016 [id number] mammogram: about this test [email or web address] Not available 06/30/2016 16:27:19 learning about breast cancer screening [email or web address] Not available 06/30/2016 16:05:56 07/12/2018 [id number] mammogram: about this test [email or web address] Not available 07/12/2018 15:23:21 Reason for Referral None Reported. Results Created Date Observation Date Name Description Value Unit Range Abnormal Flag Note LastModifiedBy Organization Detail LastModifiedTime 07/12/20 18 07/12/2018 urina lysis , dipst ick Leukocytes Negati ve Not Available In-Office Order Internal Use Only DO Not Attach Compendium DO Not Attach Compendium, Do Not Delete/merge, [id number] 07/12/2018 15:09:56 07/12/20 18 07/12/2018 urina lysis , dipst ick Nitrite negati ve Not Available In-Office Order Internal Use Only DO Not Attach Compendium DO Not Attach Compendium, Do Not Delete/merge, [id number] 07/12/2018 15:09:56 07/12/20 18 07/12/2018 urina lysis , dipst ick Urobilinogen .2 Not Available In-Of fice Order Internal Use Only DO Not Attach Compendium DO Not Attach Compendium, Do Not Delete/merge, [id number] 07/12/2018 15:09:56 07/12/20 18 07/12/2018 urina lysis , dipst ick Protein Negati ve Not Available In-Office Order Internal Use Only DO Not Attach Compendium DO Not Attach Compendium, Do Not Delete/merge, [id number] 07/12/2018 15:09:56 07/12/20 18 07/12/2018 urina lysis , dipst ick pH 7.0 Not Available In-Office Order Internal Use Only DO Not Attach Compendium DO Not Attach Compendium, Do Not Delete/merge, [id number] 07/12/2018 15:09:56 07/12/20 18 07/12/2018 urina lysis , dipst ick Blood Non-He molyze d: Trace Not Available In-Office Order Internal Use Only DO Not Attach Compendium DO Not Attach Compendium, Do Not Delete/merge, [id number] 07/12/2018 15:09:56 07/12/20 18 07/12/2018 urina lysis , dipst ick Specific [place] 1.010 Not Available In-Off ice Order Internal Use Only DO Not Attach Compendium DO Not Attach Compendium, Do Not Delete/merge, [id number] 07/12/2018 15:09:56 07/12/20 18 07/12/2018 urina lysis , dipst ick Ketone Negati ve Not Available In-Office Order Internal Use Only DO Not Attach Compendium DO Not Attach Compendium, Do Not Delete/merge, [id number] 07/12/2018 15:09:56 07/12/20 18 07/12/2018 urina lysis , dipst ick Bilirubin Negati ve Not Available In-Office Order Internal Use Only DO Not Attach Compendium DO Not Attach Compendium, Do Not Delete/merge, [id number] 07/12/2018 15:09:56 07/12/20 18 07/12/2018 urina lysis , dipst ick Glucose Negati ve Not Available In-Office Order Internal Use Only DO Not Attach Compendium DO Not Attach Compendium, Do Not Delete/merge, [id number] 07/12/2018 15:09:56 08/19/20 14 08/15/2014 janna beaulieu/riki hartmann t No observ ation record ed. [email or web address] Not Available 09/05 15:45:59 07/19/20 16 07/19/2016 sharif w PT NAME: WILLIAM GALLARDO : 1949 PT SEX/AG E: / PT ACCT NUMBER : [id number] PT MR#: [id number] ROOM/B ED: PT STATUS : REG CLI DATE OF EXAMIN ATION: ORDERI PHYSIC CHANTE: HELENA MCDANIEL MAN M.D. ATTEND ING PHYSIC CHANTE: HELENA MCDANIEL MAN , M.D. DICTAT ING PHYSIC CHANTE: Live HANNA M.D. 018 [id number] 3.001M IX 13:34: 00 61.007 2MVMAM ([facility] : JAMEY SCREEN KERA W/CAD INDICA [...] ed, dictat ed and finali zed at [facility] on A. __ Electr onical ly signed by: SHERRIE HANNA Date: Time: 14:14 SHERRIE HANNA M.D.__ ___ [facility] [address] [facility] [address] [place] [address] [facility] (Imaging) [address], [place], [address], 07/19/2016 15:17:29 07/19/20 16 07/19/2016 MAMMO , scree serjio, bilat eral No observ ation record ed. [facility] [address], [place], [address], 07/19/2016 16:42:23 07/12/20 18 04/29/2018 CT, abdom [...] [facility] [address], [place], [address], 08/10/2018 12:42:16 Result Notes None recorded. Problems Name Problem SNOMED Code Status Onset Date Resolution Date Notes Provider Name and Address Organization Details Recorded Time Menopausal syndrome [id number] Active Helena Oral jiménez PR Ladonna [facility] 4 11:23:52 Problem Notes None recorded. Procedures Surgical History Date Name Laterality Status Provider Name and Address Organization Details Recorded Time 06/16/20 18 lithotomy completed Roxi Bob MA PR Ladonna [facility] 07/12/2018 15:00:50 07/19/20 16 Most Recent Mammogram completed Roxi Bob MA [facility] 07/12/2018 15:01:41 07/31/20 14 Date of Last Pap Smear completed Ciara Mabry MA [facility] 06/30/2016 15:07:28 08/29/18 91 Laparoscopy completed Yin Bazzi MA [facility] 07/31/2014 10:46:09 08/29/18 82 Appendectomy completed Yin Bazzi MA PR Ladonna [facility] 07/31/2014 10:46:09 04/07/19 79 Tubal Ligation completed Ciara Mabry MA PR Ladonna [facility] 06/30/2016 15:08:33 04/07/19 79 Caesarean Section completed CESAR Garcia [facility] 06/30/2016 15:06:53 09/05/18 76 Caesarean Section completed CESAR Garcia [facility] 06/30/2016 15:07:08 09/12/18 72 Caesarean Section completed CESAR Garcia [facility] 06/30/2016 15:07:16 lithotripsy completed CESAR Leon [facility] 07/12/2018 15:00:39 Imaging Results None recorded. Procedure Notes None recorded. Medical Equipment None Reported. Allergies Allergen ID Allergen Name Allergen Category Reaction Reaction Severity Criticality Documentation Date Start Date Code Code System Note Provider Name and Address Organization Details Recorded Time 4877 Non-stero idal anti-infl ammatory agent (substanc e) medicatio n other severe Not available 07/31/2014 43743 5008 SNOMED cause s gastr itis Yin CESAR [...] Not Available Not Available Not Available Afluria 2202-7293(PF ) 45 mcg (15 mcg x 3)/0.5 mL intramuscula r syringe active Not Available Not Available No t Available Fluzone High-Dose 7727-3960 (PF) 180 mcg/0.5 mL intramuscula r syringe 07/12 completed Not Available Not Available Not Available Vitals Date Recorded Body height Body weight Body mass index (BMI) Systolic And Diastolic Provider Name and Address Organization Details Last Updated DateTime 06/30/2016 157.48 cm 39989.59 g 33.8 kg/m2 152/90 mm[Hg] Ciara Mabry MA [facility] 06/30/2016 15:02:18 Date Recorded Body height Body mass index (BMI) Body weight Systolic And Diastolic Provider Name and Address Organization Details Last Updated DateTime 07/12/2018 157.48 cm 32.6 kg/m2 87288.44 g 172/94 mm[Hg] Roxi Bob MA [facility] 07/12/2018 15:04:46 Social History Question Answer Notes LastModified by Organizat ion Details LastModified Time Tobacco Smoking Status Former Smoker quit 1991 Yin Bazzi MA [facility] 07/31/2014 10:50:46 Do You Have An Advance [...] Problems Y Developmental Delay N Anemia N Immune System Disorder N Multiple Sclerosis N Colon Polyps N Heart Attack (NH) N Diabetes N Cardiomyopathy N Blood Transfusions [...] N Kidney Failure N Ocular trauma N Dementia N Diverticulitis N Sleep Apnea N Mental Problems N [...] Diagnosis SNOMED-CT Code Diagnosis ICD10 Code Diagnosis IMO Codes Diagnosis Note [id number] Helena Fair [facility]TRIAGE SPECIAL[facility] [address] [place] [address] 07/31/2014 10:09:36 07/31/2014 12:11:49 Gynecologic examination [id number] Menopausal syndrome [id number] Helena Fair MD [facility] (TRIAGE SPECIALIST) [address] [place] [address] 06/30/2016 14:18:34 07/01/2016 09:46:16 Screening mammography 14726767 Z12.31 Menopausal syndrome 1237 44259 N95.9 Screening for malignant neoplasm of breast 713653179 Z12.31 [id number] Hel[facility] (TRIAGE SPECIAL[facility] [address] [place] [address] 07/12/2018 14:09:39 07/14/2018 13:36:30 Screening mammography 57559005 Z12.31 Health Concerns Section Related Observation LastModified by Organization Detai ls LastModified Time None Recorded Concern Status LastModified by Organization Details LastModified Time None Recorded Advance Directives Directive N: Payers Insurance Date Sequence Insurance Name Policy Number Policy Jefferson Covered Member ID Jefferson Member ID Guarantor Name 07/27/2018 2 [place] 106 Joseph Gallardo Jr [id number] Joanna Sami 07/09/2018 [place] FQHC Joanna Gallardo [id number] Joanna Gallardo 07/27/2018 1 [place] Joanna A Gallardo [id number] Joanna Gallardo Notes Date Note Type [...] patient reportsno depression,no anxiety, andno pmdd. Helena jiménez PR - [facility] 07/31/2014 11:24:02 6 text/html Annual Senior Asic Engineer Post-MenopausalReported by PatientGenitourinary symptomsFor menopausal symptoms, patient [...] noted. Last mammogram 2 years ago. Helena jiménez, FCO - [facility] 06/30/2016 18:21:51 8 text/html Breast [...] female here for CBE. Helena jiménez, FCO - [facility] 07/12/2018 17:43:52 OBGyn Episode Ob Episode Information Episode Created Date Number of Fetuses Patient Bloodtype Patient rh Status Prepregnancy Weight lbs Domestic Partner Domestic Partner Phone Father Name Chairman Emeritus Status 07/31/20 14 1 CLOSED Fetus Data First Name Last Name Admitted to NICU Weight (g) Sex Living Outcome Pediatric Complications Fetus ID Race Codes Race Delivery Type 3089.86 8704 F Full Term 4 King Calculation Initial King Date Initial Exam [...] Domestic Partner Domestic Partner Phone Father Name Chairman Emeritus Status 07/31/20 14 1 CLOSED Fetus Data First Name Last Name Admitted to NICU Weight (g) Sex Living Outcome Pediatric Complications Fetus ID Race Codes Race Delivery Type 3089.86 8704 M Full Term 2065 King Calculation Initial King Date Initial Exam [...] Domestic Partner Domestic Partner Phone Father Name Chairman Emeritus Status 07/31/20 14 1 CLOSED Fetus Data [...]
--- OUTSIDE RECORDS SUMMARY | 2025-08-12 00:56 | XMS_ITS | Clinical Summary ---
Author Organization [facility] [address] Address [address] [place] [address] Care Team Providers Care Flight Test Supervisor Name Role Phone Kristina Elias MD Primary Care Provider [phone] Allergies Active Allergy Reactions Criticality Noted Date [...] Encounters Date Type Department Care Team Description 07/05/2025 1:00 PM PLEATING MACHINE OPERATOR Ancillary Procedure [facility] Card[facility] [address] [place] [address] Pericardial effusion 07/05/2025 Results Follow-Up [facility] Cardiology [address] [place] [address] Rebecca Chong NP Transthoracic Echo (TTE) Limited/Followup from Last 3 Months Surgical History Surgery [...] on file Legal Sex Female 8:03 PM PLEATING MACHINE OPERATOR Gender Identity Not on file Sexual [...] Procedure Name Priority Date/Time Associated Diagnosis Comments TRANSTHORACIC ECHO (TTE) LIMITED/FOLLOW UP W LTD DOPPLER/CF WO CONTRAST Routine 07/05/2025 1:48 PM PLEATING MACHINE OPERATOR Pericardial effusion from Last 3 Months Results * TRANSTHORACIC ECHO (TTE) LIMITED/FOLLOW UP W LTD DOPPLER/CF WO CONTRAST (07/05/2025 1:48 PM PLEATING MACHINE OPERATOR) Estimated EF 60-65 % CONS SCIMAGE Anatomical Region Laterality Modality Ultrasound 07/05/2025 1:08 PM PLEATING MACHINE OPERATOR Narrative 07/05/2025 2:59 PM PLEATING MACHINE OPERATOR [facility] [address] [facility] [address], [place] [address] [address] [facility] [address], [place] [address] P:[phone] P:[phone] Echocardiographic Report Patient Name: JOANNA JEFFERY A : 1950 Study Date: 07/05/2025 1:08:12 PM Sex: F Lead Mason Tender: Sangeetha Hernandez)(CT), [facility] Location: [place] Ref Provider: REBECCA CHONG Height(Cm): 157 BSA: 1.8 Weight(Kg): 73.9 Heart Rate: 255 BP: 144 / 60 Quality: Good Order Provider: REBECCA CHONG PROCEDURES: Echocardiographic Report: Limited Transthoracic Echocardiogram with Complete 2D, M-Mode, and Color Doppler Examination. INDICATIONS: I31.39 Other pericardial effusion (noninflammatory). MEASUREMENTS: 2D/MM Value Range Doppler Value Range Estimated EF 60-65 % TR Peak Eren 2.41 m/s [ 1.00 - 2.80 ] TR Peak PG 23 mmHg RVSP 28.00 mmHg [ 10.00 - 36.00 ] 2D/MM Value Range Doppler Value Range - FINDINGS: Interpretation Site: Exam was interpreted at [facility]. Left Ventricle: Normal left ventricular size. Mild concentric left ventricular hypertrophy. Normal global left ventricular systolic function. Ejection Fraction is visually estimated to be 60-65 %. Right Ventricle: Normal right ventricular size. Normal right ventricular systolic function. Left Atrium: Left atrial size is within upper limits of normal. Right Atrium: Right atrium within upper limits of normal. Atrial Septum: The atrial septum is not well visualized. Mitral Valve: Normal appearance of the mitral valve. Aortic Valve: Aortic valve not well visualized. Tricuspid Valve: Normal appearance of the tricuspid valve. Estimated peak RVSP is 28 mmHg. Trivial regurgitation in the tricuspid valve. Pulmonic Valve: Pulmonic valve not well visualized. Pericardium: Small pericardial effusion. Echogenic material seen within the pericardial space. Aorta: Normal aortic root. IVC: The IVC is not well visualized. CONCLUSIONS: Limited echo. Normal left ventricular size. Mild LVH. Normal global left ventricular systolic function. Ejection Fraction is visually estimated to be 60-65 %. Normal right ventricular size and systolic function. Normal appearance of the mitral valve. Aortic valve not well visualized. Estimated RVSP 28 mmHg. Trivial regurgitation in the tricuspid valve. Small pericardial effusion. Electronically Signed By: Ibrahima Davis MD, [facility] 07/05/2025 2:58:52 PM PLEATING MACHINE OPERATOR Procedure Note Ibrahima Davis MD - 07/05/2025 [facility] [address], [place] [address] [address] [facility] [address], [place] [address] P:[phone] P:[phone] Echocardiographic Report Patient Name: JOANNA JEFFERY A : 1950 Study Date: 07/05/2025 1:08:12 PM Sex: F Lead Mason Tender: Sangeetha Espinosa ([place]ar[place])(CT), [facility] Location: [facility] Provider: REBECCA CHONG Height(Cm): 157 BSA: 1.8 Weight(Kg): 73.9 Heart Rate: 255 BP: 144 / 60 Quality: Good Order Provider: REBECCA CHONG PROCEDURES: Echocardiographic Report: Limited Transthoracic Echocardiogram with Complete 2D, M-Mode, and ColorDoppler Examination. INDICATIONS: I31.39 Other pericardial effusion (noninflammatory). MEASUREMENTS: 2D/MM Value Range Doppler Value Range Estimated EF 60-65 % TR Peak Eren 2.41 m/s [ 1.00 -2.80 ] TR Peak PG 23 mmHg RVSP 28.00 mmHg [ 10.00 - 36.00 ] 2D/MM Value Range Doppler Value Range - FINDINGS: Interpretation Site: Exam was interpreted at [facility]. Left Ventricle: Normal left ventricular size. Mild concentric left ventricularhypertrophy. Normal global left ventricular systolic function. Ejection Fraction is visuallyestimated to be 60-65 %. Right Ventricle: Normal right ventricular size. Normal right ventricular systolicfunction. Left Atrium: Left atrial size is within upper limits of normal. Right Atrium: Right atrium within upper limits of normal. Atrial Septum: The atrial septum is not well visualized. Mitral Valve: Normal appearance of the mitral valve. Aortic Valve: Aortic valve not well visualized. Tricuspid Valve: Normal appearance of the tricuspid valve. Estimated peak RVSP is 28 mmHg.Trivial regurgitation in the tricuspid valve. Pulmonic Valve: Pulmonic valve not well visualized. Pericardium: Small pericardial effusion. Echogenic material seen within the pericardialspace. Aorta: Normal aortic root. IVC: The IVC is not well visualized. CONCLUSIONS: Limited echo. Normal left ventricular size. Mild LVH. Normal global leftventricular systolic function. Ejection Fraction is visually estimated to be 60-65%. Normal right ventricular size and systolic function. Normal appearance of the mitral valve. Aortic valve not well visualized. Estimated RVSP 28 mmHg. Trivial regurgitation in the tricuspid valve. Small pericardial effusion. Electronically Signed By: Ibrahima Davis MD, [facility] 07/05/2025 2:58:52 PM PLEATING MACHINE OPERATOR Rebecca Chong NP CV ECHO PROCEDURES Final Result from Last 3 Months Insurance MEDICARE RAILROAD MEDICARE RAILROAD [facility] FEDERAL Member Subscriber Plan / Payer ( fective 2015-Present) Name:JefferyZakiaJoannarenée Alexandra Relation to Subscriber:Spouse Name:YRN JEFFERY JR Date of :1950 Address: [address] [place] [address] [place] [address] Payer ID:[id number] (NAIC) Group ID:[id number] Type:[facility] Address: [address] [place] [address] Care Teams Flight Test Supervisor Relationship Specialty Start Date End Date Kristina Elias MD PCP - General Family Medicine 08/12/21
--- OUTSIDE RECORDS SUMMARY | 2025-08-12 00:56 | XMS_ITS | Encounter Summary ---
Author Organization [facility] Address [address] [place] [address] Care Team Providers Care Voice Network Engineer Name Role Phone Kristina Elias MD Primary Care Provider Encounter Details Date Type Department Care Team (Late st Contact Info) Description 02/11/2025 Orders Only [facility] [place] Health Information Management [address] [place] [address] Scanning, Provider Social History Tobacco Use Types Packs/Day Years Used Date Smoking Tobacco: Former Cigarettes Q uit: 1991 Smokeless Tobacco: Never Alcohol Use Standard Drinks/Week Comments Yes 0 (1 standard drink = 0.6 oz pur e alcohol) Comments Unknown Sex and Gender Information Value Date Recorded Sex Assigned at Not on file Legal Sex Female 8:03 PM INFORMATION TECHNOLOGY ACCOUNT MANAGER Gender Identity Not on file Sexual [...] on filedocumented in this encounter Care Teams Voice Network Engineer Relationship Specialty Start Date End Date Kristina Elias MD PCP - General Family Medicine 08/12/21 documented as of this encounter
--- OUTSIDE RECORDS SUMMARY | 2025-08-12 00:56 | XMS_ITS | Encounter Summary ---
Author Organization [facility] Address [address] [place] [address] Care Team Providers Care Network/Telecom Engineer Name Role Phone Prudence Reis MD Unavailable Unavailable Reuben Oneal MD Primary Care Provider [phone] Kristina Elias MD Primary Care Provider [phone] Encounter Details Date Type Department Care Team (Late Contact Info) Description 04/18/2020 Prep for Procedure [facility] Pre-Ad[facility] Testing [address] [place], [place] [id number] Binh Scott MD [address] [place] [id number] Social History Tobacco Use Types Packs/Day [...] (COVID 19) (04/18/2020 11:00 AM CDT) Pathologist [facility] CORONAVIRUS SARS COV 2 PCR (RESP) NOT DETECTED NOT DETECTED 04/19/2020 2:37 PM CDT [facility] Comment: A Not Detected (negative) test [...] providers and patients using the following websites: https://www.[employer]/home/Covid-19/HCP/NAAT/fact-sheet2 https://www.[employer]/home/Covid-19/Patients/NAAT/ fact-sheet2 This test has been authorized by the FDA under an Emergency Use Authorization (EUA) for use by authorized laboratories. Due to the current public health emergency, [facility] is receiving a high volume of samples [...] about COVID-19 can be found at the [facility] website: www.[employer]Oasis/Covid19. Test performed at [facility] [address] [place] [address] Director: KIMBERLY ALCARAZ DO,MPH NASOPHARYNGEAL SWAB / Unknown 04/18/2020 11:00 AM CDT Binh Scott MD MICROBIOLOGY - GENERAL ORDERABLE S Final Result [facility] [address] [place] [address], documented in this encounter Visit Diagnoses Diagnosis Preoperative testing- Primary Preoperative examination, unspecified documented in this encounter Additional Health Concerns Infection Onset Date Last Indicated Resolved Time COVID-19 Rule Out 04/18/2020 04/18/2020 04/19/2020 2:38 PM CDT documented as of this encounter Care Teams Network/Telecom Engineer Relationship Specialty Start Date End Date Reuben Oneal MD [address] [place] [address] PCP - General FAMILY PRACTICE 04/15/20 12/20/21 Kristina Elias MD [address] [place] [address] PCP - General FAMILY PRACTICE 12/21/21 Prudence Reis MD CARDIOVASCULAR DISEASE 04/15/20 documented as of this encounter
--- NOTE | 2025-08-12 13:45 | WPDHPUPDATE1 ---
History and Physical Update Update Date/Time: 08/12/25 13:45 History and Physical has been reviewed, including an updated exam of the patient. There are NO changes in the patient's condition. Risks, benefits, and alternatives have been discussed and questions answered. Patient agrees to proceed with procedure.
--- NOTE | 2025-08-12 13:46 | P.OP_ITS ---
Procedure Note - Detailed Date of Procedure 08/12/25 Pre-op Diagnosis spondylosis of lumbosacral region, chronic low back pain Post-op Diagnosis Same Procedure Performed Diagnostic bilateral Lumbar Medial Branch/Dorsal Ramus Blocks at L3, L4, L5 Treating the bilateral L4-5, L5-S1 Facet Joints Under Fluoroscopic Guidance and with Contrast Control. (4 levels blocked). 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 Anesthesia Local Description of Procedure INFORMED CONSENT: Risks, benefits and alternatives to the procedure were discussed in detail with the patient who expressed explicit understanding and consent to proceed. Patient was informed verbally and in written form regarding the risks associated with the procedure including the low risk of serious infection, bleeding/bruising, allergic reaction, nerve or organ injury, paralysis, procedural site pain or discomfort, worsening pain and/or mobility, failure to treat and/or disfigurement. The patient expressed explicit understanding and consent to proceed. All materials required for the procedure were available prior to procedure start. Site and side were marked prior to procedure and confirmed in the presence of the patient. PROCEDURE IN DETAIL: The patient was brought to the procedural suite and placed in the prone position. Patient was made comfortable with use of pillows under the head/chest, hips and ankles. Skin overlying the injection site on the affected side(s) was prepared broadly with ChloraPrep applicator and draped in a sterile manner. Aseptic technique was used throughout. The endplates of the vertebral bodies at the site(s) of interest were aligned in the AP view. Ipsilateral oblique angulation was utilized to optimize visualization of the intersection between the superior articulating process and transverse process at each target site. Local anesthesia was established by infiltration with approximately 5 mL of 1% lidocaine via a 1-1/2 inch 27-gauge needle. A 25-gauge 5.0 inch Quincke spinal needle was advanced until the needle tip contacted periosteum at the target site, right L3. Lateral view was utilized to confirm the appropriate placement of the needle tip just anterior to the facet line and superior to the pedicle. In the Lateral view, 0.25 mL of Omnipaque 300 contrast medium was injected after negative aspiration for CSF, blood or other bodily fluid, showing appropriate extra-articular spread of contrast without evidence of intravascular, foraminal or intrathecal placement. A 0.5 mL solution of 0.5% PF bupivacaine was injected after negative repeat aspiration. Appropriate spread of the injectate was confirmed with washout of previously injected contrast. No parasthesias were elicited. Needle was removed completely intact without difficulty. The same exact procedure was repeated for all remaining levels on the ipsilateral side, right L4, L5 medial branches/dorsal ramus, modified as necessary to accommodate for the new target location with identical findings and results and no evidence of complication. The same exact procedure was repeated for all remaining levels on the contralateral side, left L3, L4, L5 medial branches/dorsal ramus, modified as necessary to accommodate for the new target location with identical findings and results and no evidence of complication. Images were saved and documented in the patient chart. Patient's skin was cleaned and sterile bandage applied. The patient tolerated the procedure well. The patient was transported to the recovery area in stable condition where they were observed for an appropriate amount of time prior to discharge, without evidence of complication. Patient was instructed on the appropriate completion of a pain diary over the next 12-24 hours. The patient was instructed to avoid excessive activity for the next 48 hours, including climbing and frequent use of stairs. Showers only for 48 hours. They were instructed not to drive or operate heavy machinery for 24 hours. They are to monitor for severe headaches, fevers, chills, night sweats, erythema/swelling at the site or any other signs of infection, bleeding/bruising, bowel or bladder changes as well as new pain, weakness or numbness in the upper or lower extremity. Should they notice these changes, they are instructed to call our office immediately or report directly to the nearest Emergency Department if no answer or if after posted office hours. COMPLICATIONS: None COMMENTS: None CONTRAST WASTED: 28.5mL Omnipaque 300. Complications No immediate complications Condition Stable Disposition Same day [facility] Billing Surgery - Charge Forward: Surgery Billing
[2025-08-12 14:28] VITALS: BP 143/56; PULSE 71; RESP 16; TEMP 36.9; O2SAT 100
[2025-08-12 15:10] VITALS: BP 173/77; PULSE 73; RESP 16; O2SAT 100
[2025-08-12] MEDS: LIDOCAINE 1% PF INJ 5 ML VIAL INFILTRATE (15:20)
[2025-08-12 15:25] VITALS: BP 158/69; PULSE 80; RESP 16; O2SAT 99
[2025-08-12 15:30] VITALS: BP 135/58; PULSE 62; RESP 16; O2SAT 100
== END 2025-08-12 15:58 | disposition home or self-care (01) ==
PROVIDERS: Visit Provider Anesthesiology Pain Medicine
PROC: (CPT 64493; principal; 2025-08-12 15:00)
DX: M47.817 Spondylosis without myelopathy or radiculopathy, lumbosacral region (principal)
CPT/HCPCS: 64493; 64494 ×2; 64495 ×2; 99199; J2003

== ENCOUNTER 2025-08-12 09:36 | Outpatient (CLI) | payer MEDICARE, BC, SELFPAY ==
[2025-08-12 09:54] LABS: Hematocrit 39.4 % (37.0-47.0); Hemoglobin 12.9 g/dL (12.0-15.0); Immature Granulocyte Percent A 0.4 % (0-0.5); Lymphocytes Absolute Auto 1.65 K/mm3 (0.9-3.2); Mean Corpuscular HGB Conc 32.7 g/dl (32-36); Mean Corpuscular Hemoglobin 27.5 pg (26-34); Mean Corpuscular Volume 84.0 fl (80-100); Nucleated Red Blood Cells Absolute Auto 0.000 K/mm3 (0.0-0.012); Nucleated Red Blood Cells Perc 0.0 % (0.0-0.2); Platelet Count Result 74 k/mm3 (150-375); Red Blood Count 4.69 M/mm3 (4.2-5.4); White Blood Count 5.0 K/mm3 (4.5-10.0)
[2025-08-12 10:38] LABS: Anion Gap 4 mmol/L (4-12); Blood Urea Nitrogen 11 mg/dL (7-17); Calcium 9.3 mg/dL (8.4-10.2); Carbon Dioxide 29 mmol/L (22-30); Chloride 104 mmol/L (98-107); Estimated Glomerular Filt Rate 55; Glucose 95 mg/dL (65-110); Potassium 4.0 mmol/L (3.4-5.0); Sodium 137 mmol/L (137-145)
== END 2025-08-12 09:37 | disposition home or self-care (01) ==
LOC: ANHLAB 09:38
PROVIDERS: Visit Provider Internal Medicine Hematology & Oncology
DX: D64.9 Anemia, unspecified (principal)
CPT/HCPCS: 36415; 80048; 83615; 85025